=== PATIENT | female | born 1985 | race Caucasian/White ===

== ENCOUNTER 2021-02-10 07:49 | Outpatient (REF) | payer OTHER, SELFPAY ==
--- NOTE | ~2021-02-10 | MR_ITS ---
EXAMINATION: MR LUMBAR SPINE WITHOUT AND WITH CONTRAST CLINICAL INFORMATION: Acute recurrent disc herniation status post discectomy. COMPARISON: Lumbar spine MRI obtained at an outside hospital 09/04/2020. TECHNIQUE: MRI of the lumbar spine was obtained using routine sequences without and with intravenous contrast. A total of 8 mL Gadavist was intravenously administered. FINDINGS: The lumbar vertebral bodies maintain normal heights and alignment. There is mild disc height loss at L3-L4 with subtle subchondral edema. There is also mild disc height loss at L4-L5 with more robust endplate edema which has progressed compared with 09/04/2020. A hemangioma is seen at the L3 level. The distal spinal cord appears normal. The conus medullaris terminates normally at the L1-L2 level. No abnormal cauda equina nerve root enhancement is seen. The visualized paraspinal muscles and intra-abdominal and pelvic contents are within normal limits. SPINAL LEVELS: L1-L2: No posterior disc abnormality. No spinal canal or neural foraminal stenosis. L2-L3: No posterior disc abnormality. No spinal canal or neural foraminal stenosis. L3-L4: Disc bulging with shallow central protrusion with annular fissuring. No spinal canal or neural foraminal stenosis. No interval change. L4-L5: Postoperative findings of posterior decompression. Disc bulging with progressive broad-based central/right subarticular protrusion causing compression of the traversing right more than left L5 nerve roots. Mild narrowing of the bilateral neural foramina without foraminal nerve root compression. L5-S1: Disc bulging with small central protrusion. No traversing nerve root compression. Mild facet arthropathy. No spinal canal stenosis. MR/MR lumbar spine wo/w con IMPRESSION: At L4-L5 there is progressive broad-based central/right subarticular protrusion resulting in compression of the traversing right more than left L5 nerve roots. Progressive endplate edema seen across this level. At L3-L4 there is stable appearance of shallow central protrusion without nerve root compression.
== END 2021-02-10 07:50 | disposition home or self-care (01) ==
LOC: HO.MRI 07:49
PROVIDERS: Visit Provider Psychiatry & Neurology Neurology
DX: M51.26 Other intervertebral disc displacement, lumbar region (principal)
CPT/HCPCS: 72158; A9585

== ENCOUNTER → 2022-03-21 07:23 | Outpatient (REF) | payer OTHER, SELFPAY ==
--- NOTE | 2022-03-21 07:28 | CA_ITS ---
Transthoracic Echocardiogram Patient (Last, First, Middle): Catherine Be, Gender: Female Date of : 1985 Age: 36 Procedure Date: 03/21/2022 Procedure Type: Transthoracic Echocardiogram Location: OP Height: 175.26 cm Weight: 77.57 kg BSA: 1.93 m2 Heart Rate: 73 bpm BP: 118 / 60 mmHg Referring MD: Isa Asher DO Symptoms: PALPITATIONS Study Quality: Good ECG Rhythm: Sinus Conclusions: - The left ventricular systolic function is normal. The calculated ejection fraction is 59% by biplane method. - No obvious valvular pathology seen on this study. Findings Left Ventricle Normal left ventricular cavity size. There is normal left ventricular wall thickness. The left ventricular systolic function is normal. The calculated ejection fraction is 59% by biplane method. There is no evidence of regional wall motion abnormalities. Diastolic function is normal for age. LV peak GLS -18.4%. Right Ventricle Normal right ventricular cavity size and systolic function. Atria Both atria are normal in size. Aortic Valve There is a normal trileaflet aortic valve. There is no aortic valve stenosis. There is no aortic valve regurgitation. Mitral Valve The mitral valve appears normal. There is trace mitral valve regurgitation. There is no mitral valve stenosis. Pulmonic Valve The pulmonic valve is likely normal. Tricuspid Valve Normal tricuspid valve structure. There is trace tricuspid valve regurgitation. The pulmonary artery systolic pressure is normal. Great Vessels The asc aorta and aortic arch are normal in size. Venous The inferior vena cava is normal in size and collapses greater than 50% with inspiration. Pericardium/Pleural There is no evidence of pericardial effusion. Prior Study Comparison No significant change compared to prior study dated: 01/08/2008. Recommendations, Care & Conclusions No obvious valvular pathology seen on this study. Measurements 2D Linear Measurements IVSd: 0.79 0.6-0.9/0.6-1.0 cm LVIDd: 5.20 3.9-5.3/4.2-5.9 cm LVIDd Index: 2.69 2.4-3.2/2.2-3.1 cm/m2 LVIDs: 3.31 2.0-3.6 cm LVPWd: 0.57 0.7-1.1 cm LA Diam: 3.60 2.7-3.8/3.0-4.0 cm LAIDs Index: 1.87 1.5-2.3 cm/m2 LV Mass: 148.03 67-162/88-224 g LV Mass Index: 76.70 43-95/49-115 g/m2 LVOT Diam: 2.10 3.0+(-)1.3 cm 2D Systolic Function EF 4C: 61.80 >55% EF 2C: 56.00 >55% EF BiP: 58.70 >55% Mitral Valve MV Pk E: 1.13 MV PK A: 0.40 MV Decel Time: 179.00 E/A: 2.80 E'Lateral: 12.80 E'Medial: 12.20 E/E' Med: 9.30 E/E' Lat: 8.80 PHT: 52.00 MVA PHT: 4.23 Decel Fannin: 6.33 Aortic Valve AoV Pk Rajesh: 1.16 AoV Mn Rajesh: 0.83 AoV VTI: 0.28 AoV Pk Grad: 5.00 Aov Mn Grad: 3.00 AGAPITO Cont.VTI: 3.14 LVOT LVOT Pk Rajesh: 1.04 LVOT Mn Rajesh: 0.74 LVOT VTI: 0.26 LVOT Pk Grad: 4.00 LVOT Mn Grad: 3.00 LVOT Diam: 2.10 LVOT Area: 3.46 Diastolic Function MV Pk E: 1.13 MV Pk A: 0.40 E/A: 2.80 E'Medial: 12.20 E/E' Med: 9.30 E' Laterial: 12.80 E/E' Lat: 8.80 Right Ventricle TAPSE (mm): 26.70 TVS' Rajesh: 16.20 Tricuspid Valve TR Pk Rajesh: 2.25 TR Pk Grad: 20.00 RA Press: 8.00 RVSP: 28.00 Great Vessels Aorta Sinus of Valsalva: 2.80 2.0-3.5 cm Ao Asc: 2.70 2.1-3.4 cm Ao Arch: 2.00 Ao Desc: 1.20 Pulmonary Veins Pulm Vein S/D 1.10 Pulmonary Valve PV Pk Rajesh: 0.81 Peak PV Grad: 3.00 Updated in Other Vendor System with Status of Final Stephane Hauser MD electronically signed on 03/23/2022 1:59:54 PM with status of Final
== END ==
LOC: HO.CARD 07:23
PROVIDERS: PCP Internal Medicine; Visit Provider Internal Medicine
DX: R00.2 Palpitations (principal)
CPT/HCPCS: 93306; 93356

== ENCOUNTER 2022-05-11 11:37 | Outpatient (REF) | payer OTHER, SELFPAY ==
--- NOTE | ~2022-05-11 | XR_ITS ---
EXAMINATION: XR KNEE, RIGHT CLINICAL INFORMATION: Pain. COMPARISON: None TECHNIQUE: AP, lateral, tunnel, and sunrise views of the right knee. FINDINGS: Bones and soft tissues are normal. No fracture or joint effusion. Alignment is anatomic. Joint spaces are well maintained. There is minimal peripheral osteophyte formation of the medial and patellofemoral joint space compartments. No abnormal soft tissue calcification. XR/XR knee RT 4V IMPRESSION: There is minimal osteoarthritic change of the right medial and patellofemoral joint space compartments. Otherwise, unremarkable examination. EXAMINATION: XR KNEE, LEFT CLINICAL INFORMATION: Pain. COMPARISON: None TECHNIQUE: AP, lateral, tunnel, and sunrise views of the left knee. FINDINGS: Bones and soft tissues are normal. No fracture or joint effusion. Alignment is anatomic. Joint spaces are well maintained. There is a minimal peripheral osteophyte at the upper articular surface of the patella. No abnormal soft tissue calcification. IMPRESSION: There is minimal osteoarthritic change of the left patellofemoral compartment. Otherwise, unremarkable left knee.
--- NOTE | ~2022-05-11 | XR_ITS ---
EXAMINATION: XR KNEE, RIGHT CLINICAL INFORMATION: Pain. COMPARISON: None TECHNIQUE: AP, lateral, tunnel, and sunrise views of the right knee. FINDINGS: Bones and soft tissues are normal. No fracture or joint effusion. Alignment is anatomic. Joint spaces are well maintained. There is minimal peripheral osteophyte formation of the medial and patellofemoral joint space compartments. No abnormal soft tissue calcification. XR/XR knee LT 4V IMPRESSION: There is minimal osteoarthritic change of the right medial and patellofemoral joint space compartments. Otherwise, unremarkable examination. EXAMINATION: XR KNEE, LEFT CLINICAL INFORMATION: Pain. COMPARISON: None TECHNIQUE: AP, lateral, tunnel, and sunrise views of the left knee. FINDINGS: Bones and soft tissues are normal. No fracture or joint effusion. Alignment is anatomic. Joint spaces are well maintained. There is a minimal peripheral osteophyte at the upper articular surface of the patella. No abnormal soft tissue calcification. IMPRESSION: There is minimal osteoarthritic change of the left patellofemoral compartment. Otherwise, unremarkable left knee.
== END 2022-05-11 11:38 | disposition home or self-care (01) ==
LOC: HO.XRAY 11:37
PROVIDERS: PCP Internal Medicine; Visit Provider Internal Medicine
DX: M25.562 Pain in left knee (principal); M25.561 Pain in right knee
CPT/HCPCS: 73564

== ENCOUNTER 2022-06-19 16:21 | Outpatient (REF) | payer OTHER, SELFPAY ==
--- NOTE | ~2022-06-19 | XR_ITS ---
EXAMINATION: XR CHEST CLINICAL INFORMATION: Asthma COMPARISON: None TECHNIQUE: 2 views of the chest were obtained. FINDINGS: The cardiac and mediastinal contours are normal. The lungs are clear. There is no pleural lesion or pneumothorax. There are degenerative changes of spine. XR/XR chest 2V IMPRESSION: No evidence for acute disease in the chest.
[2022-06-19 16:34] LABS: MANUAL DIFF FLAG NO
[2022-06-19 17:43] LABS: Basophils Percent Auto 0.3 % (0-2); Eosinophils Absolute Auto 0.1 X10*3/uL (0.0-0.4); Eosinophils Percent Auto 0.9 % (0-4); Hemoglobin 13.4 g/dl (12.0-16.0); Imm Gran Abs Auto 0.01 X10*3/uL (0.00-0.03); Imm Gran Pct Auto 0.1 % (0.0-0.4); Lymphocytes Absolute Auto 1.7 X10*3/uL (1.2-4.9); Lymphocytes Percent Auto 23.3 % (20-40); Mean Corpuscular HGB Conc 34.4 g/dl (31.0-35.0); Mean Corpuscular Hemoglobin 31.6 pg (27.0-33.0); Mean Platelet Volume 10.3 fL (9.4-12.3); Monocytes Absolute Auto 0.5 X10*3/uL (0.1-1.2); Neutrophils Absolute Auto 5.2 x10*3/uL (2.0-8.3); Neutrophils Percent Auto 69.4 % (45-73); Platelet Count 242 X10*3/uL (160-400); Red Blood Count 4.24 X10*6/uL (4.20-5.50); White Blood Count 7.5 X10*3/uL (4.8-10.8)
[2022-06-22 09:56] LABS: Immunoglobulin E 171 kU/L (<OR=114)
== END 2022-06-19 16:22 | disposition home or self-care (01) ==
LOC: HO.LAB 16:21
PROVIDERS: PCP Internal Medicine; Visit Provider Internal Medicine Pulmonary Disease
DX: J45.909 Unspecified asthma, uncomplicated (principal); Z91.09 Other allergy status, other than to drugs and biological substances
CPT/HCPCS: 36415; 71046; 82785; 85025; 86003

== ENCOUNTER 2022-06-30 07:40 | Outpatient (REF) | payer OTHER, SELFPAY ==
--- NOTE | 2022-06-30 11:30 | PFT_ITS ---
Forced vital capacity 105%, FEV1 113%, FEV1/FVC ratio is 88. DTQ54-71 151% and MVV 94%. Post bronchodilator therapy. There is no change. Total lung capacity 100%. Residual volume 93%. Diffusion capacity 83% CONCLUSION: Normal pulmonary function test, and there is no evidence of obstructive or restrictive pulmonary disorder. MD WINNIE Wilde/CECILL / [id number]
== END 2022-06-30 07:41 | disposition home or self-care (01) ==
LOC: HO.RESP 07:40
PROVIDERS: Visit Provider Internal Medicine Pulmonary Disease
DX: J45.909 Unspecified asthma, uncomplicated (principal)
CPT/HCPCS: 94060; 94727; 94729

== ENCOUNTER 2022-11-09 07:16 | Outpatient (REF) | payer OTHER, SELFPAY ==
--- NOTE | ~2022-11-09 | MR_ITS ---
EXAMINATION: MR KNEE WITHOUT CONTRAST, LEFT CLINICAL INFORMATION: Left knee pain COMPARISON: Radiographs 05/11/2022 TECHNIQUE: MRI of the knee without contrast was performed using routine sequences on a high-field scanner. FINDINGS: MENISCI: Medial Meniscus: Intact Lateral Meniscus: Intact LIGAMENTS: Cruciate: Intact Collateral: Intact EXTENSOR MECHANISM: Intact ARTICULAR CARTILAGE/BONE: Patellofemoral Compartment: Cartilage thinning and surface irregularity of the central and medial trochlea. Minimal irregularity of the medial and lateral patellar facet has. Medial Compartment: Cartilage thinning and surface irregularity along the lateral aspect of the weightbearing femoral condyle. Focal cartilage signal heterogeneity of the posterior nonweightbearing femoral condyle. Lateral Compartment: Mild cartilage thinning of the tibia posteriorly. Small marginal osteophytes. JOINT FLUID AND BURSAE: Small joint effusion. MR/MR knee LT wo con IMPRESSION: 1. No meniscal tear. 2. Mild tricompartmental osteoarthritis with a small joint effusion.
== END 2022-11-09 07:17 | disposition home or self-care (01) ==
LOC: HO.MRI 07:16
PROVIDERS: PCP Internal Medicine; Visit Provider Internal Medicine
DX: M25.562 Pain in left knee (principal)
CPT/HCPCS: 73721

== ENCOUNTER 2022-11-29 08:11 | Outpatient (REF) | payer OTHER, SELFPAY | END 2022-11-29 08:12 | disposition home or self-care (01) | LOC: HO.MDS 08:11 | PROVIDERS: PCP Internal Medicine; Visit Provider Internal Medicine Pulmonary Disease | DX: J45.50 Severe persistent asthma, uncomplicated (principal) | CPT/HCPCS: 96372 ==

== ENCOUNTER → 2022-12-19 14:16 | Outpatient (BNVA) | payer OTHER, SELFPAY | PROVIDERS: PCP Internal Medicine; Visit Provider Internal Medicine Pulmonary Disease | DX: Z13.89 Encounter for screening for other disorder (principal) ==

== ENCOUNTER 2022-12-27 15:29 | Outpatient (REF) | payer OTHER, SELFPAY | END 2022-12-27 15:30 | disposition home or self-care (01) | LOC: HO.MDS 15:29 | PROVIDERS: Visit Provider Internal Medicine Pulmonary Disease | DX: J45.50 Severe persistent asthma, uncomplicated (principal) | CPT/HCPCS: 96372; J2357 ==

== ENCOUNTER 2023-06-26 08:49 | Outpatient (AMB) | payer OTHER, SELFPAY ==
[2023-06-26 09:01] VITALS: BMI 26.3
--- NOTE | 2023-06-26 09:01 | A.OFFVIS_ITS ---
Intake Vital Signs 06/26/23 09:01 Height 5 ft 9 in Weight 178 lb BMI 26.3 Intake Visit Reasons: New Pt - B/L knee pain Intake Note: Catherine is a 38 year old female who presents today as a new patient for a evaluation for her bilateral knee pain. No hx of injury. Patient reports off and on pain for 2 years but always has discomfort. Hx of PT with no relief. Hx of Alive with mild relief. Pain is on the lateral aspect of the knee per patient. She states that her left knee is worse than her right knee. Allergies No Known Allergies Allergy (Verified 06/26/23 09:01) HPI New Pt - B/L knee pain HPI Details 38-year-old female who presents in the [facility] today, as a new patient, for an evaluation of right knee pain. The patient does not recall any injury. She reports intermittent pain for 2 years, in 2020, with chronic discomfort. She reports she was hiking a lot. She states she has not run in about 1.5 years due to edema and pain. She claims her pain is on the lateral aspect of the bilateral knees. She claims the pain started in the left knee with edema. She states her left knee is worse then the right knee. She states the knees are not bothering her while in the office today. She confirms left knee locking. Patient has a history of participating in physical therapy with no relief. She started working on her lower back. She then transitioned to her bilateral knees. Patient confirms use of Aleve with mild relief. 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 No ecchymosis, erythema, or joint effusion. No tenderness to palpation to the medial or lateral joint lines. Full knee extension and flexion. Crepitus felt with ROM. Negative Merlyn?s. Pain is located on the lateral aspect of the bilateral knees and occasionally at the quad tendon attachment. NVI. Assessment & Plan Assessment & Plan (1) Internal derangement of left knee: Code(s): M23.92 - Unspecified internal derangement of left knee (2) Internal derangement of right knee: Code(s): M23.91 - Unspecified internal derangement of right knee Plan Ms. Be is a 38-year-old female who presents in the office today, as a new patient, for an evaluation of right knee pain. The patient does not recall any injury. She reports intermittent pain for 2 years, in 2020, with chronic discomfort. She reports she was hiking a lot. She states she has not run in about 1.5 years due to edema and pain. She claims her pain is on the lateral aspect of the bilateral knees. She claims the pain started in the left knee with edema. She states her left knee is worse then the right knee. She states the knees are not bothering her while in the office today. She confirms left knee locking. Patient has a history of participating in physical therapy with no relief. She started working on her lower back. She then transitioned to her bilateral knees. Patient confirms use of Aleve with mild relief. I discussed the role of cortisone injections while in the office today. Since she states she does not currently have pain we have agreed to defer at this time. I discussed the role of knee bracing, she would like to defer at this time. I will place a referral for a left knee MRI to further evaluate the integrity of the knee. She will call the office after it is obtained. Follow up will be after the MRI is obtained, or sooner if needed. X-rays of the right knee obtained while in the office today and reviewed by me, Rachel Torres PA-C, revealed no evidence of acute fracture or dislocation, bilaterally. Mild degenerative changes. Orders: Orders XR knee RT 2V 06/26/23 M25.569 - Pain in unspecified knee XR knee standing BI 06/26/23 M25.569 - Pain in unspecified knee XR knee LT 2V 06/26/23 M25.569 - Pain in unspecified knee MR knee LT wo con 06/26/23 M23.92 - Unspecified internal derangement of left knee Patient Instructions: Scribed for Rachel Torres PA-C by Rosi Canseco medical liaison, on 06/26/2023 at 8:52 am, EST. Coding Level of Care Code New Pt Level 4 (64206) Diagnoses Internal derangement of left knee M23.92 Internal derangement of right knee M23.91
== END 2023-06-26 09:28 | disposition home or self-care (01) ==
PROVIDERS: PCP Internal Medicine; Visit Provider Physician Assistant
DX: M23.92 Unspecified internal derangement of left knee (principal); M23.91 Unspecified internal derangement of right knee
CPT/HCPCS: 99204

== ENCOUNTER 2023-06-26 08:56 | Outpatient (REF) | payer OTHER, SELFPAY ==
--- NOTE | ~2023-06-26 | XR_ITS ---
EXAMINATION: XR knee RT 2V, XR knee standing BI, XR knee LT 2V CLINICAL INFORMATION: Female of 38 years with bilateral knee pain COMPARISON: Most recent bilateral knees radiograph: 11/09/2022 and MRI of left knee, radiographs from bilateral knees from 05/11/2022 TECHNIQUE: Bilateral weightbearing and sunrise and lateral views bilaterally. FINDINGS: LEFT KNEE: Bones and soft tissues are normal. No fracture or joint effusion. Alignment is anatomic. Joint spaces are well maintained. No abnormal soft tissue calcification. The medial, lateral and patellofemoral compartments are preserved. No evidence of osteophytosis. No evidence of erosive changes. No suprapatellar joint effusion. No evidence of chondrocalcinosis or abnormal calcifications. No intra-articular foreign body. RIGHT KNEE: Bones and soft tissues are normal. No fracture or joint effusion. Alignment is anatomic. Joint spaces are well maintained. No abnormal soft tissue calcification. The medial, lateral and patellofemoral compartments are preserved. No evidence of osteophytosis. No evidence of erosive changes. No suprapatellar joint effusion. No evidence of chondrocalcinosis or abnormal calcifications. No intra-articular foreign body. XR/XR knee RT 2V IMPRESSION: Normal left knee. Normal right knee.
--- NOTE | ~2023-06-26 | XR_ITS ---
EXAMINATION: XR knee RT 2V, XR knee standing BI, XR knee LT 2V CLINICAL INFORMATION: Female of 38 years with bilateral knee pain COMPARISON: Most recent bilateral knees radiograph: 11/09/2022 and MRI of left knee, radiographs from bilateral knees from 05/11/2022 TECHNIQUE: Bilateral weightbearing and sunrise and lateral views bilaterally. FINDINGS: LEFT KNEE: Bones and soft tissues are normal. No fracture or joint effusion. Alignment is anatomic. Joint spaces are well maintained. No abnormal soft tissue calcification. The medial, lateral and patellofemoral compartments are preserved. No evidence of osteophytosis. No evidence of erosive changes. No suprapatellar joint effusion. No evidence of chondrocalcinosis or abnormal calcifications. No intra-articular foreign body. RIGHT KNEE: Bones and soft tissues are normal. No fracture or joint effusion. Alignment is anatomic. Joint spaces are well maintained. No abnormal soft tissue calcification. The medial, lateral and patellofemoral compartments are preserved. No evidence of osteophytosis. No evidence of erosive changes. No suprapatellar joint effusion. No evidence of chondrocalcinosis or abnormal calcifications. No intra-articular foreign body. XR/XR knee standing BI IMPRESSION: Normal left knee. Normal right knee.
--- NOTE | ~2023-06-26 | XR_ITS ---
EXAMINATION: XR knee RT 2V, XR knee standing BI, XR knee LT 2V CLINICAL INFORMATION: Female of 38 years with bilateral knee pain COMPARISON: Most recent bilateral knees radiograph: 11/09/2022 and MRI of left knee, radiographs from bilateral knees from 05/11/2022 TECHNIQUE: Bilateral weightbearing and sunrise and lateral views bilaterally. FINDINGS: LEFT KNEE: Bones and soft tissues are normal. No fracture or joint effusion. Alignment is anatomic. Joint spaces are well maintained. No abnormal soft tissue calcification. The medial, lateral and patellofemoral compartments are preserved. No evidence of osteophytosis. No evidence of erosive changes. No suprapatellar joint effusion. No evidence of chondrocalcinosis or abnormal calcifications. No intra-articular foreign body. RIGHT KNEE: Bones and soft tissues are normal. No fracture or joint effusion. Alignment is anatomic. Joint spaces are well maintained. No abnormal soft tissue calcification. The medial, lateral and patellofemoral compartments are preserved. No evidence of osteophytosis. No evidence of erosive changes. No suprapatellar joint effusion. No evidence of chondrocalcinosis or abnormal calcifications. No intra-articular foreign body. XR/XR knee LT 2V IMPRESSION: Normal left knee. Normal right knee.
== END 2023-06-26 08:57 | disposition home or self-care (01) ==
LOC: HO.HOSX 08:56
PROVIDERS: Visit Provider Physician Assistant
DX: M23.92 Unspecified internal derangement of left knee (principal); M23.91 Unspecified internal derangement of right knee; M25.562 Pain in left knee; M25.561 Pain in right knee
CPT/HCPCS: 73560; 73565

== ENCOUNTER 2023-07-07 11:09 | Outpatient (REF) | payer OTHER, SELFPAY ==
--- NOTE | ~2023-07-07 | MR_ITS ---
EXAMINATION: MR KNEE WITHOUT CONTRAST, LEFT CLINICAL INFORMATION: Unspecified internal derangement of left knee. Patient reports pain, swelling. COMPARISON: MRI left knee 11/09/2022. X-ray 06/26/2023. TECHNIQUE: MRI of the knee without contrast was performed using routine sequences on a high-field scanner. FINDINGS: MENISCI: Medial Meniscus: No evidence of meniscal tear. Lateral Meniscus: In the posterior root and central posterior horn, is intrasubstance degenerative signal with minimal ill-definition/irregularity of the tibial and femoral articular surfaces and free edge, suggestive of minimal fraying. Artifactual signal on the prior MRI limits comparison. No definitive tear is otherwise seen in the lateral meniscus. LIGAMENTS: Cruciate: ACL and PCL is intact. Collateral: MCL and LCL complex is intact. EXTENSOR MECHANISM: Intact. ARTICULAR CARTILAGE/BONE: Patellofemoral Compartment: Cartilage thinning and surface irregularity of the central and medial trochlea, relatively similar to previous. Mild cartilage irregularity of the medial and central patella, slightly more prominent as compared to previous. Previously seen lateral patellar facet cartilage irregularity is not clearly visualized on today's study. Medial Compartment: Cartilage thinning and surface irregularity in the lateral aspect of the medial femoral condyle, relatively similar to previous. Lateral Compartment: Minimal cartilage thinning in the posterior weightbearing tibia. No evidence of acute fracture. No aggressive marrow-replacing lesion is seen. JOINT FLUID AND BURSAE: Small joint effusion. No significant Ellison's cyst. Mild heterogeneity of the proximal medial gastrocnemius tendon may reflect mild tendinosis. The semimembranosus tendon, pes anserine tendons appear unremarkable. MR/MR knee LT wo con IMPRESSION: 1. Minimal degenerative fraying of the posterior root/central posterior horn of the lateral meniscus. No definitive meniscal tear is otherwise seen. 2. Intact cruciate and collateral ligaments. 3. Mild tricompartment osteoarthritis, relatively similar as compared to previous. 4. Small effusion. 5. Question mild proximal medial gastrocnemius tendinosis, clinically correlate.
== END 2023-07-07 11:10 | disposition home or self-care (01) ==
LOC: HO.MRI 11:09
PROVIDERS: PCP Internal Medicine; Visit Provider Physician Assistant
DX: M23.92 Unspecified internal derangement of left knee (principal)
CPT/HCPCS: 73721

== ENCOUNTER 2023-07-25 07:25 | Outpatient (REF) | payer OTHER, SELFPAY ==
[2023-07-25 07:39] LABS: MANUAL DIFF FLAG NO
[2023-07-25 08:16] LABS: Basophils Percent Auto 0.5 % (0-2); Eosinophils Absolute Auto 0.2 X10*3/uL (0.0-0.4); Eosinophils Percent Auto 3.3 % (0-4); Hematocrit 38.2 % (37.0-47.0); Hemoglobin 13.3 g/dl (12.0-16.0); Imm Gran Abs Auto 0.01 X10*3/uL (0.00-0.03); Imm Gran Pct Auto 0.2 % (0.0-0.4); Lymphocytes Absolute Auto 2.3 X10*3/uL (1.2-4.9); Mean Corpuscular HGB Conc 34.8 g/dl (31.0-35.0); Mean Corpuscular Hemoglobin 31.7 pg (27.0-33.0); Mean Platelet Volume 10.1 fL (9.4-12.3); Monocytes Absolute Auto 0.4 X10*3/uL (0.1-1.2); Monocytes Percent Auto 6.3 % (2-11); Neutrophils Absolute Auto 3.4 x10*3/uL (2.0-8.3); Neutrophils Percent Auto 53.7 % (45-73); Platelet Count 234 X10*3/uL (160-400); Red Cell Distribution Width 12.7 % (11.0-16.0); White Blood Count 6.3 X10*3/uL (4.8-10.8)
[2023-07-25 08:21] LABS: Appearance Urine Cloudy; Color Urine Yellow; Glucose Urine UA Negative (Negative); Leukocyte Esterase Urine Negative (Negative); Nitrite Urine Negative (Negative); PH 5.5 (5.0-9.0); Specific Gravity - Urine 1.025 (1.005-1.025); Urine Blood Negative (Negative); Urine Ketones Negative (Negative); Urine Protein Negative (Neg-Trace)
[2023-07-25 09:01] LABS: Alanine Aminotransferase 14 U/L (0-31); Albumin Level 4.3 g/dL (3.5-5.0); Alkaline Phosphatase 57 U/L (39-117); Anion Gap 11 (12-20); Aspartate Amino Transferase 21 U/L (5-31); Bilirubin Direct 0.2 mg/dL (0.0-0.5); Bilirubin Total 0.8 mg/dL (0.0-1.0); Blood Urea Nitrogen 16 mg/dL (9-16); Calcium 9.6 mg/dL (8.4-10.2); Carbon Dioxide 24 mmol/L (22-29); Chloride 109 mmol/L (96-108); Cholesterol 180 mg/dL (<200); Estimated Glomerular Filt Rate > 60; Glucose Random 89 mg/dL (60-115); HDL Cholesterol 47 mg/dL (>40); LDL Cholesterol Calculated 105 mg/dL (<100); Potassium 3.8 mmol/L (3.3-5.1); Sodium 140 mmol/L (135-145); Total Protein 7.1 g/dL (6.5-8.0); Triglycerides 143 mg/dL (<150)
[2023-07-25 09:08] LABS: Thyroid Stimulating Hormone 4.08 uIU/mL (0.32-4.0); Vitamin D 25-OH Total 31.4 ng/mL (>30)
== END 2023-07-25 07:26 | disposition home or self-care (01) ==
LOC: HO.LAB 07:25
PROVIDERS: PCP Internal Medicine; Visit Provider Internal Medicine
DX: Z00.00 Encounter for general adult medical examination without abnormal findings (principal); Z86.39 Personal history of other endocrine, nutritional and metabolic disease
CPT/HCPCS: 36415; 80048; 80061; 80076; 81003; 82306; 84443; 85025

== ENCOUNTER 2023-07-27 11:38 | Outpatient (AMB) | payer OTHER, SELFPAY ==
--- NOTE | 2023-07-27 11:32 | A.OFFVIS_ITS ---
Intake Intake Visit Reasons: Tele - MRI review, left knee Intake Note: Catherine is a 38 year old female who presents today on the phone for a telehealth visit for a MRI review for her left knee. Allergies No Known Allergies Allergy (Verified 07/27/23 11:42) HPI Tele - MRI review, left knee HPI Details 38-year-old female who presents for a te lehealth visit today for a follow up of left knee pain and review of her MRI. She states the pain does not radiate and remains in the knee. Patient has a history of prior back surgeries. L4 L5 laminectomy in 2019. L3 S1 fusion in 2020 L4 L[address] Abbott at [facility]. Patient is currently followed by a Neurosurgeon, Dr. Abbott. 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 Assessment & Plan Assessment & Plan (1) Lumbar radiculopathy: Code(s): M54.16 - Radiculopathy, lumbar region Plan Ms. Be is a 38-year-old female who presents for a telehealth visit today for a follow up of left knee pain and review of her MRI. She states the pain does not radiate and remains in the knee. Patient has a history of prior back surgeries. L4 L5 laminectomy in 2019. L3 S1 fusion in 2020 L4 L5 [address] Abbott at [facility]. Patient is currently followed by a Neurosurgeon, Dr. Abbott. I discussed the possibility of the pain coming from the spine. The patient will follow up with her neurosurgeon for further evaluation of her lumbar spine. In the event everything is normal with the spine pathology, she will contact the office and let me know so we can continue to pursue why she is having the knee pain. Follow up will be PRN, or sooner If needed. MRI of the left knee, obtained on 07/07/2023, revealed: 1. Minimal degenerative fraying of the posterior root/central posterior horn of the lateral meniscus. No definitive meniscal tear is otherwise seen. 2. Intact cruciate and collateral ligaments. 3. Mild tricompartment osteoarthritis, relatively similar as compared to previous. 4. Small effusion. 5. Question mild proximal medial gastrocnemius tendinosis, clinically correlate. Patient Instructions: Scribed for Rachel Torres PA-C by Rosi Canseco medical receptionist, on 07/27/2023 at 11:33 am, EST. Telehealth Telehealth Location of provider rendering services: practice address Location of patient: address on file Patient Identification confirmed using: Name, : Yes Telehealth method: voice only Patient verbally consented to treatment: Yes Patient verbally consented to billing insurance company: Yes Patient informed of any privacy concerns related to visit: Yes Minutes spent on Phone/Video with Pt.: 8 Coding Level of Care Code Tele Est Pt Level 3 (48085) Diagnoses Lumbar radiculopathy M54.16
== END 2023-07-27 12:23 | disposition home or self-care (01) ==
PROVIDERS: PCP Internal Medicine; Visit Provider Physician Assistant
DX: M54.16 Radiculopathy, lumbar region (principal)
CPT/HCPCS: 99441

== ENCOUNTER → 2023-07-27 11:39 | Outpatient (BNVA) | payer OTHER, SELFPAY | PROVIDERS: PCP Internal Medicine; Visit Provider Physician Assistant ==

== ENCOUNTER 2023-08-21 14:15 | Outpatient (REF) | payer OTHER, SELFPAY ==
[2023-08-21 14:51] LABS: Appearance Urine Clear; Color Urine Yellow; Glucose Urine UA 250 mg/dL (Negative); Leukocyte Esterase Urine Trace (Negative); Nitrite Urine Negative (Negative); PH 6.5 (5.0-9.0); Specific Gravity - Urine 1.025 (1.005-1.025); UMIC TRIGGER UACC YES; Urine Blood Negative (Negative); Urine Ketones Trace mg/dL (Negative); Urine Protein Negative (Neg-Trace)
[2023-08-21 14:54] LABS: Bacteria Urine None Seen (None Seen); Hyaline Casts Urine 0-2 /LPF (0-2); RBC Urine 0-2 /HPF (0-2); Squamous Epithelial Cell Urine 0-2 /HPF (0-2); UACC Culture Trigger YES
== END 2023-08-21 14:16 | disposition home or self-care (01) ==
LOC: HO.LAB 14:15
PROVIDERS: Visit Provider Physician Assistant
DX: R39.89 Other symptoms and signs involving the genitourinary system (principal)
CPT/HCPCS: 81001; 87086; 87088; 87186

== ENCOUNTER 2023-10-18 07:21 | Outpatient (REF) | payer OTHER, SELFPAY ==
[2023-10-18 08:15] LABS: Appearance Urine Cloudy; Color Urine Yellow; Glucose Urine UA 100 mg/dL (Negative); Leukocyte Esterase Urine Negative (Negative); Nitrite Urine Negative (Negative); PH 5.5 (5.0-9.0); Specific Gravity - Urine 1.025 (1.005-1.025); Urine Blood Negative (Negative); Urine Ketones Negative (Negative); Urine Protein Negative (Neg-Trace)
[2023-10-18 08:32] LABS: Bacteria Urine 3+ (None Seen); Hyaline Casts Urine 0-2 /LPF (0-2); RBC Urine 0-2 /HPF (0-2); WBC Urine 0-5 /HPF (0-5)
== END 2023-10-18 07:22 | disposition home or self-care (01) ==
LOC: HO.LAB 07:21
PROVIDERS: PCP Nurse Practitioner; Visit Provider Nurse Practitioner
DX: R82.90 Unspecified abnormal findings in urine (principal)
CPT/HCPCS: 81001

== ENCOUNTER 2023-11-07 07:09 | Outpatient (REF) | payer OTHER, SELFPAY ==
[2023-11-07 08:34] LABS: Anion Gap 9 (12-20); Blood Urea Nitrogen 16 mg/dL (9-16); Calcium 9.1 mg/dL (8.4-10.2); Carbon Dioxide 25 mmol/L (22-29); Chloride 109 mmol/L (96-108); Estimated Glomerular Filt Rate > 60; Glucose Random 98 mg/dL (60-115); Potassium 4.4 mmol/L (3.3-5.1); Sodium 139 mmol/L (135-145)
== END 2023-11-07 07:10 | disposition home or self-care (01) ==
LOC: HO.LAB 07:09
PROVIDERS: PCP Internal Medicine; Visit Provider Nurse Practitioner
DX: R81 Glycosuria (principal)
CPT/HCPCS: 36415; 80048

== ENCOUNTER 2024-05-01 13:43 | Outpatient (AMB) | payer OTHER, SELFPAY ==
--- NOTE | 2024-05-01 13:50 | MHC.OFFVIS ---
Intake Visit Reasons: OV - B/L knee pain Intake Note: Catherine is a 38 year old female who presents today for a follow up of her bilateral knee pain. Patient reports that her pain has been getting worse. She mentions that she hears a click sound when she is walking. She mentions that she is having trouble with using the stairs. Patient is noticing that her pain is getting worse. Allergies No Known Allergies Allergy (Verified 07/27/23 11:42) HPI HPI OV - B/L knee pain : Details: 38-year-old female who presents in the office today for a follow-up of bilateral knee pain. I last saw the patient in the office for an MRI review of the left knee on 07/27/23 when we agreed she would follow up with her neurosurgeon. ? ? While in the office today, the patient reports her bilateral knee is getting worse. She reports hearing clicking when ambulating. She also reports trouble when using stairs. ? 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 Review of Systems Const All systems reviewed & are unremarkable except as noted in HPI and below Physical Exam Const General: cooperative, healthy appearing and no acute distress Resp Effort & Inspection: normal respiratory effort and able to speak in complete sentences Cardio Rate: regular rate Peripheral pulses: Peripheral pulses 2+ throughout GI Palpation (GI): Soft to palpation Skin Lesions: no lesions Rashes: no rashes Assessment & Plan Assessment & Plan (1) Osteoarthritis of right knee: Code(s): M17.11 - Unilateral primary osteoarthritis, right knee Category: Medical (2) Osteoarthritis of left knee: Code(s): M17.12 - Unilateral primary osteoarthritis, left knee Category: Medical Plan Ms. Be is a 38-year-old female who presents in the office today for a follow-up of bilateral knee pain. I last saw the patient in the office for an MRI review of the left knee on 07/27/23 when we agreed she would follow up with her neurosurgeon.? While in the office today, the patient reports her bilateral knee is getting worse. She reports hearing clicking when ambulating. She also reports trouble when using stairs.?? ? We discussed the role of cortisone injections; however, she would like to defer this at this time as her symptoms are not painful. She expressed a concern about feeling crepitus with her ROM. No additional orthopedic intervention is needed at this time. Follow-up will be PRN, or sooner if needed. ? Patient Instructions: Scribed by Rosi Canseco medical equipment repairer, for Rachel Torres PA-C on 05/01/2024 at 2:01 pm, EST.? Coding Level of Care Code Est Pt Level 3 (89720) Diagnoses Osteoarthritis of right knee M17.11 Osteoarthritis of left knee M17.12
== END 2024-05-01 14:26 | disposition home or self-care (01) ==
PROVIDERS: PCP Internal Medicine; Visit Provider Physician Assistant
DX: M17.0 Bilateral primary osteoarthritis of knee (principal)
CPT/HCPCS: 99213

== ENCOUNTER → 2024-05-01 13:43 | Outpatient (BNVA) | payer OTHER, SELFPAY | PROVIDERS: PCP Internal Medicine; Visit Provider Physician Assistant ==

== ENCOUNTER 2024-07-10 07:35 | Outpatient (REF) | payer OTHER, SELFPAY ==
[2024-07-10 08:02] LABS: Hematocrit 40.6 % (37.0-47.0); Hemoglobin 14.5 g/dl (12.0-16.0); Mean Corpuscular HGB Conc 35.7 g/dl (31.0-35.0); Mean Corpuscular Volume 89.6 fL (80.0-98.0); Mean Platelet Volume 9.9 fL (9.4-12.3); Platelet Count 198 X10*3/uL (160-400); Red Blood Count 4.53 X10*6/uL (4.20-5.50); Red Cell Distribution Width 12.4 % (11.0-16.0); White Blood Count 5.9 X10*3/uL (4.8-10.8)
[2024-07-10 08:10] LABS: Appearance Urine Clear; Color Urine Yellow; Glucose Urine UA Negative (Negative); Leukocyte Esterase Urine Negative (Negative); Nitrite Urine Negative (Negative); PH 5.5 (5.0-9.0); Specific Gravity - Urine 1.015 (1.005-1.025); Urine Blood Negative (Negative); Urine Ketones Negative (Negative); Urine Protein Negative (Neg-Trace)
[2024-07-10 08:53] LABS: Alanine Aminotransferase 17 U/L (0-31); Albumin Level 4.6 g/dL (3.5-5.0); Alkaline Phosphatase 56 U/L (39-117); Anion Gap 11 (12-20); Aspartate Amino Transferase 21 U/L (5-31); Bilirubin Direct 0.3 mg/dL (0.0-0.5); Bilirubin Total 0.8 mg/dL (0.0-1.0); Blood Urea Nitrogen 12 mg/dL (9-16); Calcium 9.8 mg/dL (8.4-10.2); Carbon Dioxide 25 mmol/L (22-29); Chloride 105 mmol/L (96-108); Cholesterol 170 mg/dL (<200); Estimated Glomerular Filt Rate > 60; Glucose Random 104 mg/dL (60-115); HDL Cholesterol 47 mg/dL (>40); LDL Cholesterol Calculated 110 mg/dL (<100); Potassium 4.6 mmol/L (3.3-5.1); Sodium 136 mmol/L (135-145); Total Protein 7.5 g/dL (6.5-8.0); Triglycerides 68 mg/dL (<150)
[2024-07-10 09:09] LABS: Thyroid Stimulating Hormone 4.23 uIU/mL (0.32-4.0)
== END 2024-07-10 07:36 | disposition home or self-care (01) ==
LOC: HO.LAB 07:35
PROVIDERS: PCP Internal Medicine; Visit Provider Internal Medicine
DX: Z00.00 Encounter for general adult medical examination without abnormal findings (principal)
CPT/HCPCS: 36415; 80048; 80061; 80076; 81003; 84443; 85027

== ENCOUNTER 2024-10-25 15:25 | Emergency (ER) | payer OTHER, SELFPAY ==
[2024-10-25 15:43] VITALS: BP 141/75; PULSE 86; RESP 19; TEMP 36.6; O2SAT 98; BMI 26.0
--- NOTE | 2024-10-25 15:43 | ED.WOUNDLAC ---
HPI - Wound/Laceration General Chief Complaint: Wound/Laceration Stated Complaint: left thumb laceration Time Seen by Provider: 10/25/24 16:00 Source: patient and old records reviewed Mode of arrival: ambulatory Limitations: no limitations History of Present Illness ED Provider: Yadira Sousa PA-C HPI narrative: 39 yo F w/PMHx asthma presenting to the ED c/o laceration to left thumb s/p using knife at home [employer]. Tetanus unknown. Admits to assoc parathesias/tingling. denies injury to other area. Right hand dominant Related Data Home Medications ?Medication ?Instructions ?Recorded ?Confirmed erenumab-aooe 140 mg/mL mg subcut Q3W 06/13/22 subcutaneous auto-injector (Aimovig Autoinjector) fluticasone propionate 50 2 spray intranasal DAILY 06/13/22 mcg/actuation nasal spray,suspension norethindrone (contraceptive) 0.35 0.35 mg PO DAILY 06/13/22 mg tablet (Incassia) trazodone 50 mg tablet 50 mg PO BEDTIME PRN 06/13/22 Previous Rx's ?Medication ?Instructions ?Recorded albuterol sulfate 90 mcg/actuation 2 puff inhalation Q4-6H PRN 12/19/22 aerosol inhaler shortness of breath or wheezing 30 days #1 ea Breo Ellipta 200 mcg-25 mcg/dose 1 ea PO DAILY #60 ea 01/04/23 powder for inhalation (fluticasone furoate-vilanterol) Allergies Allergy/AdvReac Type Severity Reaction Status Date / Time No Known Allergies Allergy Verified 10/25/24 15:44 Review of Systems Review of Systems: Yes all other systems are reviewed and are negative Constitutional: Constitutional: Reports as per HPI [facility] Past Medical History Attestation statement: The following information was validated with the patient. 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 Physical Exam Vital Signs: Vital Signs: Last Vital Signs Temp 98 F 10/25/24 15:43 Pulse 86 10/25/24 15:43 Resp 19 10/25/24 15:43 BP 141/75 H 10/25/24 15:43 Pulse Ox 98 10/25/24 15:43 O2 Del Method Room Air 10/25/24 15:43 BMI result Body Mass Index 26.0 Const: General: cooperative, healthy appearing and no acute distress Orientation/consciousness: patient oriented x3 Limitations: no limitations HEENT: Head: Yes normal to inspection and Yes atraumatic Ears: hearing grossly normal bilaterally General nose exam: Normal external nose present Face and sinus: Yes normal facial exam Eyes: General: appearance normal, both eyes and all related structures EOM: EOMs intact bilaterally Neck: Neck: Yes normal visual inspection and Yes no meningeal signs Resp: Effort & Inspection: normal respiratory effort and no respiratory distress Cardio: Rate: regular rate Skin: Other: 1 cm superficial laceration noted to left 1st digit DIP. Underlying structures appear intact. Full range of motion intact. Lzynoj-yi-ctyxg opposition intact Rashes: no rashes Neuro: General: patient oriented x3, tone normal and no meningeal signs Cranial nerves: Yes CN's II-XII intact bilaterally Gait exam (Neuro): Normal gait present Extrem: General: Yes normal to inspection Course Course Course Narrative: 39 yo female with PMH of arthritis, asthma here with c/o L thumb laceration via knife at home reports on the dorsum thumb knuckle went down to the bone. Tdap ordered, possible sutures this is a RAPID medical screening exam the rest of the history and physical exam is to be done by the main provider. Medications Administered Discontinued Medications Generic Name Dose Route Start Last Admin Trade Name Freq PRN Reason Stop Dose Admin Diphtheria/Tetanus/Acell Pertussis 0.5 ml 10/25/24 15:44 10/25/24 15:53 Diphth,Pertus(Acell),Tet Adult 0.5 Ml Syringe IM 10/25/24 15:45 0.5 ml .ONCE ONE Administration Lidocaine HCl 5 ml 10/25/24 15:44 10/25/24 15:53 Lidocaine Hcl 1 % Mpf 5 Ml Vial SUBCUT 10/25/24 15:45 5 ml ONCE ONE Administration Medical Decision Making Medical Decision Making MDM Narrative: 39 yo F w/PMHx asthma presenting to the ED c/o laceration to left thumb s/p using knife at home [employer]. On exam vital signs stable, NAD, nontoxic appearing, physical exam as noted above. Laceration requiring suture repair. Low suspicion for deeper injury including tendon/ligamental rupture or fracture Plan: Suture repair, tetanus update Please refer to course for remaining clinical decision making, interpretation of labs/imaging results, and discussions with consultants and/or family members. Results discussed with patient including worrisome signs and symptoms and strict return precautions, and when to return to the emergency department. They verbalized understanding and feel safe for discharge at this time. Differential Diagnosis Differential Diagnoses: The differential diagnosis associated with the presentation includes As above External Record Review External record reviewed: Inpatient record, Office record, Outpatient record, Prior outpatient labs, Prior outpatient radiology, Primary care record and Outside ED record Tests considered The following testing was considered but not selected: As above Prescription Management I considered prescription management with: Other Chronic Conditions Patient?s care impacted by: Other Procedures Laceration Laceration 1: Site: hand Side (If applicable): left Size (cm): 1 Description: linear Depth: simple, single layer Local Anesthetic: lidocaine 1% Amount of anesthesia used (mL): 3 Pre-repair: wound explored, irrigated extensively and deep structures intact Skin layer closed with: nylon Size (cm): 4-0 Number of sutures: 2 Technique: simple, interrupted Discharge Plan Discharge Clinical Impression: Laceration Patient Disposition: Home, Self-Care Instructions: Laceration (DC) Additional Instructions: Your wounds were repaired today in the emergency department. Keep dry and clean. You need to return to any emergency department, urgent care, or your PCPs office in 7-10 days for suture removal Apply bacitracin and or Neosporin daily Once sutures are removed apply anti scar cream like Mederma If area begins look infected, is red, there is drainage, streaking, or you have fever please return to the emergency department Prescriptions: No Action fluticasone furoate-vilanterol [Breo Ellipta] 200-25 mcg/dose blister with device 1 ea PO DAILY Qty: 60 6RF fluticasone propionate 50 mcg/actuation spray,suspension 2 spray intranasal DAILY trazodone 50 mg tablet 50 mg PO BEDTIME PRN Aimovig Autoinjector 140 mg/mL auto-injector subcut Q3W norethindrone (contraceptive) [Incassia] 0.35 mg tablet 0.35 mg PO DAILY albuterol sulfate 90 mcg/actuation HFA aerosol inhaler 2 puff inhalation Q4-6H PRN (Reason: shortness of breath or wheezing) 30 Days Qty: 1 6RF Referrals: ED Physician,Kamlesh [Emergency Provider] - 1 week Isa Flores DO [Primary Care Provider] - 1 week Print Language: Frisian
[2024-10-25] MEDS: Diphth,Pertus(ACell),Tet Adult 0.5 ML SYRINGE IM (15:53)
[2024-10-25] MEDS: Lidocaine HCl 1 % MPF 5 ML VIAL SUBCUT (15:53)
--- OUTSIDE RECORDS SUMMARY | 2024-10-25 16:13 | XMS_ITS | Encounter Summary ---
Author Organization [facility] Address [address] [place] [address] Care Team Providers Care Work Order Detailer Name Role Phone Brennan Cagle MD Primary Care Provider [phone] Eulalia Angel HEAVY EQUIPMENT SALES ASSOCIATE Unavailable [phone] Eulalia Angle NP Primary Care Provider [phone] Erin Yancey MD Primary Care Provider Unavailabl e Eulalia Angel HEAVY EQUIPMENT SALES ASSOCIATE Unavailable [phone] Eulalia Angel NP Primary Care Provider Valentino Seals MD Primary Care Provider [phone] Encounter Details Date Type Department Care Team (Late st Contact Info) Description 02/25/2019 Orders Only [facility] [address] [place] [address] Eulalia Angel NP [address] [facility] [address] [place] [address] Social History Tobacco Use Types Packs/Day Years Used Date Smoking Tobacco: Every Day Cigarettes Smokeless Tobacco: Current Comments No Sex and Gender Information Value Date Recorded Sex Assigned at Not on file Legal Sex Female 2:47 PM EDT Gender Identity Not on file Sexual Orientation Not on file documented as of this encounter Progress Notes * Eulalia Angel NP - 02/26/2019 8:04 AM EDT Mildly abnormal antibodies- will recheck in 3 months. * Eulalia Angel NP - 02/26/2019 7:36 AM EDT I am awaiting final thyroid labs but so far all is normal. As far as cholesterol your triglyceridesar mildly elevated and your LDL( bad cholesterol) is slightly elevated as well. I have enclosed some information for your review. Fats in the Diet, Good and Bad: Recommendations for a Healthy Diet Are all fats bad? Not all fat is bad. You need to have some fat in your diet for good health because: Fat provides calories, which give you energy. Fat is used by your body to make hormonelike substances that control blood pressure and other heartfunctions. Fat helps the body absorb some nutrients, such as vitamins A, D, E, and K. Certain antioxidants arealso absorbed much better if fat is present. (Antioxidants help keep the body's cells healthy.) Some fats found in plant oils and fish can help prevent chronic disease. In addition, fats and oils add flavor, aroma, and texture to food, helping the food taste good. Most fats are found in meat, poultry, fish, dairy products, plant oils, and packaged convenience and snack foods. One problem with all fats (even the healthy fats) is that they are very high in calories. Fats have9 calories per gram of fat while carbohydrates or protein have 4 calories per gram. Eating more calories than your body can use causes weight gain. Weight gain increases your risk for developing health problems. These health problems include high blood pressure, high cholesterol, type 2 diabetes, heart disease, stroke, cancer, gallstones, and gout. Which fats are the bad fats? Saturated and trans fats are the more harmful fats. You should not get more than 10% of your total daily calories from saturated fat. Limiting the saturated fat to 7% of your total calories can loweryour risk for heart disease even more. You should eat as little trans fat as possible. Saturated fats are mainly in animal products such as meats; poultry (mostly in dark meat and skin);lard, and whole and low-fat dairy products, including milk, cheese, ice cream, butter, and sour cream. Eating too much saturated fat can raise your cholesterol level and increase your risk of heart disease. Meals high in saturated fat can also cause sudden increases in triglycerides and other bloodfats. This, in turn, decreases blood flow through the arteries and heart. Trans fats can be found naturally in some animal products, but most of the trans fats in our diet are made with a process called hydrogenation. It is done to keep fat from going rancid and to change the form of the fat from a liquid to a solid. Hydrogenated fats are used in stick margarine, some soft margarines, shortening, packaged convenience foods, and many commercially baked or fried foods and fast foods such as cakes, cookies, chips, popcorn, Brazilian fries, and ice cream. Hydrogenated fats (trans fats) may be even more dangerous for the heart than saturated fat and may increase the risk of some cancers. Food manufacturers must list the amount of trans fat and saturated fat on the Nutriti on Facts label of packaged foods. Tropical oils (palm, coconut, and cocoa butter) are also high in saturated fat, but it is not knownif these fats have the same harmful effect on the heart as the saturated fat in animal products. Some tropical oils are less saturated than others (for example, palm fruit oil contains only half as much saturated fat as palm kernel oil). For now, eating as little saturated fat as possible is still t he general dietary recommendation. What is cholesterol? Cholesterol is a fatty substance that has both good and bad effects on the body. Your body uses cholesterol to make hormones and to build and maintain cells. However, when your body has too much cholesterol, deposits of fat called plaque form inside blood vessel manuel. The blood vessel manuel thicken and the vessels become narrow--a condition called atherosclerosis. This change in the blood vessels reduces blood flow through the blood vessels and can lead to heart attacks or strokes. You can get cholesterol by eating animal products such as meat, eggs, and dairy products. Your liver also makes cholesterol from other nutrients you eat (fats, carbohydrates, and proteins). Which fats are good fats? Polyunsaturated and monounsaturated fats are good, or beneficial, fats and oils. Some of these fatsare considered essential, meaning that you need them for good health. Polyunsaturated fats are found mostly in fish and safflower, corn, soybean, sunflower, and cottonseed oils. Monounsaturated fats are found mainly in canola, olive, and peanut oils, as well as most nuts. Recently a lot of attention has been given to some of the fatty acids that make up poly and monounsaturated fats. Three important fatty acids are called omega- 3, omega-6, and omega-9. Rives-3 fatty acids are found in fish and some plants. They are good for heart health. They may reduce the risk of stroke, high blood pressure, and other chronic disease. Good sources are oily fish such as salmon, mackerel and tuna. Rives 3 fatty acids are also in fish oil supplements. Check with your healthcare provider before taking supplements. Fish oil supplements may cause bleeding in some people, especially if they are taken with blood-thinning medicines. Good plant sources for omega-3 fatty acids are canola oil, soybeans, flaxseed, avocado, and some types of nuts, especially walnuts and almonds. Rives-6 fatty acid is found in corn, safflower, soybean, and sunflower oils. Rives-9 fatty acid is found in olive oil, canola oil, and avocados. It is likely that the balance of fatty acids is very important. The [place] diet typically contains too much omega-6 fatty acid and not enough omega-3 fatty acid. How much fat do I need in my diet? Eating some fat???especially the good fats--is healthful, but many Americans eat too much and become overweight. The current [place] Heart Association Diet and Lifestyle Recommendations are: Get no more than 20 to 35% of your total calories from fat. Get no more than 7 to 10% of your calories from saturated fat. For example, if you eat 2000 calories a day, you should eat no more than 15 to 20 grams (g) of saturated fat. Don???t eat trans fats at all or limit them to less than 1% of your calories. Eat less than 300 milligrams (mg) of cholesterol a day. If you have heart disease, you should eat less than 200 mg a day. How can I cut down on the fat in my diet? You can cut down on the fat in your diet by eating fewer high-fat animal products, such as red meat, poultry with skin, whole-milk dairy products, and fried foods. Even healthy fats, such as oils, nuts, seeds, and avocado, are high in calories and should be eaten in limited amounts. Eat more fruits, vegetables, and whole grains. Start thinking about eating less fat when you shop for groceries. Try to follow these suggestions: Read food labels. Choose sour cream, cream cheese, cheese, yogurt, and milk products that are nonfat or low fat. Cook with canola or olive oil instead of butter and margarine. Choose fats and oils that contain less than 2 g of saturated fat per tablespoon. Always watch your portion size because all fats are high in calories. Buy only lean cuts of meat, such as poultry breast without skin; pork tenderloin; flank, round or sirloin beef; and low-sodium ham. Cook lean. Bake, broil, grill, steam, microwave, and saut?? foods instead of frying them. Have a meatless dinner a few times a week. Beans are a great alternative to meat. Use low-fat or fat-free salad dressings. Try a flavored vinegar on your salad. It contains no fat and can have lots of flavor. Try to have cookies and desserts only as a special treat, not every day. Prepare baked desserts at home, using healthy oils, egg whites, and fruit purees for sweetening. Steam vegetables with herbs in the microwave, or saut?? them in a small amount of healthy oil or cooking spray, instead of cooking them with butter. Avoid trans fats by choosing fewer packaged convenience foods and checking labels for saturated fatand trans fat content. Eat fish, especially fatty fish, at least 2 times a week (not fried). Fast food can be very high in total fat, saturated fat, and trans fat. Try not to eat a lot of it. Choose grilled chicken or a salad with fat-free or low-fat dressing. Ask for nutrition information brochures from fast-food restaurants so that you can choose wisely. For a healthy snack, choose fresh fruits or yogurt instead of high-fat fried snacks or sweets. Not all fat is bad, but it can be unhealthy if you eat too much. Eating a diet low in saturated fat, trans fat, and cholesterol can help lower your blood cholesterol and improve the blood flow through your arteries. Eating less harmful fat and getting regular exercise will help lower your risk of heart attack and stroke. It will also help you keep a healthy weight or lose weight if you are overweight. Pay attention to the amounts and kinds of fat in your diet. Lowering the fat in your diet can be your first step to a healthier diet and a healthier you. documented in this encounter Plan of Treatment Not on file documented as of this encounter Goals Goal Patient Goal Type Associated Problems Recent Progress Patient-Stated? Author Quit smoking / using tobacco Lifestyle Gabby Bledsoe CMA Note: Smoking can cause cancer, heart attacks, hardening of the arteries, bronchitis, emphysema, cough, shortness of breath, wrinkles, and premature aging and premature births. Some benefits of quitting smoking begin right away. Your risk of heart disease begins to decrease as soon as you quit. Your general health may also start to improve immediately because you are not irritating your lungs and more oxygen gets to your body organs. Your blood circulation is likely to get better. Other benefits may include fewer colds and lung infections as well as reduced risk of high blood pressure, stroke, and cancer. Interested in quitting smoking? Discuss medication options with your provider or contact the Quit To Win program at . Any insurance accepted. Quit smoking resources-[email or web address] documented as of this encounter Procedures * Due to [place] state law, this organization might not be sharing negative HIV tests. Procedure Name Priority Date/Time Associated Diagnosis Comments THYROID PEROXIDASE AND THYROGLOBULIN ANTIBODIES Routine 02/25/2019 4:41 PM EDT Screening for endocrine, nutritional, metabolic and immunity disorder TSH, 3RD GENERATION Routine 02/25/2019 4 :41 PM EDT Screening for endocrine, nutritional, metabolic and immunity disorder T4, FREE, SERUM Routine 02/25/2019 4:41 PM EDT Screening for endocrine, nutritional, metabolic and immunity disorder HEMOGLOBIN A1C Routine 02/25/2019 4:41 PM EDT Screening for endocrine, nutritional, metabolic and immunity disorder LIPID PANEL WITH REFLEX TO DIRECT LDL Routine 02/25/2019 4:41 PM EDT Screening for endocrine, nutritional, metabolic and immunity disorder BASIC METABOLIC PANEL WITH (GFR) Routine 02/25/2019 4:41 PM EDT Screening for endocrine, nutritional, metabolic and immunity disorder documented in this encounter Results * Due to [place] state law, this organization might not be sharing negative HIV tests. * (ABNORMAL) THYROID PEROXIDASE AND THYROGLOBULIN ANTIBODIES (05/28/2019 11:47 AM EDT) Thyroglobulin Ab <1 < or = 1 IU/mL [facility] Thyroperoxidase Ab 12(H) <9 IU/mL Q [facility] 05/28/2019 11:4 7 AM EDT 05/29/2019 1:31 AM EDT Narrative Resulting Agency Comment [id number] Brennan Cagle MD LABORATORY Final Result Performing Organization Address [facility]/ZIP Co de Phone Number [facility] [address] [place] [address] * (ABNORMAL) THYROID PEROXIDASE AND THYROGLOBULIN ANTIBODIES (02/25/2019 4:41 PM EDT) Thyroglobulin Ab <1 < or = 1 IU/mL [facility] Thyroperoxidase Ab 18(H) <9 IU/mL Q [facility] 02/25/2019 4:41 PM EDT 02/26/2019 1:51 AM EDT Narrative Resulting Agency Comment [id number] Brennan Cagle MD LABORATORY Final Result Performing Organization Address City/[facility]/ZIP Co de Phone Number [facility] [address] [place] [address] * T4, FREE, SERUM (02/25/2019 4:41 PM EDT) FT4 0.9 0.8 - 1.8 ng/dL [facility] 02/25/2019 4:41 PM EDT 02/26/2019 1:51 AM EDT Narrative Resulting Agency Comment [id number] Brennan Cagle MD LABORATORY Final Result Performing Organization Address City/[facility]/ZIP Co de Phone Number [facility] [address] [place] [address] * TSH, 3RD GENERATION (02/25/2019 4:41 PM EDT) TSH 2.42 mIU/L [facility] Comment: ?Reference Range ?> or = 20 Years ??0.40-4.50 ? Ranges ?First trimester ?0.26-2.66 ?Second trimester ?? 0.55-2.73 ?Third trimester ?0.43-2.91 02/25/2019 4:41 PM EDT 02/26/2019 1:51 AM EDT Narrative Resulting Agency Comment [id number] Brennan Cagle MD LABORATORY Final Result Performing Organization Address City/State/[facility] Co de Phone Number [facility] [address] [place] [address] * BASIC METABOLIC PANEL WITH (GFR) (02/25/2019 4:41 PM EDT) Glucose 81 65 - 99 mg/dL [facility] Comment:Fasting reference in terval Urea Nitrogen Blood (BUN) 14 7 - 25 mg/dL [facility] Creatinine 0.76 0.50 - 1.10 mg/dL [facility] EGFR 102 > OR = 60 mL/min/1. 73m2 [facility] GFR () 119 > OR = 60 mL/min/1. 73m2 [facility] BUN/Creatinine Ratio NOT APPLICABLE 6 - 22 (calc) [facility] Sodium 138 135 - 146 mmol/L [facility] Potassium 4.7 3.5 - 5.3 mmol/L [facility] Chloride 103 98 - 110 mmol/L [facility] Carbon dioxide 28 20 - 32 mmol/L [facility] Calcium 9.9 8.6 - 10.2 mg/dL [facility] 02/25/2019 4:41 PM EDT 02/26/2019 1:51 AM EDT Narrative [facility] - 02/26/2019 5:13 AM EDT Please note that this estimated GFR does not include an adjustment for the patient's height or weight, and can therefore, be viewed as reliable only for patients with heights between 60 and 72 . More precise quantification using a 24-hour urine sample or height-based algorithm is recommended for patients outside of this range of height and for those individuals with more precise needs for GFR calculation. Resulting Agency Comment [id number] Brennan Cagle MD LABORATORY Final Result Performing Organization Address [facility] de Phone Number [facility] [address] [place] [address] * HEMOGLOBIN A1C (02/25/2019 4:41 PM EDT) Hemoglobin A1C 5.4 <5.7 % of total Hgb [facility] Comment: For the purpose of screening for the presence of diabetes: <5.7% ? Consistent with the absence of diabetes 5.7-6.4% ?Consistent with increased risk for diabetes ?(prediabetes) > or =6.5% ??Consistent with diabetes This assay result is consistent with a decreased risk of diabetes. Currently, no consensus exists regarding use of hemoglobin A1c for diagnosis of diabetes in children. According to [place] Diabetes Association (ADA) guidelines, hemoglobin A1c <7.0% represents optimal control in non- diabetic patients. Different metrics may apply to specific patient populations. Standards of Medical Care in Diabetes(ADA). Estimated Average Glucose 115 mg/dL (calc) [facility] 02/25/2019 4:41 PM EDT 02/26/2019 1:51 AM EDT Narrative Resulting Agency Comment [id number] Brennan Cagle MD LABORATORY Final Result Performing Organization Address [facility] Co de Phone Number [facility] [address] [place] [address] * (ABNORMAL) LIPID PANEL WITH REFLEX TO DIRECT LDL (02/25/2019 4:41 PM EDT) Cholesterol 195 <200 mg/dL [facility] HDL Cholesterol 52 >50 mg/dL [facility] Triglyceride 177(H) <150 mg/dL [facility] LDL Cholesterol 114(H) mg/dL (calc) [facility] Comment: Reference range: <100 Desirable range <100 mg/dL for primary prevention; ?? <70 mg/dL for patients with CHD or diabetic patients with > or = 2 CHD risk factors. LDL-C is now calculated using the Rufus calculation, which is a validated novel method providing better accuracy than the Friedewald equation in the estimation of LDL-C. Ramírez DE LA CRUZ et al. WHITLEY. 2013;310(19): 0806-3829 (http://education.Track.[place]/faq/ATT629) CHOL/HDL Ratio 3.8 <5.0 (calc) [facility] Cholesterol Non-HDL 143(H) <130 mg/dL (calc) [facility] Comment: For patients with diabetes plus 1 major ASCVD risk factor, treating to a non-HDL-C goal of <100 mg/dL (LDL-C of <70 mg/dL) is considered a therapeutic option. 02/25/2019 4:41 PM EDT 02/26/2019 1:51 AM EDT Narrative Resulting Agency Comment [id number] Brennan Cagle MD LABORATORY Final Result [email or web address] [address] [place] [address] documented in this encounter Visit Diagnoses Diagnosis Screening for endocrine, nutritional, metabolic and immunity disorder Screening for other and unspecified endocrine, nutritional, metabolic, and immunity disorders documented in this encounter Care Teams Work Order Detailer Relationship Specialty Start Date End Date Brennan Cagle MD [address] [place] [address] PCP - General Internal Medicine 01/28/19 03/23/19 Eulalia Angel NP [address] [place] [address] PCP - Backup PCP Internal Medicine 01/28/19 06/09/19 Eulalia Angel NP [address] [place] [address] PCP - General 03/24/19 08/15/20 Erin Yancey MD [address] [place] [address] PCP - General Internal Medicine 08/16/20 03/23/21 Eulalia Angel NP [address] [place] [address] PCP - Backup PCP Internal Medicine 12/30/20 03/23/21 Eulalia Angel NP [address] [place] [address] PCP - General Internal Medicine 03/24/21 10/05/22 Valentino Seals MD [address] [place] [address] PCP - General 10/06/22 documented as of this encounter
--- OUTSIDE RECORDS SUMMARY | 2024-10-25 16:13 | XMS_ITS | Encounter Summary ---
Author Organization [facility] Address [address] [place] [address] Care Team Providers Care Railroad Watchman Name Role Phone Eulalia Angel NP Primary Care Provider [phone] Valentino Seals MD Primary Care Provider [phone] Reason for Referral * CONSULT AND TREATMENT (Routine) - Authorized Specialty Diagnoses / Procedures Referred By Conttoan t Referred To Contact Neurology Diagnoses Chronic nonintractable headache, unspecified headache type Procedures Aguilar Mitchell MD [phone] FAX [phone] Eulalia Angel NP Phone: tel: fax: Referral ID Status Reason Start Date Expiration Date Visits Requested Visits Authorized [id number] Authorized Specialty Services Required 03/24/2021 03/24/2022 6 6 Encounter Details Date Type Department Care Team ([facility] st Contact Info) Description 03/24/2021 Orders Only [facility] [address] [place] [address] Eulalia Angel NP 123 [facility] [address] [place] [address] Social History Tobacco Use Types Packs/Day Years Used Date Smoking Tobacco: Every Day Cigarettes Last attempted to quit: 04/27/2019 Smokeless Tobacco: Current Alcohol Use Standard Drinks/Week Comments No 0 (1 standard drink = 0.6 oz pur e alcohol) social PHQ-2 Answer Date Recorded PHQ-2 Score 0 03/15/2020 Comments No Sex and Gender Information Value Date Recorded Sex Assigned at Not on file Legal Sex Female 2:47 PM EDT Gender Identity Not on file Sexual Orientation Not on file COVID-19 Exposure Response Date Recorded In the last month, have you been in contact with someone who was confirmed or suspected to have Coronavirus / COVID-19? Unable to assess 02/28/2021 4:11 PM EDT documented as of this encounter Plan of Treatment Scheduled Referrals Name Type Priority Associated Diagnoses Orde r Schedule CONSULT NEUROLOGY NON-FC Referral Routine Chronic nonintractable headache, unspecified headache type Ordered: 03/24/2021 documented as of this encounter Goals Goal Patient Goal Type Associated Problems Recent Progress Patient-Stated? Author Quit smoking / using tobacco Lifestyle No Gabby Montesinos CMA Note: Smoking can cause cancer, heart [...] at . Any insurance accepted. Quit smoking resources-http://makesmomy4oneonehistory.org documented as of this encounter Visit Diagnoses Diagnosis Chronic nonintractable headache, unspecified headache type documented in this encounter Care Teams Railroad Watchman Relationship Specialty Start Date End Date Eulalia Angel NP PCP - General Internal Medicine 03/24/21 10/05/22 Valentino Seals MD [address] [place] [address] PCP - General 10/06/22 documented as of this encounter
--- OUTSIDE RECORDS SUMMARY | 2024-10-25 16:13 | XMS_ITS | Clinical Summary ---
Author Organization [facility] Address [address] [place] [address] Care Team Providers Care Rubber Stamp Die Inspector Name Role Phone Valentino Seals MD Primary Care Provider [phone] Allergies No known active allergies Medications Drospirenone-Et hinyl Estradiol 3-0.02 MG Tab None Entered 01/01/2018 Ac tive Cetirizine HCl (ZYRTEC ALLERGY) 10 MG Tab 1 TABLET DAILY NEEDED Active HYPERCARE 15 % Solution Apply a thin layer at bedtime and wash off in the morning 1 Bottle 5 12/17/2018 Active Ondansetron HCl 4 MG Tab PRN 02/14/2019 Active traMADol HCl 50 MG Tab 1-2 TABLET EVERY 4 TO 6 HOURS NEEDED Active Erenumab-aooe (Aimovig) 70 MG/ML Solution Auto-injector INJECT 70 MG MONTHLY 3 Pen 2 03/15/2020 Active Levonorgest-Eth Estrad 91-Day 0.1-0.02 & 0.01 MG Tab Take 1 tablet by mouth 1 (one) time each day 91 tablet 3 03/15/2020 Active Active Problems Problem Noted Date Diagnosed Date Tish's thyroiditis 10/23/2019 Tobacco abuse, 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 Tobacco abuse counseling 04/29/2019 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 Radicular leg pain 02/25/2019 Chronic bilateral back pain 07/31/2018 Overview (07/31/2018): 07/31/2018-patient has been managed by the pain clinic with RF and injections in the past Chronic sinusitis 07/31/2018 Overview (07/31/2018): 07/31/2018-previously seen by ENT, has had good response with allergy injections IBS (irritable bowel syndrome) 07/31/2018 Chronic headache 07/31/2018 Overview (07/31/2018): 07/31/2018-sees neurology Immunizations Name Administration Dates Next Due COVID-19, mRNA (Moderna Pre Fall 2022) Monovalent, 100 mcg/0.5 ml or 50 mcg/0.25 ml dose 10/21/2021,11/25/2020,10/28/2020 Influenza,recombinant,trivalent,PF(Flublok) 06/24 Influenza,seasonal,trivalent ,preservative (FLUZONE MDV) 06/16/2009,06/25/2008 PPV23 (Pneumovax) 06/13/2015 Tdap 02/25/2019,06/16/2009 influenza,seasonal,trivalent ,PF (Fluzone, Fluarix, Flulaval) 06/13/2015 Family History Medical History Relation Name Comments Other Father afib Arthritis/Joint disorder Mother Hypertension Mother Relation Name Status Comments Father Alive Mother Alive Social History Tobacco Use Types Packs/Day Years Used Date Smoking Tobacco: Every Day Cigarettes Last attempted to quit: 04/27/2019 Smokeless Tobacco: Current Alcohol Use Standard Drinks/Week Comments No 0 (1 standard drink = 0.6 oz pur e alcohol) social PHQ-2 Answer Date Recorded PHQ-2 Score 0 03/15/2020 Intimate Partner Violence Answer Date R ecorded Fear of Current or Ex-Partner Not on file Emotionally Abused Not on file 05/17/2023 Physically Abused Not on file 05/17/2023 Sexually Abused Not on file 05/17/2023 Feel Safe at Home Not on file 05/17/2023 Comments No Sex and Gender Information Value Date Recorded Sex Assigned at Not on file Legal Sex Female 2:47 PM EDT Gender Identity Not on file Sexual Orientation Not on file Last Filed Vital Signs Vital Sign Reading Time Taken Comments Blood Pressure 117/76 03/15/2020 2:17 PM EDT Pulse 72 03/15/2020 2:17 PM EDT Temperature 36.9 ??C (98.4 ??F) 05/30/2019 1:10 PM ED T Respiratory Rate 18 12/13/2018 11:06 AM EDT Oxygen Saturation 98% 03/19/2019 3:02 PM EDT Inhaled Oxygen Concentration - - Weight 77.4 kg (170 lb 9.6 oz) 03/15/2020 2:17 P M EDT Height 175.3 cm (5' 9 ) 03/15/2020 2:17 PM EDT Body Mass Index 25.19 03/15/2020 2:17 PM EDT Plan of Treatment Health Maintenance Due Date Last Done Comments Hepatitis C Screening 1984 Hep B (1 of 3 - 19+ 3-dose series) 2003 Pap Smear 02/06/2022 02/06/2019, 02/06/2019 COVID-19 Vaccine ( season) 2024 10/21/2021, 11/25/2020, 10/28/2020 Influenza (#1) 2024 07/04/2023, 05/26, 06/16/2009, Additional history exists Mammogram/Breast Imaging 2024 DTaP/Tdap/Td (3 - Td or Tdap) 02/25/2029 02/25/2019, 06/16/2009 Zoster (Shingrix) (1 of 2) 2034 Pneumococcal Aged Out 06/13/2015 No longer eligi ble based on patient's age to complete this topic Chest Imaging Discontinued 07/31/2018 LDL Cholesterol Discontinued 03/15/2020, 02/25/2019 Physical Discontinued 03/15/2020, 02/25/2019 HPV Vaccine Aged Out No longer eligi ble based on patient's age to complete this topic Hep A Aged Out No longer eligi ble based on patient's age to complete this topic Hib Aged Out No longer eligi ble based on patient's age to complete this topic Meningococcal ACWY Aged Out No longer eligible based on patient's age to complete this topic Goals Goal Patient Goal Type Associated Problems [...] at . Any insurance accepted. Quit smoking resources-http://[employer].TYT ([employer]) Procedures * Due to [place] [employer] law, this organization might not be sharing negative HIV tests. Procedure Name Priority Date/Time Associated Diagnosis Comments LIPID PANEL WITH REFLEX TO DIRECT LDL Routine 03/15/2020 2:50 PM EDT Screening for hyperlipidemia PAP SMEAR 02/06/2019 XRAY CHEST, 2 VIEWS, PA & LATERAL (DX: COUGH R05.9/ 786.2) FC Routine 07/31/2018 2:54 PM EST Bronchospasm Fatigue, unspecified type from Last 3 Months or Most Recently Relevant to Health Maintenance Results * Due to [place] [employer] law, this organization might not be sharing negative HIV tests. * LIPID PANEL WITH REFLEX TO DIRECT LDL (03/15/2020 2:50 PM EDT) Cholesterol 165 <200 mg/dL [facility] HDL Cholesterol 61 > OR = 50 mg/dL [facility] Triglyceride 65 <150 mg/dL [facility] LDL Cholesterol 89 mg/dL (calc) [facility] Comment: Reference range: <100 Desirable range <100 mg/dL for primary prevention; ?? <70 mg/dL for patients with CHD or diabetic patients with > or = 2 CHD risk factors. LDL-C is now calculated using the Rufus calculation, which is a validated novel method providing better accuracy than the Friedewald equation in the estimation of LDL-C. Ramírez DE LA RCUZ et al. WHITLEY. 2013;310(19): 6501-2674 (http://education.[employer] Mother List/faq/XSY774) CHOL/HDL Ratio 2.7 <5.0 (calc) [facility] Cholesterol Non-HDL 104 <130 mg/dL (calc) [facility] Comment: For patients with diabetes plus 1 major ASCVD risk factor, treating to a non-HDL-C goal of <100 mg/dL (LDL-C of <70 mg/dL) is considered a therapeutic option. 03/15/2020 2:50 PM EDT 03/16/2020 12:44 AM EDT Narrative Resulting Agency Comment [id number] us Eulalia Angel NP LABORATORY Final Result [facility] [address] [place] [address] * PAP SMEAR (02/06/2019) us Unknown Provider PATHOLOGY Final Result * XRAY CHEST, 2 VIEWS, PA & LATERAL (DX: COUGH R05/ 786.2) (TODAY) FC (07/31/2018 2:54 PM EST) Anatomical Region Laterality Modality CHEST Radiographic Elma ging 08/01/2018 10:4 1 AM EST Narrative 08/01/2018 10:41 AM EST PA and lateral chest. Comparison: None Findings: Normal heart, lungs and mediastinum. ?? Clear lungs. No acute osseous abnormality. Impression: Normal chest. Procedure Note Bradley Colunga MD - 08/01/2018 PA and lateral chest. Comparison: None Findings: Normal heart, lungs and mediastinum. Clear lungs. No acute osseous abnormality. Impression: Normal chest. us Brennan Cagle MD IMG XRAY NO CONTRAST ORDERABL ES Final Result from Last 3 Months or Most Recently Relevant to Health Maintenance Care Teams Rubber Stamp Die Inspector Relationship Specialty Start Date End Date Valentino Seals MD [address] [place] [id number] [address] [facility] - General 10/06/22
--- OUTSIDE RECORDS SUMMARY | 2024-10-25 16:13 | XMS_ITS | Encounter Summary ---
Author Organization [facility] Address [address] [place] [address] Care Team Providers Care Wood And Hardware Outfitter Name Role Phone Eulalia Angel NP Primary Care Provider [phone] Valentino Seals MD Primary Care Provider [phone] Encounter Details Date Type Department Care Team (Late st Contact Info) Description 03/31/2021 Orders Only [facility] [address] [place] [address] Eulalia Angel NP [address] [facility] [address] [place], [place] [id number] Social History Tobacco Use Types Packs/Day Years [...] on file documented as of this encounter Plan of Treatment Not on [...] at . Any insurance accepted. Quit smoking resources-http://Notizza.org documented as of this encounter Visit Diagnoses Diagnosis Sciatica, unspecified laterality documented in this encounter Care Teams Wood And Hardware Outfitter Relationship Specialty Start Date End Date Eulalia Angel NP PCP - General Internal Medicine 03/24/21 10/05/22 Valentino Seals MD [address] [place] [address] PCP - General 10/06/22 documented as of this encounter
--- OUTSIDE RECORDS SUMMARY | 2024-10-25 16:13 | XMS_ITS | Encounter Summary ---
Author Organization [facility] Address [address] [place] [address] Care Team Providers Care Assistant Store Manager Name Role Phone Eulalia Angel NP Primary Care Provider Erin Yancey MD Primary Care Provider Unavailabl e Eulalia Angel NP Unavailable Eulalia Angel NP Primary Care Provider [phone] Valentino Seals MD Primary Care Provider [phone] Reason for Visit * Reason Onset Date Comments Refill Request 12/16/2019 Encounter Details Date Type Department Care Team (Late st Contact Info) Description 12/16/2019 Refill [facility] [address] [place] [address] Eulalia Angel NP [address] [facility] [address] [place] [address] Refill Request Social History Tobacco Use Types Packs/Day Years Used Date Smoking Tobacco: Former Cigarettes Q uit: 04/27/2019 Smokeless Tobacco: Current Alcohol Use Standard Drinks/Week Comments No 0 (1 standard drink = 0.6 oz pur e alcohol) social PHQ-2 Answer Date Recorded PHQ-2 Score 0 06/14/2019 Comments No Sex and Gender Information Value [...] smoking / using tobacco Lifestyle No Gabby Montesinos, LEG BREAKER Note: Smoking can cause cancer, heart attacks, [...] at . Any insurance accepted. Quit smoking resources-http://[employer].org documented as of this encounter Visit Diagnoses Not on filedocumented in this encounter Care Teams Assistant Store Manager Relationship Specialty Start Date End Date Eulalia Angel NP PCP - General 03/24/19 08/15/20 Erin Yancey MD PCP - General Internal Medicine 08/16/20 03/23/21 Eulalia Angel NP PCP - Backup PCP Internal Medicine 12/30/20 03/23/21 Eulalia Angel NP PCP - General Internal Medicine 03/24/21 10/05/22 Valentino Seals MD [address] [place] [address] PCP - General 10/06/22 documented as of this encounter
--- OUTSIDE RECORDS SUMMARY | 2024-10-25 16:13 | XMS_ITS | Encounter Summary ---
Author Organization [facility] Address [address] [place] [address] Care Team Providers Care Gastroenterologist Name Role Phone Eulalia Angel NP Primary Care Provider [phone] Valentino Seals MD Primary Care Provider [phone] Encounter Details Date Type Department Care Team ([facility] st Contact Info) Description 03/30/2021 Orders Only [facility] [address] [place] [address] Eulalia Angel NP [address] [facility] [address] [place], [place] [id number] Social History Tobacco Use Types Packs/Day Years [...] at . Any insurance accepted. Quit smoking resources-[email or web address] documented as of this encounter Visit Diagnoses Diagnosis Degenerative disc disease, lumbar Degeneration of lumbar or lumbosacral intervertebral disc documented in this encounter Care Teams Gastroenterologist Relationship Specialty Start Date End Date Eulalia Angel NP PCP - General Internal Medicine 03/24/21 10/05/22 Valentino Seals MD [address] [place] [address] PCP - General 10/06/22 documented as of this encounter
--- OUTSIDE RECORDS SUMMARY | 2024-10-25 16:13 | XMS_ITS | Encounter Summary ---
Author Organization [facility] Address [address] [place] [address] Care Team Providers Care Justice Court Judge Name Role Phone Eulalia Angel NP Primary Care Provider [phone] Erin Yancey MD Primary Care Provider Unavailabl e Eulalia Angel NP Unavailable [phone] Eulalia Angel NP Primary Care Provider [phone] Valentino Seals MD Primary Care Provider [phone] Reason for Referral * CONSULT AND TREATMENT (Routine) - Closed Specialty Diagnoses / Procedures Referred By Katja mao Referred To Contact mechanical test engineer Diagnoses Abnormal female pelvic exam Procedures Regina Shell MD - OBGYN at [facility] P: [phone] F: [phone] DOS: 11/25/19 Eulalia Angel NP Phone: tel: fax: Regina Mcdonald MD [facility] [address] [place] [address] Phone: tel: fax: Referral ID Status Reason Start Date Expiration Date Visits Requested Visits Authorized [id number] Closed Patient Preference 10/23/2019 10/22/2020 12 12 Encounter Details Date Type Department Care Team (Late Contact Info) Description 10/17/2019 Orders Only [facility] [address] [place] [address] Eulalia Angel NP [address] [facility] [address] [place] [address] Social History Tobacco Use Types Packs/Day Years [...] Priority Associated Diagnoses Orde r Schedule CONSULT CUT IN STATION OPERATOR NON-FC Referral Routine Abnormal female pelvic exam Ordered: 10/17/2019 documented as of this encounter Goals Goal [...] at . Any insurance accepted. Quit smoking resources-http://[email or web address] documented as of this encounter Visit Diagnoses Diagnosis Abnormal female pelvic exam Nonspecific (abnormal) findings on radiological and other examination of genitourinary organs documented in this encounter Care Teams Justice Court Judge Relationship Specialty Start Date End Date Eulalia Angel NP PCP - General 03/24/19 08/15/20 Erin Yancey MD PCP - General Internal Medicine 08/16/20 03/23/21 Eulalia Angel NP PCP - Backup PCP Internal Medicine 12/30/20 03/23/21 Eulalia Angel NP PCP - General Internal Medicine 03/24/21 10/05/22 Valentino Seals MD [address] [place] [address] PCP - General 10/06/22 documented as of this encounter
--- OUTSIDE RECORDS SUMMARY | 2024-10-25 16:13 | XMS_ITS | Encounter Summary ---
Author Organization [facility] Address [address] [place] [address] Care Team Providers Care Matzo Forming Machine Operator Name Role Phone Eulalia Angel NP Primary Care Provider [phone] Valentino Seals MD Primary Care Provider [phone] Reason for Referral * CONSULT AND TREATMENT (Routine) - Authorized Specialty Diagnoses / Procedures Referred By Katja t Referred To Contact Ent-Otolaryngology Diagnoses Allergy, subsequent encounter Procedures ENT -- Dr. Gerald Saldivar, GOI# [id number] Fx: [phone] Eulalia Angel NP Phone: tel: fax: Referral ID Status Reason Start Date Expiration Date Visits Requested Visits Authorized [id number] Authorized Est Relationship 03/24/2021 03/24/2022 52 52 * CONSULT AND TREATMENT (Routine) - Authorized Specialty Diagnoses / Procedures Referred By Contac t Referred To Contact Neurosurgery / Neurology Diagnoses Back pain, unspecified back location, unspecified back pain laterality, unspecified chronicity Procedures Neurosurg -- Dr. Dar Abbott, GOI# [id number] Eulalia Angel NP Phone: tel: fax: Dar Abbott, [facility], Dept of Neurosurgery [address] [place] [address] Phone: tel: fax: Referral ID Status Reason Start Date Expiration Date Visits Requested Visits Authorized [id number] Authorized Est Relationship 03/24/2021 03/24/2022 6 6 Encounter Details Date Type Department Care Team ([facility] st Contact Info) Description 03/24/2021 Orders Only [facility] [address] [place] [address] Eulalia Angel NP [address] [facility] [address] [place] [address] Social History Tobacco Use Types Packs/Day Years [...] Priority Associated Diagnoses Orde r Schedule CONSULT NEUROSURGERY NON-FC Referral Routine Back pain, unspecified back location, unspecified back pain laterality, unspecified chronicity Ordered: 03/24/2021 CONSULT ENT NON-FC Referral Routine Allergy, subsequent encounter Ordered: 03/24/2021 documented as of this encounter [...] at . Any insurance accepted. Quit smoking resources-[email or web address] documented as of this encounter Visit Diagnoses Diagnosis Back pain, unspecified back location, unspecified back pain laterality, unspecified chronicity Allergy, subsequent encounter documented in this encounter Care Teams Matzo Forming Machine Operator Relationship Specialty Start Date End Date Eulalia Angel NP PCP - General Internal Medicine 03/24/21 10/05/22 Valentino Seals MD [address] [place] [address] PCP - General 10/06/22 documented as of this encounter
--- OUTSIDE RECORDS SUMMARY | 2024-10-25 16:13 | XMS_ITS | Encounter Summary ---
Author Organization [facility] Address [address] [place] [address] Care Team Providers Care Assembler Tubing Name Role Phone Eulalia Angel NP Unavailable [phone] Eulalia Angel NP Primary Care Provider [phone] Erin Yancey MD Primary Care Provider Unavailabl e Eulalia Angel C ARCHITECT Unavailable [phone] Eulalia Angel NP Primary Care Provider [phone] Valentino Seals MD Primary Care Provider [phone] Encounter Details Date Type Department Care Team (Late st Contact Info) Description 05/28/2019 Orders Only [facility] [address] [place] [address] Eulalia Angel NP [address] [facility] [address] [place] [address] Social History Tobacco Use Types Packs/Day Years Used Date Smoking Tobacco: Every Day Cigarettes Smokeless Tobacco: Current Alcohol Use Standard Drinks/Week Comments No 0 (1 standard drink = 0.6 oz pur e alcohol) social Comments No Sex and Gender Information Value Date Recorded Sex Assigned at Not on file Legal Sex Female 2:47 PM EDT Gender Identity Not on file Sexual Orientation Not on file documented as of this encounter Progress Notes * Eulalia Angel NP - 05/29/2019 4:15 PM EDT This is showing return to baseline of labs- no changes needed at this time. documented in this encounter Plan of Treatment [...] at . Any insurance accepted. Quit smoking resources-http://[email or web address] documented as of this encounter Procedures * Due to [place] [employer] law, this organization might not be sharing negative HIV tests. Procedure Name Priority Date/Time Associated Diagnosis Comments THYROID PEROXIDASE AND THYROGLOBULIN ANTIBODIES Routine 05/28/2019 11:47 AM EDT Screening for endocrine, nutritional, metabolic and immunity disorder documented in this encounter Results * Due to [place] [employer] law, this organization might not be sharing negative HIV tests. * (ABNORMAL) THYROID PEROXIDASE AND THYROGLOBULIN ANTIBODIES (05/28/2019 11:47 AM EDT) Thyroglobulin Ab <1 < or = 1 IU/mL [facility] Thyroperoxidase Ab 12(H) <9 IU/mL Q [facility] 05/28/2019 11:4 7 AM EDT 05/29/2019 1:31 AM EDT Narrative Resulting Agency Comment [id number] us Brennan Cagle MD LABORATORY Final Result [facility] [address] [place] [address] documented in this encounter Visit Diagnoses Diagnosis Screening for endocrine, nutritional, metabolic and immunity disorder Screening for other and unspecified endocrine, nutritional, metabolic, and immunity disorders documented in this encounter Care Teams Assembler Tubing Relationship Specialty Start Date End Date Eulalia Angel NP PCP - Backup PCP Internal Medicine 01/28/19 06/09/19 Eulalia Angel NP PCP - General 03/24/19 08/15/20 Erin Yancey MD PCP - General Internal Medicine 08/16/20 03/23/21 Eulalia Angel NP PCP - Backup PCP Internal Medicine 12/30/20 03/23/21 Eulalia Angel NP PCP - General Internal Medicine 03/24/21 10/05/22 Valentino Seals MD [address] [place] [address] PCP - General 10/06/22 documented as of this encounter
--- OUTSIDE RECORDS SUMMARY | 2024-10-25 16:13 | XMS_ITS | Encounter Summary ---
Author Organization [facility] Address [address] [place] [address] Care Team Providers Care Outer Diameter Technician Name Role Phone Eulalia Angel NP Primary Care Provider Valentino Seals MD Primary Care Provider [phone] Encounter Details Date Type Department Care Team (Late st Contact Info) Description 03/24/2021 Orders Only [facility] [address] [place] [address] Erin Yancey MD Social History Tobacco Use Types Packs/Day Years [...] at . Any insurance accepted. Quit smoking resources-http://[email or web address] documented as of this encounter Visit Diagnoses Not on filedocumented in this encounter Care Teams Outer Diameter Technician Relationship Specialty Start Date End Date Eulalia Angel NP PCP - General Internal Medicine 03/24/21 10/05/22 Valentino Seals MD [address] [place] [address] PCP - General 10/06/22 documented as of this encounter
--- OUTSIDE RECORDS SUMMARY | 2024-10-25 16:13 | XMS_ITS | Data Portability ---
Author Organization [facility] [employer], [facility]_admin Address [address] [place] [id number] Care Team Providers Care Shipping And Receiving Weigher Name Role Phone JENNA BELTRAN Primary Care Provider Assessment No assessment recorded. Plan of Treatment Reminders Order Date Submit Date Provider Last Modified By Organization Details Last Modified Time Details Appointments None recorded. Lab bacterial vaginosis + vaginitis panel, vaginal 2019 020 SALLY [facility], [address] [place] [address], [id number], 0 15:06:28 HIV 1+2 AB + HIV 1 p24 Ag, qualitative immunoassay , serum 2019 020 [email or web address] [facility], [address] [place] [address], [id number], 0 16:04:39 HBsAg (hepatitis B surface Ag), EIA, serum 2019 020 [email or web address] [facility], [address] [place] [address], [address], 0 16:04:40 hepatitis C virus Ab, serum 2019 020 [email or web address] [facility], [address] [place] [address], [address], 0 16:04:40 RPR (rapid plasma reagin), serum 2019 020 [email or web address] [facility], [address] [place] [address], [address], 0 16:04:40 Referral None recorded. Procedures None recorded. Surgeries None recorded. Imaging None recorded. Medication Orders None recorded. Patient TargetsNo targets recorded. Patient Instructions Encounter Date Encounter Id Patient Instructions Last Modified By Organization Details Last Modified Time 11/25/2019 [id number] Options of control were discussed with the patient with her history of being a smoker until April 2019 and with her migraine that has visual aura I advised patient to stay away from estrogen containing products. Options of Larc were discussed. The side effect the procedure and the complication of each were reviewed. Patient is interested in nexplanon. The pattern of bleeding on nexplanon and the side effect were reviewed. Patient will sign preauthorization form at checkout. She will stop her oral contraceptive pills when the first pack is over an few days. She will call with her next period for nexplanon insertion. patient is willing to go to [place] if needed. Weight-loss was advised. We will repeat Pap smear and do an annual STAMPING DIE MAKER BENCH exam and of January 2020. SD precautions were reviewed cultures were sent and lab work was ordered [email or web address] Not available 11/25/2019 15:46:34 Reason for Referral None Reported. Results Created Date Observation Date Name Description Value Unit Range Abnormal Flag Note LastModifiedBy Organization Detail LastModifiedTime 11/25/19 20 11/27/2019 bacte rial vagin osis + vagin itis panel , vagin al atopobium vaginae Low - 0 score Not Available [facility] ([facility]) [address] [place], [address], 11/28/2019 15:06:28 11/25/1911/27/2019 bacte rial vagin osis + vagin itis panel , vagin al bvab 2 Low - 0 score Not Available [facility] ([facility]) [address] [place], [address], 11/28/2019 15:06:28 11/25/1911/27/2019 bacte rial vagin osis + vagin itis panel , vagin al megasphaera 1 Low - 0 score Calcu late total score by kay kern the 3 indiv idual bacte rial vagin osis (BV) marke r score s toget her. Total score is inter prete d as follo ws: Total score 0-1: Indic ates the absen ce of BV. Total score 2: Indet ermin ate for BV. Addit ional clini cristel data shoul d be evalu ated to estab mane a diagn osis. Total score 3-6: Indic ates the prese nce of BV. This test was devel oped and its perfo rmanc e jalen cteri stics deter mined by [facility]. It has not been clear ed or appro johnny by the Food and Drug Admin istra tion. The FDA has deter mined that such clear ance or appro edwige is not neces tavon. Not Available [facility] ([facility]) [address] [place], [address], 11/28/2019 15:06:28 11/25/19 20 11/27/2019 bacte rial vagin osis + vagin itis panel , vagin al trich vag by ANAHI Negati ve negati ve Not Available [facility] ([facility]) [address] [place], [address], 11/28/2019 15:06:28 11/25/19 20 11/28/2019 bacte rial vagin osis + vagin itis panel , vagin al kaylin albicans, ANAHI Negati ve negati ve Not Available [facility] ([facility]) [address] [place], [address], 11/28/2019 15:06:28 11/25/19 20 11/28/2019 bacte rial vagin osis + vagin itis panel , vagin al kaylin glabrata, ANAHI Negati ve negati ve Not Available [facility] ([facility]) [address] [place], [address], 11/28/2019 15:06:28 11/25/19 20 11/28/2019 bacte rial vagin osis + vagin itis panel , vagin al chlamydia trachomatis, ANAHI Negati ve negati ve Not Available [facility] ([facility]) [address] [place], [address], 11/28/2019 15:06:28 11/25/19 20 11/28/2019 bacte rial vagin osis + vagin itis panel , vagin al neisseria gonorrhoeae, ANAHI Negati ve negati ve Not Available [facility] ([facility]) [address] [facility], [place], [address], 11/28/2019 15:06:28 Result Notes None recorded. Problems Name Problem SNOMED Code Status Onset Date Resolution Date Notes Provider Name and Address Organization Details Recorded Time Migraine 22317950 Active 020 Cyndy Solorio MD [address] [place] [address], [phone] , [facility] 0 15:41:53 Chronic back pain 649921765 Active 020 Cyndy Solorio MD [address] [place] [address], [phone] , [facility] 0 15:42:02 Problem Notes None recorded. Procedures Surgical History Date Name Laterality Status Provider Name and Address Organization Details Recorded Time LEEP completed Melany Desai [facility] 11/25/2019 15:05:51 Imaging Results None recorded. Procedure Notes None recorded. Medical Equipment None Reported. Allergies No known drug allergies Medications Name Sig Start Date Stop Date Status Note LastModified by Organization Details LastModified Time levonorgestrel 0.1 mg-ethinyl estradiol 0.02 mg (21)/iron (7) tablet Take 1 tablet every day by oral route. active Not Available Not Available No t Available Vitals Date Recorded Body weight Provider Name an d Address Organization Details Last Updated DateTime 11/25/2019 93735.77 g Melany Desai [facility] 11/25/2019 15:00:15 Date Recorded Heart rate Provider Name an d Address Organization Details Last Updated DateTime 11/25/2019 83 /min Melany Desai [facility] 11/25/2019 15:00:19 Date Recorded Oxygen saturation Oxygen saturation in Arterial blood by Pulse oximetry Provider Name and Address Organization Details Last Updated DateTime 11/25/2019 97 % 97 % Melany Desai [facility] 11/25/2019 15:00:23 Date Recorded Pain severity - 0-10 verbal numeric rating [Score] - Reported Provider Name and Address Organization Details Last Updated DateTime 11/25/2019 0 Melany Desai [facility] 11/25/2019 15:00:46 Date Recorded Systolic blood pressure Diastolic blood pressure Provider Name and Address Organization Details Last Updated DateTime 11/25/2019 137 mm[Hg] 83 mm[Hg] Melany Desai [facility] 11/25/2019 15:00:31 Social History Question Answer Notes LastModified by Organizat ion Details LastModified Time Tobacco Smoking Status Former Smoker quit 04/25/2019 Melany Desai [facility]. 11/25/2019 15:04:53 How Much Tobacco Do You Chew? None Information not available 11/25/2019 Do You Or Have You Ever Used E-cigarettes Or Vape? Current User Of Electronic Cigarettes No Nicotine Information not available 11/25/2019 Does The Patient Have Fever And Cough Or Shortness Of Breath AND In The Last 14 Days Has The Patient Come In Contact With Someone With Confirmed 2019-nCoV? No Information not available 11/25/2019 Does The Patient Have Fever And Cough Or Shortness Of Breath AND In The Last 14 Days Has The Patient Traveled From [place], [place], [place], [place] Or [place]? No Information not available 11/25/2019 Does The Patient Have Fever And Lower Respiratory Illness Requiring Hospitalization Without An Underlying Diagnosis? No Information not available 11/25/2019 What Was The Date Of Your Most Recent Tobacco Screening? 11/25/2019 Information not available 11/25/2019 Do You Or Have You Ever Used Smokeless Tobacco? Never Used Smokeless Tobacco Information not available 11/25/2019 How Much Tobacco Do You Smoke? No Information not available 11/25/2019 Sex: Female Functional Status None recorded. Mental Status None recorded. Family History Relationship Description Onset Age of this Age Resolved Age Notes LastModified by Organization Details LastModified Time Mother Menorrhagia [email or web address] s ilv Not available 11/25/2019 15:04:26 Medical History Condition Response Seizure Disorder N Breast Problem (Breast Lump/Pain/Dischar ge) N AFib (Atrial Fibrillation) N High Blood Pressure (Hypertension) N Eye Problems (Glaucoma, Retinopathy, Mac ular Degeneration) N Depression N High Cholesterol (Hyperlipidemia) N Sickle Cell Anemia N CHF (Congestive Heart Failure) N Headaches/Migraines N Memory Loss (Dementia) N Mental Illness (Bi-Polar Disorder, Schiz ophrenia) N Hearing Loss N Heart Attack (Myocardial Infarction) N Heart Disease/Valve Disease N Cancer N Heart Rhythm Problem (Palpitations) N STI's N Liver Disease/Hepatitis N Endometriosis N Implantable Pacemaker/Defibrillator/AICD N Stroke/TIA N Prior Blood Transfusion N Bleeding Problems N HIV N Diabetes (Insulin Dependent) N Gallbladder Disease/Stones N Anxiety N Edema (Swelling) N Anesthetic Complication N Substance Abuse (Alcohol, Drug) N Gastrointestinal Disease (IBS, Gastritis , Ulcer, Acid Reflux) N Blood Clot (Deep Vein Thrombosis) N Anemia N Neuropathy (Numbness, Pain, Tingling) N Pulmonary Embolism (Blood Clot in the Patti ng) N Diabetes (Non-Insulin Dependent) N Bladder Problems N Rheumatic Fever N Claustrophobic N Osteopenia/Osteoporosis N Fibroids N Tuberculosis N HPV (Human Papillomavirus) Y AIDS N Asthma N Developmental Disorder N Other Disease(s): N MRSA (Antimicrobial Resistance) N No Past Medical Problems Reported N Thyroid Disease/Disorder N Gynecological History Statement/Question Response Flow Light Sexually Active? Y Date of last pap 01/2019 Menses Monthly N Total # of Births 0 Duration of Flow (days) 3 Number of Pregnancies? 0 Age at Menarche 13 History of Abnormal Pap Smear? Y Obstetrics History GPAL:G 0 P 0 0 0 0 Past Encounters Encounter ID Performer Location Encounter Start Date Encounter Closed Date Diagnosis/Indication Diagnosis SNOMED-CT Code Diagnosis ICD10 Code Diagnosis Note [id number] Cyndy Solorio MD [facility] [address] [place] [address] 11/25/2019 14:48:36 11/25/2019 15:44:44 Contraception care management 872459717 Z30.9 Venereal d isease screening 325674056 Z11.3 History of abnormal cervical Papanicolaou smear 323512303 Z87.42 Health Concerns Section Related Observation LastModified by Organization Detai ls LastModified Time None Recorded Concern Status LastModified by Organization Details LastModified Time None Recorded Advance Directives Directive None Recorded Payers Encounter Date Sequence Insurance Name Policy Number Policy Malik Covered Member ID Malik Member ID Guarantor Name 11/25/2019 1 [facility] Catherine Be [id number] Catherine Be Notes Date Note Type Note Provider Name and Address Organization Details Recorded Time 11/25/2019 text/html Catherine is 34-year-old 0 patient with last menstrual period about a month ago patient is on Seasonique for control pills. No pelvic pain no vaginal discharge. She has history of migraine with aura mainly visual. Patient has history of abnormal Pap smear in 2017 status post LEEP revealing MALORIE-3. After her LEEP patient had a Pap smear in December 2017 and in June 2018 revealing low-grade BONNY with negative high-risk HPV. A repeat done in January 2019 was within normal limits with negative high-risk HPV. Patient has no shortness of breath no chest pain she is interested in STD screening Cyndy Solorio MD [address] [place] [address], [phone], [facility]. 11/25/2019 15:46:52 OBGyn Episode No OBEpisode recorded.
--- OUTSIDE RECORDS SUMMARY | 2024-10-25 16:13 | XMS_ITS | Encounter Summary ---
Author Organization [facility] Address [address] [place] [address] Care Team Providers Care Artificial Plastic Eye Maker Name Role Phone Eulalia Angel NP Unavailable Eulalia Angel NP Primary Care Provider [phone] Erin Yancey MD Primary Care Provider Unavailabl e Eulalia Angel NP Unavailable [phone] Eulalia Angel NP Primary Care Provider [phone] Valentino Seals MD Primary Care Provider [phone] Encounter Details Date Type Department Care Team (Late st Contact Info) Description 04/29/2019 Orders Only [facility] [address] [place] [address] Eulalia Angel NP 123 [facility] [address] [place] [address] Social History Tobacco Use Types [...] Progress Notes * Eulalia Angel NP - 04/30/2019 7:41 AM EDT Hi, this is negative. If you do not have your period next month we can repeat the test. documented in this encounter Plan of Treatment [...] at . Any insurance accepted. Quit smoking resources-[email or web address] documented as of this encounter Procedures * Due to [place] [employer] law, this organization might not be sharing negative HIV tests. Procedure Name Priority Date/Time Associated Diagnosis Comments HCG, TOTAL, QL Routine 04/29/2019 3:25 PM EDT Amenorrhea documented in this encounter Results * Due to [place] [employer] law, this organization might not be sharing negative HIV tests. * HCG, TOTAL, QL (04/29/2019 3:25 PM EDT) HCG, Qualitative (Screen) NEGATIVE [facility] Comment: Reference Range Non-: Negative : ? Positive 04/29/2019 3:25 PM EDT 04/30/2019 12:32 AM EDT Narrative Resulting Agency Comment [id number] Eulalia Angel NP LAB SAME DAY RESULT Final Resul t [facility] [address] [place] [address] documented in this encounter Visit Diagnoses Diagnosis Amenorrhea Absence of menstruation documented in this encounter Care Teams Artificial Plastic Eye Maker Relationship Specialty Start Date End Date Eulalia Angel NP PCP - Backup PCP Internal Medicine 01/28/19 06/09/19 Eulalia Angel NP PCP - General 03/24/19 08/15/20 Erin Yancey MD PCP - General Internal Medicine 08/16/20 03/23/21 Eulalia Angel NP PCP - Backup PCP Internal Medicine 12/30/20 03/23/21 Eulalia Angel NP PCP - General Internal Medicine 03/24/21 10/05/22 Valentino Seals MD [address] [place] [address] PCP - General 10/06/22 documented as of this encounter
--- OUTSIDE RECORDS SUMMARY | 2024-10-25 16:13 | XMS_ITS | Encounter Summary ---
Author Organization [facility] Address [address] [place] [address] Care Team Providers Care Can Solderer Name Role Phone Eulalia Angel NP Primary Care Provider [phone] Erin Yancey MD Primary Care Provider Unavailabl e Eulalia Angel NP Unavailable [phone] Eulalia Angel NP Primary Care Provider [phone] Valentino Seals MD Primary Care Provider Encounter Details Date Type Department Care Team (Late st Contact Info) Description 08/29/2019 Orders Only [facility] [address] [place] [address] Eulalia Angel NP [address] [address] Social History Tobacco Use Types Packs/Day [...] Progress Notes * Eulalia Angel NP - 08/29/2019 3:34 PM EST Your thyroid antibodies remain elevated but you have a normal TSH- we can follow in 6 months. documented in this encounter Plan of Treatment [...] at . Any insurance accepted. Quit smoking resources-[email or web address] documented as of this encounter Procedures * Due to [place] [employer] law, this organization might not be sharing negative HIV tests. Procedure Name Priority Date/Time Associated Diagnosis Comments VENIPUNCTURE Routine 08/29/2019 3:34 PM EST Thyroiditis TSH, 3RD GENERATION Routine 08/29/2019 3 :34 PM EST Thyroiditis documented in this encounter Results * Due to [place] [employer] law, this organization might not be sharing negative HIV tests. * TSH, 3RD GENERATION (08/29/2019 3:34 PM EST) TSH 3.59 mIU/L [facility] Comment: ?Reference Range ?> or = 20 Years ??0.40-4.50 ? Ranges ?First trimester ?0.26-2.66 ?Second trimester ?? 0.55-2.73 ?Third trimester ?0.43-2.91 08/29/2019 3:34 PM EST 08/30/2019 12:24 AM EST Narrative Resulting Agency Comment [id number] Eulalia Angel CHILD DEVELOPMENT INSTRUCTOR LABORATORY Final Result Performing Organization Address City/[facility]/ZIP Co de Phone Number [facility] [address] [place] [address] * (ABNORMAL) THYROID PEROXIDASE AND THYROGLOBULIN ANTIBODIES (08/29/2019 3:34 PM EST) Thyroglobulin Ab <1 < or = 1 IU/mL [facility] Thyroperoxidase Ab 18(H) <9 IU/mL Q [facility] 08/29/2019 3:34 PM EST 08/30/2019 12:24 AM EST Narrative Resulting Agency Comment [id number] Eulalia Angel CHILD DEVELOPMENT INSTRUCTOR LABORATORY Final Result Performing Organization Address City/[facility] Co de Phone Number [facility] [address] [place] [address] documented in this encounter Visit Diagnoses Diagnosis Thyroiditis documented in this encounter Care Teams Can Solderer Relationship Specialty Start Date End Date Eulalia Angel NP PCP - General 03/24/19 08/15/20 Erin Yancey MD PCP - General Internal Medicine 08/16/20 03/23/21 Eulalia Angel NP PCP - Backup PCP Internal Medicine 12/30/20 03/23/21 Eulalia Angel NP PCP - General Internal Medicine 03/24/21 10/05/22 Valentino Seals MD [address] [place] [address] PCP - General 10/06/22 documented as of this encounter
--- OUTSIDE RECORDS SUMMARY | 2024-10-25 16:13 | XMS_ITS | Encounter Summary ---
Author Organization [facility] Address [address] [place] [address] Care Team Providers Care Machine Skiver Name Role Phone Eulalia Angel NP Primary Care Provider [phone] Brennan Cagle MD Primary Care Provider [phone] Eulalia Angel PERSONNEL SECURITY ASSISTANT Unavailable [phone] Eulalia Angel NP Primary Care Provider [phone] Erin Yancey MD Primary Care Provider Unavailabl e Eulalia Angel PERSONNEL SECURITY ASSISTANT Unavailable [phone] Eulalia Angel NP Primary Care Provider Valentino Seals MD Primary Care Provider [phone] Encounter Details Date Type Department Care Team (Late st Contact Info) Description 12/16/2018 Orders Only [facility] [address] [place] [id number] Eulalia Angel, PERSONNEL SECURITY ASSISTANT 123 [facility] [address] [place] [address] Social History Tobacco Use Types [...] at . Any insurance accepted. Quit smoking resources-[email or web address] documented as of this encounter Visit Diagnoses Not on filedocumented in this encounter Care Teams Machine Skiver Relationship Specialty Start Date End Date Eulalia Angel NP PCP - General Internal Medicine 05/14/18 01/27/19 Brennan Cagle MD [address] [place] [address] PCP - General Internal Medicine 01/28/19 03/23/19 Eulalia Angel NP [address] [place] [address] PCP - Backup PCP Internal Medicine 01/28/19 06/09/19 Eulalia Angel NP [address] [place] [address] PCP - General 03/24/19 08/15/20 Erin Yancey MD [address] [place] [address] PCP - General Internal Medicine 08/16/20 03/23/21 Eulalia Angel NP [address] [place] [address] PCP - Backup PCP Internal Medicine 12/30/20 03/23/21 Eulalia Angel NP [address] [place] [address] PCP - General Internal Medicine 03/24/21 10/05/22 Valentino Seals MD [address] [place] [address] PCP - General 10/06/22 documented as of this encounter
--- OUTSIDE RECORDS SUMMARY | 2024-10-25 16:13 | XMS_ITS | Encounter Summary ---
Author Organization [facility] Address [address] [place] [address] Care Team Providers Care Road Builder Name Role Phone Eulalia Angel NP Primary Care Provider [phone] Brennan Cagle MD Primary Care Provider [phone] Eulalia Angel CAREER AGENT Unavailable [phone] Eulalia Angel NP Primary Care Provider [phone] Erin Yancey MD Primary Care Provider Unavailabl e Eulalia Angel CAREER AGENT Unavailable [phone] Eulalia Angel NP Primary Care Provider Valentino Seals MD Primary Care Provider [phone] Encounter Details Date Type Department Care Team (Late st Contact Info) Description 07/31/2018 Orders Only [place] [facility] [address] [place] [phone] Eulalia Angel NP 123 [facility] [address] [place] [address] Social History Tobacco Use Types Packs/Day Years Used Date Smoking Tobacco: Every Day Cigarettes Smokeless Tobacco: Current Comments Unknown Sex and Gender Information Value Date Recorded Sex Assigned at Not on file Legal Sex Female 2:47 PM EDT Gender Identity Not on file Sexual Orientation Not on file documented as of this encounter Progress Notes * Eulalia Angel NP - 08/01/2018 12:06 PM EST Letter sent, see letter for details. documented in this encounter Plan of Treatment [...] at . Any insurance accepted. Quit smoking resources-http://[email or web address] documented as of this encounter Procedures * Due to [place] trustedsafe law, this organization might not be sharing negative HIV tests. Procedure Name Priority Date/Time Associated Diagnosis Comments CBC INCLUDES DIFFERENTIAL AND PLATELET COUNT Routine 07/31/2018 2:26 PM EST Fatigue, unspecified type BASIC METABOLIC PANEL WITH (GFR) Routine 07/31/2018 2:26 PM EST Fatigue, unspecified type documented in this encounter Results * Due to [place] trustedsafe law, this organization might not be sharing negative HIV tests. * BASIC METABOLIC PANEL WITH (GFR) (07/31/2018 2:26 PM EST) Glucose 82 65 - 99 mg/dL [facility] Comment:Fasting reference in terval Urea Nitrogen Blood (BUN) 17 7 - 25 mg/dL [facility] Creatinine 0.78 0.50 - 1.10 mg/dL [facility] GFR 99 > OR = 60 mL/min/1. 73m2 [facility] GFR () 115 > OR = 60 mL/min/1. 73m2 [facility] BUN/Creatinine Ratio NOT APPLICABLE 6 - 22 (calc) [facility] Sodium 137 135 - 146 mmol/L [facility] Potassium 4.2 3.5 - 5.3 mmol/L [facility] Chloride 103 98 - 110 mmol/L [facility] Carbon dioxide 27 20 - 32 mmol/L [facility] Calcium 9.2 8.6 - 10.2 mg/dL [facility] 07/31/2018 2:26 PM EST 08/01/2018 12:30 AM EST Narrative [facility] - 08/01/2018 2:40 AM EST Please note that this estimated GFR does [...] needs for GFR calculation. Resulting Agency Comment [id number] us Brennan Cagle MD LABORATORY Final Result [facility] [address] [place] [address] * CBC INCLUDES DIFFERENTIAL AND PLATELET COUNT (07/31/2018 2:26 PM EST) WBC 7.6 3.8 - 10.8 Thousand/u L [facility] RBC 4.58 3.80 - 5.10 Million/uL [facility] Hemoglobin 14.5 11.7 - 15.5 g/dL [facility] Hematocrit 41.9 35.0 - 45.0 % [facility] MCV 91.5 80.0 - 100.0 fL [facility] MCH 31.7 27.0 - 33.0 pg [facility] MCHC 34.6 32.0 - 36.0 g/dL [facility] RDW 12.6 11.0 - 15.0 % [facility] PLT 239 140 - 400 Thousand/u L [facility] MPV 10.0 7.5 - 12.5 fL [facility] Neutrophils # 4682 1500 - 7800 cells/uL [facility] Lymphocytes # 2326 850 - 3900 cells/uL [facility] Monocytes # 479 200 - 950 cells/uL [facility] Eosinophils # 91 15 - 500 cells/uL [facility] Basophils # 23 0 - 200 cells/uL [facility] Neutrophils % 61.6 % [facility] Lymphocytes % 30.6 % [facility] Monocytes % 6.3 % [facility] Eosinophils % 1.2 % [facility] Basophils % 0.3 % [facility] 07/31/2018 2:26 PM EST 08/01/2018 12:30 AM EST Narrative Resulting Agency Comment [id number] us Brennan Cagle MD LAB SAME DAY RESULT Final Res ult [facility] [address] [place] [address] documented in this encounter Visit Diagnoses Diagnosis Fatigue, unspecified type documented in this encounter Care Teams Road Builder Relationship Specialty Start Date End Date Eulalia Angel NP PCP - General Internal Medicine 05/14/18 01/27/19 Brennan Cagle MD [address] [place] [address] PCP - General Internal Medicine 01/28/19 03/23/19 Eulalia Angel NP [address] [place] [address] PCP - Backup PCP Internal Medicine 01/28/19 06/09/19 Eulalia Angel NP [address] [place] [address] PCP - General 03/24/19 08/15/20 Erin Yancey MD [address] [place] [address] PCP - General Internal Medicine 08/16/20 03/23/21 Eulalia Angel NP [address] [place] [address] PCP - Backup PCP Internal Medicine 12/30/20 03/23/21 Eulalia Angel NP [address] [place] [address] PCP - General Internal Medicine 03/24/21 10/05/22 Valentino Seals MD [address] [place] [address] PCP - General 10/06/22 documented as of this encounter
--- OUTSIDE RECORDS SUMMARY | 2024-10-25 16:13 | XMS_ITS | Encounter Summary ---
Author Organization [facility] Address [address] [place] [address] Care Team Providers Care Crop Grain Or Livestock Farm Manager Name Role Phone Eulalia Angel NP Primary Care Provider [phone] Erin Yancey MD Primary Care Provider Unavailabl e Eulalia Angel NP Unavailable [phone] Eulalia Angel NP Primary Care Provider [phone] Valentino Seals MD Primary Care Provider [phone] Encounter Details Date Type Department Care Team (Late st Contact Info) Description 03/15/2020 Orders Only [place] [facility] [address] [place] [address] Eulalia Angel NP 123 [facility] [address] [place] [address] Social History Tobacco Use Types [...] or suspected to have Coronavirus / COVID-19? No / Unsure 03/15/2020 1:47 PM EDT documented as of this encounter Progress Notes * Eulalia Angel NP - 03/15/2020 2:50 PM EDT Your strep test is pending but your other labs are all normal- nice improvement in your cholesterol. documented in this encounter Plan of Treatment [...] at . Any insurance accepted. Quit smoking resources-[email or web address].org documented as of this encounter Procedures * Due to [place] TUKZ Undergarments law, this organization might not be sharing negative HIV tests. Procedure Name Priority Date/Time Associated Diagnosis Comments VENIPUNCTURE Routine 03/15/2020 2:50 PM EDT Tish's thyroiditis LIPID PANEL WITH REFLEX TO DIRECT LDL Routine 03/15/2020 2:50 PM EDT Screening for hyperlipidemia BASIC METABOLIC PANEL WITH (GFR) Routine 03/15/2020 2:50 PM EDT Screening for diabetes mellitus documented in this encounter Results * Due to [place] TUKZ Undergarments law, this organization might not be sharing [...] equation in the estimation of LDL-C. Ramírez SS et al. WHITLEY. 2013;310(19): 1837-6636 (http://education.[employer]/faq/GYC693) CHOL/HDL Ratio 2.7 <5.0 (calc) [facility] Cholesterol Non-HDL 104 <130 mg/dL (calc) [facility] Comment: For patients with diabetes plus 1 major ASCVD risk factor, treating to a non-HDL-C goal of <100 mg/dL (LDL-C of <70 mg/dL) is considered a therapeutic option. 03/15/2020 2:50 PM EDT 03/16/2020 12:44 AM EDT Narrative Resulting Agency Comment [id number] us Eulalia Angel NP LABORATORY Final Result Performing Organization Address City/State/[facility] Co de Phone Number [facility] [address] [place] [address] * BASIC METABOLIC PANEL WITH (GFR) (03/15/2020 2:50 PM EDT) Glucose 79 65 - 99 mg/dL [facility] Comment:Fasting reference in terval Urea Nitrogen Blood (BUN) 12 7 - 25 mg/dL [facility] Creatinine 0.71 0.50 - 1.10 mg/dL [facility] EGFR 110 > OR = 60 mL/min/1. 73m2 [facility] GFR () 128 > OR = 60 mL/min/1. 73m2 [facility] BUN/Creatinine Ratio NOT APPLICABLE (calc) [facility] Sodium 138 135 - 146 mmol/L [facility] Potassium 4.4 3.5 - 5.3 mmol/L [facility] Chloride 106 98 - 110 mmol/L [facility] Carbon dioxide 24 20 - 32 mmol/L [facility] Calcium 9.9 8.6 - 10.2 mg/dL [facility] 03/15/2020 2:50 PM EDT 03/16/2020 12:44 AM EDT Narrative [facility] - 03/16/2020 7:02 AM EDT Please note that this estimated [...] needs for GFR calculation. Resulting Agency Comment [id number] Eulalia Angel NP LABORATORY Final Result Performing Organization Address [facility] Co de Phone Number [facility] [address] [place] [address] * TSH, 3RD GENERATION (03/15/2020 2:50 PM EDT) [facility] TSH 2.87 mIU/L [facility] Comment: ?Reference Range ?> or = 20 Years ??0.40-4.50 ? Ranges ?First trimester ?0.26-2.66 ?Second trimester ?? 0.55-2.73 ?Third trimester ?0.43-2.91 03/15/2020 2:50 PM EDT 03/16/2020 12:44 AM EDT Narrative Resulting Agency Comment [id number] Eulalia Angel NP LABORATORY Final Result Performing Organization Address [facility]/ZIP Co de Phone Number [facility] [address] [place] [address] documented in this encounter Visit Diagnoses Diagnosis Tish's thyroiditis Chronic lymphocytic thyroiditis Screening for diabetes mellitus Screening for hyperlipidemia Screening for lipoid disorders documented in this encounter Care Teams Crop Grain Or Livestock Farm Manager Relationship Specialty Start Date End Date Eulalia Angel NP PCP - General 03/24/19 08/15/20 Erin Yancey MD PCP - General Internal Medicine 08/16/20 03/23/21 Eulalia Angel NP PCP - Backup PCP Internal Medicine 12/30/20 03/23/21 Eulalia Angel NP PCP - General Internal Medicine 03/24/21 10/05/22 Valentino Seals MD [address] [place] [address] PCP - General 10/06/22 documented as of this encounter
[2024-10-25 16:59] VITALS: BP 141/75; PULSE 86; RESP 19; TEMP 36.6; O2SAT 98
== END 2024-10-25 16:59 | disposition home or self-care (01) ==
PROVIDERS: Emergency Provider Emergency Medicine; PCP Internal Medicine
DX: S61.012A Laceration without foreign body of left thumb without damage to nail, initial encounter (principal); W26.0XXA Contact with knife, initial encounter; M79.645 Pain in left finger(s); Y93.9 Activity, unspecified; Y92.010 Kitchen of single-family (private) house as the place of occurrence of the external cause; Y99.9 Unspecified external cause status; Z23 Encounter for immunization
CPT/HCPCS: 12001; 90471; 90715; 99282; 99284; J2003

== ENCOUNTER 2025-01-30 07:53 | Outpatient (AMB) | payer OTHER, SELFPAY ==
--- OUTSIDE RECORDS SUMMARY | 2025-01-30 07:57 | XMS_ITS | Encounter Summary ---
Author Organization [facility] Address [address] [place] [address] Care Team Providers Care Water Chaser Name Role Phone Brennan Cagle MD Primary Care Provider [phone] Eulalia Angel INSPECTOR BALANCE WHEEL MOTION Unavailable [phone] Eulalia Angel NP Primary Care Provider [phone] Erin Yancey MD Primary Care Provider Unavailabl e Eulalia Angel INSPECTOR BALANCE WHEEL MOTION Unavailable [phone] Eulalia Angel NP Primary Care Provider Valentino Seals MD Primary Care Provider [phone] Encounter Details Date Type Department Care Team (Late st Contact Info) Description 02/25/2019 Orders Only [place] [facility] [address] [place] [address] Eulalia Angel NP 123 [facility] [address] [place] [address] Social History Tobacco Use Types [...] foods such as cakes, cookies, chips, popcorn, Croatian fries, and ice cream. Hydrogenated fats (trans [...] are called omega- 3, omega-6, and omega-9. Gallup-3 fatty acids are found in fish and some plants. They are good for heart health. They may reduce the risk of stroke, high blood pressure, and other chronic disease. Good sources are oily fish such as salmon, mackerel and tuna. Gallup 3 fatty acids are also in fish oil supplements. Check with your healthcare provider before taking supplements. Fish oil supplements may cause bleeding in some people, especially if they are taken with blood-thinning medicines. Good plant sources for omega-3 fatty acids are canola oil, soybeans, flaxseed, avocado, and some types of nuts, especially walnuts and almonds. Gallup-6 fatty acid is found in corn, safflower, soybean, and sunflower oils. Gallup-9 fatty acid is found in olive oil, canola oil, and avocados. It is likely that the balance of fatty acids is very important. The [place] diet typically contains too much omega-6 fatty acid and not enough omega-3 fatty acid. How much fat do I need in my diet? Eating some fat???especially the good fats--is healthful, but many Americans eat too much and become overweight. The current [place] Heart Association Diet and Lifestyle Recommendations are: [...] at . Any insurance accepted. Quit smoking resources-http://[employer].org documented as of this encounter Procedures * Due to [place] state law, this organization might not be [...] in this encounter Results * Due to [place] state law, this organization might not be sharing negative HIV tests. * (ABNORMAL) THYROID PEROXIDASE AND THYROGLOBULIN ANTIBODIES (05/28/2019 11:47 AM EDT) Thyroglobulin Ab <1 < or = 1 IU/mL [facility] Thyroperoxidase Ab 12(H) <9 IU/mL Q [facility] 05/28/2019 11:4 7 AM EDT 05/29/2019 1:31 AM EDT Narrative Resulting Agency Comment [id number] Brennan Cagle MD LABORATORY Final Result Performing Organization Address [facility]/ZIP Co de Phone Number [facility] [address] [place] [address] * (ABNORMAL) THYROID PEROXIDASE AND THYROGLOBULIN ANTIBODIES (02/25/2019 4:41 PM EDT) Thyroglobulin Ab <1 < or = 1 IU/mL [facility] Thyroperoxidase Ab 18(H) <9 IU/mL Q [facility] 02/25/2019 4:41 PM EDT 02/26/2019 1:51 AM EDT Narrative Resulting Agency Comment [id number] Brennan Cagle MD LABORATORY Final Result Performing Organization Address City/[facility]/ZIP Co de Phone Number [facility] [address] [place] [address] * T4, FREE, SERUM (02/25/2019 4:41 PM EDT) FT4 0.9 0.8 - 1.8 ng/dL [facility] 02/25/2019 4:41 PM EDT 02/26/2019 1:51 AM EDT Narrative Resulting Agency Comment [id number] us Brennan Cagle MD LABORATORY Final Result Performing Organization Address City/[facility]/ZIP Co de Phone Number [facility] [address] [place] [address] * TSH, 3RD GENERATION (02/25/2019 4:41 PM EDT) TSH 2.42 mIU/L [facility] Comment: ?Reference Range ?> or = 20 Years ??0.40-4.50 ? Ranges ?First trimester ?0.26-2.66 ?Second trimester ?? 0.55-2.73 ?Third trimester ?0.43-2.91 02/25/2019 4:41 PM EDT 02/26/2019 1:51 AM EDT Narrative Resulting Agency Comment [id number] Brennan Cagle MD LABORATORY Final Result Performing Organization Address City/State/[facility] Co de Phone Number [facility] [address] [place] [address] * BASIC METABOLIC PANEL WITH (GFR) (02/25/2019 [...] needs for GFR calculation. Resulting Agency Comment [id number] Brennan Cagle MD LABORATORY Final Result Performing Organization Address [facility] de Phone Number [facility] [address] [place] [address] * HEMOGLOBIN A1C (02/25/2019 4:41 PM EDT) [...] diagnosis of diabetes in children. According to [place] Diabetes Association (ADA) guidelines, hemoglobin A1c <7.0% represents optimal control in non- diabetic patients. Different metrics may apply to specific patient populations. Standards of Medical Care in Diabetes(ADA). Estimated Average Glucose 115 mg/dL (calc) [facility] 02/25/2019 4:41 PM EDT 02/26/2019 1:51 AM EDT Narrative Resulting Agency Comment [id number] Brennan Cagle MD LABORATORY Final Result Performing Organization Address [facility] Co de Phone Number [facility] [address] [place] [address] * (ABNORMAL) LIPID PANEL WITH REFLEX TO [...] DE LA CRUZ et al. WHITLEY. 2013;310(19): 3264-8797 (http://education.[employer].Beyond.com/faq/WOE469) CHOL/HDL Ratio 3.8 <5.0 (calc) [facility] Cholesterol Non-HDL 143(H) <130 mg/dL (calc) [facility] Comment: For patients with diabetes plus 1 major ASCVD risk factor, treating to a non-HDL-C goal of <100 mg/dL (LDL-C of <70 mg/dL) is considered a therapeutic option. 02/25/2019 4:41 PM EDT 02/26/2019 1:51 AM EDT Narrative Resulting Agency Comment [id number] Brennan Cagle MD LABORATORY Final Result [email or web address] [address] [place] [address] documented in this encounter Visit Diagnoses Diagnosis Screening for endocrine, nutritional, metabolic and immunity disorder Screening for other and unspecified endocrine, nutritional, metabolic, and immunity disorders documented in this encounter Care Teams Water Chaser Relationship Specialty Start Date End Date Brennan Cagle MD [address] [facility] [place] [address] PCP - General Internal Medicine 01/28/19 03/23/19 Eulalia Angel NP [address] [place] [address] PCP - Backup PCP Internal Medicine 01/28/19 06/09/19 Eulalia Angel NP [address] [place] [address] PCP - General 03/24/19 08/15/20 Erin Yancey MD [address] [place] [address] PCP - General Internal Medicine 08/16/20 03/23/21 Eulalia Angel NP [address] [place] [address] PCP - Backup PCP Internal Medicine 12/30/20 03/23/21 Eulalia Anegl NP [address] [place] [address] PCP - General Internal Medicine 03/24/21 10/05/22 Valentino Seals MD [address] [place] [address] PCP - General 10/06/22 documented as of this encounter
--- OUTSIDE RECORDS SUMMARY | 2025-01-30 07:57 | XMS_ITS | Encounter Summary ---
Author Organization [facility] Address [address] [place] [address] Care Team Providers Care Neurosurgery Research Director Name Role Phone Eulalia Angel NP Primary Care Provider [phone] Brennan Cagle MD Primary Care Provider [phone] Eulalia Angel BIOINFORMATICS TECHNICIAN Unavailable [phone] Eulalia Angel NP Primary Care Provider [phone] Erin Yancey MD Primary Care Provider Unavailabl e Eulalia Angel BIOINFORMATICS TECHNICIAN Unavailable [phone] Eulalia Angel NP Primary Care Provider [phone] Valentino Seals MD Primary Care Provider [phone] Encounter Details Date Type Department Care Team (Late st Contact Info) Description 07/31/2018 Orders Only [place] [facility] [address] [place] [phone] Eulalia Angel NP 123 [facility] [address] [place] [address] Social History Tobacco Use Types [...] at . Any insurance accepted. Quit smoking resources-http://[employer] documented as of this encounter Procedures * Due to [place] K[employer] law, this organization might not be sharing negative HIV tests. Procedure Name Priority Date/Time Associated Diagnosis Comments CBC INCLUDES DIFFERENTIAL AND PLATELET COUNT Routine 07/31/2018 2:26 PM EST Fatigue, unspecified type BASIC METABOLIC PANEL WITH (GFR) Routine 07/31/2018 2:26 PM EST Fatigue, unspecified type documented in this encounter Results * Due to [place] [employer] law, this organization might not be sharing [...] needs for GFR calculation. Resulting Agency Comment [id number] us Brennan Cagle MD LABORATORY Final Result [facility] [address] [place] [address] * CBC INCLUDES DIFFERENTIAL AND PLATELET COUNT [...] 12:30 AM EST Narrative Resulting Agency Comment [id number] us Brennan Cagle MD LAB SAME DAY RESULT Final Res ult [facility] [address] [place] [address] documented in this encounter Visit Diagnoses Diagnosis Fatigue, unspecified type documented in this encounter Care Teams Neurosurgery Research Director Relationship Specialty Start Date End Date Eulalia Angel NP PCP - General Internal Medicine 05/14/18 01/27/19 Brennan Cagle MD [address] [place] [address] PCP - General Internal Medicine 01/28/19 03/23/19 Eulalia Angel NP [address] [place] [address] PCP - Backup PCP Internal Medicine 01/28/19 06/09/19 Eulalia Angel NP [address] [place] [address] PCP - General 03/24/19 08/15/20 Erin Yancey MD [address] [place] [address] PCP - General Internal Medicine 08/16/20 03/23/21 Eulalia Angel NP [address] [place] [address] PCP - Backup PCP Internal Medicine 12/30/20 03/23/21 Eulalia Angel NP [address] [place] [address] PCP - General Internal Medicine 03/24/21 10/05/22 Valentino Seals MD [address] [place] [address] PCP - General 10/06/22 documented as of this encounter
--- OUTSIDE RECORDS SUMMARY | 2025-01-30 07:57 | XMS_ITS | Encounter Summary ---
Author Organization [facility] Address [address] [place] [address] Care Team Providers Care Pipe Or Steam Fitter Furnace Installer Name Role Phone Eulalia Angel NP Unavailable [phone] Eulalia Angel NP Primary Care Provider [phone] Erin Yancey MD Primary Care Provider Unavailabl e Eulalia Angel DRUM SPRAYER Unavailable [phone] Eulalia Angel NP Primary Care Provider [phone] Valentino Seals MD Primary Care Provider [phone] Reason for Referral * CONSULT AND TREATMENT (Routine) - Authorized Specialty Diagnoses / Procedures Referred By Conttoan t Referred To Contact Neurosurgery / Neurology Diagnoses Back pain, unspecified back location, unspecified back pain laterality, unspecified chronicity Procedures NeuroSurgeon: Dr Dar Abbott p [phone] f [phone] [facility]?? Eulalia Angel NP Phone: tel: fax: Dar Abbott, [facility], Dept of Neurosurgery [address] [place] [address] Phone: tel: fax: Referral ID Status Reason Start Date Expiration Date Visits Requested Visits Authorized [id number] Authorized Specialty Services Required 03/31/2019 03/30/2020 3 3 Question Answer When do you want this visit to occur? WITHIN 1 WEEK - 04/01/19 6 visits Appointment with MD or AP? FIRST AVAILABLE Patient is being referred outside of [facility] for the following reason, however final determination for [id number] requests are made by the Referral Management Department Other (see comments) Track Order? No Please provide pertinent patient history. low back pain Where is patient being referred? If NOT Other , it qualifies for Meaningful Use, but first look at comment to right to determine if you need to print and have patient sign Release of Info Electronically Letter Other or Decline - Consent is signed Which provider/facility/agency would you like to refer to? NeuroSurgeon: Dr Dar Abbott p [phone] f [phone] [facility] surgery consult Please list the patient's preferred provider for this consult. Dr Dar Abbott p [phone] f [phone] [facility] Encounter Details Date Type Department Care Team ([facility] st Contact Info) Description 03/24/2019 Orders Only [facility] [address] [place] [address] Eulalia Angel NP [address] [address] Social History Tobacco Use Types Packs/Day Years [...] r Schedule CONSULT NEUROLOGY NON-FC Referral Routine Back pain, unspecified back location, unspecified back pain laterality, unspecified chronicity Ordered: 03/24/2019 documented as of this encounter Goals Goal [...] at . Any insurance accepted. Quit smoking resources-http://[employer] documented as of this encounter Visit Diagnoses Diagnosis Back pain, unspecified back location, unspecified back pain laterality, unspecified chronicity documented in this encounter Care Teams Pipe Or Steam Fitter Furnace Installer Relationship Specialty Start Date End Date Eulalia Angel NP PCP - Backup PCP Internal Medicine 01/28/19 06/09/19 Eulalia Angel NP PCP - General 03/24/19 08/15/20 Erin Yancey MD PCP - General Internal Medicine 08/16/20 03/23/21 Eulalia Angel NP PCP - Backup PCP Internal Medicine 12/30/20 03/23/21 Eulalia Angel NP PCP - General Internal Medicine 03/24/21 10/05/22 Valentino Seals MD [address] [place] [address] PCP - General 10/06/22 documented as of this encounter
--- OUTSIDE RECORDS SUMMARY | 2025-01-30 07:57 | XMS_ITS | Encounter Summary ---
Author Organization [facility] Address [address] [place] [address] Care Team Providers Care Biophysics Professor Name Role Phone Eulalia Angel NP Primary Care Provider [phone] Brennan Cagle MD Primary Care Provider [phone] Eulalia Angel FREEZER ASSISTANT Unavailable [phone] Eulalia Angel NP Primary Care Provider [phone] Erin Yancey MD Primary Care Provider Unavailabl e Eulalia Angel FREEZER ASSISTANT Unavailable [phone] Eulalia Angel NP Primary Care Provider Valentino Seals MD Primary Care Provider [phone] Encounter Details Date Type Department Care Team (Late st Contact Info) Description 12/16/2018 Orders Only [facility] [address] [place] [id number] Eulalia Angel, FREEZER ASSISTANT 123 [facility] [address] [place] [address] Social History Tobacco Use Types [...] at . Any insurance accepted. Quit smoking resources-http://[employer] documented as of this encounter Visit Diagnoses Not on filedocumented in this encounter Care Teams Biophysics Professor Relationship Specialty Start Date End Date Eulalia Angel NP PCP - General Internal Medicine 05/14/18 01/27/19 Brennan Cagle MD [address] [place] [address] PCP - General Internal Medicine 01/28/19 03/23/19 Eulalia Angel NP [address] [place] [address] PCP - Backup PCP Internal Medicine 01/28/19 06/09/19 Eulalia Angel NP [address] [place] [address] PCP - General 03/24/19 08/15/20 Erin Yancey MD [address] [place] [address] PCP - General Internal Medicine 08/16/20 03/23/21 Eulalia Angel NP [address] [place] [address] PCP - Backup PCP Internal Medicine 12/30/20 03/23/21 Eulalia Angel NP [address] [place] [address] PCP - General Internal Medicine 03/24/21 10/05/22 Valentino Seals MD [address] [place] [address] PCP - General 10/06/22 documented as of this encounter
--- OUTSIDE RECORDS SUMMARY | 2025-01-30 07:58 | XMS_ITS | Encounter Summary ---
Author Organization [facility] Address [address] [place] [address] Care Team Providers Care Decker Operator Name Role Phone Eulalia Angel NP Primary Care Provider [phone] Erin Yancey MD Primary Care Provider Unavailabl e Eulalia Angel NP Unavailable [phone] Eulalia Angel NP Primary Care Provider [phone] Valentino Seals MD Primary Care Provider [phone] Reason for Visit * Reason Onset Date Comments Refill Request 12/16/2019 Encounter Details Date Type Department Care Team (Late st Contact Info) Description 12/16/2019 Refill [facility] [address] [place] [address] Eulalia Angel NP 123 [facility] [address] [place] [address] Refill Request Social History Tobacco [...] / using tobacco Lifestyle No Gabby Montesinos, 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 Any insurance accepted. Quit smoking resources-[email or web address]://[email or web address] documented as of this encounter Visit Diagnoses Not on filedocumented in this encounter Care Teams Decker Operator Relationship Specialty Start Date End Date Eulalia Angel NP PCP - General 03/24/19 08/15/20 Erin Yancey MD PCP - General Internal Medicine 08/16/20 03/23/21 Eulalia Angel NP PCP - Backup PCP Internal Medicine 12/30/20 03/23/21 Eulalia Angel NP PCP - General Internal Medicine 03/24/21 10/05/22 Valentino Seals MD [address] [place] [address] PCP - General 10/06/22 documented as of this encounter
--- OUTSIDE RECORDS SUMMARY | 2025-01-30 07:58 | XMS_ITS | Encounter Summary ---
Author Organization [facility] Address [address] [place] [address] Care Team Providers Care Aluminum Container Tester Name Role Phone Eulalia Angel NP Primary Care Provider [phone] Erin Yancey MD Primary Care Provider Unavailabl e Eulalia Angel NP Unavailable [phone] Eulalia Angel NP Primary Care Provider [phone] Valentino Seals MD Primary Care Provider [phone] Encounter Details Date Type Department Care Team (Late st Contact Info) Description 03/15/2020 Orders Only [facility] [address] [place] [address] Eulalia Angel NP 123 [facility] [address] [place] [address] Social History Tobacco Use Types [...] at . Any insurance accepted. Quit smoking resources-[email or web address] documented as of this encounter Procedures * Due to [place] [employer] law, this organization might not be sharing negative HIV tests. Procedure Name Priority Date/Time Associated Diagnosis Comments VENIPUNCTURE Routine 03/15/2020 2:50 PM EDT Tish's thyroiditis LIPID PANEL WITH REFLEX TO DIRECT LDL Routine 03/15/2020 2:50 PM EDT Screening for hyperlipidemia BASIC METABOLIC PANEL WITH (GFR) Routine 03/15/2020 2:50 PM EDT Screening for diabetes mellitus documented in this encounter Results * Due to [place] [employer] law, this organization might not be sharing [...] LDL-C. Ramírez SS et al. WHITLEY. 2013;310(19): 3409-1885 (http://education.Xiu.com/faq/ZUB769) CHOL/HDL Ratio 2.7 <5.0 (calc) [facility] Cholesterol Non-HDL 104 <130 mg/dL (calc) [facility] Comment: For patients with diabetes plus 1 major ASCVD risk factor, treating to a non-HDL-C goal of <100 mg/dL (LDL-C of <70 mg/dL) is considered a therapeutic option. 03/15/2020 2:50 PM EDT 03/16/2020 12:44 AM EDT Narrative Resulting Agency Comment [id number] Eulalia Angel NP LABORATORY Final Result Performing Organization Address City/State/[facility] Co de Phone Number [facility] [address] [place] [address] * BASIC METABOLIC PANEL WITH (GFR) (03/15/2020 [...] needs for GFR calculation. Resulting Agency Comment [id number] Eulalia Angel NP LABORATORY Final Result Performing Organization Address [facility] Co de Phone Number [facility] [address] [place] [address] * TSH, 3RD GENERATION (03/15/2020 2:50 PM EDT) [facility] TSH 2.87 mIU/L [facility] Comment: ?Reference Range ?> or = 20 Years ??0.40-4.50 ? Ranges ?First trimester ?0.26-2.66 ?Second trimester ?? 0.55-2.73 ?Third trimester ?0.43-2.91 03/15/2020 2:50 PM EDT 03/16/2020 12:44 AM EDT Narrative Resulting Agency Comment [id number] Eulalia Angel NP LABORATORY Final Result Performing Organization Address [facility]/ZIP Co de Phone Number [facility] [address] [place] [address] documented in this encounter Visit Diagnoses Diagnosis Tish's thyroiditis Chronic lymphocytic thyroiditis Screening for diabetes mellitus Screening for hyperlipidemia Screening for lipoid disorders documented in this encounter Care Teams Aluminum Container Tester Relationship Specialty Start Date End Date Eulalia Angel NP PCP - General 03/24/19 08/15/20 Erin Yancey MD PCP - General Internal Medicine 08/16/20 03/23/21 Eulalia Angel NP PCP - Backup PCP Internal Medicine 12/30/20 03/23/21 Eulalia Angel NP PCP - General Internal Medicine 03/24/21 10/05/22 Valentino Seals MD [address] [place] [address] PCP - General 10/06/22 documented as of this encounter
--- OUTSIDE RECORDS SUMMARY | 2025-01-30 07:58 | XMS_ITS | Clinical Summary ---
Author Organization [facility] Address [address] [place] [address] Care Team Providers Care Crochet Machine Operator Name Role Phone Valentino Seals MD Primary Care Provider [phone] Allergies No known active allergies Medications Drospirenone-Et [...] (FLUZONE MDV) 06/16/2009,06/25/2008 PPV23 (Pneumovax) 06/13/2015 Tdap 10/25/2024,02/25/2019,06/16/2009 influenza,seasonal,trivalent ,PF (Fluzone, Fluarix, Flulaval) 06/13/2015 Family [...] Pap Smear 02/06/2022 02/06/2019, 02/06/2019 COVID-19 Vaccine (2023- season) 2024 10/21/2021, 11/25/2020, 10/28/2020 Influenza (#1) 2024 07/04/2023, 05/26, 06/16/2009, Additional history exists Mammogram/Breast Imaging 2024 Zoster (Shingrix) (1 of 2) 2034 DTaP/Tdap/Td (4 - Td or Tdap) 10/25/2034 10/25/2024, 02/25/2019, 06/16/2009 Pneumococcal Aged Out 06/13/2015 No longer eligi [...] at . Any insurance accepted. Quit smoking resources-http://[employer].org Procedures * Due to [place] CD[employer] law, this organization might not be sharing [...] to Health Maintenance Results * Due to [place] CD[employer] law, this organization might not be sharing [...] Ramírez DE LA CRUZ et al. WHITLEY. 2013;310(96): 2715-9145 (http://education.[facility].Needle/faq/VQQ153) CHOL/HDL Ratio 2.7 <5.0 (calc) [facility] Cholesterol Non-HDL 104 <130 mg/dL (calc) [facility] Comment: For patients with diabetes plus 1 major ASCVD risk factor, treating to a non-HDL-C goal of <100 mg/dL (LDL-C of <70 mg/dL) is considered a therapeutic option. 03/15/2020 2:50 PM EDT 03/16/2020 12:44 AM EDT Narrative Resulting Agency Comment [id number] Eulalia Angel NP LABORATORY Final Result [facility] [address] [place] [address] * PAP SMEAR (02/06/2019) us Unknown Provider [...] Recently Relevant to Health Maintenance Care Teams Crochet Machine Operator Relationship Specialty Start Date End Date Valentino Seals MD [address] [place] [address] PCP - General 10/06/22
--- OUTSIDE RECORDS SUMMARY | 2025-01-30 07:58 | XMS_ITS | Encounter Summary ---
Author Organization [facility] Address [address] [place] [address] Care Team Providers Care Barrel Marker Name Role Phone Eulalia Angel NP Primary Care Provider [phone] Erin Yancey MD Primary Care Provider Unavailabl e Eulalia Angel NP Unavailable [phone] Eulalia Angel NP Primary Care Provider [phone] Valentino Seals MD Primary Care Provider [phone] Reason for Referral * CONSULT AND TREATMENT (Routine) - Closed Specialty Diagnoses / Procedures Referred By Katja mao Referred To Contact bracelet and brooch maker Diagnoses Abnormal female pelvic exam Procedures Regina Shell MD - OBGYN at [facility] P: [phone] F: [phone] DOS: 11/25/19 Eulalia Angel NP Phone: tel: fax: Regina Mcdonald MD [facility] [address] [place] [address] Phone: tel: fax: Referral ID Status Reason Start Date Expiration Date Visits Requested Visits Authorized [id number] Closed Patient Preference 10/23/2019 10/22/2020 12 12 Question Answer When do you want this visit to occur? WITHIN 1 MONTH - 11/25/19 Appointment with or CARMEN? FIRST AVAILABLE Patient is being referred outside of [facility] for the following reason, however final determination for [id number] requests are made by the Referral Management Department Continuity of active patient care Track Order? No Please provide pertinent patient history. z01.411 Where is patient being referred? If NOT Other , it qualifies for Meaningful Use, but first look at comment to right to determine if you need to print and have patient sign Release of Info Electronically Letter Other or Decline - Consent is signed Which provider/facility/agency would you like to refer to? DR Regina Mcdonald P:[phone] F:[phone] - 12 visits Encounter Details Date Type Department Care Team ([facility] st Contact Info) Description 10/17/2019 Orders Only [facility] [address] [place] [address] Eulalia Angel NP 123 [facility] [address] [place] [address] Social History Tobacco Use Types Packs/Day Years [...] Priority Associated Diagnoses Orde r Schedule CONSULT BRIDGE OPERATOR NON-FC Referral Routine Abnormal female pelvic [...] at . Any insurance accepted. Quit smoking resources-[email or web address]://[email or web address].org documented as of this encounter Visit Diagnoses Diagnosis Abnormal female pelvic exam Nonspecific (abnormal) findings on radiological and other examination of genitourinary organs documented in this encounter Care Teams Barrel Marker Relationship Specialty Start Date End Date Eulalia Angel NP PCP - General 03/24/19 08/15/20 Erin Yancey MD PCP - General Internal Medicine 08/16/20 03/23/21 Eulalia Angel NP PCP - Backup PCP Internal Medicine 12/30/20 03/23/21 Eulalia Angel NP PCP - General Internal Medicine 03/24/21 10/05/22 Valentino Seals MD [address] [place] [address] PCP - General 10/06/22 documented as of this encounter
--- OUTSIDE RECORDS SUMMARY | 2025-01-30 07:58 | XMS_ITS | Data Portability ---
Author Organization [facility] [email or web address], [email or web address] Address [address] [place] [address] Care Team Providers Care Mark Up Designer Name Role Phone JENNA BELTRAN Primary Care Provider [phone] Assessment No assessment recorded. Plan of Treatment Reminders Order Date Submit Date Provider Last Modified By Organization Details Last Modified Time Details Appointments None recorded. Lab bacterial vaginosis + vaginitis panel, vaginal 2019 020 SALLY [facility], [address] [place] [address], [address], 0 15:06:28 HIV 1+2 AB + HIV 1 p24 Ag, qualitative immunoassay , serum 2019 020 [email or web address] [facility], [address] [place] [address], [address], 0 16:04:39 HBsAg (hepatitis B surface Ag), EIA, serum 2019 020 [email or web address] [facility], [address] [place] [address], [address], 0 16:04:40 hepatitis C virus Ab, serum 2019 020 [email or web address] [facility], [address] [place] [address], [address], 0 16:04:40 RPR (rapid plasma reagin), serum 2019 020 [email or web address] [facility], [address] [place] [address], [address], 0 16:04:40 Referral None recorded. Procedures None recorded. Surgeries None recorded. Imaging None recorded. Medication Orders None recorded. Patient TargetsNo targets recorded. Patient Instructions Encounter Date Encounter Id Patient Instructions Last Modified By Organization Details Last Modified Time 11/25/2019 [id number] Options of control were discussed with the [...] insertion. patient is willing to go to [place] if needed. Weight-loss was advised. We will repeat Pap smear and do an annual CLINICAL RESOURCE NURSE exam and of January 2020. SD precautions [...] Low - 0 score Not Available [facility] ([facility]) [address] [place], [address], 11/28/2019 15:06:28 11/25/1911/27/2019 bacte rial vagin osis + vagin itis panel , vagin al bvab 2 Low - 0 score Not Available [facility] ([facility]) [address] [place], [address], 11/28/2019 15:06:28 11/25/1911/27/2019 bacte rial vagin osis [...] is not neces tavon. Not Available [facility] ([facility]) [address] [place], [address], 11/28/2019 15:06:28 11/25/19 20 11/27/2019 bacte rial vagin osis + vagin itis panel , vagin al trich vag by ANAHI Negati ve negati ve Not Available [facility] ([facility]) [address] [place], [address], 11/28/2019 15:06:28 11/25/19 20 11/28/2019 bacte rial vagin osis + vagin itis panel , vagin al kaylin albicans, ANAHI Negati ve negati ve Not Available [facility] ([facility]) [address] [place], [address], 11/28/2019 15:06:28 11/25/19 20 11/28/2019 bacte rial vagin osis + vagin itis panel , vagin al kaylin glabrata, ANAHI Negati ve negati ve Not Available [facility] ([facility]) [address] [place], [address], 11/28/2019 15:06:28 11/25/19 20 11/28/2019 bacte rial vagin osis + vagin itis panel , vagin al chlamydia trachomatis, ANAHI Negati ve negati ve Not Available [facility] ([facility]) [address] [facility] [place], [address], 11/28/2019 15:06:28 11/25/19 20 11/28/2019 bacte rial vagin osis + vagin itis panel , vagin al neisseria gonorrhoeae, ANAHI Negati ve negati ve Not Available [facility] ([facility]) [address] [facility], [place], [address], 11/28/2019 15:06:28 Result Notes None recorded. Problems Name Problem SNOMED Code Status Onset Date Resolution Date Notes Provider Name and Address Organization Details Recorded Time Migraine 71388642 Active 020 Cyndy Solorio MD [address] [place] [address], [phone] , [facility] 0 15:41:53 Chronic back pain 659516588 Active 020 Cyndy Solorio MD [address] [place] [address], [address] , [facility] 0 15:42:02 Problem Notes None recorded. Procedures Surgical History Date Name Laterality Status Provider Name and Address Organization Details Recorded Time LEEP completed Melany Desai [facility] 11/25/2019 15:05:51 Imaging Results None recorded. Procedure [...] t Available Vitals Date Recorded Body weight Heart rate Oxygen saturation Oxygen saturation in Arterial blood by Pulse oximetry Pain severity - 0-10 verbal numeric rating [Score] - Reported Systolic blood pressure Diastolic blood pressure Provider Name and Address Organization Details Last Updated DateTime 0 [address].7 7 g 83 /min 97 % 97 % 0 137 mm[Hg] 83 mm[Hg] Melany Desai [facility] 0 15:00:31 Social History Question Answer Notes LastModified by Organizat ion Details LastModified Time Tobacco Smoking Status Former Smoker quit 04/25/2019 Melany Desai [facility] [place] [facility] 11/25/2019 15:04:53 How Much Tobacco Do You [...] 14 Days Has The Patient Traveled From [facility] [place], [place], [place], [place] Or [place]? No Information not [...] SNOMED-CT Code Diagnosis ICD10 Code Diagnosis Note [id number] Cyndy Solorio MD [facility] [address] [address] 11/25/2019 14:48:36 11/25/2019 15:44:44 Contraception care management 689775874 Z30.9 Venereal d isease screening 086924176 Z11.3 History of abnormal cervical Papanicolaou smear 925656673 Z87.42 Health Concerns Section Related Observation LastModified by Organization Detai ls LastModified Time None Recorded Concern Status LastModified by Organization Details LastModified Time None Recorded Advance Directives Directive None Recorded Payers Encounter Date Sequence Insurance Name Policy Number Policy Malik Covered Member ID Malik Member ID Guarantor Name 11/25/2019 1 [facility] Catherine Be [id number] Catherine Be Notes Date Note Type Note [...] interested in STD screening Cyndy Solorio MD [address] [place] [address], [phone], [facility]. 11/25/2019 15:46:52 OBGyn Episode No OBEpisode recorded.
--- OUTSIDE RECORDS SUMMARY | 2025-01-30 07:58 | XMS_ITS | Encounter Summary ---
Author Organization [facility] Address [address] [place] [address] Care Team Providers Care Emergency Medical Service Coordinator Name Role Phone Eulalia Angel NP Primary Care Provider [phone] Valentino Seals MD Primary Care Provider [phone] Reason for Referral * CONSULT AND TREATMENT (Routine) - Authorized Specialty Diagnoses / Procedures Referred By Katja mao Referred To Contact Ent-Otolaryngology Diagnoses Allergy, subsequent encounter Procedures ENT -- Dr. Gerald Ivy, NPI# [id number] Fx: [phone] Eulalia Angel NP Phone: tel: fax: Referral ID Status Reason Start Date Expiration Date Visits Requested Visits Authorized [id number] Authorized Est Relationship 03/24/2021 03/24/2022 52 52 Question Answer When do you want this visit to occur? WITHIN 3 DAYS - 03/27/21 Appointment with or AP? FIRST AVAILABLE Patient is being referred outside of [facility] for the following reason, however final determination for otu-wh-hckosuj requests are made by the Referral Management Department Continuity of active patient care Track Order? No Which provider/facility/agency would you like to refer to? (specify if you want first available regardless of location) GERALD IVY M.D. [phone] Please provide pertinent patient history. patient calling to request referrals to this provider due to insurance change * CONSULT AND TREATMENT (Routine) - Authorized Specialty Diagnoses / Procedures Referred By Contac t Referred To Contact Neurosurgery / Neurology Diagnoses Back pain, unspecified back location, unspecified back pain laterality, unspecified chronicity Procedures Neurosurg -- Dr. Kaya Abbott, NPI# [id number] Eulalia Angel NP Phone: tel: fax: Kaya Abbott DO [facility], Dept of Neurosurgery [address] [place] [address] Phone: tel: fax: Referral ID Status Reason Start Date Expiration Date Visits Requested Visits Authorized [id number] Authorized Est Relationship 03/24/2021 03/24/2022 6 6 Question Answer Please provide pertinent patient history. patient calling to request new referral as insurance has change Track Order? No When do you want this visit to occur? WITHIN 3 DAYS - 03/29/21 Patient is being referred outside of [facility] for the following reason, however final determination for klg-wa-fufpsrx requests are made by the Referral Management Department Continuity of active patient care Which provider/facility/agency would you like to refer to? (specify if you want first available regardless of location) Dr. kaya Abbott [phone] [facility] Encounter Details Date Type Department Care Team ([facility] Contact Info) Description 03/24/2021 Orders Only [facility] [address] [place] [address] Eulalia Angel NP 123 [facility] [address] [place] [address] Social History Tobacco Use Types [...] at . Any insurance accepted. Quit smoking resources-[email or web address] documented as of this encounter Visit Diagnoses Diagnosis Back pain, unspecified back location, unspecified back pain laterality, unspecified chronicity Allergy, subsequent encounter documented in this encounter Care Teams Emergency Medical Service Coordinator Relationship Specialty Start Date End Date Eulalia Angel NP PCP - General Internal Medicine 03/24/21 10/05/22 Valentino Seals MD [address] [place] [address] PCP - General 10/06/22 documented as of this encounter
--- OUTSIDE RECORDS SUMMARY | 2025-01-30 07:58 | XMS_ITS | Encounter Summary ---
Author Organization [facility] Address [address] [place] [address] Care Team Providers Care Post Partum Nurse Name Role Phone Eulalia Angel NP Primary Care Provider [phone] Valentino Seals MD Primary Care Provider [phone] Reason for Referral * CONSULT AND TREATMENT (Routine) - Authorized Specialty Diagnoses / Procedures Referred By Contac t Referred To Contact Neurology Diagnoses Chronic nonintractable headache, unspecified headache type Procedures Aguilar Mitchell MD [phone] FAX [phone] Eulalia Angel NP Phone: tel: fax: Referral ID Status Reason Start Date Expiration Date Visits Requested Visits Authorized [id number] Authorized Specialty Services Required 03/24/2021 03/24/2022 6 6 Question Answer When do you want this visit to occur? 1 MONTH - 8/2 Appointment with or AP? FIRST AVAILABLE Patient is being referred outside of [facility] for the following reason, however final determination for gbp-cr-hilczys requests are made by the Referral Management Department Patient Preference Track Order? No Which provider/facility/agency would you like to refer to? (specify if you want first available regardless of location) Aguilar Mitchell [phone] FAX [phone] Please provide pertinent patient history. patient calling to request referral due to insurance change Encounter Details Date Type Department Care Team (Late st Contact Info) Description 03/24/2021 Orders Only [facility] [address] [place] [address] Eulalia Angel NP 123 [facility] [address] [place] [address] Social History Tobacco Use Types Packs/Day Years [...] at . Any insurance accepted. Quit smoking resources-[email or web address]://[email or web address] documented as of this encounter Visit Diagnoses Diagnosis Chronic nonintractable headache, unspecified headache type documented in this encounter Care Teams Post Partum Nurse Relationship Specialty Start Date End Date Eulalia Angel NP PCP - General Internal Medicine 03/24/21 10/05/22 Valentino Seals MD [address] [place] [address] PCP - General 10/06/22 documented as of this encounter
--- OUTSIDE RECORDS SUMMARY | 2025-01-30 07:58 | XMS_ITS | Encounter Summary ---
Author Organization [facility] Address [address] [place] [address] Care Team Providers Care Turning Machine Set Up Operator Name Role Phone Eulalia Angel NP Primary Care Provider [phone] Valentino Seals MD Primary Care Provider [phone] Encounter Details Date Type Department Care Team ([facility] Contact Info) Description 03/30/2021 Orders Only [facility] [address] [place] [address] Eulalia Angel NP 123 [facility] [address] [place] [address] Social History Tobacco Use Types [...] at . Any insurance accepted. Quit smoking resources-[email or web address] documented as of this encounter Visit Diagnoses Diagnosis Degenerative disc disease, lumbar Degeneration of lumbar or lumbosacral intervertebral disc documented in this encounter Care Teams Turning Machine Set Up Operator Relationship Specialty Start Date End Date Eulalia Angel NP PCP - General Internal Medicine 03/24/21 10/05/22 Valentino Seals MD [address] [place] [address] PCP - General 10/06/22 documented as of this encounter
--- OUTSIDE RECORDS SUMMARY | 2025-01-30 07:58 | XMS_ITS | Encounter Summary ---
Author Organization [facility] Address [address] [place] [address] Care Team Providers Care Meat Cutting Block Repairer Name Role Phone Eulalia Angel NP Primary Care Provider [phone] Erin Yancey MD Primary Care Provider Unavailabl e Eulalia Angel NP Unavailable [phone] Eulalia Angel NP Primary Care Provider [phone] Valentino Seals MD Primary Care Provider [phone] Encounter Details Date Type Department Care Team (Late st Contact Info) Description 08/29/2019 Orders Only [facility] [address] [place] [address] Eulalia Angel NP [address] [address] Social History Tobacco Use Types [...] at . Any insurance accepted. Quit smoking resources-[email or web address] documented as of this encounter Procedures * Due to [place] [employer] law, this organization might not be sharing negative HIV tests. Procedure Name Priority Date/Time Associated Diagnosis Comments VENIPUNCTURE Routine 08/29/2019 3:34 PM EST Thyroiditis TSH, 3RD GENERATION Routine 08/29/2019 3 :34 PM EST Thyroiditis documented in this encounter Results * Due to [place] [employer] law, this organization might not be sharing negative HIV tests. * TSH, 3RD GENERATION (08/29/2019 3:34 PM EST) TSH 3.59 mIU/L [facility] Comment: ?Reference Range ?> or = 20 Years ??0.40-4.50 ? Ranges ?First trimester ?0.26-2.66 ?Second trimester ?? 0.55-2.73 ?Third trimester ?0.43-2.91 08/29/2019 3:34 PM EST 08/30/2019 12:24 AM EST Narrative Resulting Agency Comment [id number] Eulalia Angel [employer] [facility] [facility] Final Result Performing Organization Address City/[facility]/ZIP Co de Phone Number [facility] [address] [place] [address] * (ABNORMAL) THYROID PEROXIDASE AND THYROGLOBULIN ANTIBODIES (08/29/2019 3:34 PM EST) Thyroglobulin Ab <1 < or = 1 IU/mL [facility] Thyroperoxidase Ab 18(H) <9 IU/mL Q [facility] 08/29/2019 3:34 PM EST 08/30/2019 12:24 AM EST Narrative Resulting Agency Comment [id number] Eulalia Angel [employer]IVE [employer] [facility] [facility] Final Result Performing Organization Address City/[facility] Co de Phone Number [facility] [address] [place] [address] documented in this encounter Visit Diagnoses Diagnosis Thyroiditis documented in this encounter Care Teams Meat Cutting Block Repairer Relationship Specialty Start Date End Date Eulalia Angel NP PCP - General 03/24/19 08/15/20 Erin Yancey MD PCP - General Internal Medicine 08/16/20 03/23/21 Eulalia Angel NP PCP - Backup PCP Internal Medicine 12/30/20 03/23/21 Eulalia Angel NP PCP - General Internal Medicine 03/24/21 10/05/22 Valentino Seals MD [address] [place] [address] PCP - General 10/06/22 documented as of this encounter
--- OUTSIDE RECORDS SUMMARY | 2025-01-30 07:58 | XMS_ITS | Encounter Summary ---
Author Organization [facility] Address [address] [place] [address] Care Team Providers Care Cephalometric Analyst Name Role Phone Eulalia Angel NP Unavailable [phone] Eulalia Angel NP Primary Care Provider [phone] Erin Yancey MD Primary Care Provider Unavailabl e Eulalia Angel NP Unavailable [phone] Eulalia Angel NP Primary Care Provider [phone] Valentino Seals MD Primary Care Provider [phone] Encounter Details Date Type Department Care Team (Late st Contact Info) Description 04/29/2019 Orders Only [facility] [address] [place] [address] Eulalia Angel NP 123 [facility] [address] [place] [address] Social History Tobacco Use Types [...] at . Any insurance accepted. Quit smoking resources-[email or web address] documented as of this encounter Procedures * Due to [place] [employer] law, this organization might not be sharing negative HIV tests. Procedure Name Priority Date/Time Associated Diagnosis Comments HCG, TOTAL, QL Routine 04/29/2019 3:25 PM EDT Amenorrhea documented in this encounter Results * Due to [place] [employer] law, this organization might not be sharing negative HIV tests. * HCG, TOTAL, QL (04/29/2019 3:25 PM EDT) HCG, Qualitative (Screen) NEGATIVE [facility] Comment: Reference Range Non-: Negative : ? Positive 04/29/2019 3:25 PM EDT 04/30/2019 12:32 AM EDT Narrative Resulting Agency Comment [id number] Eulalia Angel NP LAB SAME DAY RESULT Final Resul t [facility] [address] [place] [address] documented in this encounter Visit Diagnoses Diagnosis Amenorrhea Absence of menstruation documented in this encounter Care Teams Cephalometric Analyst Relationship Specialty Start Date End Date Eulalia Angel NP PCP - Backup PCP Internal Medicine 01/28/19 06/09/19 Eulalia Angel NP PCP - General 03/24/19 08/15/20 Erin Yancey MD PCP - General Internal Medicine 08/16/20 03/23/21 Eulalia Angel NP PCP - Backup PCP Internal Medicine 12/30/20 03/23/21 Eulalia Angel NP PCP - General Internal Medicine 03/24/21 10/05/22 Valentino Seals MD [address] [place] [address] PCP - General 10/06/22 documented as of this encounter
--- OUTSIDE RECORDS SUMMARY | 2025-01-30 07:58 | XMS_ITS | Encounter Summary ---
Author Organization [facility] Address [address] [place] [address] Care Team Providers Care Rubber Tubing Backer Name Role Phone Eulalia Angel NP Unavailable Eulalia Angel NP Primary Care Provider [phone] Erin Yancey MD Primary Care Provider Unavailabl e Eulalia Angel LANGUAGE INSTRUCTOR Unavailable [phone] Eulalia Angel NP Primary Care Provider [phone] Valentino Seals MD Primary Care Provider [phone] Encounter Details Date Type Department Care Team (Late st Contact Info) Description 05/28/2019 Orders Only [facility] [address] [place] [address] Eulalia Angel NP 123 [facility] [address] [place] [address] Social History Tobacco Use Types [...] at . Any insurance accepted. Quit smoking resources-[email or web address] documented as of this encounter Procedures * Due to [place] [employer] law, this organization might not be sharing negative HIV tests. Procedure Name Priority Date/Time Associated Diagnosis Comments THYROID PEROXIDASE AND THYROGLOBULIN ANTIBODIES Routine 05/28/2019 11:47 AM EDT Screening for endocrine, nutritional, metabolic and immunity disorder documented in this encounter Results * Due to [place] [employer] law, this organization might not be sharing negative HIV tests. * (ABNORMAL) THYROID PEROXIDASE AND THYROGLOBULIN ANTIBODIES (05/28/2019 11:47 AM EDT) Thyroglobulin Ab <1 < or = 1 IU/mL [facility] Thyroperoxidase Ab 12(H) <9 IU/mL Q [facility] 05/28/2019 11:4 7 AM EDT 05/29/2019 1:31 AM EDT Narrative Resulting Agency Comment [id number] Brennan Cagle MD LABORATORY Final Result [facility] [address] [place] [address] documented in this encounter Visit Diagnoses Diagnosis Screening for endocrine, nutritional, metabolic and immunity disorder Screening for other and unspecified endocrine, nutritional, metabolic, and immunity disorders documented in this encounter Care Teams Rubber Tubing Backer Relationship Specialty Start Date End Date Eulalia Angel NP PCP - Backup PCP Internal Medicine 01/28/19 06/09/19 Eulalia Angel NP PCP - General 03/24/19 08/15/20 Erin Yancey MD PCP - General Internal Medicine 08/16/20 03/23/21 Eulalia Angel NP PCP - Backup PCP Internal Medicine 12/30/20 03/23/21 Eulalia Angel NP PCP - General Internal Medicine 03/24/21 10/05/22 Valentino Seals MD [address] [place] [address] PCP - General 10/06/22 documented as of this encounter
--- OUTSIDE RECORDS SUMMARY | 2025-01-30 07:58 | XMS_ITS | Encounter Summary ---
Author Organization [facility] Address [address] [place] [address] Care Team Providers Care Credit Administration Manager Name Role Phone Eulalia Angel NP Primary Care Provider [phone] Valentino Seals MD Primary Care Provider [phone] Encounter Details Date Type Department Care Team (Late st Contact Info) Description 03/24/2021 Orders Only [facility] [address] [place] [address] Erin Yancey MD Social History [...] at . Any insurance accepted. Quit smoking resources-[email or web address] documented as of this encounter Visit Diagnoses Not on filedocumented in this encounter Care Teams Credit Administration Manager Relationship Specialty Start Date End Date Eulalia Angel NP PCP - General Internal Medicine 03/24/21 10/05/22 Valentino Seals MD [address] [place] [address] PCP - General 10/06/22 documented as of this encounter
--- OUTSIDE RECORDS SUMMARY | 2025-01-30 07:58 | XMS_ITS | Encounter Summary ---
Author Organization [facility] Address [address] [place] [address] Care Team Providers Care Congressional Aide Name Role Phone Eulalia Angel NP Primary Care Provider [phone] Valentino Seals MD Primary Care Provider Encounter Details Date Type Department Care Team (Late st Contact Info) Description 03/31/2021 Orders Only [facility] [address] [place] [address] Eulalia Angel NP 123 [facility] [address] [place], [place] [id number] Social History Tobacco Use Types Packs/Day Years [...] at . Any insurance accepted. Quit smoking resources-[email or web address] documented as of this encounter Visit Diagnoses Diagnosis Sciatica, unspecified laterality documented in this encounter Care Teams Congressional Aide Relationship Specialty Start Date End Date Eulalia Angel NP PCP - General Internal Medicine 03/24/21 10/05/22 Valentino Seals MD [address] [place] [address] PCP - General 10/06/22 documented as of this encounter
--- NOTE | 2025-01-30 08:03 | MHC.OFFVIS ---
Vital Signs 01/30/25 08:05 Height 5 ft 8 in Intake Visit Reasons: OV - B/L knee pain, L>R Intake Note: Catherine is a 39 year old female who presents today for a follow up of her bilateral knee OA. Patient reports ongoing pain and she feels her pain is getting worse. Her pain is worse in her left knee. She is hearing a lot of clicking and shifting in her left knee. Patient tried taking Ibuprofen and Alive with mild relief. Allergies No Known Allergies Allergy (Verified 01/30/25 08:05) HPI HPI OV - B/L knee pain, L>R: Details: Ms. Be is a 39-year-old female who presents to the office today for continuation of bilateral knee pain. Left is greater than right. She reports that she has a crunching sensation accompanied by pain. She is concerned that her pain is progressing and she is slowly unable to do the activities that she wants was able to without taking breaks i.e. gardening. At her last appointment on 05/01/2024 we discussed the role of cortisone injections but the patient stated that her symptoms were not that painful and therefore it was deferred at this time. 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 No ecchymosis, erythema or joint effusion. Crepitus with range of motion. Full range of motion. NVI. Assessment & Plan Assessment & Plan (1) Osteoarthritis of right knee: Code(s): M17.11 - Unilateral primary osteoarthritis, right knee Category: Medical (2) Osteoarthritis of left knee: Code(s): M17.12 - Unilateral primary osteoarthritis, left knee Category: Medical Plan Ms. Be is a 39-year-old female who presents to the office today for continuation of bilateral knee pain. Left is greater than right. She reports that she has a crunching sensation accompanied by pain. She is concerned that her pain is progressing and she is slowly unable to do the activities that she wants was able to without taking breaks i.e. gardening. At her last appointment on 05/01/2024 we discussed the role of cortisone injections but the patient stated that her symptoms were not that painful and therefore it was deferred at this time. While the office today, we discussed the role of cortisone injections as well as possible geniculate nerve blocks. Patient states that she is going on a vacation at the end of February. Therefore, she would like to come at the beginning of February to try a cortisone injection. We also discussed the role of geniculate nerve blocks and referral to pain management. However, the patient reports that she had this done in her lower back and her symptoms reappeared in 3 months. She is hesitant to move forward with this at this time. She will follow up at the beginning of February, sooner if needed. X-rays of bilateral knees, which were obtained while in the office today and were reviewed by me, Rachel Torres PA-C, revealed worsening osteoarthritis bilateral knees compared to prior films. Orders: Orders XR Knee Riky 3V Today M25.561 - Pain in right knee, M25.562 - Pain in left knee Coding Level of Care Code Est Pt Level 3 (29415) Diagnoses Osteoarthritis of right knee M17.11 Osteoarthritis of left knee M17.12
== END 2025-01-30 08:32 | disposition home or self-care (01) ==
LOC: HO.HOS 07:54
PROVIDERS: PCP Internal Medicine; Visit Provider Physician Assistant
DX: M17.0 Bilateral primary osteoarthritis of knee (principal)
CPT/HCPCS: 99213

== ENCOUNTER 2025-01-30 07:56 | Outpatient (REF) | payer OTHER, SELFPAY ==
--- NOTE | ~2025-01-30 | XR_ITS ---
EXAMINATION: X-ray knee, bilaterally. CLINICAL INFORMATION: Pain TECHNIQUE: AP view both knees in standing position. Lateral and sunrise view both knees. COMPARISON: June 26, 2023 FINDINGS: There is asymmetric joint space narrowing involving mostly the medial compartments of the knees with mild sclerosis of the articular surface of the tibial plateau and small marginal osteophyte formation and femoral condyles and medial tibial plateau. No acute cortical disruption or malalignment. No suprapatellar bursa joint effusion. No lytic or blastic lesions. 6 mm well-corticated calcification in the popliteal region. XR/XR Knee Riky 3V IMPRESSION: Medial compartment osteoarthrosis, both knees. Electronically signed by: Mart Bowen MD 01/30/2025 08:22 AM EDT
== END 2025-01-30 07:57 | disposition home or self-care (01) ==
LOC: HO.HOSX 07:56
PROVIDERS: Visit Provider Physician Assistant
DX: M17.12 Unilateral primary osteoarthritis, left knee (principal); M25.561 Pain in right knee
CPT/HCPCS: 73562

== ENCOUNTER → 2025-01-30 07:57 | Outpatient (BNV) | payer OTHER, SELFPAY | PROVIDERS: Visit Provider Radiology Diagnostic Radiology | DX: M17.0 Bilateral primary osteoarthritis of knee (principal) | CPT/HCPCS: 73562 ==

== ENCOUNTER 2025-02-27 10:29 | Outpatient (AMB) | payer OTHER, SELFPAY ==
--- NOTE | 2025-02-27 10:57 | MHC.OFFVIS ---
Vital Signs 02/27/25 10:59 Height 5 ft 8 in Intake Visit Reasons: INJ B/L Knee injection Intake Note: Catherine is a 39 year old female who presents today for cortisone injections for both of her knees. Allergies No Known Allergies Allergy (Verified 01/30/25 08:05) HPI HPI INJ B/L Knee injection: Details: Patient is a 39-year-old female who presents to the office today for bilateral knee injections pending her upcoming trip to [place]. 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 No ecchymosis, erythema or joint effusion. Crepitus with range of motion. Full range of motion. NVI. Office Procedures AMB Joint Injection/Aspiration Joint Injection/Aspiration Primary Site: right knee Secondary Site: left knee Prep: site was prepped using aseptic technique, ethochloride spray was applied and injection warnings given Injected: 80 mg of, DepoMedrol, with 8 mL of (2% plain lidocaine) and in the joint Approach Used: anterolateral Procedure: The patient tolerated the procedure well, but had some pain with the injection and there was some relief with the local anesthesia Coding 88810 - Bilateral Large Joint Procedure code (CPT) selection complete Assessment & Plan Assessment & Plan (1) Internal derangement of left knee: Code(s): M23.92 - Unspecified internal derangement of left knee Category: Medical (2) Internal derangement of right knee: Code(s): M23.91 - Unspecified internal derangement of right knee Category: Medical Plan The patient was offered a cortisone injection in bilateral knee with 80 mg of DepoMedrol. The patient was explained the risks, benefits, and alternatives to receiving this injection. After receiving consent for the injection, the patient had the procedure done while in the office today. The patient tolerated the procedure well with no complications. Additionally, I sent a prescription for Celebrex to the pharmacy and lidocaine patches. We will also try to obtain a topical pain cream [facility]. Follow-up will be PRN, or sooner if needed Medications: New celecoxib (Celebrex) 200 mg PO BID 60 caps 0RF 30 days lidocaine 4% (AsperFlex (lidocaine)) may leave on for up to 12 hrs 1 patch topical Q24H PRN 30 ea 0RF pain Coding Level of Care Code Est Pt Level 3 (44014) Diagnoses Internal derangement of left knee M23.92 Internal derangement of right knee M23.91 CPT Codes Coding - 74605 - Bilateral Large Joint: 03394 - Bilateral Large Joint ([id number])
--- OUTSIDE RECORDS SUMMARY | 2025-02-27 11:17 | XMS_ITS | Encounter Summary ---
Author Organization [facility] Address [address] [place] [address] Care Team Providers Care Chemist Instrumentation Name Role Phone Eulalia Angel NP Unavailable [phone] Eulalia Angel NP Primary Care Provider [phone] Erin Yancey MD Primary Care Provider Unavailabl e Eulalia Angel METAL SANDER Unavailable [phone] Eulalia Angel NP Primary Care Provider [phone] Valentino Seals MD Primary Care Provider [phone] Reason for Referral * CONSULT AND TREATMENT (Routine) - Authorized Specialty Diagnoses / Procedures Referred By Conttoan t Referred To Contact Neurosurgery / Neurology Diagnoses Back pain, unspecified back location, unspecified back pain laterality, unspecified chronicity Procedures NeuroSurgeon: Dr Dar Abbott p [phone] f [phone] [facility]?? Eulalia Angel NP Phone: tel: fax: Dar Abbott, [facility], Dept of Neurosurgery [address] [place] [address] Phone: tel: fax: Referral ID Status Reason Start Date Expiration Date Visits Requested Visits Authorized [id number] Authorized Specialty Services Required 03/31/2019 03/30/2020 3 3 Question Answer When do you want this visit to occur? WITHIN 1 WEEK - 04/01/19 6 visits Appointment with MD or AP? FIRST AVAILABLE Patient is being referred outside of [facility] for the following reason, however final determination for [id number] requests are made by the Referral Management [...] refer to? NeuroSurgeon: Dr Dar Abbott p [phone] f [phone] [facility] surgery consult Please list the patient's preferred provider for this consult. Dr Dar Abbott p [phone] f [phone] [facility] Encounter Details Date Type Department Care Team ([facility] st Contact Info) Description 03/24/2019 Orders Only [facility] [address] [place] [address] Eulalia Angel NP [address] [address] Social History Tobacco Use Types Packs/Day Years [...] at . Any insurance accepted. Quit smoking resources-[email or web address] documented as of this encounter Visit Diagnoses Diagnosis Back pain, unspecified back location, unspecified back pain laterality, unspecified chronicity documented in this encounter Care Teams Chemist Instrumentation Relationship Specialty Start Date End Date Eulalia Angel NP PCP - Backup PCP Internal Medicine 01/28/19 06/09/19 Eulalia Angel NP PCP - General 03/24/19 08/15/20 Erin Yancey MD PCP - General Internal Medicine 08/16/20 03/23/21 Eulalia Angel NP PCP - Backup PCP Internal Medicine 12/30/20 03/23/21 Eulalia Angel NP PCP - General Internal Medicine 03/24/21 10/05/22 Valentino Seals MD [address] [place] [address] PCP - General 10/06/22 documented as of this encounter
== END 2025-02-27 10:57 | disposition home or self-care (01) ==
LOC: HO.HOS 10:29
PROVIDERS: PCP Internal Medicine; Visit Provider Physician Assistant
DX: M23.92 Unspecified internal derangement of left knee (principal); M23.91 Unspecified internal derangement of right knee
CPT/HCPCS: 20610; 99213

== ENCOUNTER → 2025-02-27 10:29 | Outpatient (BNVA) | payer OTHER, SELFPAY | PROVIDERS: PCP Internal Medicine; Visit Provider Physician Assistant | DX: M23.92 Unspecified internal derangement of left knee (principal); M23.91 Unspecified internal derangement of right knee | CPT/HCPCS: 20610; J1010; J2003 ==

== ENCOUNTER 2025-05-27 12:43 | Outpatient (AMB) | payer OTHER, SELFPAY ==
--- OUTSIDE RECORDS SUMMARY | 2025-05-27 15:06 | XMS_ITS | Encounter Summary ---
Author Organization [facility] Address [address] [place] [address] Care Team Providers Care Placement Coordinator Name Role Phone Eulalia Angel NP Primary Care Provider [phone] Valentino Seals MD Primary Care Provider [phone] Encounter Details Date Type Department Care Team (Late st Contact Info) Description 03/24/2021 Orders Only [facility] [address] [place] [phone] Erin Yancey MD [address] [place] [address] Social History Tobacco Use Types Packs/Day Years [...] at . Any insurance accepted. Quit smoking resources-[email or web address] documented as of this encounter Visit Diagnoses Not on filedocumented in this encounter Care Teams Placement Coordinator Relationship Specialty Start Date End Date Eulalia Angel NP PCP - General Internal Medicine 03/24/21 10/05/22 Valentino Seals MD [address] [place] [address] PCP - General 10/06/22 documented as of this encounter
--- OUTSIDE RECORDS SUMMARY | 2025-05-27 15:06 | XMS_ITS | Encounter Summary ---
Author Organization [facility] Address [address] [place] [address] Care Team Providers Care Manager It Security Name Role Phone Eulalia Angel NP Unavailable [phone] Eulalia Angel NP Primary Care Provider [phone] Erin Yancey MD Primary Care Provider [phone] Eulalia Angel CERTIFIED CAREGIVER Unavailable [phone] Eulalia Angel NP Primary Care Provider Valentino Seals MD Primary Care Provider [phone] Encounter Details Date Type Department Care Team (Late st Contact Info) Description 04/29/2019 Orders Only [facility] [address] [place] [phone] Eulalia Angel NP 123 [facility] [address] [place] [address] Social History Tobacco Use Types [...] at . Any insurance accepted. Quit smoking resources-[email or web address] documented as of this encounter Procedures * Due to [place] state law, this organization might not be sharing negative HIV tests. Procedure Name Priority Date/Time Associated Diagnosis Comments HCG, TOTAL, QL Routine 04/29/2019 3:25 PM EDT Amenorrhea documented in this encounter Results * Due to [place] [employer] law, this organization might not be sharing negative HIV tests. * HCG, TOTAL, QL (04/29/2019 3:25 PM EDT) HCG, Qualitative (Screen) NEGATIVE [facility] Comment: Reference Range Non-: Negative : Positive 04/29/2019 3:25 PM EDT 04/30/2019 12:32 AM EDT Narrative Resulting Agency Comment [id number] Eulalia Angel NP LAB SAME DAY RESULT Final Resul t [facility] [address] [place] [address] documented in this encounter Visit Diagnoses Diagnosis Amenorrhea Absence of menstruation documented in this encounter Care Teams Manager It Security Relationship Specialty Start Date End Date Eulalia Angel NP PCP - Backup PCP Internal Medicine 01/28/19 06/09/19 Eulalia Angel NP PCP - General 03/24/19 08/15/20 Erin Yancey MD PCP - General Internal Medicine 08/16/20 03/23/21 Eulalia Angel NP PCP - Backup PCP Internal Medicine 12/30/20 03/23/21 Eulalia Angel NP PCP - General Internal Medicine 03/24/21 10/05/22 Valentino Seals MD [address] [place] [address] PCP - General 10/06/22 documented as of this encounter
--- OUTSIDE RECORDS SUMMARY | 2025-05-27 15:06 | XMS_ITS | Encounter Summary ---
Author Organization [facility] Address [address] [place] [address] Care Team Providers Care Dry Cleaning Manager Name Role Phone Eulalia Angel NP Primary Care Provider [phone] Brennan Cagle MD Primary Care Provider Eulalia Angel MEMBERSHIP CORRESPONDENT Unavailable [phone] Eulalia Angel NP Primary Care Provider Erin Yancey MD Primary Care Provider Eulalia Angel MEMBERSHIP CORRESPONDENT Unavailable [phone] Eulalia Angel MEMBERSHIP CORRESPONDENT Primary Care Provider Valentino Seals MD Primary Care Provider [phone] Encounter Details Date Type Department Care Team (Late st Contact Info) Description 12/16/2018 Orders Only [facility] [address] [place] [phone] Eulalia Angel, MEMBERSHIP CORRESPONDENT 123 [facility] [address] [place] [address] Social History Tobacco Use Types [...] / using tobacco Lifestyle No Gabby Montesinos, J2EE CONSULTANT Note: Smoking can cause cancer, heart attacks, [...] at . Any insurance accepted. Quit smoking resources-http://[employer].org documented as of this encounter Visit Diagnoses Not on filedocumented in this encounter Care Teams Dry Cleaning Manager Relationship Specialty Start Date End Date Eulalia Angel NP PCP - General Internal Medicine 05/14/18 01/27/19 Brennan Cagle MD [address] [place] [address] PCP - General Internal Medicine 01/28/19 03/23/19 Eulalia Angel NP [address] [place] [address] PCP - Backup PCP Internal Medicine 01/28/19 06/09/19 Eulalia Angel NP [address] [place] [address] PCP - General 03/24/19 08/15/20 Erin Yancey MD [address] [place] [address] PCP - General Internal Medicine 08/16/20 03/23/21 Eulalia Angel NP [address] [place] [address] PCP - Backup PCP Internal Medicine 12/30/20 03/23/21 Eulalia Angel NP [address] [place] [address] PCP - General Internal Medicine 03/24/21 10/05/22 Valentino Seals MD [address] [place] [address] PCP - General 10/06/22 documented as of this encounter
--- OUTSIDE RECORDS SUMMARY | 2025-05-27 15:06 | XMS_ITS | Patient Health Record ---
Author Organization Edilberto Ocampo MD Address [address] [place] [address] Care Team Providers Care Obstetrics Gyn Physician Name Role Phone Edilberto Ocampo Unavailable [phone] Reason For Referral No Information Plan Of Treatment Pending Test Test Name Order Date MRI LUMBAR SPINE W/O [id number] 07/07 CT LUMBAR SPINE WITHOUT CONTR 04/24/2019 LUMBAR SPINE W_FLEX EXT 4 _5V 10/07/2020 LUMBAR SPINE W_FLEX EXT 4 _5V 04/01/2019 LUMBAR SPINE W_FLEX EXT 4 _5V 07/07/2020 NM BONE IMAGING SPECT 04/24/2019 MRI SPINE,CERVICAL 04/24/2019 EOS SCOLIOSIS 2 VIEW 04/24/2019 Insurance Providers Payer Name Payer Address Payer Phone Subscriber Number Group Number Insured Name Patient Relationship to Insured Coverage Start Date Coverage End Date [facility] [address] [facility] [address] [phone] [id number] Catherine Be Self - patient is the insured Medical (General) History Surgical History Surgery Date(Month/Year) None
--- OUTSIDE RECORDS SUMMARY | 2025-05-27 15:06 | XMS_ITS | Encounter Summary ---
Author Organization [facility] Address [address] [address] Phone Care Team Providers Care Progressive Die Maker Name Role Phone Eulalia Angel NP Unavailable [phone] Eulalia Angel NP Primary Care Provider [phone] Isa Payne DO Primary Car e Provider Encounter Details Date Type Department Care Team (Late st Contact Info) Description 06/16/2019 Procedure Pass [facility] PERIOPERATIVE DEPT [address] [place] [address] Social History Tobacco Use Types Packs/Day Years Used Date Smoking Tobacco: Former Cigarettes 0.5 18.2 0 02/20/2001 - 04/27/2019 Smokeless Tobacco: Never Alcohol Use Standard Drinks/Week Comments Yes 1 (1 standard drink = 0.6 oz pur e alcohol) social drinker Comments No Sex and Gender Information Value Date Recorded Sex Assigned at Not on file Legal Sex Female 9:16 PM EDT Gender Identity Not on file Sexual Orientation Not on file documented as of this encounter Plan of Treatment Upcoming Encounters Date Type Department Care Team (Late st Contact Info) Description 06/04/2025 3:30 PM EDT Appointment [facility], X-Ray - [address] [place] [address] Dar Abbott, DO [address] [place] [address] 06/16/2025 10:15 AM EDT Office Visit [facility] [address] [facility], [address] [place] [address] Richardson Davenport MD [address] [place] [address] 11/19/2025 11:30 AM EST [facility] Visit [facility] [address] [place] [address] Dar Abbott, [address] [place] [address] [email or web address] documented as of this encounter Visit Diagnoses Not on filedocumented in this encounter Care Teams Progressive Die Maker Relationship Specialty Start Date End Date Eulalia Angel NP PCP - General Family Medicine 10/29/18 04/24/22 Isa Payne DO PCP - General Internal Medicine 04/25/22 Eulalia Angel NP Nurse Practitioner Family Medicine 10/29/18 documented as of this encounter Additional Source Comments The information contained in this document represents components of the legal health record. It is not the complete legal health record.[facility]
--- OUTSIDE RECORDS SUMMARY | 2025-05-27 15:06 | XMS_ITS | Encounter Summary ---
Author Organization [facility] Address [address] [place] [address] Care Team Providers Care Metal Dealer Name Role Phone Eulalia Angel NP Primary Care Provider [phone] Valentino Seals MD Primary Care Provider [phone] Encounter Details Date Type Department Care Team (Late st Contact Info) Description 03/31/2021 Orders Only [facility] [address] [place] [address] Eulalia Angel NP 123 [facility] [address] [place], [place] [phone] Social History Tobacco Use Types Packs/Day Years [...] at . Any insurance accepted. Quit smoking resources-[email or web address] documented as of this encounter Visit Diagnoses Diagnosis Sciatica, unspecified laterality documented in this encounter Care Teams Metal Dealer Relationship Specialty Start Date End Date Eulalia Angel NP PCP - General Internal Medicine 03/24/21 10/05/22 Valentino Seals MD [address] [place] [address] PCP - General 10/06/22 documented as of this encounter
--- OUTSIDE RECORDS SUMMARY | 2025-05-27 15:06 | XMS_ITS | Encounter Summary ---
Author Organization [facility] Address [address] [employer] [facility] [address] [place] [address] Phone Care Team Providers Care Pharmacy Technician Instructor Name Role Phone Eulalia Angel MEDICAL FACILITIES SECTION DIRECTOR Unavailable [phone] Isa Payne DO Primary Car e Provider Encounter Details Date Type Department Care Team (Late st Contact Info) Description 11/13/2023 Procedure Pass [facility] - [address] [place] [address] Social History Tobacco Use Types Packs/Day Years Used Date Smoking Tobacco: Former Cigarettes 0.5 18.2 0 02/20/2001 - 04/27/2019 Smokeless Tobacco: Never Alcohol Use Standard Drinks/Week Comments Yes 1 (1 standard drink = 0.6 oz pur e alcohol) social drinker Education Answer Date Recorded Are you interested in more education? Not on bernardino e 01/19/2023 Are you concerned about learning? Not on file 01/19/2023 No 01/19/2023 No 01/19/2023 Digital Access Answer Date Recorded No 02/16/2023 No 02/16/2023 Reliable internet access at home? Not on file 02/16/2023 Device with a working camera? Not on file Comments No Sex and Gender Information Value Date Recorded Sex Assigned at Not on file Legal Sex Female 9:16 PM EDT Gender Identity Not on file Sexual Orientation Not on file documented as of this encounter Plan of Treatment Upcoming Encounters Date Type Department Care Team (Late st Contact Info) Description 06/04/2025 3:30 PM EDT Appointment [facility], X-Ray - [address] [place] [address] Dar Abbott DO [address] [place] [phone] 06/16/2025 10:15 AM EDT Office Visit [facility] [address] [facility], [address] [place] [address] Richardson Davenport MD [address] [place] [address] 11/19/2025 11:30 AM EST [facility] Visit [facility] [address] [place] [address] Dar Abbott DO [address] [place] [address] documented as of this encounter Visit Diagnoses Not on filedocumented in this encounter Care Teams Pharmacy Technician Instructor Relationship Specialty Start Date End Date Isa Payne DO PCP - General Internal Medicine 04/25/22 Eulalia Angel NP Nurse Practitioner Family Medicine 10/29/18 documented as of this encounter Additional Source Comments The information contained in this document represents components of the legal health record. It is not the complete legal health record.[facility]
--- OUTSIDE RECORDS SUMMARY | 2025-05-27 15:06 | XMS_ITS | Encounter Summary ---
Author Organization [facility] Address [address] [employer] [facility] [address] [place] [address] Phone Care Team Providers Care Parer Name Role Phone Eulalia Angel NP Unavailable [phone] Eulalia Angel NP Primary Care Provider [phone] Isa Payne DO Primary Car e Provider Encounter Details Date Type Department Care Team (Late st Contact Info) Description 05/09/2021 Procedure Pass [facility] PERIOPERATIVE DEPT [address] [place], [place] [phone] Social History Tobacco Use Types Packs/Day Years [...] on file documented as of this encounter Functional Status * Calculated C-SSRS Risk Score (Lifetime/Recent) Answer Date of Assessment Author No Risk Indicated 05/09/2021 10:24 PM EDT Rozina Rosa RN * Dora Suicide Severity Rating Scale (Screener/Recent Self-Report) Question Answer Date of Assessment Author 1. Wish to be (Past 1 Month) No 05/09/2021 10:24 PM EDT Rozina Reynolds RN 2. Non-Specific Active Suicidal Thoughts (Past 1 Month) No 05/09/2021 10:24 PM EDT Rozina Reynolds RN 6. Suicidal Behavior (Lifetime) No 05/09/2021 10:24 PM EDT Rozina Reynolds RN documented as of this encounter Plan of Treatment Upcoming Encounters Date Type Department Care Team (Late st Contact Info) Description 06/04/2025 3:30 PM EDT Appointment [facility], X-Ray - [address] [place] [address] Dar Abbott DO [address] [place] [address] [email or web address] 06/16/2025 10:15 AM EDT Office Visit [facility] [address] [facility], [address] [place] [address] Richardson Davenport MD [address] [place] [address] 11/19/2025 11:30 AM EST Office Visit [facility] [address] [place] [address] Dar Abbott DO [address] [place] [address] documented as of this encounter Visit Diagnoses Not on filedocumented in this encounter Care Teams Parer Relationship Specialty Start Date End Date Eulalia Angel NP PCP - General Family Medicine 10/29/18 04/24/22 Isa Payne DO PCP - General Internal Medicine 04/25/22 Eulalia Angel NP Nurse Practitioner Family Medicine 10/29/18 documented as of this encounter Additional Source Comments The information contained in this document represents components of the legal health record. It is not the complete legal health record.[facility]
--- OUTSIDE RECORDS SUMMARY | 2025-05-27 15:06 | XMS_ITS | Clinical Summary ---
Author Organization [facility] Address [address] [place] [address] Phone Care Team Providers Care Snubber Name Role Phone Eulalia Angel MULTIGRAPHER Unavailable [phone] Isa Payne DO Primary Car e Provider Allergies No known active allergies Medications cetirizine (ZYRTEC) 10 MG tablet Take 1 tablet by mouth as needed. Active erenumab-aooe (AIMOVIG AUTOINJECTOR) 70 mg/mL subcutaneous injection Inject 140 mg under the skin every 28 days. Last dose April 06 Active traZODone (DESYREL) 50 MG tablet Take 50 mg by mouth nightly at bedtime. Active pregabalin (LYRICA) 150 MG capsule Take 150 mg by mouth 2 (two) times a day. Active calcium carbonate 500 mg (200 mg elemental) chewable tablet Take 1 tablet by mouth as needed for heartburn. Active oxyCODONE 5 MG immediate release tablet Take 1-3 tablets (5-15 mg total) by mouth every 4 (four) hours as needed for moderate pain. Partial fill ok 30 tablet 05/12/20 Active acetaminophen (TYLENOL) 500 MG tablet Take 2 tablets (1,000 mg total) by mouth every 8 (eight) hours. Take for postoperative pain management. 0 05/12/20 21 Active polyethylene glycol (MIRALAX) 17 gram packet Take 17 g by mouth daily as needed. 05/12/20 21 Active senna (SENOKOT) 8.6 mg tablet Take 2 tablets by mouth daily. Take while taking opioid medication. 05/12/20 Active traMADoL (ULTRAM) 50 mg tablet Take 1 tablet (50 mg total) by mouth every 6 (six) hours as needed for pain (specific location in comments). 60 tablet 05/12/20 Active diazePAM (VALIUM) 5 MG tablet Take 1 tablet (5 mg total) by mouth every 6 (six) hours as needed for anxiety. 10 tablet 05/12/20 Active pregabalin (LYRICA) 150 MG capsule Take 1 capsule (150 mg total) by mouth 2 (two) times a day. 60 capsule 1 05/12/20 Active ondansetron (ZOFRAN-ODT) 4 MG disintegrating tablet Take 1 tablet (4 mg total) by mouth every 8 (eight) hours as needed for nausea. 15 tablet 05/12/20 Active diazePAM (VALIUM) 5 MG tablet Take 1 tablet (5 mg total) by mouth every 6 (six) hours as needed for anxiety. 15 tablet 05/14/20 Active oxyCODONE 5 MG immediate release tablet Take 1 tablet (5 mg total) by mouth every 4 (four) hours as needed for moderate pain. 28 tablet 05/14/20 Active traMADoL (ULTRAM) 50 mg tablet Take 1 tablet (50 mg total) by mouth every 6 (six) hours as needed for pain (specific location in comments). 30 tablet 05/17/20 Active oxyCODONE 5 MG immediate release tablet Take 1 tablet (5 mg total) by mouth every 4 (four) hours as needed for moderate pain. 28 tablet 05/23/20 Active diazePAM (VALIUM) 5 MG tablet Take 1 tablet (5 mg total) by mouth every 6 (six) hours as needed for anxiety. 15 tablet 05/23/20 Active traMADoL (ULTRAM) 50 mg tablet Take 1 tablet (50 mg total) by mouth every 6 (six) hours as needed for pain (specific location in comments). 60 tablet 05/31/20 Active oxyCODONE 5 MG immediate release tablet Take 1 tablet (5 mg total) by mouth every 4 (four) hours as needed for moderate pain. 28 tablet 05/31/20 Active diazePAM (VALIUM) 5 MG tablet Take 1 tablet (5 mg total) by mouth every 6 (six) hours as needed for anxiety. 15 tablet 09/07/20 21 Active oxyCODONE 5 MG immediate release tablet Take 1 tablet (5 mg total) by mouth every 4 (four) hours as needed for moderate pain. 28 tablet 06/07/20 21 Active traMADoL (ULTRAM) 50 mg tablet Take 1 tablet (50 mg total) by mouth every 6 (six) hours as needed for pain (specific location in comments). 60 tablet 06/07/20 21 Active diazePAM (VALIUM) 5 MG tablet Take 1 tablet (5 mg total) by mouth every 6 (six) hours as needed for anxiety. 15 tablet 06/07/20 21 Active oxyCODONE 5 MG immediate release tablet Take 1 tablet (5 mg total) by mouth every 4 (four) hours as needed for moderate pain. 28 tablet 06/21/20 21 Active diazePAM (VALIUM) 5 MG tablet Take 1 tablet (5 mg total) by mouth every 6 (six) hours as needed for anxiety. 15 tablet 06/21/20 21 Active methylPREDNISolone (MEDROL DOSEPACK) 4 mg tablet follow package directions 21 tablet 03/04/20 24 Active Active Problems Problem Noted Date Diagnosed Date S/P lumbar fusion 05/09/2021 Chronic headache 07/31/2018 Overview (06/16/2019): Overview: 07/31/2018-sees neurology Chronic bilateral back pain 07/31/2018 Overview (06/16/2019): Overview: 07/31/2018-patient has been managed by the pain clinic with RF and injections in the past IBS (irritable bowel syndrome) 07/31/2018 Gastroesophageal reflux disease 09/24/2009 Overview (05/09/2021): otc meds prn Encounters Date Type Department Care Team Description 05/19/2025 11:30 AM EDT Office Visit [facility] Neurosurgery [address] [place] [address] Dar Abbott, Herniated lumbar disc without myelopathy (Primary Dx) from Last 3 Months Social History Tobacco Use Types Packs/Day Years [...] Sign Reading Time Taken Comments Blood Pressure 90/63 05/12/2021 11:29 AM EDT Pulse 95 05/12/2021 11:29 AM EDT Temperature 36.6 C (97.8 F) 05/12/2021 11:29 AM EDT Respiratory Rate 18 05/12/2021 5:00 AM EDT Oxygen Saturation 99% 05/12/2021 11:29 AM EDT Inhaled Oxygen Concentration - - Weight 77.1 kg (170 lb) 11/25/2023 12:27 PM EST Height 172.7 cm (5' 8 ) 11/25/2023 12:27 PM EST Body Mass Index 25.85 11/25/2023 12:27 PM EST Plan of Treatment Upcoming Encounters Date Type Department Care Team (Late st Contact Info) Description 06/04/2025 3:30 PM EDT Appointment [facility], X-Ray - [address] [place] [address] Dar Abbott, DO [address] [place] [id number] 06/16/2025 10:15 AM EDT Office Visit [facility] [address] [facility], [address] [place] [address] Richardson Davenport MD [address] [place] [address] 11/19/2025 11:30 AM EST Office Visit [facility] [address] [place] [address] Dar Abbott DO [address] [place] [address] [email or web address] Health Maintenance Due Date Last Done Comments DEPRESSION SCREENING 1996 SMOKING Hx and SMOKELESS TOBACCO SCREENING 1997 HEPATITIS C SCREENING 2002 HIV ONE-TIME SCREENING (18-6 5 YEARS) 2002 PAP SMEAR 2005 SCREENING FOR DIABETES 05/10/2024 05/10/2021 MAMMOGRAM 2024 INFLUENZA VACCINE (#1) 2025 COVID-19 VACCINE (2024-2 6 season) 2025 10/21/2021 Adult Td,Tdap Booster 10/25/2034 10/25/2024 , 02/25/2019, 06/16/2009 HEPATITIS A VACCINES Aged Out No long er eligible based on patient's age to complete this topic HIB VACCINES Aged Out No longer eligi ble based on patient's age to complete this topic MENINGOCOCCAL VACCINES (ACWY) Aged Out No longer eligible based on patient's age to complete this topic MENINGOCOCCAL VACCINES (B) Aged Out N o longer eligible based on patient's age to complete this topic PNEUMOCOCCAL VACCINES (0-49 years) Aged Out No longer eligible b ased on patient's age to complete this topic Medical Devices Implanted Type Area Career Based Intervention Coordinator Device Identifier Shelf Expiration Date Model / Serial / Lot Putty Bone 1.0ml Graft Bingham Demineralized Matrix Jar - [id number] Implanted:Qty: 1 on 05/09/2021 by Dar Abbott DO at [facility] BONETISSUE Spine Lumbar [employer] SPINE 04/11/2024 [id number] / [id number] / Description:The implant type , laterality (when applicable), size, and expiration date have been visually and verbally confirmed by the Surgeon, Circulating RN and Scrub Personnel. Putty Bone 1.0ml Graft Bingham Demineralized Matrix Jar - [id number] Implanted:Qty: 1 on 05/09/2021 by Dar Abbott DO at [facility] BONETISSUE Spine Lumbar [employer] SPINE 02/24/2024 [id number] / [id number] / Description:The implant type , laterality (when applicable), size, and expiration date have been visually and verbally confirmed by the Surgeon, Circulating RN and Scrub Personnel. Screw Bone 45x6.5mm Spine Cd Horizon Multiaxial [place] Chrome Osteogrip Dual Lead Thread - [id number] Implanted:Qty: 1 on 05/09/2021 by Dar Abbott DO at [facility] Spine Lumbar [employer] SPINE [id number] / / Description:Load 2/07 vw deb am 05/02/21 Screw Bone 50x6.5mm Spine Cd Horizon Multiaxial [place] Chrome Osteogrip Dual Lead Thread - [id number] Implanted:Qty: 5 on 05/09/2021 by Dar Abbott DO at [facility] Spine Lumbar [employer] SPINE [id number] / / Description:Load 2/07 vw deb am 05/02/21 Screw Bone 45x7.5mm Spine Cd Horizon 5.5 Multiaxial [place] Chrome Osteogrip Dual Lead Thread - [id number] Implanted:Qty: 2 on 05/09/2021 by Dar Abbott DO at [facility] Spine Lumbar [employer] SPINE [id number] / / Description:Load 2/ vw deb am 05/02/21 Set Screw 5.5x55mm Spine Cd Horizon Multiaxial [place] Osteogrip Dual Lead Thread - [id number] Implanted:Qty: 8 on 05/09/2021 by Dar Abbott DO at [facility] Spine Lumbar [employer] SPINE [id number] / / Description:Load 2/07 vw deb am 05/02/21 Thoracolumbar Spacer 7x22mm Verte Stack Peek - [id number] Implanted:Qty: 1 on 05/09/2021 by Dar Abbott DO at [facility] Spine Lumbar [employer] SPINE 02/24/2027 [id number] / / [id number] Description:The implant type , laterality (when applicable), size, and expiration date have been visually and verbally confirmed by the Surgeon, Circulating RN and Scrub Personnel. Gume 5.5x80mm Spinal Cd Horizon Solera Titanium Curve - [id number] Implanted:Qty: 2 on 05/09/2021 by Dar Abbott DO at [facility] Spine Lumbar [employer] SPINE [id number] / / Description:LOAD 10/31 VW deb am 05/02/21 Insurance [employer] PLUS PPO [employer] PLUS PPO [employer] PLUS PPO [employer] PLUS PPO [employer] PLUS PPO [employer] PLUS PPO ([place]) [address] [place] [address] [employer] PLUS PPO [employer] PLUS PPO [employer] PLUS PPO [employer] PLUS PPO Care Teams Snubber Relationship Specialty Start Date End Date Isa Payne DO PCP - General Internal Medicine 04/25/22 Eulalia Angel NP Nurse Practitioner Family Medicine 10/29/18 Additional Source Comments The information contained in this document represents components of the legal health record. It is not the complete legal health record.[facility]
--- OUTSIDE RECORDS SUMMARY | 2025-05-27 15:06 | XMS_ITS | Encounter Summary ---
Author Organization [facility] Address [address] [facility] [address] [place] [address] Phone Care Team Providers Care Area Secretary Name Role Phone Eulalia Angel NP Unavailable [phone] Eulalia Angel NP Primary Care Provider [phone] Isa Payne DO Primary Car e Provider Encounter Details Date Type Department Care Team (Late st Contact Info) Description 11/01/2018 Procedure Pass [facility] [address] [place] [address] Social History Tobacco Use Types Packs/Day Years Used Date Smoking Tobacco: Never Assessed Comments Unknown Sex and Gender Information Value Date Recorded Sex Assigned at Not on file Legal Sex Female 9:16 PM EDT Gender Identity Not on file Sexual Orientation Not on file documented as of this encounter Plan of Treatment Upcoming Encounters Date Type Department Care Team (Late st Contact Info) Description 06/04/2025 3:30 PM EDT Appointment [facility], X-Ray - [address] [place] [address] Dar Abbott, [address] [place] [address] 06/16/2025 10:15 AM EDT Office Visit [facility] [address] [facility], [address] [place], [place] [id number] Richardson Davenport MD [address] [place] [id number] 11/19/2025 11:30 AM EST Office Visit [facility] [address] [place] [address] Dar Abbott, [address] [place] [address] documented as of this encounter Visit Diagnoses Not on filedocumented in this encounter Care Teams Area Secretary Relationship Specialty Start Date End Date Eulalia Angel NP PCP - General Family Medicine 10/29/18 04/24/22 Isa Payne DO PCP - General Internal Medicine 04/25/22 Eulalia Angel NP Nurse Practitioner Family Medicine 10/29/18 documented as of this encounter Additional Source Comments The information contained in this document represents components of the legal health record. It is not the complete legal health record.[facility]
--- OUTSIDE RECORDS SUMMARY | 2025-05-27 15:06 | XMS_ITS | Encounter Summary ---
Author Organization [facility] Address [address] [place] [address] Care Team Providers Care Air Pollution Inspector Name Role Phone Eulalia Angel NP Primary Care Provider Valentino Seals MD Primary Care Provider [phone] Reason for Referral * CONSULT AND TREATMENT (Routine) - Authorized Specialty Diagnoses / Procedures Referred By Katja mao Referred To Contact Ent-Otolaryngology Diagnoses Allergy, subsequent encounter Procedures ENT -- Dr. Gerald Ivy, NPI# [id number] Fx: [phone] Eulalia Angel NP Phone: tel: fax: Referral ID Status Reason Start Date Expiration Date Visits Requested Visits Authorized [id number] Authorized Est Relationship 03/24/2021 03/24/2022 52 52 Question Answer When do you want this visit to occur? WITHIN 3 DAYS - 03/27/21 Appointment with or AP? FIRST AVAILABLE Patient is being referred outside of [facility] for the following reason, however final determination for [id number]-[id number] requests are made by the Referral Management Department Continuity of active patient care Track Order? No Which provider/facility/agency would you like to refer to? (specify if you want first available regardless of location) GERALD IVY M.D. [phone] Please provide pertinent patient history. patient calling to request referrals to this provider due to insurance change * CONSULT AND TREATMENT (Routine) - Authorized Specialty Diagnoses / Procedures Referred By Contac t Referred To Contact Neurosurgery / Neurology Diagnoses Back pain, unspecified back location, unspecified back pain laterality, unspecified chronicity Procedures Neurosurg -- Dr. Kaya Abbott, NPI# [id number] Eulalia Angel NP Phone: tel: fax: Kaya Abbott DO [facility], Dept of Neurosurgery [address] [place] [address] Phone: tel: fax: Referral ID Status Reason Start Date Expiration Date Visits Requested Visits Authorized [id number] Authorized Est Relationship 03/24/2021 03/24/2022 6 6 Question Answer Please provide pertinent patient history. patient calling to request new referral as insurance has change Track Order? No When do you want this visit to occur? WITHIN 3 DAYS - 03/29/21 Patient is being referred outside of [facility] for the following reason, however final determination for wmx-hs-[id number] requests are made by the Referral Management Department Continuity of active patient care Which provider/facility/agency would you like to refer to? (specify if you want first available regardless of location) Dr. kaya Abbott [phone] [facility] Encounter Details Date Type Department Care Team ([facility] st Contact Info) Description 03/24/2021 Orders Only [facility] [address] [place] [address] Eulalia Angel NP [address] [facility] [address] [place] [address] Social History Tobacco Use Types [...] at . Any insurance accepted. Quit smoking resources-[email or web address] documented as of this encounter Visit Diagnoses Diagnosis Back pain, unspecified back location, unspecified back pain laterality, unspecified chronicity Allergy, subsequent encounter documented in this encounter Care Teams Air Pollution Inspector Relationship Specialty Start Date End Date Eulalia Angel NP PCP - General Internal Medicine 03/24/21 10/05/22 Valentino Seals MD [address] [place] [address] PCP - General 10/06/22 documented as of this encounter
--- OUTSIDE RECORDS SUMMARY | 2025-05-27 15:06 | XMS_ITS | Encounter Summary ---
Author Organization [facility] Address [address] [place] [address] Care Team Providers Care Finish Remover Name Role Phone Brennan Cagle MD Primary Care Provider [phone] Eulalia Angel NP Unavailable [phone] Eulalia Angel NP Primary Care Provider Erin Yancey MD Primary Care Provider Eulalia Angel SQL ENGINEER Unavailable [phone] Eulalia Angel NP Primary Care Provider [phone] Valentino Seals MD Primary Care Provider [phone] Encounter Details Date Type Department Care Team (Late st Contact Info) Description 02/25/2019 Orders Only [facility] [address] [place] [address] Eulalia Angel NP [address] [facility] [address] [place] [address] Social History Tobacco Use Types [...] foods such as cakes, cookies, chips, popcorn, Portuguese fries, and ice cream. Hydrogenated fats (trans [...] are called omega- 3, omega-6, and omega-9. Tifton-3 fatty acids are found in fish and some plants. They are good for heart health. They may reduce the risk of stroke, high blood pressure, and other chronic disease. Good sources are oily fish such as salmon, mackerel and tuna. Tifton 3 fatty acids are also in fish oil supplements. Check with your healthcare provider before taking supplements. Fish oil supplements may cause bleeding in some people, especially if they are taken with blood-thinning medicines. Good plant sources for omega-3 fatty acids are canola oil, soybeans, flaxseed, avocado, and some types of nuts, especially walnuts and almonds. Tifton-6 fatty acid is found in corn, safflower, soybean, and sunflower oils. Tifton-9 fatty acid is found in olive oil, canola oil, and avocados. It is likely that the balance of fatty acids is very important. The [place]ian diet typically contains too much omega-6 fatty acid and not enough omega-3 fatty acid. How much fat do I need in my diet? Eating some fat???especially the good fats--is healthful, but many Americans eat too much and become overweight. The current [place] Heart Association Diet and Lifestyle Recommendations are: [...] at . Any insurance accepted. Quit smoking resources-http://[email or web address] documented as of this encounter Procedures * Due to [place] state law, this organization might not be [...] in this encounter Results * Due to [place] state law, this organization might not be sharing negative HIV tests. * (ABNORMAL) THYROID PEROXIDASE AND THYROGLOBULIN ANTIBODIES (05/28/2019 11:47 AM EDT) Thyroglobulin Ab <1 < or = 1 IU/mL [facility] Thyroperoxidase Ab 12(H) <9 IU/mL Q [facility] 05/28/2019 11:4 7 AM EDT 05/29/2019 1:31 AM EDT Narrative Resulting Agency Comment [id number] us Brennan Cagle MD LABORATORY Final Result Performing Organization Address [facility] Co de Phone Number [facility] [address] [place] [address] * (ABNORMAL) THYROID PEROXIDASE AND THYROGLOBULIN ANTIBODIES (02/25/2019 4:41 PM EDT) Thyroglobulin Ab <1 < or = 1 IU/mL [facility] Thyroperoxidase Ab 18(H) <9 IU/mL Q [facility] 02/25/2019 4:41 PM EDT 02/26/2019 1:51 AM EDT Narrative Resulting Agency Comment [id number] Brennan Cagle MD LABORATORY Final Result Performing Organization Address City/[facility] Co de Phone Number [facility] [address] [place] [address] * T4, FREE, SERUM (02/25/2019 4:41 PM EDT) FT4 0.9 0.8 - 1.8 ng/dL [facility] 02/25/2019 4:41 PM EDT 02/26/2019 1:51 AM EDT Narrative Resulting Agency Comment [id number] Brennan Cagle MD LABORATORY Final Result Performing Organization Address [facility] Co de Phone Number [facility] [address] [place] [address] * TSH, 3RD GENERATION (02/25/2019 4:41 PM EDT) TSH 2.42 mIU/L [facility] Comment: Reference Range > or = 20 Years 0.40-4.50 Ranges First trimester 0.26-2.66 Second trimester 0.55-2.73 Third trimester 0.43-2.91 02/25/2019 4:41 PM EDT 02/26/2019 1:51 AM EDT Narrative Resulting Agency Comment [id number] Brennan Cagle MD LABORATORY Final Result [facility] [address] [place] [address] * BASIC METABOLIC PANEL WITH (GFR) (02/25/2019 [...] needs for GFR calculation. Resulting Agency Comment [id number] Brennan Cagle MD LABORATORY Final Result Performing Organization Address [facility]/ZIP Co de Phone Number [facility] [address] [place] [address] * HEMOGLOBIN A1C (02/25/2019 4:41 PM EDT) Hemoglobin A1C 5.4 <5.7 % of total Hgb [facility] Comment: For the purpose of screening for the presence of diabetes: <5.7% Consistent with the absence of diabetes 5.7-6.4% Consistent with increased risk for diabetes (prediabetes) > or =6.5% Consistent with diabetes This assay result is consistent with a decreased risk of diabetes. Currently, no consensus exists regarding use of hemoglobin A1c for diagnosis of diabetes in children. According to [place] Diabetes Association (ADA) guidelines, hemoglobin A1c <7.0% represents optimal control in non- diabetic patients. Different metrics may apply to specific patient populations. Standards of Medical Care in Diabetes(ADA). Estimated Average Glucose 115 mg/dL (calc) [facility] 02/25/2019 4:41 PM EDT 02/26/2019 1:51 AM EDT Narrative Resulting Agency Comment [id number] Brennan Cagle MD LABORATORY Final Result Performing Organization Address [facility] Co de Phone Number [facility] [address] [place] [address] * (ABNORMAL) LIPID PANEL WITH REFLEX TO DIRECT LDL (02/25/2019 4:41 PM EDT) Cholesterol 195 <200 mg/dL [facility] HDL Cholesterol 52 >50 mg/dL [facility] Triglyceride 177(H) <150 mg/dL [facility] LDL Cholesterol 114(H) mg/dL (calc) [facility] Comment: Reference range: <100 Desirable range <100 mg/dL for primary prevention; <70 mg/dL for patients with CHD or diabetic patients with > or = 2 CHD risk factors. LDL-C is now calculated using the Rufus calculation, which is a validated novel method providing better accuracy than the Friedewald equation in the estimation of LDL-C. Ramírez DE LA CRUZ et al. WHITLEY. 2013;310(19): 5013-9259 (http://education.Cardley.com/faq/SGI091) CHOL/HDL Ratio 3.8 <5.0 (calc) [facility] Cholesterol Non-HDL 143(H) <130 mg/dL (calc) [facility] Comment: For patients with diabetes plus 1 major ASCVD risk factor, treating to a non-HDL-C goal of <100 mg/dL (LDL-C of <70 mg/dL) is considered a therapeutic option. 02/25/2019 4:41 PM EDT 02/26/2019 1:51 AM EDT Narrative Resulting Agency Comment [id number] us Brennan Cagle MD LABORATORY Final Result [email or web address] [address] [place] [address] documented in this encounter Visit Diagnoses Diagnosis Screening for endocrine, nutritional, metabolic and immunity disorder Screening for other and unspecified endocrine, nutritional, metabolic, and immunity disorders documented in this encounter Care Teams Finish Remover Relationship Specialty Start Date End Date Brennan Cagle MD [address] [place] [place] [address] PCP - General Internal Medicine 01/28/19 03/23/19 Eulalia Angel NP [address] [place] [address] PCP - Backup PCP Internal Medicine 01/28/19 06/09/19 Eulalia Angel NP [address] [place] [address] PCP - General 03/24/19 08/15/20 Erin Yancey MD [address] [place] [address] PCP - General Internal Medicine 08/16/20 03/23/21 Eulalia Angel NP [address] [place] [address] PCP - Backup PCP Internal Medicine 12/30/20 03/23/21 Eulalia Angel NP [address] [place] [address] PCP - General Internal Medicine 03/24/21 10/05/22 Valentino Seals MD [address] [place] [address] PCP - General 10/06/22 documented as of this encounter
--- OUTSIDE RECORDS SUMMARY | 2025-05-27 15:06 | XMS_ITS | Encounter Summary ---
Author Organization [facility] Address [address] [place] [address] Phone Care Team Providers Care Procurement Analyst Name Role Phone Eulalia Angel TRACK TEMPLATE MAKER Unavailable [phone] Isa Payne DO Primary Car e Provider Encounter Details Date Type Department Care Team (Late st Contact Info) Description 08/30/2023 Procedure Pass [facility], [facility] - [address] [place] [address] Social History Tobacco Use Types Packs/Day Years [...] Info) Description 06/04/2025 3:30 PM EDT Appointment [facility], X-Ray - [address] [place] [address] Dar Abbott DO [address] [place] [address] [email or web address] 06/16/2025 10:15 AM EDT Office Visit [facility] [address] [facility], [address] [place] [address] Richardson Davenport MD [address] [place] [address] 11/19/2025 11:30 AM EST Office Visit [facility] [address] [place] [address] Dar Abbott DO [address] [place] [address] documented as of this encounter Visit Diagnoses Not on filedocumented in this encounter Care Teams Procurement Analyst Relationship Specialty Start Date End Date Isa Payne DO PCP - General Internal Medicine 04/25/22 Eulalia Angel NP Nurse Practitioner Family Medicine 10/29/18 documented as of this encounter Additional Source Comments The information contained in this document represents components of the legal health record. It is not the complete legal health record.[facility]
--- OUTSIDE RECORDS SUMMARY | 2025-05-27 15:06 | XMS_ITS | Encounter Summary ---
Author Organization [facility] Address [address] [place] [address] Care Team Providers Care Septic Technician Name Role Phone Eulalia Angel NP Primary Care Provider [phone] Valentino Seals MD Primary Care Provider [phone] Reason for Referral * CONSULT AND TREATMENT (Routine) - Authorized Specialty Diagnoses / Procedures Referred By Contac t Referred To Contact Neurology Diagnoses Chronic nonintractable headache, unspecified headache type Procedures Aguilar Mitchell MD [phone] FAX [phone] Eulalia Angel NP Phone: tel: fax: Referral ID Status Reason Start Date Expiration Date Visits Requested Visits Authorized [id number] Authorized Specialty Services Required 03/24/2021 03/24/2022 6 6 Question Answer When do you want this visit to occur? 1 MONTH - 8/2 Appointment with or AP? FIRST AVAILABLE Patient is being referred outside of [facility] for the following reason, however final determination for [id number] requests are made by the Referral Management Department Patient Preference Track Order? No Which provider/facility/agency would you like to refer to? (specify if you want first available regardless of location) Aguilar Mitchell [phone] FAX [phone] Please provide pertinent patient history. patient calling to request referral due to insurance change Encounter Details Date Type Department Care Team (Late st Contact Info) Description 03/24/2021 Orders Only [facility] [address] [place] [address] Eulalia Angel NP [address] [facility] [address] [place] [address] Social History Tobacco Use Types Packs/Day Years [...] at . Any insurance accepted. Quit smoking resources-[email or web address] documented as of this encounter Visit Diagnoses Diagnosis Chronic nonintractable headache, unspecified headache type documented in this encounter Care Teams Septic Technician Relationship Specialty Start Date End Date Eulalia Angel NP PCP - General Internal Medicine 03/24/21 10/05/22 Valentino Seals MD [address] [place] [address] PCP - General 10/06/22 documented as of this encounter
--- OUTSIDE RECORDS SUMMARY | 2025-05-27 15:06 | XMS_ITS | Encounter Summary ---
Author Organization [facility] Address [address] [facility] [address] [place] [address] Phone Care Team Providers Care Insurance Agent Name Role Phone Eulalia Angel INSTRUCTIONAL RESOURCE TEACHER Unavailable [phone] Isa Payne DO Primary Car e Provider Encounter Details Date Type Department Care Team (Late st Contact Info) Description 11/13/2023 Procedure Pass [facility], [facility] - [address] [place] [address] Social History Tobacco Use Types Packs/Day Years [...] Info) Description 06/04/2025 3:30 PM EDT Appointment [facility], X-Ray - [address] [place] [address] Dar Abbott DO [address] [place] [address] [email or web address] 06/16/2025 10:15 AM EDT Office Visit [facility] [address] [facility], [address] [place] [address] Richardson Davenport MD [address] [place] [address] 11/19/2025 11:30 AM EST Office Visit [facility] 70 [place] [address] Dar Abbott DO [address] [place] [address] documented as of this encounter Visit Diagnoses Not on filedocumented in this encounter Care Teams Insurance Agent Relationship Specialty Start Date End Date Isa Payne DO PCP - General Internal Medicine 04/25/22 Eulalia Angel NP Nurse Practitioner Family Medicine 10/29/18 documented as of this encounter Additional Source Comments The information contained in this document represents components of the legal health record. It is not the complete legal health record.[facility]
--- OUTSIDE RECORDS SUMMARY | 2025-05-27 15:06 | XMS_ITS | Encounter Summary ---
Author Organization [facility] Address [address] [place] [address] Care Team Providers Care Finance Associate Name Role Phone Eulalia Angel NP Unavailable [phone] Eulalia Angel NP Primary Care Provider [phone] Erin Yancey MD Primary Care Provider Eulalia Angel COBOL ENGINEER Unavailable [phone] Eulalia Angel NP Primary Care Provider Valentino Seals MD Primary Care Provider [phone] Encounter Details Date Type Department Care Team (Late st Contact Info) Description 05/28/2019 Orders Only [facility] [address] [place] [address] Eulalia Angel NP 123 [facility] [address] [place] [address] Social History Tobacco Use Types [...] at . Any insurance accepted. Quit smoking resources-[email or web address] documented as of this encounter Procedures * Due to [place] [employer] law, this organization might not be sharing negative HIV tests. Procedure Name Priority Date/Time Associated Diagnosis Comments THYROID PEROXIDASE AND THYROGLOBULIN ANTIBODIES Routine 05/28/2019 11:47 AM EDT Screening for endocrine, nutritional, metabolic and immunity disorder documented in this encounter Results * Due to [place] [employer] law, this organization might not be sharing negative HIV tests. * (ABNORMAL) THYROID PEROXIDASE AND THYROGLOBULIN ANTIBODIES (05/28/2019 11:47 AM EDT) Thyroglobulin Ab <1 < or = 1 IU/mL [facility] Thyroperoxidase Ab 12(H) <9 IU/mL Q [facility] 05/28/2019 11:4 7 AM EDT 05/29/2019 1:31 AM EDT Narrative Resulting Agency Comment [id number] us Brennan Cagle MD LABORATORY Final Result [facility] [address] [place] [address] documented in this encounter Visit Diagnoses Diagnosis Screening for endocrine, nutritional, metabolic and immunity disorder Screening for other and unspecified endocrine, nutritional, metabolic, and immunity disorders documented in this encounter Care Teams Finance Associate Relationship Specialty Start Date End Date Eulalia Angel NP PCP - Backup PCP Internal Medicine 01/28/19 06/09/19 Eulalia Angel NP PCP - General 03/24/19 08/15/20 Erin Yancey MD PCP - General Internal Medicine 08/16/20 03/23/21 Eulalia Angel NP PCP - Backup PCP Internal Medicine 12/30/20 03/23/21 Eulalia Angel NP PCP - General Internal Medicine 03/24/21 10/05/22 Valentino Seals MD [address] [place] [address] PCP - General 10/06/22 documented as of this encounter
--- OUTSIDE RECORDS SUMMARY | 2025-05-27 15:06 | XMS_ITS | Encounter Summary ---
Author Organization [facility] Address [email or web address] [facility] [address] [place] [address] Phone Care Team Providers Care Statistical Financial Analyst Name Role Phone Eulalia Angel ADVERTISING COPYWRITER Unavailable [phone] Isa Payne DO Primary Car e Provider Encounter Details Date Type Department Care Team (Late Contact Info) Description 08/14/2022 Procedure Pass [facility], [address] [address] Social History Tobacco Use Types Packs/Day Years [...] Description 06/04/2025 3:30 PM EDT Appointment [facility], X-Ray - [address] [place] [address] Dar Abbott, DO [address] [place] [address] 06/16/2025 10:15 AM EDT Office Visit [facility] [address] [facility], [address] [place] [address] Richardson Davenport MD [address] [place] [address] 11/19/2025 11:30 AM EST Office Visit [facility] [address] [place] [address] Dar Abbott DO [address] [place] [address] [email or web address] documented as of this encounter Visit Diagnoses Not on filedocumented in this encounter Care Teams Statistical Financial Analyst Relationship Specialty Start Date End Date Isa Payne DO PCP - General Internal Medicine 04/25/22 Eulalia Angel NP Nurse Practitioner Family Medicine 10/29/18 documented as of this encounter Additional Source Comments The information contained in this document represents components of the legal health record. It is not the complete legal health record.[facility]
--- OUTSIDE RECORDS SUMMARY | 2025-05-27 15:06 | XMS_ITS | Clinical Summary ---
Author Organization [facility] Address [address] [place] [address] Care Team Providers Care Service Greeter Name Role Phone Valentino Seals MD Primary Care Provider [phone] Allergies No known active allergies Medications Drospirenone-Et [...] headache 07/31/2018 Overview (07/31/2018): 07/31/2018-sees neurology Immunizations Immunization Administration Dates Next Due COVID-19, mRNA (Moderna [...] 71 03/15/2020 2:17 PM EDT Temperature 36.9 C (98.4 F) 05/30/2019 1:10 PM EDT Respiratory Rate 18 12/13/2018 11:06 AM EDT [...] series) 2003 Pap Smear 02/06/2022 02/06/2019, 02/06/2019 Mammogram/Breast Imaging 2024 COVID-19 Vaccine ( season) 2025 10/21/2021, 11/25/2020, 10/28/2020 Influenza (#1) 2025 07/04/2023, 05/26, 06/16/2009, Additional history exists Zoster (Shingrix) (1 of 2) 2034 DTaP/Tdap/Td (4 - Td or Tdap) 10/25/2034 10/25/2024, 02/25/2019, 06/16/2009 Pneumococcal Aged Out 06/13/2015 No longer eligi ble based on patient's age to complete this topic Chest Imaging Discontinued 07/31/2018 LDL Cholesterol Discontinued 03/15/2020, 02/25/2019 Physical Discontinued 03/15/2020, 02/25/2019 HPV Vaccine (No Doses Required) Completed Hep A Aged Out No longer eligi [...] at . Any insurance accepted. Quit smoking resources-[email or web address] Retail Procedures * Due to [place] law, this organization might not be sharing [...] to Health Maintenance Results * Due to [place] law, this organization might not be sharing [...] factors. LDL-C is now calculated using the Ramírez-Fazal calculation, which is a validated novel method providing better accuracy than the Friedewald equation in the estimation of LDL-C. Ramírez DE LA CRUZ et al. WHITLEY. 2013;310(19): 4534-5200 (http://education.[employer].Docitt/faq/HXY415) CHOL/HDL Ratio 2.7 <5.0 (calc) [facility] Cholesterol Non-HDL 104 <130 mg/dL (calc) [facility] Comment: For patients with diabetes plus 1 major ASCVD risk factor, treating to a non-HDL-C goal of <100 mg/dL (LDL-C of <70 mg/dL) is considered a therapeutic option. 03/15/2020 2:50 PM EDT 03/16/2020 12:44 AM EDT Narrative Resulting Agency Comment [id number] us Eulalia Angel LABORATORY Final Result [facility] [address] [place] [address] * PAP SMEAR (02/06/2019) us Unknown Provider [...] Recently Relevant to Health Maintenance Care Teams Service Greeter Relationship Specialty Start Date End Date Valentino Seals MD [address] [place] [address] [facility] - General 10/06/22
--- OUTSIDE RECORDS SUMMARY | 2025-05-27 15:06 | XMS_ITS | Encounter Summary ---
Author Organization [facility] Address [address] [place] [address] Care Team Providers Care Manager Software Development Name Role Phone Eulalia Angel NP Primary Care Provider [phone] Valentino Seals MD Primary Care Provider [phone] Encounter Details Date Type Department Care Team ([facility] st Contact Info) Description 03/30/2021 Orders Only [facility] [address] [place] [address] Eulalia Angel NP 123 [facility] [address] [place], [place] [id number] Social History Tobacco Use Types Packs/Day Years [...] at . Any insurance accepted. Quit smoking resources-[email or web address] documented as of this encounter Visit Diagnoses Diagnosis Degenerative disc disease, lumbar Degeneration of lumbar or lumbosacral intervertebral disc documented in this encounter Care Teams Manager Software Development Relationship Specialty Start Date End Date Eulalia Angel NP PCP - General Internal Medicine 03/24/21 10/05/22 Valentino Seals MD [address] [place] [address] PCP - General 10/06/22 documented as of this encounter
--- OUTSIDE RECORDS SUMMARY | 2025-05-27 15:06 | XMS_ITS | Encounter Summary ---
Author Organization [facility] Address [address] [place] [address] Care Team Providers Care Manager Marketing Name Role Phone Eulalia Angel NP Primary Care Provider Erin Yancey MD Primary Care Provider [phone] Eulalia Angel NP Unavailable [phone] Eulalia Angel NP Primary Care Provider [phone] Valentino Seals MD Primary Care Provider [phone] Encounter Details Date Type Department Care Team (Late st Contact Info) Description 08/29/2019 Orders Only [facility] [address] [place] [address] Eulalia Angel NP 123 [facility] [address] [place] [address] Social History Tobacco Use Types [...] at . Any insurance accepted. Quit smoking resources-[email or web address] documented as of this encounter Procedures * Due to [place] law, this organization might not be sharing negative HIV tests. Procedure Name Priority Date/Time Associated Diagnosis Comments VENIPUNCTURE Routine 08/29/2019 3:34 PM EST Thyroiditis TSH, 3RD GENERATION Routine 08/29/2019 3 :34 PM EST Thyroiditis documented in this encounter Results * Due to [place] law, this organization might not be sharing negative HIV tests. * TSH, 3RD GENERATION (08/29/2019 3:34 PM EST) TSH 3.59 mIU/L [facility] Comment: Reference Range > or = 20 Years 0.40-4.50 Ranges First trimester 0.26-2.66 Second trimester 0.55-2.73 Third trimester 0.43-2.91 08/29/2019 3:34 PM EST 08/30/2019 12:24 AM EST Narrative Resulting Agency Comment [id number] Eulalia Avenel REVENUE RESEARCH ANALYST LABORATORY Final Result [facility] [address] [place] [address] * (ABNORMAL) THYROID PEROXIDASE AND THYROGLOBULIN ANTIBODIES (08/29/2019 3:34 PM EST) Thyroglobulin Ab <1 < or = 1 IU/mL [facility] Thyroperoxidase Ab 18(H) <9 IU/mL Q [facility] 08/29/2019 3:34 PM EST 08/30/2019 12:24 AM EST Narrative Resulting Agency Comment [id number] Eulalia Angel REVENUE RESEARCH ANALYST LABORATORY Final Result Performing Organization Address City/[facility]/ZIP Co de Phone Number [facility] [address] [place] [address] documented in this encounter Visit Diagnoses Diagnosis Thyroiditis documented in this encounter Care Teams Manager Marketing Relationship Specialty Start Date End Date Eulalia Angel NP PCP - General 03/24/19 08/15/20 Erin Yancey MD PCP - General Internal Medicine 08/16/20 03/23/21 Eulalia Angel NP PCP - Backup PCP Internal Medicine 12/30/20 03/23/21 Eulalia Angel NP PCP - General Internal Medicine 03/24/21 10/05/22 Valentino Seals MD [address] [place] [address] PCP - General 10/06/22 documented as of this encounter
--- OUTSIDE RECORDS SUMMARY | 2025-05-27 15:06 | XMS_ITS | Encounter Summary ---
Author Organization [facility] Address [address] [place] [address] Phone Care Team Providers Care Halal Butcher Name Role Phone Eulalia Angel NP Unavailable [phone] Eulalia Angel NP Primary Care Provider [phone] Isa Payne DO Primary Car e Provider Encounter Details Date Type Department Care Team (Late st Contact Info) Description 05/09/2021 Ancillary [facility] [address] [place] [address] Dar Abbott, DO [address] [place] [address] [email or web address] Social History Tobacco Use Types Packs/Day Years [...] 10:24 PM EDT Rozina Rosa RN * Dyer Suicide Severity Rating Scale (Screener/Recent Self-Report) Question [...] Info) Description 06/04/2025 3:30 PM EDT Appointment [facility], X-Ray - [address] [place] [address] Dar Abbott DO [address] [place] [address] [email or web address] 06/16/2025 10:15 AM EDT Office Visit [facility] [address] [facility], [address] [place] [address] Richardson Davenport MD [address] [place] [address] 11/19/2025 11:30 AM EST [facility] [address] [place] [address] Dar Abbott DO [address] [place] [address] documented as of this encounter Results * [place] Fluoroscopy (05/09/2021 6:17 PM EDT) Narrative [facility] - 05/09/2021 6:18 PM EDT Fluoroscopy was provided during this procedure. us Dar Abbott DO IMG [place] MISC Final Result [facility] documented in this encounter Visit Diagnoses Diagnosis Pain Generalized pain Pain Generalized pain documented in this encounter Care Teams Halal Butcher Relationship Specialty Start Date End Date Eulalia Angel NP PCP - General Family Medicine 10/29/18 04/24/22 Isa Payne DO PCP - General Internal Medicine 04/25/22 Eulalia Angel NP Nurse Practitioner Family Medicine 10/29/18 documented as of this encounter Additional Source Comments The information contained in this document represents components of the legal health record. It is not the complete legal health record.[facility]
--- OUTSIDE RECORDS SUMMARY | 2025-05-27 15:06 | XMS_ITS | Encounter Summary ---
Author Organization [facility] Address [address] [place] [address] Care Team Providers Care Hogshead Hooper Name Role Phone Eulalia Angel NP Unavailable [phone] Eulalia Angel NP Primary Care Provider [phone] Erin Yancey MD Primary Care Provider [phone] Eulalia Angel NP Unavailable [phone] Eulalia Angel NP Primary Care Provider [phone] Valentino Seals MD Primary Care Provider [phone] Reason for Referral * CONSULT AND TREATMENT (Routine) - Authorized Specialty Diagnoses / Procedures Referred By Katja t Referred To Contact Neurosurgery / Neurology Diagnoses Back pain, unspecified back location, unspecified back pain laterality, unspecified chronicity Procedures NeuroSurgeon: Dr Dar Abbott p [phone] f [phone] [facility] Eulalia Angel NP Phone: tel: fax: Dar Abbott DO [facility], Dept of Neurosurgery [address] [place] [address] Phone: tel: fax: Referral ID Status Reason Start Date Expiration Date Visits Requested Visits Authorized [id number] Authorized Specialty Services Required 03/31/2019 03/30/2020 3 3 Question Answer When do you want this visit to occur? WITHIN 1 WEEK - 04/01/19 6 visits Appointment with MD or AP? FIRST AVAILABLE Patient is being referred outside of [facility] for the following reason, however final determination for [id number] requests are made by the Referral Management [...] refer to? NeuroSurgeon: Dr Dar Abbott p [phone] f [phone] [facility] surgery consult Please list the patient's preferred provider for this consult. Dr Dar Abbott p [phone] f [phone] [facility] Encounter Details Date Type Department Care Team ([facility] st Contact Info) Description 03/24/2019 Orders Only [facility] [address] [place] [address] Eulalia Angel NP [address] [place] [address] Social History Tobacco Use Types Packs/Day Years [...] at . Any insurance accepted. Quit smoking resources-[email or web address] documented as of this encounter Visit Diagnoses Diagnosis Back pain, unspecified back location, unspecified back pain laterality, unspecified chronicity documented in this encounter Care Teams Hogshead Hooper Relationship Specialty Start Date End Date Eulalia Angel NP PCP - Backup PCP Internal Medicine 01/28/19 06/09/19 Eulalia Angel NP PCP - General 03/24/19 08/15/20 Erin Yancey MD PCP - General Internal Medicine 08/16/20 03/23/21 Eulalia Angel NP PCP - Backup PCP Internal Medicine 12/30/20 03/23/21 Eulalia Angel NP PCP - General Internal Medicine 03/24/21 10/05/22 Valentino Seals MD [address] [place] [address] PCP - General 10/06/22 documented as of this encounter
--- OUTSIDE RECORDS SUMMARY | 2025-05-27 15:06 | XMS_ITS | Encounter Summary ---
Author Organization [facility] Address [address] [facility] [address] [place] [address] Phone Care Team Providers Care Social Work Faculty Member Name Role Phone Eulalia Angel VIGOUREUX PRINTER Unavailable [phone] Isa Payne DO Primary Car e Provider Encounter Details Date Type Department Care Team (Late Contact Info) Description 08/14/2022 Procedure Pass [facility], Ct Scan - [address] [address] Social History Tobacco Use Types Packs/Day Years [...] Info) Description 06/04/2025 3:30 PM EDT Appointment [facility], X-Ray - [address] [place] [address] Dar Abbott, DO [address] [place] [address] 06/16/2025 10:15 AM EDT Office Visit [facility] [address] [facility], [address] [place] [address] Richardson Davenport MD [address] [place] [address] 11/19/2025 11:30 AM EST [facility] Visit [facility] [address] [place] [address] Dar Abbott DO [address] [place] [address] documented as of this encounter Visit Diagnoses Not on filedocumented in this encounter Care Teams Social Work Faculty Member Relationship Specialty Start Date End Date Isa Payne DO PCP - General Internal Medicine 04/25/22 Eulalia Angel NP Nurse Practitioner Family Medicine 10/29/18 documented as of this encounter Additional Source Comments The information contained in this document represents components of the legal health record. It is not the complete legal health record.[facility]
--- OUTSIDE RECORDS SUMMARY | 2025-05-27 15:06 | XMS_ITS | Encounter Summary ---
Author Organization [facility] Address [address] [place] [address] Phone Care Team Providers Care Staff Nuclear Medicine Technologist Name Role Phone Eulalia Angel NP Unavailable Eulalia Angel NP Primary Care Provider [phone] Isa Payne DO Primary Car e Provider Encounter Details Date Type Department Care Team (Late st Contact Info) Description 06/03/2019 Procedure Pass [facility] [address] [place] [address] Social History Tobacco Use Types Packs/Day Years [...] Info) Description 06/04/2025 3:30 PM EDT Appointment [facility], X-Ray - [address] [place] [address] Dar Abbott DO [address] [place] [address] 06/16/2025 10:15 AM EDT Office Visit [facility] [address] [facility], [address] [place] [address] Richardson Davenport MD [address] [place] [address] 11/19/2025 11:30 AM EST [facility] Visit [facility] [address] [place] [address] Dar Abbott, [address] [place] [address] [email or web address] documented as of this encounter Visit Diagnoses Not on filedocumented in this encounter Care Teams Staff Nuclear Medicine Technologist Relationship Specialty Start Date End Date Eulalia Angel NP PCP - General Family Medicine 10/29/18 04/24/22 Isa Payne DO PCP - General Internal Medicine 04/25/22 Eulalia Angel NP Nurse Practitioner Family Medicine 10/29/18 documented as of this encounter Additional Source Comments The information contained in this document represents components of the legal health record. It is not the complete legal health record.[facility]
--- OUTSIDE RECORDS SUMMARY | 2025-05-27 15:06 | XMS_ITS | Encounter Summary ---
Author Organization [facility] Address [address] [place] [address] Care Team Providers Care Developmental Behavioral Physician Name Role Phone Eulalia Angel NP Primary Care Provider [phone] Erin Yancey MD Primary Care Provider [phone] Eulalia Angel NP Unavailable [phone] Eulalia Angel NP Primary Care Provider [phone] Valentino Seals MD Primary Care Provider Reason for Referral * CONSULT AND TREATMENT (Routine) - Closed Specialty Diagnoses / Procedures Referred By Katja mao Referred To Contact log deck tender Diagnoses Abnormal female pelvic exam Procedures Regina Shell MD - OBGYN at [facility] P: [phone] F: [phone] DOS: 11/25/19 Eulalia Angel NP Phone: tel: fax: Regina Mcdonald MD [facility] [address] [place] [address] Phone: tel: fax: Referral ID Status Reason Start Date Expiration Date Visits Requested Visits Authorized [id number] Closed Patient Preference 10/23/2019 10/22/2020 12 12 Question Answer When do you want this visit to occur? WITHIN 1 MONTH - 11/25/19 Appointment with or AP? FIRST AVAILABLE Patient is being referred outside of [facility] for the following reason, however final determination for [id number] requests are made by the Referral Management [...] like to refer to? DR Regina Mcdonald P:[id number] F:[phone] - 12 visits Encounter Details Date Type Department Care Team ([facility] st Contact Info) Description 10/17/2019 Orders Only [facility] [address] [place] [address] Eulalia Angel NP 123 [facility] [address] [place] [address] Social History Tobacco Use Types Packs/Day Years [...] Priority Associated Diagnoses Orde r Schedule CONSULT CORROSION CONTROL FITTER NON-FC Referral Routine Abnormal female pelvic exam [...] at . Any insurance accepted. Quit smoking resources-[email or web address] documented as of this encounter Visit Diagnoses Diagnosis Abnormal female pelvic exam Nonspecific (abnormal) findings on radiological and other examination of genitourinary organs documented in this encounter Care Teams Developmental Behavioral Physician Relationship Specialty Start Date End Date Eulalia Angel NP PCP - General 03/24/19 08/15/20 Erin Yancey MD PCP - General Internal Medicine 08/16/20 03/23/21 Eulalia Angel NP PCP - Backup PCP Internal Medicine 12/30/20 03/23/21 Eulalia Angel NP PCP - General Internal Medicine 03/24/21 10/05/22 Valentino Seals MD [address] [place] [address] PCP - General 10/06/22 documented as of this encounter
--- OUTSIDE RECORDS SUMMARY | 2025-05-27 15:06 | XMS_ITS | Encounter Summary ---
Author Organization [facility] Address [address] [place] [address] Care Team Providers Care Senior Research Fellow Name Role Phone Eulalia Angel NP Primary Care Provider [phone] Brennan Cagle MD Primary Care Provider [phone] Eulalia Angel LOCKS TENDER Unavailable [phone] Eulalia Angel NP Primary Care Provider Erin Yancey MD Primary Care Provider [phone] Eulalia Angel LOCKS TENDER Unavailable [phone] Eulalia Angel NP Primary Care Provider Valentino Seals MD Primary Care Provider [phone] Encounter Details Date Type Department Care Team (Late st Contact Info) Description 07/31/2018 Orders Only [facility] [address] [place] [address] Eulalia Angel LOCKS TENDER 123 [facility] [address] [place] [address] Social History Tobacco Use Types [...] at . Any insurance accepted. Quit smoking resources-[email or web address] documented as of this encounter Procedures * Due to [place] [employer] law, this organization might not be sharing negative HIV tests. Procedure Name Priority Date/Time Associated Diagnosis Comments CBC INCLUDES DIFFERENTIAL AND PLATELET COUNT Routine 07/31/2018 2:26 PM EST Fatigue, unspecified type BASIC METABOLIC PANEL WITH (GFR) Routine 07/31/2018 2:26 PM EST Fatigue, unspecified type documented in this encounter Results * Due to [place] [employer] law, this organization might not be sharing [...] needs for GFR calculation. Resulting Agency Comment [id number] us Brennan Cagle MD LABORATORY Final Result Performing Organization Address City/State/[facility] Co de Phone Number [facility] [address] [place] [address] * CBC INCLUDES DIFFERENTIAL AND PLATELET COUNT [...] 12:30 AM EST Narrative Resulting Agency Comment [id number] us Brennan Cagle MD LAB SAME DAY RESULT Final Res ult [facility] [address] [place] [address] documented in this encounter Visit Diagnoses Diagnosis Fatigue, unspecified type documented in this encounter Care Teams Senior Research Fellow Relationship Specialty Start Date End Date Eulalia Angel NP PCP - General Internal Medicine 05/14/18 01/27/19 Brennan Cagle MD [address] [facility] [address] PCP - General Internal Medicine 01/28/19 03/23/19 Eulalia Angel NP [address] [place] [address] PCP - Backup PCP Internal Medicine 01/28/19 06/09/19 Eulalia Angel NP [address] [place] [address] PCP - General 03/24/19 08/15/20 Erin Yancey MD [address] [place] [address] PCP - General Internal Medicine 08/16/20 03/23/21 Eulalia Angel NP [address] [place] [address] PCP - Backup PCP Internal Medicine 12/30/20 03/23/21 Eulalia Angel NP [address] [place] [address] PCP - General Internal Medicine 03/24/21 10/05/22 Valentino Seals MD [address] [place] [address] PCP - General 10/06/22 documented as of this encounter
--- OUTSIDE RECORDS SUMMARY | 2025-05-27 15:06 | XMS_ITS | Encounter Summary ---
Author Organization [facility] Address [address] [place] [address] Care Team Providers Care Support Manager Name Role Phone Eulalia Angel NP Primary Care Provider [phone] Erin Yancey MD Primary Care Provider [phone] Eulalia Angel NP Unavailable [phone] Eulalia Angel NP Primary Care Provider [phone] Valentino Seals MD Primary Care Provider Reason for Visit * Reason Onset Date Comments Refill Request 12/16/2019 Encounter Details Date Type Department Care Team (Late st Contact Info) Description 12/16/2019 Refill [facility] [address] [place] [address] Eulalia Angel NP 123 [facility] [address] [place], [place] [address] Refill Request Social History Tobacco Use Types [...] Quit smoking / using tobacco Lifestyle No [place], [place], CYCLE LIAISON Note: Smoking can cause cancer, heart attacks, [...] at . Any insurance accepted. Quit smoking resources-http://Easiest Credit Card To Get Approved For.org documented as of this encounter Visit Diagnoses Not on filedocumented in this encounter Care Teams Support Manager Relationship Specialty Start Date End Date Eulalia Angel NP PCP - General 03/24/19 08/15/20 Erin Yancey MD PCP - General Internal Medicine 08/16/20 03/23/21 Eulalia Angel NP PCP - Backup PCP Internal Medicine 12/30/20 03/23/21 Eulalia Angel NP PCP - General Internal Medicine 03/24/21 10/05/22 Valentino Seals MD [address] [place] [address] PCP - General 10/06/22 documented as of this encounter
--- OUTSIDE RECORDS SUMMARY | 2025-05-27 15:07 | XMS_ITS | Encounter Summary ---
Author Organization [facility] Address [address] [place] [address] Care Team Providers Care Inspector Hairspring Name Role Phone Eulalia Angel NP Primary Care Provider [phone] Erin Yancey MD Primary Care Provider [phone] Eulalia Angel NP Unavailable [phone] Eulalia Angel NP Primary Care Provider Valentino Seals MD Primary Care Provider [phone] Encounter Details Date Type Department Care Team ([facility] st Contact Info) Description 03/15/2020 Orders Only [facility] [address] [place] [address] Eulalia Angel NP 123 [facility] [address] [place] [address] Social History Tobacco Use Types [...] at . Any insurance accepted. Quit smoking resources-[email or web address] [email or web address] documented as of this encounter Procedures * Due to [place] [employer] law, this organization might not be sharing negative HIV tests. Procedure Name Priority Date/Time Associated Diagnosis Comments VENIPUNCTURE Routine 03/15/2020 2:50 PM EDT Tish's thyroiditis LIPID PANEL WITH REFLEX TO DIRECT LDL Routine 03/15/2020 2:50 PM EDT Screening for hyperlipidemia BASIC METABOLIC PANEL WITH (GFR) Routine 03/15/2020 2:50 PM EDT Screening for diabetes mellitus documented in this encounter Results * Due to [place] [employer] law, this organization might not be sharing [...] Ramírez DE LA CRUZ et al. WHITLEY. 2013;310(11): 5010-0237 (http://education.Happigo.com/faq/SEI461) CHOL/HDL Ratio 2.7 <5.0 (calc) [facility] Cholesterol Non-HDL 104 <130 mg/dL (calc) [facility] Comment: For patients with diabetes plus 1 major ASCVD risk factor, treating to a non-HDL-C goal of <100 mg/dL (LDL-C of <70 mg/dL) is considered a therapeutic option. 03/15/2020 2:50 PM EDT 03/16/2020 12:44 AM EDT Narrative Resulting Agency Comment [id number] Eulalia Angel NP LABORATORY Final Result [facility] [address] [place] [address] * BASIC METABOLIC PANEL WITH (GFR) (03/15/2020 [...] needs for GFR calculation. Resulting Agency Comment [id number] Eulalia Angel NP LABORATORY Final Result Performing Organization Address City/[facility]/ZIP Co de Phone Number [facility] [address] [place] [address] * TSH, 3RD GENERATION (03/15/2020 2:50 PM EDT) TSH 2.87 mIU/L [facility] Comment: Reference Range > or = 20 Years 0.40-4.50 Ranges First trimester 0.26-2.66 Second trimester 0.55-2.73 Third trimester 0.43-2.91 03/15/2020 2:50 PM EDT 03/16/2020 12:44 AM EDT Narrative Resulting Agency Comment [id number] Eulalia Angel NP LABORATORY Final Result Performing Organization Address City/[facility]/ZIP Co de Phone Number [facility] [address] [place] [address] documented in this encounter Visit Diagnoses Diagnosis Tish's thyroiditis Chronic lymphocytic thyroiditis Screening for diabetes mellitus Screening for hyperlipidemia Screening for lipoid disorders documented in this encounter Care Teams Inspector Hairspring Relationship Specialty Start Date End Date Eulalia Angel NP PCP - General 03/24/19 08/15/20 rEin Yancey MD PCP - General Internal Medicine 08/16/20 03/23/21 Eulalia Angel NP PCP - Backup PCP Internal Medicine 12/30/20 03/23/21 Eulalia Angel NP PCP - General Internal Medicine 03/24/21 10/05/22 Valentino Seals MD [address] [place] [address] PCP - General 10/06/22 documented as of this encounter
== END 2025-05-27 12:49 | disposition home or self-care (01) ==
LOC: HO.HMGAL 12:43
PROVIDERS: PCP Internal Medicine; Visit Provider Registered Nurse Emergency
DX: J30.89 Other allergic rhinitis (principal)
CPT/HCPCS: 95117; 95165

== ENCOUNTER 2025-06-03 12:44 | Outpatient (AMB) | payer OTHER, SELFPAY ==
--- OUTSIDE RECORDS SUMMARY | 2025-06-03 15:39 | XMS_ITS | Encounter Summary ---
Author Organization [facility] Address [address] [place] [address] Care Team Providers Care Ditch Worker Name Role Phone Eulalia Angel NP Primary Care Provider [phone] Erin Yancey MD Primary Care Provider [phone] Eulalia Angel NP Unavailable [phone] Eulalia Angel NP Primary Care Provider [phone] Valentino Seals MD Primary Care Provider [phone] Encounter Details Date Type Department Care Team (Late st Contact Info) Description 08/29/2019 Orders Only [facility] [address] [place] [address] Eulalia Angel NP 123 [facility] [address] [place] [address] Social History Tobacco Use Types [...] at . Any insurance accepted. Quit smoking resources-[email or web address] documented as of this encounter Procedures * Due to [place] [employer] law, this organization might not be sharing negative HIV tests. Procedure Name Priority Date/Time Associated Diagnosis Comments VENIPUNCTURE Routine 08/29/2019 3:34 PM EST Thyroiditis TSH, 3RD GENERATION Routine 08/29/2019 3 :34 PM EST Thyroiditis documented in this encounter Results * Due to [place] [employer] law, this organization might not be sharing negative HIV tests. * TSH, 3RD GENERATION (08/29/2019 3:34 PM EST) TSH 3.59 mIU/L [facility] Comment: Reference Range > or = 20 Years 0.40-4.50 Ranges First trimester 0.26-2.66 Second trimester 0.55-2.73 Third trimester 0.43-2.91 08/29/2019 3:34 PM EST 08/30/2019 12:24 AM EST Narrative Resulting Agency Comment [id number] Eulalia Mckee INFORMATION ASSURANCE LABORATORY Final Result [facility] [address] [place] [address] * (ABNORMAL) THYROID PEROXIDASE AND THYROGLOBULIN ANTIBODIES (08/29/2019 3:34 PM EST) Thyroglobulin Ab <1 < or = 1 IU/mL [facility] Thyroperoxidase Ab 18(H) <9 IU/mL Q [facility] 08/29/2019 3:34 PM EST 08/30/2019 12:24 AM EST Narrative Resulting Agency Comment [id number] Eulalia Angel INFORMATION ASSURANCE LABORATORY Final Result Performing Organization Address City/[facility]/ZIP Co de Phone Number [facility] [address] [place] [address] documented in this encounter Visit Diagnoses Diagnosis Thyroiditis documented in this encounter Care Teams Ditch Worker Relationship Specialty Start Date End Date Eulalia Angel NP PCP - General 03/24/19 08/15/20 Erin Yancey MD PCP - General Internal Medicine 08/16/20 03/23/21 Eulalia Angel NP PCP - Backup PCP Internal Medicine 12/30/20 03/23/21 Eulalia Angel NP PCP - General Internal Medicine 03/24/21 10/05/22 Valentino Seals MD [address] [place] [address] PCP - General 10/06/22 documented as of this encounter
--- OUTSIDE RECORDS SUMMARY | 2025-06-03 15:39 | XMS_ITS | Encounter Summary ---
Author Organization [facility] Address [address] [place] [address] Care Team Providers Care Granite Installer Name Role Phone Eulalia Angel NP Unavailable [phone] Eulalia Angel NP Primary Care Provider [phone] Erin Yancey MD Primary Care Provider Eulalia Angel ENVIRONMENTAL AID Unavailable [phone] Eulalia Angel NP Primary Care Provider Valentino Seals MD Primary Care Provider [phone] Encounter Details Date Type Department Care Team (Late st Contact Info) Description 05/28/2019 Orders Only [facility] [address] [place] [address] Eulalia Angel NP 123 [facility] [address] [place] [address] Social History Tobacco Use Types [...] at . Any insurance accepted. Quit smoking resources-[email or web address] documented as of this encounter Procedures * Due to [place] [employer] law, this organization might not be sharing negative HIV tests. Procedure Name Priority Date/Time Associated Diagnosis Comments THYROID PEROXIDASE AND THYROGLOBULIN ANTIBODIES Routine 05/28/2019 11:47 AM EDT Screening for endocrine, nutritional, metabolic and immunity disorder documented in this encounter Results * Due to [place] [employer] law, this organization might not be sharing negative HIV tests. * (ABNORMAL) THYROID PEROXIDASE AND THYROGLOBULIN ANTIBODIES (05/28/2019 11:47 AM EDT) Thyroglobulin Ab <1 < or = 1 IU/mL [facility] Thyroperoxidase Ab 12(H) <9 IU/mL Q [facility] 05/28/2019 11:4 7 AM EDT 05/29/2019 1:31 AM EDT Narrative Resulting Agency Comment [id number] us Brennan Cagle MD LABORATORY Final Result [facility] [address] [place] [address] documented in this encounter Visit Diagnoses Diagnosis Screening for endocrine, nutritional, metabolic and immunity disorder Screening for other and unspecified endocrine, nutritional, metabolic, and immunity disorders documented in this encounter Care Teams Granite Installer Relationship Specialty Start Date End Date Eulalia Angel NP PCP - Backup PCP Internal Medicine 01/28/19 06/09/19 Eulalia Angel NP PCP - General 03/24/19 08/15/20 Erin Yancey MD PCP - General Internal Medicine 08/16/20 03/23/21 Eulalia Angel NP PCP - Backup PCP Internal Medicine 12/30/20 03/23/21 Eulalia Angel NP PCP - General Internal Medicine 03/24/21 10/05/22 Valentino Seals MD [address] [place] [address] PCP - General 10/06/22 documented as of this encounter
--- OUTSIDE RECORDS SUMMARY | 2025-06-03 15:39 | XMS_ITS | Encounter Summary ---
Author Organization [facility] Address [address] [place] [address] Care Team Providers Care Logistics And Planning Manager Name Role Phone Eulalia Angel NP Primary Care Provider [phone] Erin Yancey MD Primary Care Provider [phone] Eulalia Angel NP Unavailable [phone] Eulalia Angel NP Primary Care Provider [phone] Valentino Seals MD Primary Care Provider [phone] Reason for Referral * CONSULT AND TREATMENT (Routine) - Closed Specialty Diagnoses / Procedures Referred By Katja mao Referred To Contact dietitian research Diagnoses Abnormal female pelvic exam Procedures Regina Shell MD - OBGYN at [facility] P: [phone] F: [phone] DOS: 11/25/19 Eulalia Angel NP Phone: tel: fax: Regina Mcdonald MD [facility] [address] [place] [address] Phone: tel: fax: Referral ID Status Reason Start Date Expiration Date Visits Requested Visits Authorized [id number] Closed Patient Preference 10/23/2019 10/22/2020 12 12 Question Answer When do you want this visit to occur? WITHIN 1 MONTH - 11/25/19 Appointment with or AP? FIRST AVAILABLE Patient is being referred outside of [facility] for the following reason, however final determination for [id number] requests are made by the Referral Management [...] like to refer to? DR Regina Mcdonald P:[id number] F:[phone] - 12 visits Encounter Details Date Type Department Care Team ([facility] st Contact Info) Description 10/17/2019 Orders Only [facility] [address] [place] [address] Eulalia Angel NP 123 [facility] [address] [place] [address] Social History Tobacco Use Types Packs/Day Years [...] Priority Associated Diagnoses Orde r Schedule CONSULT CRACK OFF PERSON NON-FC Referral Routine Abnormal female pelvic exam [...] at . Any insurance accepted. Quit smoking resources-[email or web address] documented as of this encounter Visit Diagnoses Diagnosis Abnormal female pelvic exam Nonspecific (abnormal) findings on radiological and other examination of genitourinary organs documented in this encounter Care Teams Logistics And Planning Manager Relationship Specialty Start Date End Date Eulalia Angel NP PCP - General 03/24/19 08/15/20 Erin Yancey MD PCP - General Internal Medicine 08/16/20 03/23/21 Eulalia Angel NP PCP - Backup PCP Internal Medicine 12/30/20 03/23/21 Eulalia Angel NP PCP - General Internal Medicine 03/24/21 10/05/22 Valentino Seals MD [address] [place] [address] PCP - General 10/06/22 documented as of this encounter
--- OUTSIDE RECORDS SUMMARY | 2025-06-03 15:39 | XMS_ITS | Encounter Summary ---
Author Organization [facility] Address [address] [facility] [address] [place] [address] Phone Care Team Providers Care Fieldwork Coordinator Name Role Phone Eulalia Angel CIVIL SERVICE WORKER Unavailable [phone] Isa Payne DO Primary Car e Provider Encounter Details Date Type Department Care Team (Late Contact Info) Description 08/14/2022 Procedure Pass [facility], Ct Scan - [address] [address] Social History Tobacco Use Types Packs/Day Years [...] Info) Description 06/04/2025 3:30 PM EDT Appointment [facility], X-Ray - [address] [place] [address] Dar Abbott, DO [address] [place] [address] 06/16/2025 10:15 AM EDT Office Visit [facility] [address] [facility], [address] [place] [address] Richardson Davenport MD [address] [place] [address] 11/19/2025 11:30 AM EST [facility] [address] [place] [address] Dar Abbott DO [address] [place] [address] documented as of this encounter Visit Diagnoses Not on filedocumented in this encounter Care Teams Fieldwork Coordinator Relationship Specialty Start Date End Date Isa Payne DO PCP - General Internal Medicine 04/25/22 Eulalia Angel NP Nurse Practitioner Family Medicine 10/29/18 documented as of this encounter Additional Source Comments The information contained in this document represents components of the legal health record. It is not the complete legal health record.[facility]
--- OUTSIDE RECORDS SUMMARY | 2025-06-03 15:39 | XMS_ITS | Encounter Summary ---
Author Organization [facility] Address [address] [facility] [address] [place] [address] Phone Care Team Providers Care Batch Operator Name Role Phone Eulalia Angel CLINICAL ASSISTANT PROFESSOR Unavailable [phone] Isa Payne DO Primary Car e Provider Encounter Details Date Type Department Care Team (Late Contact Info) Description 08/14/2022 Procedure Pass [facility], [address] [address] Social History Tobacco Use Types Packs/Day Years [...] Info) Description 06/04/2025 3:30 PM EDT Appointment [facility], X-Ray - [address] [place] [address] Dar Abbott, DO [address] [place] [address] 06/16/2025 10:15 AM EDT Office Visit [facility] [address] [facility], [address] [place] [address] Richardson Davenport MD [address] [place] [address] 11/19/2025 11:30 AM EST [facility] [address] [place] [address] Dar Abbott DO [address] [place] [address] [email or web address] documented as of this encounter Visit Diagnoses Not on filedocumented in this encounter Care Teams Batch Operator Relationship Specialty Start Date End Date Isa Payne DO PCP - General Internal Medicine 04/25/22 Eulalia Angel NP Nurse Practitioner Family Medicine 10/29/18 documented as of this encounter Additional Source Comments The information contained in this document represents components of the legal health record. It is not the complete legal health record.[facility]
--- OUTSIDE RECORDS SUMMARY | 2025-06-03 15:39 | XMS_ITS | Encounter Summary ---
Author Organization [facility] Address [address] [place] [address] Care Team Providers Care Farm Machinery Mechanic Name Role Phone Eulalia Angel NP Unavailable [phone] Eulalia Angel NP Primary Care Provider [phone] Erin Yancey MD Primary Care Provider [phone] Eulalia Angel HEAD OF CONSERVATION Unavailable [phone] Eulalia Angel NP Primary Care Provider Valentino Seals MD Primary Care Provider [phone] Encounter Details Date Type Department Care Team (Late st Contact Info) Description 04/29/2019 Orders Only [facility] [address] [place] [phone] Eulalia Angel NP 123 [facility] [address] [place] [address] Social History Tobacco Use Types [...] at . Any insurance accepted. Quit smoking resources-http://[email or web address] documented as of this encounter Procedures * Due to [place] state law, this organization might not be sharing negative HIV tests. Procedure Name Priority Date/Time Associated Diagnosis Comments HCG, TOTAL, QL Routine 04/29/2019 3:25 PM EDT Amenorrhea documented in this encounter Results * Due to [place] LuxTicket.sg law, this organization might not be sharing negative HIV tests. * HCG, TOTAL, QL (04/29/2019 3:25 PM EDT) HCG, Qualitative (Screen) NEGATIVE [facility] Comment: Reference Range Non-: Negative : Positive 04/29/2019 3:25 PM EDT 04/30/2019 12:32 AM EDT Narrative Resulting Agency Comment [id number] Eulalia Angel NP LAB SAME DAY RESULT Final Resul t [facility] [address] [place] [address] documented in this encounter Visit Diagnoses Diagnosis Amenorrhea Absence of menstruation documented in this encounter Care Teams Farm Machinery Mechanic Relationship Specialty Start Date End Date Eulalia Angel NP PCP - Backup PCP Internal Medicine 01/28/19 06/09/19 Eulalia Angel NP PCP - General 03/24/19 08/15/20 Erin Yancey MD PCP - General Internal Medicine 08/16/20 03/23/21 Eulalia Angel NP PCP - Backup PCP Internal Medicine 12/30/20 03/23/21 Eulalia Angel NP PCP - General Internal Medicine 03/24/21 10/05/22 Valentino Seasl MD [address] [place] [address] PCP - General 10/06/22 documented as of this encounter
--- OUTSIDE RECORDS SUMMARY | 2025-06-03 15:41 | XMS_ITS | Encounter Summary ---
Author Organization [facility] Address [address] [place] [address] Care Team Providers Care Reduction Furnace Operator Helper Name Role Phone Eulalia Angel NP Primary Care Provider [phone] Brennan Cagle MD Primary Care Provider [phone] Eulalia Angel MAGNETIC TESTING TECHNICIAN Unavailable [phone] Eulalia Angel NP Primary Care Provider Erin Yancey MD Primary Care Provider [phone] Eulalia Angel MAGNETIC TESTING TECHNICIAN Unavailable [phone] Eulalia Angel MAGNETIC TESTING TECHNICIAN Primary Care Provider Valentino Seals MD Primary Care Provider [phone] Encounter Details Date Type Department Care Team (Late st Contact Info) Description 12/16/2018 Orders Only [facility] [address] [place] [phone] Eulalia Angel, MAGNETIC TESTING TECHNICIAN 123 [facility] [address] [place] [address] Social History Tobacco Use Types [...] / using tobacco Lifestyle No Gabby Montesinos, CUSTOMER ADVOCACY MANAGER Note: Smoking can cause cancer, heart attacks, [...] at . Any insurance accepted. Quit smoking resources-http://Postling.org documented as of this encounter Visit Diagnoses Not on filedocumented in this encounter Care Teams Reduction Furnace Operator Helper Relationship Specialty Start Date End Date Eulalia Angel NP PCP - General Internal Medicine 05/14/18 01/27/19 Brennan Cagle MD [address] [place] [address] PCP - General Internal Medicine 01/28/19 03/23/19 Eulalia Angel NP [address] [place] [address] PCP - Backup PCP Internal Medicine 01/28/19 06/09/19 Eulalia Angel NP [address] [place] [address] PCP - General 03/24/19 08/15/20 Erin Yancey MD [address] [place] [address] PCP - General Internal Medicine 08/16/20 03/23/21 Eulalia Angel NP [address] [place] [address] PCP - Backup PCP Internal Medicine 12/30/20 03/23/21 Eulalia Angel NP [address] [place] [address] PCP - General Internal Medicine 03/24/21 10/05/22 Valentino Seals MD [address] [place] [address] PCP - General 10/06/22 documented as of this encounter
--- OUTSIDE RECORDS SUMMARY | 2025-06-03 15:41 | XMS_ITS | Encounter Summary ---
Author Organization [facility] Address [address] [place] [address] Care Team Providers Care Information Technology Officer Name Role Phone Eulalia Angel NP Unavailable [phone] Eulalia Angel NP Primary Care Provider [phone] Erin Yancey MD Primary Care Provider [phone] Eulalia Angel NP Unavailable [phone] Eulalia Angel NP Primary Care Provider [phone] Valentino Seals MD Primary Care Provider [phone] Reason for Referral * CONSULT AND TREATMENT (Routine) - Authorized Specialty Diagnoses / Procedures Referred By Katja t Referred To Contact Neurosurgery / Neurology Diagnoses Back pain, unspecified back location, unspecified back pain laterality, unspecified chronicity Procedures NeuroSurgeon: Dr Dar Abbott p [phone] f [phone] [facility] Eulalia Angel NP Phone: tel: fax: Dar Abbott DO [facility], Dept of Neurosurgery [address] [place] [address] Phone: tel: fax: Referral ID Status Reason Start Date Expiration Date Visits Requested Visits Authorized [id number] Authorized Specialty Services Required 03/31/2019 03/30/2020 3 3 Question Answer When do you want this visit to occur? WITHIN 1 WEEK - 04/01/19 6 visits Appointment with MD or AP? FIRST AVAILABLE Patient is being referred outside of [facility] for the following reason, however final determination for [id number] requests are made by the Referral Management [...] refer to? NeuroSurgeon: Dr Dar Abbott p [phone] f [phone] [facility] surgery consult Please list the patient's preferred provider for this consult. Dr Dar Abbott p [phone] f [phone] [facility] Encounter Details Date Type Department Care Team ([facility] st Contact Info) Description 03/24/2019 Orders Only [facility] [address] [place] [address] Eulalia Angel NP [address] [place] [address] Social History Tobacco Use Types Packs/Day Years [...] at . Any insurance accepted. Quit smoking resources-http://[email or web address] documented as of this encounter Visit Diagnoses Diagnosis Back pain, unspecified back location, unspecified back pain laterality, unspecified chronicity documented in this encounter Care Teams Information Technology Officer Relationship Specialty Start Date End Date Eulalia Angel NP PCP - Backup PCP Internal Medicine 01/28/19 06/09/19 Eulalia Angel NP PCP - General 03/24/19 08/15/20 Erin Yancey MD PCP - General Internal Medicine 08/16/20 03/23/21 Eulalia Angel NP PCP - Backup PCP Internal Medicine 12/30/20 03/23/21 Eulalia Angel NP PCP - General Internal Medicine 03/24/21 10/05/22 Valentino Seals MD [address] [place] [address] PCP - General 10/06/22 documented as of this encounter
--- OUTSIDE RECORDS SUMMARY | 2025-06-03 15:41 | XMS_ITS | Encounter Summary ---
Author Organization [facility] Address [address] [place] [address] Care Team Providers Care Microbiology Lab Manager Name Role Phone Eulalia Angel NP Primary Care Provider [phone] Valentino Seals MD Primary Care Provider [phone] Encounter Details Date Type Department Care Team (Late st Contact Info) Description 03/24/2021 Orders Only [facility] [address] [place] [phone] Erin Yancey MD [address] [place] [address] Social History Tobacco Use Types Packs/Day Years [...] at . Any insurance accepted. Quit smoking resources-http://[email or web address] documented as of this encounter Visit Diagnoses Not on filedocumented in this encounter Care Teams Microbiology Lab Manager Relationship Specialty Start Date End Date Eulalia Angel NP PCP - General Internal Medicine 03/24/21 10/05/22 Valentino Seals MD [address] [place] [address] PCP - General 10/06/22 documented as of this encounter
--- OUTSIDE RECORDS SUMMARY | 2025-06-03 15:41 | XMS_ITS | Encounter Summary ---
Author Organization [facility] Address [address] [facility] [address] [place] [address] Phone Care Team Providers Care Research Administrator Name Role Phone Eulalia Angel NP Unavailable [phone] Eulalia Angel NP Primary Care Provider [phone] Isa Payne DO Primary Car e Provider Encounter Details Date Type Department Care Team (Late st Contact Info) Description 05/09/2021 Procedure Pass [facility] PERIOPERATIVE DEPT [address] [place], [place] [id number] Social History Tobacco Use Types Packs/Day Years [...] 10:24 PM EDT Rozina Rosa RN * [place] Suicide Severity Rating Scale (Screener/Recent Self-Report) Question [...] Info) Description 06/04/2025 3:30 PM EDT Appointment [facility], X-Ray - [address] [place] [address] Dar Abbott DO [address] [place] [address] 06/16/2025 10:15 AM EDT Office Visit [facility] [address] [facility], [address] [place] [address] Richardson Davenport MD [address] [place] [address] 11/19/2025 11:30 AM EST [facility] Visit [facility] [address] [place] [address] Dar Abbott DO [address] [place] [address] documented as of this encounter Visit Diagnoses Not on filedocumented in this encounter Care Teams Research Administrator Relationship Specialty Start Date End Date Eulalia Angel NP PCP - General Family Medicine 10/29/18 04/24/22 Isa Payne DO PCP - General Internal Medicine 04/25/22 Eulalia Angel NP Nurse Practitioner Family Medicine 10/29/18 documented as of this encounter Additional Source Comments The information contained in this document represents components of the legal health record. It is not the complete legal health record.[facility]
--- OUTSIDE RECORDS SUMMARY | 2025-06-03 15:41 | XMS_ITS | Encounter Summary ---
Author Organization [facility] Address [address] [place] [address] Care Team Providers Care Covered Button Maker Name Role Phone Eulalia Angel NP Primary Care Provider [phone] Valentino Seals MD Primary Care Provider [phone] Encounter Details Date Type Department Care Team (Late st Contact Info) Description 03/31/2021 Orders Only [facility] [address] [place] [address] Eulalia Angel NP 123 [facility] [address] [place], [place] [phone] Social History Tobacco Use Types Packs/Day Years [...] at . Any insurance accepted. Quit smoking resources-[email or web address] [email or web address] documented as of this encounter Visit Diagnoses Diagnosis Sciatica, unspecified laterality documented in this encounter Care Teams Covered Button Maker Relationship Specialty Start Date End Date Eulalia Angel NP PCP - General Internal Medicine 03/24/21 10/05/22 Valentino Seals MD [address] [place] [address] PCP - General 10/06/22 documented as of this encounter
--- OUTSIDE RECORDS SUMMARY | 2025-06-03 15:41 | XMS_ITS | Encounter Summary ---
Author Organization [facility] Address [address] [place] [address] Phone Care Team Providers Care Retail Solar Advisor Name Role Phone Eulalia Angel NP Unavailable [phone] Eulalia Angel NP Primary Care Provider [phone] Isa Payne DO Primary Car e Provider Encounter Details Date Type Department Care Team (Late st Contact Info) Description 05/09/2021 Ancillary [facility] [address] [place] [address] Dar Abbott, DO [address] [place] [address] [email or web address] Social History Tobacco Use Types Packs/Day [...] 10:24 PM EDT Rozina Rosa RN * [place] Suicide Severity Rating Scale (Screener/Recent Self-Report) Question [...] PM EDT Appointment [facility] X-Ray - [address] [place] [address] Dar Abbott DO [address] [place] [address] [email or web address] 06/16/2025 10:15 AM EDT Office Visit [facility] [address] [facility], [address] [place] [address] Richardson Davenport MD [address] [place] [address] 11/19/2025 11:30 AM EST [facility] [address] [place] [address] Dar Abbott DO [address] [place] [address] documented as of this encounter Results * [place] Fluoroscopy (05/09/2021 6:17 PM EDT) Narrative [facility] IMG INTERFACES - 05/09/2021 6:18 PM EDT Fluoroscopy was provided during this procedure. us Dar Abbott DO IMG [place] MISC Final Result [facility] documented in this encounter Visit Diagnoses Diagnosis Pain Generalized pain Pain Generalized pain documented in this encounter Care Teams Retail Solar Advisor Relationship Specialty Start Date End Date Eulalia Angel NP PCP - General Family Medicine 10/29/18 04/24/22 Isa Payne DO PCP - General Internal Medicine 04/25/22 Eulalia Angel NP Nurse Practitioner Family Medicine 10/29/18 documented as of this encounter Additional Source Comments The information contained in this document represents components of the legal health record. It is not the complete legal health record.[facility]
--- OUTSIDE RECORDS SUMMARY | 2025-06-03 15:41 | XMS_ITS | Patient Health Record ---
Author Organization Edilberto Ocampo MD Address [address] [place] [address] Care Team Providers Care Technical Solutions Director Name Role Phone Edilberto Ocampo Unavailable [phone] Reason For Referral No Information Plan Of [...] Insured Coverage Start Date Coverage End Date [facility] [address] [facility] [address] [id number] Catherine Be Self - patient is the insured Medical (General) History Surgical History Surgery Date(Month/Year) None
--- OUTSIDE RECORDS SUMMARY | 2025-06-03 15:41 | XMS_ITS | Encounter Summary ---
Author Organization [facility] Address [address] [place] [address] Phone Care Team Providers Care Home Worker Name Role Phone Eulalia Angel NP Unavailable [phone] Eulalia Angel NP Primary Care Provider [phone] Isa Payne DO Primary Car e Provider Encounter Details Date Type Department Care Team (Late st Contact Info) Description 06/03/2019 Procedure Pass [facility] [address] [place] [address] Social History Tobacco Use Types Packs/Day Years [...] Info) Description 06/04/2025 3:30 PM EDT Appointment [facility], X-Ray - [address] [place] [address] Dar Abbott DO [address] [place] [address] 06/16/2025 10:15 AM EDT Office Visit [facility] [address] [facility], [address] [place] [address] Richardson Davenport MD [address] [place] [address] 11/19/2025 11:30 AM EST Office Visit [facility] [address] [place] [address] Dar Abbott, [address] [place] [address] [email or web address] documented as of this encounter Visit Diagnoses Not on filedocumented in this encounter Care Teams Home Worker Relationship Specialty Start Date End Date [...]
--- OUTSIDE RECORDS SUMMARY | 2025-06-03 15:41 | XMS_ITS | Encounter Summary ---
Author Organization [facility] Address [address] [place] [address] Phone Care Team Providers Care Instrumentation Instructor Name Role Phone Eulalia Angel [employer] Unavailable [phone] Isa Payne DO Primary Car e Provider Encounter Details Date Type Department Care Team (Late st Contact Info) Description 08/30/2023 Procedure Pass [facility] - [address] [place] [address] Social History Tobacco Use Types Packs/Day Years [...] Description 06/04/2025 3:30 PM EDT Appointment [facility], X-Ray - [address] [place] [address] Dar Abbott DO [address] [place] [phone] 06/16/2025 10:15 AM EDT Office Visit [facility] [address] [facility], [address] [place] [address] Richardson Davenport MD [address] [place] [address] 11/19/2025 11:30 AM EST Office Visit [facility] [address] [place] [address] Dar Abbott DO [address] [place] [address] documented as of this encounter Visit Diagnoses Not on filedocumented in this encounter Care Teams Instrumentation Instructor Relationship Specialty Start Date End Date Isa Payne DO PCP - General Internal Medicine 04/25/22 Eulalia nAgel NP Nurse Practitioner Family Medicine 10/29/18 documented as of this encounter Additional Source Comments The information contained in this document represents components of the legal health record. It is not the complete legal health record.[facility]
--- OUTSIDE RECORDS SUMMARY | 2025-06-03 15:41 | XMS_ITS | Encounter Summary ---
Author Organization [facility] Address [address] [place] [address] Care Team Providers Care Shake Packer Name Role Phone Brennan Cagle MD Primary Care Provider [phone] Eulalia Angel NP Unavailable [phone] Eulalia Angel NP Primary Care Provider [phone] Erin Ynacey MD Primary Care Provider [phone] Eulalia Angel DRINK BOX MECHANIC Unavailable [phone] Eulalia Angel NP Primary Care Provider [phone] Valentino Seals MD Primary Care Provider Encounter Details Date Type Department Care Team (Late st Contact Info) Description 02/25/2019 Orders Only [facility] [address] [place] [address] Eulalia Angel NP 123 [facility] [address] [place] [address] Social History Tobacco Use Types [...] foods such as cakes, cookies, chips, popcorn, Sami fries, and ice cream. Hydrogenated fats (trans [...] are called omega- 3, omega-6, and omega-9. [place]-3 fatty acids are found in fish and some plants. They are good for heart health. They may reduce the risk of stroke, high blood pressure, and other chronic disease. Good sources are oily fish such as salmon, mackerel and tuna. [place] 3 fatty acids are also in fish oil supplements. Check with your healthcare provider before taking supplements. Fish oil supplements may cause bleeding in some people, especially if they are taken with blood-thinning medicines. Good plant sources for omega-3 fatty acids are canola oil, soybeans, flaxseed, avocado, and some types of nuts, especially walnuts and almonds. [place]-6 fatty acid is found in corn, safflower, soybean, and sunflower oils. [place]-9 fatty acid is found in olive oil, canola oil, and avocados. It is likely that the balance of fatty acids is very important. The [place] diet typically contains too much omega-6 fatty acid and not enough omega-3 fatty acid. How much fat do I need in my diet? Eating some fat???especially the good fats--is healthful, but many Americans eat too much and become overweight. The current [place] Heart Association Diet and Lifestyle Recommendations are: [...] at . Any insurance accepted. Quit smoking resources-http://ZappyLab.org documented as of this encounter Procedures * Due to [place] state law, this organization might not be [...] in this encounter Results * Due to [place] state law, this organization might not be sharing negative HIV tests. * (ABNORMAL) THYROID PEROXIDASE AND THYROGLOBULIN ANTIBODIES (05/28/2019 11:47 AM EDT) Thyroglobulin Ab <1 < or = 1 IU/mL [facility] Thyroperoxidase Ab 12(H) <9 IU/mL Q [facility] 05/28/2019 11:4 7 AM EDT 05/29/2019 1:31 AM EDT Narrative Resulting Agency Comment [id number] us Brennan Cagle MD LABORATORY Final Result Performing Organization Address [facility] Co de Phone Number [facility] [address] [place] [address] * (ABNORMAL) THYROID PEROXIDASE AND THYROGLOBULIN ANTIBODIES (02/25/2019 4:41 PM EDT) Thyroglobulin Ab <1 < or = 1 IU/mL [facility] Thyroperoxidase Ab 18(H) <9 IU/mL Q [facility] 02/25/2019 4:41 PM EDT 02/26/2019 1:51 AM EDT Narrative Resulting Agency Comment [id number] Brennan Cagle MD LABORATORY Final Result Performing Organization Address [facility] Co de Phone Number [facility] [address] [place] [address] * T4, FREE, SERUM (02/25/2019 4:41 PM EDT) FT4 0.9 0.8 - 1.8 ng/dL [facility] 02/25/2019 4:41 PM EDT 02/26/2019 1:51 AM EDT Narrative Resulting Agency Comment [id number] Brennan Cagle MD LABORATORY Final Result Performing Organization Address [facility] Co de Phone Number [facility] [address] [place] [address] * TSH, 3RD GENERATION (02/25/2019 4:41 PM EDT) TSH 2.42 mIU/L [facility] Comment: Reference Range > or = 20 Years 0.40-4.50 Ranges First trimester 0.26-2.66 Second trimester 0.55-2.73 Third trimester 0.43-2.91 02/25/2019 4:41 PM EDT 02/26/2019 1:51 AM EDT Narrative Resulting Agency Comment [id number] Brennan Cagle MD LABORATORY Final Result [facility] [address] [place] [address] * BASIC METABOLIC PANEL WITH (GFR) (02/25/2019 [...] needs for GFR calculation. Resulting Agency Comment [id number] Brennan Cagle MD LABORATORY Final Result Performing Organization Address [facility]/ZIP Co de Phone Number [facility] [address] [place] [address] * HEMOGLOBIN A1C (02/25/2019 4:41 PM EDT) [...] diagnosis of diabetes in children. According to [place] Diabetes Association (ADA) guidelines, hemoglobin A1c <7.0% represents optimal control in non- diabetic patients. Different metrics may apply to specific patient populations. Standards of Medical Care in Diabetes(ADA). Estimated Average Glucose 115 mg/dL (calc) [facility] 02/25/2019 4:41 PM EDT 02/26/2019 1:51 AM EDT Narrative Resulting Agency Comment [id number] Brennan Cagle MD LABORATORY Final Result Performing Organization Address [facility] Co de Phone Number [facility] [address] [place] [address] * (ABNORMAL) LIPID PANEL WITH REFLEX TO [...] DE LA CRUZ et al. WHITLEY. 2013;310(19): 1670-2627 (http://education.JethroData.com/faq/FWH012) CHOL/HDL Ratio 3.8 <5.0 (calc) [facility] Cholesterol Non-HDL 143(H) <130 mg/dL (calc) [facility] Comment: For patients with diabetes plus 1 major ASCVD risk factor, treating to a non-HDL-C goal of <100 mg/dL (LDL-C of <70 mg/dL) is considered a therapeutic option. 02/25/2019 4:41 PM EDT 02/26/2019 1:51 AM EDT Narrative Resulting Agency Comment [id number] Brennan Cagle MD LABORATORY Final Result [facility] [address] [place] [address] documented in this encounter Visit Diagnoses Diagnosis Screening for endocrine, nutritional, metabolic and immunity disorder Screening for other and unspecified endocrine, nutritional, metabolic, and immunity disorders documented in this encounter Care Teams Shake Packer Relationship Specialty Start Date End Date Brennan Cagle MD [address] [place] [address] PCP - General Internal Medicine 01/28/19 03/23/19 Eulalia Angel NP [address] [place] [address] PCP - Backup PCP Internal Medicine 01/28/19 06/09/19 Eulalia Angel NP [address] [place] [address] PCP - General 03/24/19 08/15/20 Erin Yancey MD [address] [place] [address] PCP - General Internal Medicine 08/16/20 03/23/21 Eulalia Angel NP [address] [place] [address] PCP - Backup PCP Internal Medicine 12/30/20 03/23/21 Eulalia Angel NP [address] [place] [address] PCP - General Internal Medicine 03/24/21 10/05/22 Valentino Seals MD [address] [place] [address] PCP - General 10/06/22 documented as of this encounter
--- OUTSIDE RECORDS SUMMARY | 2025-06-03 15:41 | XMS_ITS | Encounter Summary ---
Author Organization [facility] Address [address] [employer] [address] [address] Phone Care Team Providers Care Art Director Name Role Phone Eulalia Angel NP Unavailable [phone] Eulalia Angel NP Primary Care Provider [phone] Isa Payne DO Primary Car e Provider Encounter Details Date Type Department Care Team (Late st Contact Info) Description 06/16/2019 Procedure Pass [facility] [address] [place] [address] Social History Tobacco Use Types Packs/Day Years [...] Info) Description 06/04/2025 3:30 PM EDT Appointment [facility], X-Ray - [address] [place] [address] Dar Abbott, DO [address] [place] [address] 06/16/2025 10:15 AM EDT Office Visit [facility] 1999 [facility], [address] [place] [address] Richardson Davenport MD [address] [place] [address] 11/19/2025 11:30 AM EST Office Visit [facility] [address] [place] [address] Dar Abbott, [address] [place] [address] [email or web address] documented as of this encounter Visit Diagnoses Not on filedocumented in this encounter Care Teams Art Director Relationship Specialty Start Date End Date Eulalia Angel NP PCP - General Family Medicine 10/29/18 04/24/22 Isa Payne DO PCP - General Internal Medicine 04/25/22 Eulalia Angel NP Nurse Practitioner Family Medicine 10/29/18 documented as of this encounter Additional Source Comments The information contained in this document represents components of the legal health record. It is not the complete legal health record.[facility]
--- OUTSIDE RECORDS SUMMARY | 2025-06-03 15:41 | XMS_ITS | Encounter Summary ---
Author Organization [facility] Address [address] [place] [address] Care Team Providers Care Regional Director Of Admissions Name Role Phone Eulalia Angel NP Primary Care Provider [phone] Erin Yancey MD Primary Care Provider [phone] Eulalia Angel NP Unavailable [phone] Eulalia Angel NP Primary Care Provider [phone] Valentino Seals MD Primary Care Provider Reason for Visit * Reason Onset Date Comments Refill Request 12/16/2019 Encounter Details Date Type Department Care Team (Late st Contact Info) Description 12/16/2019 Refill [facility] [address] [place] [address] Eulalia Angel NP 123 [facility] [address] [place], [place] [id number] Refill Request Social History Tobacco Use Types [...] / using tobacco Lifestyle No [place], [place], STATUS CONTROLLER Note: Smoking can cause cancer, heart attacks, [...] at . Any insurance accepted. Quit smoking resources-[email or web address] documented as of this encounter Visit Diagnoses Not on filedocumented in this encounter Care Teams Regional Director Of Admissions Relationship Specialty Start Date End Date Eulalia Angel NP PCP - General 03/24/19 08/15/20 Erin Yancey MD PCP - General Internal Medicine 08/16/20 03/23/21 Eulalia Angel NP PCP - Backup PCP Internal Medicine 12/30/20 03/23/21 Eulalia Angel NP PCP - General Internal Medicine 03/24/21 10/05/22 Valentino Seals MD [address] [place] [address] PCP - General 10/06/22 documented as of this encounter
--- OUTSIDE RECORDS SUMMARY | 2025-06-03 15:41 | XMS_ITS | Encounter Summary ---
Author Organization [facility] Address [address] [facility] [address] [place] [address] Phone Care Team Providers Care Application Security Developer Name Role Phone Eulalia Angel NP Unavailable [phone] Eulalia Angel NP Primary Care Provider [phone] Isa Payne DO Primary Car e Provider Encounter Details Date Type Department Care Team (Late st Contact Info) Description 11/01/2018 Procedure Pass [facility] [address] [facility] [address] [place] [address] Social History Tobacco Use Types Packs/Day Years [...] Info) Description 06/04/2025 3:30 PM EDT Appointment [facility], X-Ray - [address] [place] [address] Dar Abbott, [address] [place] [address] 06/16/2025 10:15 AM EDT Office Visit [facility] 1999 [facility], [address] [place], [place] [phone] Richardson Davenport MD [address] [place] [id number] 11/19/2025 11:30 AM EST Office Visit [facility] [address] [place] [address] Dar Abbott, [address] [place] [address] documented as of this encounter Visit Diagnoses Not on filedocumented in this encounter Care Teams Application Security Developer Relationship Specialty Start Date End Date Eulalia Angel NP PCP - General Family Medicine 10/29/18 04/24/22 Isa Payne DO PCP - General Internal Medicine 04/25/22 Eulalia Angel NP Nurse Practitioner Family Medicine 10/29/18 documented as of this encounter Additional Source Comments The information contained in this document represents components of the legal health record. It is not the complete legal health record.[facility]
--- OUTSIDE RECORDS SUMMARY | 2025-06-03 15:41 | XMS_ITS | Encounter Summary ---
Author Organization [facility] Address [address] [place] [address] Care Team Providers Care Joint Cutter Machine Name Role Phone Eulalia Angel NP Primary Care Provider [phone] Valentino Seals MD Primary Care Provider [phone] Reason for Referral * CONSULT AND TREATMENT (Routine) - Authorized Specialty Diagnoses / Procedures Referred By Contac t Referred To Contact Neurology Diagnoses Chronic nonintractable headache, unspecified headache type Procedures Aguilar Mitchell MD [phone] FAX [phone] Eulalia Angel NP Phone: tel: fax: Referral ID Status Reason Start Date Expiration Date Visits Requested Visits Authorized [id number] Authorized Specialty Services Required 03/24/2021 03/24/2022 6 6 Question Answer When do you want this visit to occur? 1 MONTH - 8/2 Appointment with or AP? FIRST AVAILABLE Patient is being referred outside of [facility] for the following reason, however final determination for [id number] requests are made by the Referral Management Department Patient Preference Track Order? No Which provider/facility/agency would you like to refer to? (specify if you want first available regardless of location) Aguilar Mitchell [phone] FAX [phone] Please provide pertinent patient history. patient calling to request referral due to insurance change Encounter Details Date Type Department Care Team (Late st Contact Info) Description 03/24/2021 Orders Only [facility] [address] [place] [address] Eulalia Angel NP 123 [facility] 290 [place] [address] Social History Tobacco Use Types Packs/Day Years [...] at . Any insurance accepted. Quit smoking resources-[email or web address] documented as of this encounter Visit Diagnoses Diagnosis Chronic nonintractable headache, unspecified headache type documented in this encounter Care Teams Joint Cutter Machine Relationship Specialty Start Date End Date Eulalia Angel NP PCP - General Internal Medicine 03/24/21 10/05/22 Valentino Seals MD [address] [place] [address] PCP - General 10/06/22 documented as of this encounter
--- OUTSIDE RECORDS SUMMARY | 2025-06-03 15:41 | XMS_ITS | Encounter Summary ---
Author Organization [facility] Address [address] [place] [address] Care Team Providers Care Shoe Stitcher Name Role Phone Eulalia Angel NP Primary Care Provider [phone] Valentino Seals MD Primary Care Provider [phone] Encounter Details Date Type Department Care Team ([facility] st Contact Info) Description 03/30/2021 Orders Only [facility] [address] [place] [address] Eulalia Angel NP 123 [facility] [address] [place], [place] [phone] Social History Tobacco Use Types Packs/Day Years [...] at . Any insurance accepted. Quit smoking resources-http://Visual [email or web address] documented as of this encounter Visit Diagnoses Diagnosis Degenerative disc disease, lumbar Degeneration of lumbar or lumbosacral intervertebral disc documented in this encounter Care Teams Shoe Stitcher Relationship Specialty Start Date End Date Eulalia Angel NP PCP - General Internal Medicine 03/24/21 10/05/22 Valentino Seals MD [address] [place] [address] PCP - General 10/06/22 documented as of this encounter
--- OUTSIDE RECORDS SUMMARY | 2025-06-03 15:41 | XMS_ITS | Clinical Summary ---
Author Organization [facility] Address [address] [place] [address] Care Team Providers Care Administrative Executive Name Role Phone Valentino Seals MD Primary Care Provider Allergies No known active allergies Medications Drospirenone-Et [...] at . Any insurance accepted. Quit smoking resources-[email or web address] Procedures * Due to [place] Globitel law, this organization might not be sharing [...] to Health Maintenance Results * Due to [place] Globitel law, this organization might not be sharing [...] DE LA CRUZ et al. WHITLEY. 2013;310(19): 1368-8222 (http://education.[employer].Interactive TKO/faq/FME022) CHOL/HDL Ratio 2.7 <5.0 (calc) [facility] Cholesterol Non-HDL 104 <130 mg/dL (calc) [facility] Comment: For patients with diabetes plus 1 major ASCVD risk factor, treating to a non-HDL-C goal of <100 mg/dL (LDL-C of <70 mg/dL) is considered a therapeutic option. 03/15/2020 2:50 PM EDT 03/16/2020 12:44 AM EDT Narrative Resulting Agency Comment [id number] us Eulalia Angel LABORATORY Final Result [facility] [address] [place] [address] * PAP SMEAR (02/06/2019) us Unknown Provider [...] Recently Relevant to Health Maintenance Care Teams Administrative Executive Relationship Specialty Start Date End Date Valentino Seals MD [address] [place] [address] [facility] - General 10/06/22
--- OUTSIDE RECORDS SUMMARY | 2025-06-03 15:41 | XMS_ITS | Encounter Summary ---
Author Organization [facility] Address [address] [place] [address] Phone Care Team Providers Care Explosive Operator Name Role Phone Eulalia Angel FUR TRAPPER Unavailable [phone] Isa Payne DO Primary Car e Provider Encounter Details Date Type Department Care Team (Late st Contact Info) Description 11/13/2023 Procedure Pass [facility] - [address] [place] [address] Social History Tobacco Use Types Packs/Day Years [...] Info) Description 06/04/2025 3:30 PM EDT Appointment [facility], X-Ray - [address] [place] [address] Dar Abbott DO [address] [place] [phone] [email or web address] 06/16/2025 10:15 AM EDT Office Visit [facility] [address] [facility], [address] [place] [address] Richardson Davenport MD [address] [place] [address] 11/19/2025 11:30 AM EST Office Visit [facility] [address] [place] [address] Dar Abbott DO [address] [place] [address] documented as of this encounter Visit Diagnoses Not on filedocumented in this encounter Care Teams Explosive Operator Relationship Specialty Start Date End Date Isa Payne DO PCP - General Internal Medicine 04/25/22 Eulalia Angel NP Nurse Practitioner Family Medicine 10/29/18 documented as of this encounter Additional Source Comments The information contained in this document represents components of the legal health record. It is not the complete legal health record.[facility]
--- OUTSIDE RECORDS SUMMARY | 2025-06-03 15:41 | XMS_ITS | Encounter Summary ---
Author Organization [facility] Address [address] [employer] [address] [place] [address] Phone Care Team Providers Care Steel Die Engraver Name Role Phone Eulalia Angel CONTACT ACID PLANT OPERATOR HELPER Unavailable [phone] Isa Payne DO Primary Car e Provider Encounter Details Date Type Department Care Team (Late st Contact Info) Description 11/13/2023 Procedure Pass [facility] - [address] [place] [address] Social History Tobacco Use Types Packs/Day Years [...] Info) Description 06/04/2025 3:30 PM EDT Appointment [facility], X-Ray - [address] [place] [address] Dar Abbott DO [address] [place] [address] [email or web address] 06/16/2025 10:15 AM EDT Office Visit [facility] 1999 [facility], [address] [place] [address] Richardson Davenport MD [address] [place] [address] 11/19/2025 11:30 AM EST Office Visit [facility] [address] [place] [address] Dar Abbott DO [address] [place] [address] documented as of this encounter Visit Diagnoses Not on filedocumented in this encounter Care Teams Steel Die Engraver Relationship Specialty Start Date End Date Isa Payne DO PCP - General Internal Medicine 04/25/22 Eulalia Angel NP Nurse Practitioner Family Medicine 10/29/18 documented as of this encounter Additional Source Comments The information contained in this document represents components of the legal health record. It is not the complete legal health record.[facility]
--- OUTSIDE RECORDS SUMMARY | 2025-06-03 15:41 | XMS_ITS | Encounter Summary ---
Author Organization [facility] Address [address] [place] [address] Care Team Providers Care Dope Weigh Operator Name Role Phone Eulalia Angel NP Primary Care Provider [phone] Valentino Seals MD Primary Care Provider [phone] Reason for Referral * CONSULT AND TREATMENT (Routine) - Authorized Specialty Diagnoses / Procedures Referred By Katja mao Referred To Contact Ent-Otolaryngology Diagnoses Allergy, subsequent encounter Procedures ENT -- Dr. Gerald Iyv, NPI# [id number] Fx: [phone] Eulalia Angel NP Phone: tel: fax: Referral ID Status Reason Start Date Expiration Date Visits Requested Visits Authorized [id number] Authorized Est Relationship 03/24/2021 03/24/2022 52 52 Question Answer When do you want this visit to occur? WITHIN 3 DAYS - 03/27/21 Appointment with or AP? FIRST AVAILABLE Patient is being referred outside of [facility] for the following reason, however final determination for [id number]-[id number] requests are made by the Referral Management Department Continuity of active patient care Track Order? No Which provider/facility/agency would you like to refer to? (specify if you want first available regardless of location) GERALD IVY M.D. [phone] Please provide pertinent patient history. patient calling to request referrals to this provider due to insurance change * CONSULT AND TREATMENT (Routine) - Authorized Specialty Diagnoses / Procedures Referred By Contac t Referred To Contact Neurosurgery / Neurology Diagnoses Back pain, unspecified back location, unspecified back pain laterality, unspecified chronicity Procedures Neurosurg -- Dr. Kaya Abbott, NPI# [id number] Eulalia Angel NP Phone: tel: fax: Kaya Abbott DO [facility], Dept of Neurosurgery [address] [place] [address] Phone: tel: fax: Referral ID Status Reason Start Date Expiration Date Visits Requested Visits Authorized [id number] Authorized Est Relationship 03/24/2021 03/24/2022 6 6 Question Answer Please provide pertinent patient history. patient calling to request new referral as insurance has change Track Order? No When do you want this visit to occur? WITHIN 3 DAYS - 03/29/21 Patient is being referred outside of [facility] for the following reason, however final determination for [id number]-tw-gjmermy requests are made by the Referral Management Department Continuity of active patient care Which provider/facility/agency would you like to refer to? (specify if you want first available regardless of location) Dr. kaya Abbott [phone] [facility] Encounter Details Date Type Department Care Team ([facility] st Contact Info) Description 03/24/2021 Orders Only [facility] [address] [place] [address] Eulalia Angel NP 123 [facility] [address] [place] [address] Social History Tobacco Use Types [...] at . Any insurance accepted. Quit smoking resources-[email or web address]://[email or web address] [email or web address] documented as of this encounter Visit Diagnoses Diagnosis Back pain, unspecified back location, unspecified back pain laterality, unspecified chronicity Allergy, subsequent encounter documented in this encounter Care Teams Dope Weigh Operator Relationship Specialty Start Date End Date Eulalia Angel NP PCP - General Internal Medicine 03/24/21 10/05/22 Valentino Seals MD [address] [place] [address] PCP - General 10/06/22 documented as of this encounter
--- OUTSIDE RECORDS SUMMARY | 2025-06-03 15:41 | XMS_ITS | Encounter Summary ---
Author Organization [facility] Address [address] [place] [address] Care Team Providers Care Bull Float Finisher Name Role Phone Eulalia Angel NP Primary Care Provider Erin Yancey MD Primary Care Provider [phone] Eulalia Angel NP Unavailable [phone] Eulalia Angel NP Primary Care Provider [phone] Valentino Seals MD Primary Care Provider [phone] Encounter Details Date Type Department Care Team ([facility] st Contact Info) Description 03/15/2020 Orders Only [facility] [address] [place] [address] Eulalia Angel NP 123 [facility] [address] [place] [address] Social History Tobacco Use Types [...] at . Any insurance accepted. Quit smoking resources-[email or web address]://[email or web address] documented as of this encounter Procedures * Due to [place] Cellrox law, this organization might not be sharing negative HIV tests. Procedure Name Priority Date/Time Associated Diagnosis Comments VENIPUNCTURE Routine 03/15/2020 2:50 PM EDT Tish's thyroiditis LIPID PANEL WITH REFLEX TO DIRECT LDL Routine 03/15/2020 2:50 PM EDT Screening for hyperlipidemia BASIC METABOLIC PANEL WITH (GFR) Routine 03/15/2020 2:50 PM EDT Screening for diabetes mellitus documented in this encounter Results * Due to [place] Cellrox law, this organization might not be sharing [...] Ramírez DE LA CRUZ et al. WHITLEY. 2013;310(95): 1412-4621 (http://education.Basetex Group/faq/ZIQ612) CHOL/HDL Ratio 2.7 <5.0 (calc) [facility] Cholesterol Non-HDL 104 <130 mg/dL (calc) [facility] Comment: For patients with diabetes plus 1 major ASCVD risk factor, treating to a non-HDL-C goal of <100 mg/dL (LDL-C of <70 mg/dL) is considered a therapeutic option. 03/15/2020 2:50 PM EDT 03/16/2020 12:44 AM EDT Narrative Resulting Agency Comment [id number] Eulalia Angel NP LABORATORY Final Result [facility] [address] [place] [address] * BASIC METABOLIC PANEL WITH (GFR) (03/15/2020 [...] needs for GFR calculation. Resulting Agency Comment [id number] Eulalia Angel NP LABORATORY Final Result Performing Organization Address City/[facility]/ZIP Co de Phone Number [facility] [address] [place] [address] * TSH, 3RD GENERATION (03/15/2020 2:50 PM EDT) TSH 2.87 mIU/L [facility] Comment: Reference Range > or = 20 Years 0.40-4.50 Ranges First trimester 0.26-2.66 Second trimester 0.55-2.73 Third trimester 0.43-2.91 03/15/2020 2:50 PM EDT 03/16/2020 12:44 AM EDT Narrative Resulting Agency Comment [id number] Eulalia Angel NP LABORATORY Final Result Performing Organization Address City/[facility]/ZIP Co de Phone Number [facility] [address] [place] [address] documented in this encounter Visit Diagnoses Diagnosis Tish's thyroiditis Chronic lymphocytic thyroiditis Screening for diabetes mellitus Screening for hyperlipidemia Screening for lipoid disorders documented in this encounter Care Teams Bull Float Finisher Relationship Specialty Start Date End Date Eulalia Angel NP PCP - General 03/24/19 08/15/20 Erin Yancey MD PCP - General Internal Medicine 08/16/20 03/23/21 Eulalia Angel NP PCP - Backup PCP Internal Medicine 12/30/20 03/23/21 Eulalia Angel NP PCP - General Internal Medicine 03/24/21 10/05/22 Valentino Seals MD [address] [place] [address] PCP - General 10/06/22 documented as of this encounter
--- OUTSIDE RECORDS SUMMARY | 2025-06-03 15:41 | XMS_ITS | Encounter Summary ---
Author Organization [facility] Address [address] [place] [address] Care Team Providers Care Swine Nutritionist Name Role Phone Eulalia Angel NP Primary Care Provider Brennan Cagle MD Primary Care Provider [phone] Eulalia Angel RATCHET SETTER Unavailable [phone] Eulalia Angel NP Primary Care Provider [phone] Erin Yancey MD Primary Care Provider Eulalia Angel RATCHET SETTER Unavailable [phone] Eulalia Angel RATCHET SETTER Primary Care Provider Valentino Seals MD Primary Care Provider [phone] Encounter Details Date Type Department Care Team (Late st Contact Info) Description 07/31/2018 Orders Only [facility] [address] [place] [address] Eulalia Angel RATCHET SETTER 123 [facility] [address] [place] [address] Social History Tobacco Use Types [...] at . Any insurance accepted. Quit smoking resources-http://Argos Risk.SchoolControl documented as of this encounter Procedures * Due to [place] MINGDAO.COM law, this organization might not be sharing negative HIV tests. Procedure Name Priority Date/Time Associated Diagnosis Comments CBC INCLUDES DIFFERENTIAL AND PLATELET COUNT Routine 07/31/2018 2:26 PM EST Fatigue, unspecified type BASIC METABOLIC PANEL WITH (GFR) Routine 07/31/2018 2:26 PM EST Fatigue, unspecified type documented in this encounter Results * Due to [place] MINGDAO.COM law, this organization might not be sharing [...] needs for GFR calculation. Resulting Agency Comment [id number] us Brennan Cagle MD LABORATORY Final Result Performing Organization Address City/State/[facility] Co de Phone Number [facility] [address] [place] [address] * CBC INCLUDES DIFFERENTIAL AND PLATELET COUNT [...] 12:30 AM EST Narrative Resulting Agency Comment [id number] us Brennan Cagle MD LAB SAME DAY RESULT Final Res ult [facility] [address] [place] [address] documented in this encounter Visit Diagnoses Diagnosis Fatigue, unspecified type documented in this encounter Care Teams Swine Nutritionist Relationship Specialty Start Date End Date Eulalia Angel NP PCP - General Internal Medicine 05/14/18 01/27/19 Brennan Cagle MD [address] [facility] [address] PCP - General Internal Medicine 01/28/19 03/23/19 Eulalia Angel NP [address] [place] [address] PCP - Backup PCP Internal Medicine 01/28/19 06/09/19 Eulalia Angel NP [address] [place] [address] PCP - General 03/24/19 08/15/20 Erin Yancey MD [address] [place] [address] PCP - General Internal Medicine 08/16/20 03/23/21 Eulalia Angel NP [address] [place] [address] PCP - Backup PCP Internal Medicine 12/30/20 03/23/21 Eulalia Angel NP [address] [place] [address] PCP - General Internal Medicine 03/24/21 10/05/22 Valentino Seals MD [address] [place] [address] PCP - General 10/06/22 documented as of this encounter
== END 2025-06-03 12:47 | disposition home or self-care (01) ==
LOC: HO.HMGAL 12:44
PROVIDERS: PCP Internal Medicine; Visit Provider Registered Nurse Emergency
DX: J30.89 Other allergic rhinitis (principal)
CPT/HCPCS: 95117; 95165

== ENCOUNTER 2025-06-17 13:51 | Outpatient (AMB) | payer OTHER, SELFPAY ==
--- OUTSIDE RECORDS SUMMARY | 2025-06-17 16:23 | XMS_ITS | Encounter Summary ---
Author Organization [facility] Address [address] [place] [address] Care Team Providers Care Dry Goods Clerk Name Role Phone Eulalia Angel NP Primary Care Provider [phone] Valentino Seals MD Primary Care Provider [phone] Reason for Referral * CONSULT AND TREATMENT (Routine) - Authorized Specialty Diagnoses / Procedures Referred By Katja mao Referred To Contact Ent-Otolaryngology Diagnoses Allergy, subsequent encounter Procedures ENT -- Dr. Gerald Ivy, NPI# [id number] Fx: [phone] Eulalia Angel NP Phone: tel: fax: Referral ID Status Reason Start Date Expiration Date Visits Requested Visits Authorized [id number] Authorized Est Relationship 03/24/2021 03/24/2022 52 52 Question Answer When do you want this visit to occur? WITHIN 3 DAYS - 03/27/21 Appointment with or AP? FIRST AVAILABLE Patient is being referred outside of [facility] for the following reason, however final determination for [id number] requests are made by the Referral Management Department Continuity of active patient care Track Order? No Which provider/facility/agency would you like to refer to? (specify if you want first available regardless of location) GERALD IVY M.D. [phone] Please provide pertinent patient history. patient calling to request referrals to this provider due to insurance change * CONSULT AND TREATMENT (Routine) - Authorized Specialty Diagnoses / Procedures Referred By Contac t Referred To Contact Neurosurgery / Neurology Diagnoses Back pain, unspecified back location, unspecified back pain laterality, unspecified chronicity Procedures Neurosurg -- Dr. Kaya Abbott, NPI# [id number] Eulalia Angel NP Phone: tel: fax: Kaya Abbott DO [facility], Dept of Neurosurgery [address] [place] [address] Phone: tel: fax: Referral ID Status Reason Start Date Expiration Date Visits Requested Visits Authorized [id number] Authorized Est Relationship 03/24/2021 03/24/2022 6 6 Question Answer Please provide pertinent patient history. patient calling to request new referral as insurance has change Track Order? No When do you want this visit to occur? WITHIN 3 DAYS - 03/29/21 Patient is being referred outside of [facility] for the following reason, however final determination for [id number] requests are made by the Referral Management Department Continuity of active patient care Which provider/facility/agency would you like to refer to? (specify if you want first available regardless of location) Dr. kaya Abbott [phone] [facility] Encounter Details Date Type Department Care Team ([facility] st Contact Info) Description 03/24/2021 Orders Only [facility] [address] [place] [address] Eulalia Angel NP 123 [facility] [address] [place] [address] Social History Tobacco Use Types [...] at . Any insurance accepted. Quit smoking resources-http://[email or web address] documented as of this encounter Visit Diagnoses Diagnosis Back pain, unspecified back location, unspecified back pain laterality, unspecified chronicity Allergy, subsequent encounter documented in this encounter Care Teams Dry Goods Clerk Relationship Specialty Start Date End Date Eulalia Angel NP PCP - General Internal Medicine 03/24/21 10/05/22 Valentino Seals MD [address] [place] [address] PCP - General 10/06/22 documented as of this encounter
--- OUTSIDE RECORDS SUMMARY | 2025-06-17 16:23 | XMS_ITS | Encounter Summary ---
Author Organization [facility] Address [address] [place] [address] Care Team Providers Care Equalizing Saw Operator Name Role Phone Eulalia Angel NP Primary Care Provider [phone] Valentino Seals MD Primary Care Provider [phone] Reason for Referral * CONSULT AND TREATMENT (Routine) - Authorized Specialty Diagnoses / Procedures Referred By Contac t Referred To Contact Neurology Diagnoses Chronic nonintractable headache, unspecified headache type Procedures Aguilar Mitchell MD [phone] FAX [phone] Eulalia Angel NP Phone: tel: fax: Referral ID Status Reason Start Date Expiration Date Visits Requested Visits Authorized [id number] Authorized Specialty Services Required 03/24/2021 03/24/2022 6 6 Question Answer When do you want this visit to occur? 1 MONTH - 8/2 Appointment with or AP? FIRST AVAILABLE Patient is being referred outside of [facility] for the following reason, however final determination for [id number] requests are made by the Referral Management Department Patient Preference Track Order? No Which provider/facility/agency would you like to refer to? (specify if you want first available regardless of location) Aguilar Mitchell [phone] FAX [phone] Please provide pertinent patient history. patient calling to request referral due to insurance change Encounter Details Date Type Department Care Team (Late st Contact Info) Description 03/24/2021 Orders Only [facility] [address] [place] [address] Eulalia Angel NP 123 [facility] [address] [place] [address] Social History Tobacco Use Types Packs/Day Years [...] at . Any insurance accepted. Quit smoking resources-http://[employer]moHero [employer][email or web address] documented as of this encounter Visit Diagnoses Diagnosis Chronic nonintractable headache, unspecified headache type documented in this encounter Care Teams Equalizing Saw Operator Relationship Specialty Start Date End Date Eulalia Angel NP PCP - General Internal Medicine 03/24/21 10/05/22 Valentino Seals MD [address] [place] [address] PCP - General 10/06/22 documented as of this encounter
--- OUTSIDE RECORDS SUMMARY | 2025-06-17 16:23 | XMS_ITS | Encounter Summary ---
Author Organization [facility] Address [address] [place] [address] Care Team Providers Care Primer Charging Tool Setter Name Role Phone Eulalia Angel NP Primary Care Provider [phone] Brennan Cagle MD Primary Care Provider Eulalia Angel MULTIMEDIA SERVICES MANAGER Unavailable [phone] Eulalia Angel NP Primary Care Provider [phone] Erin Yancey MD Primary Care Provider Eulalia Angel MULTIMEDIA SERVICES MANAGER Unavailable [phone] Eulalia Angel MULTIMEDIA SERVICES MANAGER Primary Care Provider Valentino Seals MD Primary Care Provider [phone] Encounter Details Date Type Department Care Team (Late st Contact Info) Description 12/16/2018 Orders Only [facility] [address] [place] [phone] Eulalia Angel, MULTIMEDIA SERVICES MANAGER 123 [facility] [address] [place] [address] Social History Tobacco Use Types [...] / using tobacco Lifestyle No Gabby Montesinos, ZONING ENGINEER Note: Smoking can cause cancer, heart attacks, [...] at . Any insurance accepted. Quit smoking resources-http://Brazen [email or web address] documented as of this encounter Visit Diagnoses Not on filedocumented in this encounter Care Teams Primer Charging Tool Setter Relationship Specialty Start Date End Date Eulalia Angel NP PCP - General Internal Medicine 05/14/18 01/27/19 Brennan Cagle MD [address] [place] [address] PCP - General Internal Medicine 01/28/19 03/23/19 Eulalia Angel NP [address] [place] [address] PCP - Backup PCP Internal Medicine 01/28/19 06/09/19 Eulalia Angel NP [address] [place] [address] PCP - General 03/24/19 08/15/20 Erin Yancey MD [address] [place] [address] PCP - General Internal Medicine 08/16/20 03/23/21 Eulalia Angel NP [address] [place] [address] PCP - Backup PCP Internal Medicine 12/30/20 03/23/21 Eulalia Angel NP [address] [place] [address] PCP - General Internal Medicine 03/24/21 10/05/22 Valentino Seals MD [address] [place] [address] PCP - General 10/06/22 documented as of this encounter
--- OUTSIDE RECORDS SUMMARY | 2025-06-17 16:23 | XMS_ITS | Encounter Summary ---
Author Organization [facility] Address [address] [place] [address] Care Team Providers Care Construction Pit Worker Name Role Phone Eulalia Angel NP Unavailable [phone] Eulalia Angel NP Primary Care Provider Erin Yancey MD Primary Care Provider Eulalia Angel AQUATIC LABORER Unavailable [phone] Eulalia Angel NP Primary Care Provider Valentino Seals MD Primary Care Provider [phone] Encounter Details Date Type Department Care Team (Late st Contact Info) Description 04/29/2019 Orders Only [facility] [address] [place] [phone] Eulalia Angel NP 123 [facility] [address] [place] [address] Social History Tobacco Use Types [...] at . Any insurance accepted. Quit smoking resources-http://[email or web address] documented as of this encounter Procedures * Due to [place] state law, this organization might not be sharing negative HIV tests. Procedure Name Priority Date/Time Associated Diagnosis Comments HCG, TOTAL, QL Routine 04/29/2019 3:25 PM EDT Amenorrhea documented in this encounter Results * Due to [place] QUIQ law, this organization might not be sharing negative HIV tests. * HCG, TOTAL, QL (04/29/2019 3:25 PM EDT) HCG, Qualitative (Screen) NEGATIVE [facility] Comment: Reference Range Non-: Negative : Positive 04/29/2019 3:25 PM EDT 04/30/2019 12:32 AM EDT Narrative Resulting Agency Comment [id number] Eulalia Angel NP LAB SAME DAY RESULT Final Resul t [facility] [address] [place] [address] documented in this encounter Visit Diagnoses Diagnosis Amenorrhea Absence of menstruation documented in this encounter Care Teams Construction Pit Worker Relationship Specialty Start Date End Date Eulalia Angel NP PCP - Backup PCP Internal Medicine 01/28/19 06/09/19 Eulalia Angel NP PCP - General 03/24/19 08/15/20 Erin Yancey MD PCP - General Internal Medicine 08/16/20 03/23/21 Eulalia Angel NP PCP - Backup PCP Internal Medicine 12/30/20 03/23/21 Eulalia Angel NP PCP - General Internal Medicine 03/24/21 10/05/22 Valentino Seals MD [address] [place] [address] PCP - General 10/06/22 documented as of this encounter
--- OUTSIDE RECORDS SUMMARY | 2025-06-17 16:23 | XMS_ITS | Encounter Summary ---
Author Organization [facility] Address [address] [place] [address] Care Team Providers Care Hospital Receptionist Name Role Phone Eulalia Angel NP Unavailable [phone] Eulalia Angel NP Primary Care Provider Erin Yancey MD Primary Care Provider Eulalia Angel GARBAGE PERSON Unavailable [phone] Eulalia Angel NP Primary Care Provider Valentino Seals MD Primary Care Provider [phone] Encounter Details Date Type Department Care Team (Late st Contact Info) Description 05/28/2019 Orders Only [facility] [address] [place] [address] Eulalai Angel NP 123 [facility] [address] [place] [address] Social History Tobacco Use Types [...] at . Any insurance accepted. Quit smoking resources-http://eReplacements.org documented as of this encounter Procedures * Due to [place] EARTHNET law, this organization might not be sharing negative HIV tests. Procedure Name Priority Date/Time Associated Diagnosis Comments THYROID PEROXIDASE AND THYROGLOBULIN ANTIBODIES Routine 05/28/2019 11:47 AM EDT Screening for endocrine, nutritional, metabolic and immunity disorder documented in this encounter Results * Due to [place] EARTHNET law, this organization might not be sharing negative HIV tests. * (ABNORMAL) THYROID PEROXIDASE AND THYROGLOBULIN ANTIBODIES (05/28/2019 11:47 AM EDT) Thyroglobulin Ab <1 < or = 1 IU/mL [facility] Thyroperoxidase Ab 12(H) <9 IU/mL Q [facility] 05/28/2019 11:4 7 AM EDT 05/29/2019 1:31 AM EDT Narrative Resulting Agency Comment [id number] us Brennan Cagle MD LABORATORY Final Result [facility] [address] [place] [address] documented in this encounter Visit Diagnoses Diagnosis Screening for endocrine, nutritional, metabolic and immunity disorder Screening for other and unspecified endocrine, nutritional, metabolic, and immunity disorders documented in this encounter Care Teams Hospital Receptionist Relationship Specialty Start Date End Date Eulalia Angel NP PCP - Backup PCP Internal Medicine 01/28/19 06/09/19 Eulalia Angel NP PCP - General 03/24/19 08/15/20 Erin Yancey MD PCP - General Internal Medicine 08/16/20 03/23/21 Eulalia Angel NP PCP - Backup PCP Internal Medicine 12/30/20 03/23/21 Eulalia Angel NP PCP - General Internal Medicine 03/24/21 10/05/22 Valentino Seals MD [address] [place] [address] PCP - General 10/06/22 documented as of this encounter
--- OUTSIDE RECORDS SUMMARY | 2025-06-17 16:23 | XMS_ITS | Encounter Summary ---
Author Organization [facility] Address [address] [place] [address] Care Team Providers Care Order Picker/Assembler Name Role Phone Eulalia Angel NP Primary Care Provider Brennan Cagle MD Primary Care Provider Eulalia Angel PRINCIPAL STATISTICAL PROGRAMMER Unavailable [phone] Eulalia Angel NP Primary Care Provider Erin Yancey MD Primary Care Provider Eulalia Angel PRINCIPAL STATISTICAL PROGRAMMER Unavailable [phone] Eulalia Angel PRINCIPAL STATISTICAL PROGRAMMER Primary Care Provider [phone] Valentino Seals MD Primary Care Provider [phone] Encounter Details Date Type Department Care Team (Late st Contact Info) Description 07/31/2018 Orders Only [facility] [address] [place] [address] Eulalia Angel PRINCIPAL STATISTICAL PROGRAMMER 123 [facility] [address] [place] [address] Social History Tobacco Use Types [...] at . Any insurance accepted. Quit smoking resources-http://TrunqShow.GoTaxi(Cabeo) documented as of this encounter Procedures * Due to [place] Darby Smart law, this organization might not be sharing negative HIV tests. Procedure Name Priority Date/Time Associated Diagnosis Comments CBC INCLUDES DIFFERENTIAL AND PLATELET COUNT Routine 07/31/2018 2:26 PM EST Fatigue, unspecified type BASIC METABOLIC PANEL WITH (GFR) Routine 07/31/2018 2:26 PM EST Fatigue, unspecified type documented in this encounter Results * Due to [place] Darby Smart law, this organization might not be sharing [...] needs for GFR calculation. Resulting Agency Comment [id number] us Brennan Cagle MD LABORATORY Final Result Performing Organization Address City/State/[facility] Co de Phone Number [facility] [address] [place] [address] * CBC INCLUDES DIFFERENTIAL AND PLATELET COUNT [...] 12:30 AM EST Narrative Resulting Agency Comment [id number] us Brennan Cagle MD LAB SAME DAY RESULT Final Res ult [facility] [address] [place] [address] documented in this encounter Visit Diagnoses Diagnosis Fatigue, unspecified type documented in this encounter Care Teams Order Picker/Assembler Relationship Specialty Start Date End Date Eulalia Angel NP PCP - General Internal Medicine 05/14/18 01/27/19 Brennan Cagle MD [address] [place] [address] PCP - General Internal Medicine 01/28/19 03/23/19 Eulalia Angel NP [address] [place] [address] PCP - Backup PCP Internal Medicine 01/28/19 06/09/19 Eulalia Angel NP [address] [place] [address] PCP - General 03/24/19 08/15/20 Erin Yancey MD [address] [place] [address] PCP - General Internal Medicine 08/16/20 03/23/21 Eulalia Angel NP [address] [place] [address] PCP - Backup PCP Internal Medicine 12/30/20 03/23/21 Eulalia Angel NP [address] [place] [address] PCP - General Internal Medicine 03/24/21 10/05/22 Valentino Seals MD [address] [place] [address] PCP - General 10/06/22 documented as of this encounter
--- OUTSIDE RECORDS SUMMARY | 2025-06-17 16:23 | XMS_ITS | Encounter Summary ---
Author Organization [facility] Address [address] [place] [address] Care Team Providers Care Wwe Wrestler Name Role Phone Eulalia Angel NP Unavailable [phone] Eulalia Angel NP Primary Care Provider [phone] Erin Yancey MD Primary Care Provider [phone] Eulalia Angel NP Unavailable [phone] Eulalia Angel NP Primary Care Provider [phone] Valentino Seals MD Primary Care Provider [phone] Reason for Referral * CONSULT AND TREATMENT (Routine) - Authorized Specialty Diagnoses / Procedures Referred By Katja t Referred To Contact Neurosurgery / Neurology Diagnoses Back pain, unspecified back location, unspecified back pain laterality, unspecified chronicity Procedures NeuroSurgeon: Dr Dar Abbott p [phone] f [phone] [facility] Eulalia Angel NP Phone: tel: fax: Dar Abbott DO [facility], Dept of Neurosurgery [address] [place] [address] Phone: tel: fax: Referral ID Status Reason Start Date Expiration Date Visits Requested Visits Authorized [id number] Authorized Specialty Services Required 03/31/2019 03/30/2020 3 3 Question Answer When do you want this visit to occur? WITHIN 1 WEEK - 04/01/19 6 visits Appointment with MD or AP? FIRST AVAILABLE Patient is being referred outside of [facility] for the following reason, however final determination for [id number] requests are made by the Referral Management [...] refer to? NeuroSurgeon: Dr Dar Abbott p [phone] f [phone] [facility] surgery consult Please list the patient's preferred provider for this consult. Dr Dar Abbott p [phone] f [phone] [facility] Encounter Details Date Type Department Care Team ([facility] st Contact Info) Description 03/24/2019 Orders Only [facility] [address] [place] [address] Eulalia Angel NP [address] [place] [address] Social History Tobacco Use Types Packs/Day Years [...] at . Any insurance accepted. Quit smoking resources-http://Spotster.org documented as of this encounter Visit Diagnoses Diagnosis Back pain, unspecified back location, unspecified back pain laterality, unspecified chronicity documented in this encounter Care Teams Wwe Wrestler Relationship Specialty Start Date End Date Eulalia Angel NP PCP - Backup PCP Internal Medicine 01/28/19 06/09/19 Eulalia Angel NP PCP - General 03/24/19 08/15/20 Erin Yancey MD PCP - General Internal Medicine 08/16/20 03/23/21 Eulalia Angel NP PCP - Backup PCP Internal Medicine 12/30/20 03/23/21 Eulalia Angel NP PCP - General Internal Medicine 03/24/21 10/05/22 Valentino Seals MD [address] [place] [address] PCP - General 10/06/22 documented as of this encounter
--- OUTSIDE RECORDS SUMMARY | 2025-06-17 16:23 | XMS_ITS | Encounter Summary ---
Author Organization [facility] Address [address] [place] [address] Care Team Providers Care Beater Tender Name Role Phone Eulalia Angel NP Primary Care Provider [phone] Erin Yancey MD Primary Care Provider [phone] Eulalia Angel NP Unavailable [phone] Eulalia Angel NP Primary Care Provider [phone] Valentino Seals MD Primary Care Provider [phone] Reason for Referral * CONSULT AND TREATMENT (Routine) - Closed Specialty Diagnoses / Procedures Referred By Katja mao Referred To Contact hvac design mechanical engineer Diagnoses Abnormal female pelvic exam Procedures Regina Shell MD - OBGYN at [facility] P: [phone] F: [phone] DOS: 11/25/19 Eulalia Angel NP Phone: tel: fax: Regina Mcdonald MD [facility] [address] [place] [address] Phone: tel: fax: Referral ID Status Reason Start Date Expiration Date Visits Requested Visits Authorized [id number] Closed Patient Preference 10/23/2019 10/22/2020 12 12 Question Answer When do you want this visit to occur? WITHIN 1 MONTH - 11/25/19 Appointment with or AP? FIRST AVAILABLE Patient is being referred outside of [facility] for the following reason, however final determination for [id number] requests are made by the Referral Management [...] like to refer to? DR Regina Mcdonald P:[phone] F:[phone] 12 visits Encounter Details Date Type Department Care Team ([facility] st Contact Info) Description 10/17/2019 Orders Only [facility] [address] [place] [address] Eulalia Angel NP 123 [facility] [address] [place] [address] Social History Tobacco Use Types Packs/Day Years [...] Priority Associated Diagnoses Orde r Schedule CONSULT ERECTOR OPERATOR NON-FC Referral Routine Abnormal female pelvic [...] at . Any insurance accepted. Quit smoking resources-http://Hot Mix Mobile.org documented as of this encounter Visit Diagnoses Diagnosis Abnormal female pelvic exam Nonspecific (abnormal) findings on radiological and other examination of genitourinary organs documented in this encounter Care Teams Beater Tender Relationship Specialty Start Date End Date Eulalia Angel NP PCP - General 03/24/19 08/15/20 Erin Yancey MD PCP - General Internal Medicine 08/16/20 03/23/21 Eulalia Angel NP PCP - Backup PCP Internal Medicine 12/30/20 03/23/21 Eulalia Angel NP PCP - General Internal Medicine 03/24/21 10/05/22 Valentino Seals MD [address] [place] [address] PCP - General 10/06/22 documented as of this encounter
--- OUTSIDE RECORDS SUMMARY | 2025-06-17 16:23 | XMS_ITS | Encounter Summary ---
Author Organization [facility] Address [address] [place] [address] Care Team Providers Care Medical Services Assistant Name Role Phone Eulalia Angel NP Primary Care Provider [phone] Valentino Seals MD Primary Care Provider [phone] Encounter Details Date Type Department Care Team ([facility] st Contact Info) Description 03/30/2021 Orders Only [facility] [address] [place] [address] Eulalia Angel NP 123 [facility] [address] [place], [place] [phone] Social History Tobacco Use Types Packs/Day Years [...] at . Any insurance accepted. Quit smoking resources-[email or web address] documented as of this encounter Visit Diagnoses Diagnosis Degenerative disc disease, lumbar Degeneration of lumbar or lumbosacral intervertebral disc documented in this encounter Care Teams Medical Services Assistant Relationship Specialty Start Date End Date Eulalia Angel NP PCP - General Internal Medicine 03/24/21 10/05/22 Valentino Seals MD [address] [place] [address] PCP - General 10/06/22 documented as of this encounter
--- OUTSIDE RECORDS SUMMARY | 2025-06-17 16:23 | XMS_ITS | Encounter Summary ---
Author Organization [facility] Address [address] [place] [address] Care Team Providers Care Tooth Cutter Pinion Name Role Phone Eulalia Angel NP Primary Care Provider [phone] Valentino Seals MD Primary Care Provider [phone] Encounter Details Date Type Department Care Team (Late st Contact Info) Description 03/24/2021 Orders Only [facility] [address] [place] [phone] Erin Yancey MD [address] [place] [address] Social History Tobacco Use Types Packs/Day Years [...] at . Any insurance accepted. Quit smoking resources-http://ideaTree - innovate | mentor | invest.org documented as of this encounter Visit Diagnoses Not on filedocumented in this encounter Care Teams Tooth Cutter Pinion Relationship Specialty Start Date End Date Eulalia Angel NP PCP - General Internal Medicine 03/24/21 10/05/22 Valentino Seals MD [address] [place] [address] PCP - General 10/06/22 documented as of this encounter"
--- OUTSIDE RECORDS SUMMARY | 2025-06-17 16:23 | XMS_ITS | Encounter Summary ---
Author Organization [facility] Address [address] [place] [address] Care Team Providers Care Multiple Pressure Riveter Operator Name Role Phone Eulalia Angel NP Primary Care Provider [phone] Erin Yancey MD Primary Care Provider [phone] Eulalia Angel NP Unavailable Eulalia Angel NP Primary Care Provider [phone] Valentino Seals MD Primary Care Provider [phone] Reason for Visit * Reason Onset Date Comments Refill Request 12/16/2019 Encounter Details Date Type Department Care Team (Late st Contact Info) Description 12/16/2019 Refill [facility] [address] [place] [address] Eulalia Angel NP 123 [facility] [address] [place], [place] [phone] Refill Request Social History Tobacco Use Types [...] / using tobacco Lifestyle No [place], Gabby, SHIPPING MANAGER Note: Smoking can cause cancer, heart [...] at . Any insurance accepted. Quit smoking resources-http://22seeds.org documented as of this encounter Visit Diagnoses Not on filedocumented in this encounter Care Teams Multiple Pressure Riveter Operator Relationship Specialty Start Date End Date Eulalia Angel NP PCP - General 03/24/19 08/15/20 Erin Yancey MD PCP - General Internal Medicine 08/16/20 03/23/21 Eulalia Angel NP PCP - Backup PCP Internal Medicine 12/30/20 03/23/21 Eulalia Angel NP PCP - General Internal Medicine 03/24/21 10/05/22 Valentino Seals MD [address] [place] [address] PCP - General 10/06/22 documented as of this encounter
--- OUTSIDE RECORDS SUMMARY | 2025-06-17 16:23 | XMS_ITS | Encounter Summary ---
Author Organization [facility] Address [address] [place] [address] Care Team Providers Care Watch And Clock Maker And Repairer Name Role Phone Eulalia Angel NP Primary Care Provider [phone] Valentino Seals MD Primary Care Provider [phone] Encounter Details Date Type Department Care Team (Late st Contact Info) Description 03/31/2021 Orders Only [facility] [address] [place] [address] Eulalia Angel NP 123 [facility] [address] [place], [place] [phone] Social History Tobacco Use Types Packs/Day Years [...] at . Any insurance accepted. Quit smoking resources-http://o[employer].org documented as of this encounter Visit Diagnoses Diagnosis Sciatica, unspecified laterality documented in this encounter Care Teams Watch And Clock Maker And Repairer Relationship Specialty Start Date End Date Eulalia Angel NP PCP - General Internal Medicine 03/24/21 10/05/22 Valentino Seals MD [address] [place] [address] PCP - General 10/06/22 documented as of this encounter
--- OUTSIDE RECORDS SUMMARY | 2025-06-17 16:23 | XMS_ITS | Encounter Summary ---
Author Organization [facility] Address [address] [place] [address] Care Team Providers Care Tobacco Grower Name Role Phone Brennan Cagle MD Primary Care Provider [phone] Eulalia Angel NP Unavailable [phone] Eulalia Angel NP Primary Care Provider Erin Yancey MD Primary Care Provider Eulalia Angel DIGITAL ASSOCIATE MEDIA DIRECTOR Unavailable [phone] Eulalia Angel NP Primary Care Provider Valentino Seals MD Primary Care Provider [phone] Encounter Details Date Type Department Care Team (Late st Contact Info) Description 02/25/2019 Orders Only [facility] [address] [place] [address] Eulalia Angel NP 123 [facility] [address] [place] [address] Social History Tobacco Use Types [...] foods such as cakes, cookies, chips, popcorn, Yi fries, and ice cream. Hydrogenated fats (trans [...] are called omega- 3, omega-6, and omega-9. [place]-3 fatty acids are found in fish and some plants. They are good for heart health. They may reduce the risk of stroke, high blood pressure, and other chronic disease. Good sources are oily fish such as salmon, mackerel and tuna. [place] 3 fatty acids are also in fish oil supplements. Check with your healthcare provider before taking supplements. Fish oil supplements may cause bleeding in some people, especially if they are taken with blood-thinning medicines. Good plant sources for omega-3 fatty acids are canola oil, soybeans, flaxseed, avocado, and some types of nuts, especially walnuts and almonds. [place]-6 fatty acid is found in corn, safflower, soybean, and sunflower oils. [place]-9 fatty acid is found in olive oil, canola oil, and avocados. It is likely that the balance of fatty acids is very important. The [place] diet typically contains too much omega-6 fatty acid and not enough omega-3 fatty acid. How much fat do I need in my diet? Eating some fat???especially the good fats--is healthful, but many Americans eat too much and become overweight. The current [place] Heart Association Diet and Lifestyle Recommendations are: [...] at . Any insurance accepted. Quit smoking resources-http://[employer]VI Video [employer]pping.org documented as of this encounter Procedures * Due to [place] state law, this organization might not be [...] this encounter Results * Due to [place] state law, this organization might not be sharing negative HIV tests. * (ABNORMAL) THYROID PEROXIDASE AND THYROGLOBULIN ANTIBODIES (05/28/2019 11:47 AM EDT) Thyroglobulin Ab <1 < or = 1 IU/mL [facility] Thyroperoxidase Ab 12(H) <9 IU/mL Q [facility] 05/28/2019 11:4 7 AM EDT 05/29/2019 1:31 AM EDT Narrative Resulting Agency Comment [id number] us Brennan Cagle MD LABORATORY Final Result Performing Organization Address [facility] Co de Phone Number [facility] [address] [place] [address] * (ABNORMAL) THYROID PEROXIDASE AND THYROGLOBULIN ANTIBODIES (02/25/2019 4:41 PM EDT) Thyroglobulin Ab <1 < or = 1 IU/mL [facility] Thyroperoxidase Ab 18(H) <9 IU/mL Q [facility] 02/25/2019 4:41 PM EDT 02/26/2019 1:51 AM EDT Narrative Resulting Agency Comment [id number] Brennan Cagle MD LABORATORY Final Result Performing Organization Address City/[facility] Co de Phone Number [facility] [address] [place] [address] * T4, FREE, SERUM (02/25/2019 4:41 PM EDT) FT4 0.9 0.8 - 1.8 ng/dL [facility] 02/25/2019 4:41 PM EDT 02/26/2019 1:51 AM EDT Narrative Resulting Agency Comment [id number] Brennan Cagle MD LABORATORY Final Result Performing Organization Address [facility] Co de Phone Number [facility] [address] [place] [address] * TSH, 3RD GENERATION (02/25/2019 4:41 PM EDT) TSH 2.42 mIU/L [facility] Comment: Reference Range > or = 20 Years 0.40-4.50 Ranges First trimester 0.26-2.66 Second trimester 0.55-2.73 Third trimester 0.43-2.91 02/25/2019 4:41 PM EDT 02/26/2019 1:51 AM EDT Narrative Resulting Agency Comment [id number] Brennan Cagle MD LABORATORY Final Result [facility] [address] [place] [address] * BASIC METABOLIC PANEL WITH (GFR) (02/25/2019 [...] needs for GFR calculation. Resulting Agency Comment [id number] Brennan Cagle MD LABORATORY Final Result Performing Organization Address [facility]/ZIP Co de Phone Number [facility] [address] [place] [address] * HEMOGLOBIN A1C (02/25/2019 4:41 PM EDT) [...] diagnosis of diabetes in children. According to [place] Diabetes Association (ADA) guidelines, hemoglobin A1c <7.0% represents optimal control in non- diabetic patients. Different metrics may apply to specific patient populations. Standards of Medical Care in Diabetes(ADA). Estimated Average Glucose 115 mg/dL (calc) [facility] 02/25/2019 4:41 PM EDT 02/26/2019 1:51 AM EDT Narrative Resulting Agency Comment [id number] Brennan Cagle MD LABORATORY Final Result Performing Organization Address [facility] Co de Phone Number [facility] [address] [place] [address] * (ABNORMAL) LIPID PANEL WITH REFLEX TO [...] DE LA CRUZ et al. WHITLEY. 2013;310(19): 5441-6422 (http://education.Adimab.com/faq/UJC868) CHOL/HDL Ratio 3.8 <5.0 (calc) [facility] Cholesterol Non-HDL 143(H) <130 mg/dL (calc) [facility] Comment: For patients with diabetes plus 1 major ASCVD risk factor, treating to a non-HDL-C goal of <100 mg/dL (LDL-C of <70 mg/dL) is considered a therapeutic option. 02/25/2019 4:41 PM EDT 02/26/2019 1:51 AM EDT Narrative Resulting Agency Comment [id number] us Brennan Cagle MD LABORATORY Final Result [facility] [address] [place] [address] documented in this encounter Visit Diagnoses Diagnosis Screening for endocrine, nutritional, metabolic and immunity disorder Screening for other and unspecified endocrine, nutritional, metabolic, and immunity disorders documented in this encounter Care Teams Tobacco Grower Relationship Specialty Start Date End Date Brennan Cagle MD [address] [place] [address] PCP - General Internal Medicine 01/28/19 03/23/19 Eulalia Angel NP [address] [place] [address] PCP - Backup PCP Internal Medicine 01/28/19 06/09/19 Eulalia Angel NP [address] [place] [address] PCP - General 03/24/19 08/15/20 Erin Yancey MD [address] [place] [address] PCP - General Internal Medicine 08/16/20 03/23/21 Eulalia Angel NP [address] [place] [address] PCP - Backup PCP Internal Medicine 12/30/20 03/23/21 Eulalia Angel NP [address] [place] [address] PCP - General Internal Medicine 03/24/21 10/05/22 Valentino Seals MD [address] [place] [address] PCP - General 10/06/22 documented as of this encounter
--- OUTSIDE RECORDS SUMMARY | 2025-06-17 16:23 | XMS_ITS | Patient Health Record ---
Author Organization Edilberto Ocampo MD Address [address] [place] [address] Care Team Providers Care Human Resources Communications Manager Name Role Phone Edilberto Ocampo Unavailable [phone] Reason For Referral No Information Plan Of [...] Insured Coverage Start Date Coverage End Date [facility] [address] [facility] [address] [id number] Catherine eB Self - patient is the insured Medical (General) History Surgical History Surgery Date(Month/Year) None
--- OUTSIDE RECORDS SUMMARY | 2025-06-17 16:23 | XMS_ITS | Encounter Summary ---
Author Organization [facility] Address [address] [place] [address] Care Team Providers Care Director Of Aviation Name Role Phone Eulalia Angel NP Primary Care Provider [phone] Erin Yancey MD Primary Care Provider [phone] Eulalia Angel NP Unavailable [phone] Eulalia Angel NP Primary Care Provider Valentino Seals MD Primary Care Provider [phone] Encounter Details Date Type Department Care Team ([facility] st Contact Info) Description 03/15/2020 Orders Only [facility] [address] [place] [address] Eulalia Angel NP 123 [facility] [address] [place] [address] Social History Tobacco Use Types [...] at . Any insurance accepted. Quit smoking resources-http://[email or web address] documented as of this encounter Procedures * Due to [place] [employer] law, this organization might not be sharing negative HIV tests. Procedure Name Priority Date/Time Associated Diagnosis Comments VENIPUNCTURE Routine 03/15/2020 2:50 PM EDT Tish's thyroiditis LIPID PANEL WITH REFLEX TO DIRECT LDL Routine 03/15/2020 2:50 PM EDT Screening for hyperlipidemia BASIC METABOLIC PANEL WITH (GFR) Routine 03/15/2020 2:50 PM EDT Screening for diabetes mellitus documented in this encounter Results * Due to [place] [employer] law, this organization might not be sharing [...] DE LA CRUZ et al. WHITLEY. 2013;310(96): 3917-4174 (http://education.Kiyon/faq/OCT683) CHOL/HDL Ratio 2.7 <5.0 (calc) [facility] Cholesterol Non-HDL 104 <130 mg/dL (calc) [facility] Comment: For patients with diabetes plus 1 major ASCVD risk factor, treating to a non-HDL-C goal of <100 mg/dL (LDL-C of <70 mg/dL) is considered a therapeutic option. 03/15/2020 2:50 PM EDT 03/16/2020 12:44 AM EDT Narrative Resulting Agency Comment [id number] Eulalia Angel NP LABORATORY Final Result [facility] [address] [place] [address] * BASIC METABOLIC PANEL WITH (GFR) (03/15/2020 [...] needs for GFR calculation. Resulting Agency Comment [id number] Eulalia Angel NP LABORATORY Final Result Performing Organization Address City/[facility]/ZIP Co de Phone Number [facility] [address] [place] [address] * TSH, 3RD GENERATION (03/15/2020 2:50 PM EDT) TSH 2.87 mIU/L [facility] Comment: Reference Range > or = 20 Years 0.40-4.50 Ranges First trimester 0.26-2.66 Second trimester 0.55-2.73 Third trimester 0.43-2.91 03/15/2020 2:50 PM EDT 03/16/2020 12:44 AM EDT Narrative Resulting Agency Comment [id number] Eulalia Angel NP LABORATORY Final Result Performing Organization Address City/[facility]/ZIP Co de Phone Number [facility] [address] [place] [address] documented in this encounter Visit Diagnoses Diagnosis Tish's thyroiditis Chronic lymphocytic thyroiditis Screening for diabetes mellitus Screening for hyperlipidemia Screening for lipoid disorders documented in this encounter Care Teams Director Of Aviation Relationship Specialty Start Date End Date Eulalia Angel NP PCP - General 03/24/19 08/15/20 Erin Yancey MD PCP - General Internal Medicine 08/16/20 03/23/21 Eulalia Angel NP PCP - Backup PCP Internal Medicine 12/30/20 03/23/21 Eulalia Angel NP PCP - General Internal Medicine 03/24/21 10/05/22 Valentino Seals MD [address] [place] [address] PCP - General 10/06/22 documented as of this encounter
--- OUTSIDE RECORDS SUMMARY | 2025-06-17 16:23 | XMS_ITS | Clinical Summary ---
Author Organization [facility] Address [address] [place] [address] Care Team Providers Care Mirror Inspector Name Role Phone Valentino Seals MD Primary Care Provider [phone] Allergies No known active allergies Medications Drospirenone-Et [...] at . Any insurance accepted. Quit smoking resources-[email or web address].Chalet Tech Procedures * Due to [place] [employer] law, this organization might not be sharing [...] to Health Maintenance Results * Due to [place] [employer] law, this organization might not be sharing [...] DE LA CRUZ et al. WHITLEY. 2013;310(19): 3644-0020 (http://education.Voölks.sevenload/faq/TPH821) CHOL/HDL Ratio 2.7 <5.0 (calc) [facility] Cholesterol Non-HDL 104 <130 mg/dL (calc) [facility] Comment: For patients with diabetes plus 1 major ASCVD risk factor, treating to a non-HDL-C goal of <100 mg/dL (LDL-C of <70 mg/dL) is considered a therapeutic option. 03/15/2020 2:50 PM EDT 03/16/2020 12:44 AM EDT Narrative Resulting Agency Comment [id number] us Eulalia Angel LABORATORY Final Result [facility] [address] [place] [address] * PAP SMEAR (02/06/2019) us Unknown Provider [...] abnormality. Impression: Normal chest. Procedure Note Bradley Colugna MD - 08/01/2018 PA and lateral chest. Comparison: None Findings: Normal heart, lungs and mediastinum. Clear lungs. No acute osseous abnormality. Impression: Normal chest. us Brennan Cagle MD IMG XRAY NO CONTRAST ORDERABL ES Final Result from Last 3 Months or Most Recently Relevant to Health Maintenance Care Teams Mirror Inspector Relationship Specialty Start Date End Date Valentino Seals MD [address] [place] [address] [facility] - General 10/06/22
--- OUTSIDE RECORDS SUMMARY | 2025-06-17 16:23 | XMS_ITS | Encounter Summary ---
Author Organization [facility] Address [address] [place] [address] Care Team Providers Care Newsagent Name Role Phone Eulalia Angel NP Primary Care Provider [phone] Erin Yancey MD Primary Care Provider [phone] Eulalia Angel NP Unavailable [phone] Eulalia Angel NP Primary Care Provider [phone] Valentino Seals MD Primary Care Provider [phone] Encounter Details Date Type Department Care Team (Late st Contact Info) Description 08/29/2019 Orders Only [facility] [address] [place] [address] Eulalia Angel NP 123 [facility] [address] [place] [address] Social History Tobacco Use Types [...] at . Any insurance accepted. Quit smoking resources-http://Couple.org documented as of this encounter Procedures * Due to [place] [employer] law, this organization might not be sharing negative HIV tests. Procedure Name Priority Date/Time Associated Diagnosis Comments VENIPUNCTURE Routine 08/29/2019 3:34 PM EST Thyroiditis TSH, 3RD GENERATION Routine 08/29/2019 3 :34 PM EST Thyroiditis documented in this encounter Results * Due to [place] [employer] law, this organization might not be sharing negative HIV tests. * TSH, 3RD GENERATION (08/29/2019 3:34 PM EST) TSH 3.59 mIU/L [facility] Comment: Reference Range > or = 20 Years 0.40-4.50 Ranges First trimester 0.26-2.66 Second trimester 0.55-2.73 Third trimester 0.43-2.91 08/29/2019 3:34 PM EST 08/30/2019 12:24 AM EST Narrative Resulting Agency Comment [id number] Eulalia [place] GRAZING AIDE LABORATORY Final Result [facility] [address] [place] [address] * (ABNORMAL) THYROID PEROXIDASE AND THYROGLOBULIN ANTIBODIES (08/29/2019 3:34 PM EST) Thyroglobulin Ab <1 < or = 1 IU/mL [facility] Thyroperoxidase Ab 18(H) <9 IU/mL Q [facility] 08/29/2019 3:34 PM EST 08/30/2019 12:24 AM EST Narrative Resulting Agency Comment [id number] Eulalia Angel GRAZING AIDE LABORATORY Final Result Performing Organization Address City/[facility]/ZIP Co de Phone Number [facility] [address] [place] [address] documented in this encounter Visit Diagnoses Diagnosis Thyroiditis documented in this encounter Care Teams Newsagent Relationship Specialty Start Date End Date Eulalia Angel NP PCP - General 03/24/19 08/15/20 Erin Yancey MD PCP - General Internal Medicine 08/16/20 03/23/21 Eulalia Angel NP PCP - Backup PCP Internal Medicine 12/30/20 03/23/21 Eulalia Angel NP PCP - General Internal Medicine 03/24/21 10/05/22 Valentino Seals MD [address] [place] [address] PCP - General 10/06/22 documented as of this encounter
== END 2025-06-17 13:53 | disposition home or self-care (01) ==
LOC: HO.HMGAL 13:51
PROVIDERS: PCP Internal Medicine; Visit Provider Registered Nurse Emergency
DX: J30.89 Other allergic rhinitis (principal)
CPT/HCPCS: 95117; 95165

== ENCOUNTER 2025-07-01 10:54 | Outpatient (AMB) | payer OTHER, SELFPAY | END 2025-07-01 10:55 | disposition home or self-care (01) | LOC: HO.HMGAL 10:54 | PROVIDERS: PCP Internal Medicine; Visit Provider Registered Nurse Emergency | DX: J30.89 Other allergic rhinitis (principal) | CPT/HCPCS: 95117; 95165 ==

== ENCOUNTER 2025-07-08 13:14 | Outpatient (AMB) | payer OTHER, SELFPAY ==
--- OUTSIDE RECORDS SUMMARY | 2025-07-08 16:53 | XMS_ITS | Encounter Summary ---
Author Organization [facility] Address [address] [place] [address] Phone Care Team Providers Care Computer Artist Name Role Phone Eulalia Angel RV DETAILER Unavailable [phone] Isa Paynega DO Primary Car e Provider Reason for Referral * MRI/CAT Scan - Authorized Specialty Diagnoses / Procedures Referred By Contac t Referred To Contact Radiology Diagnoses Left knee pain Procedures MRI Knee (Left) CHG MRI, JOINT OF LEG. COMBO CHG MRI, JOINT OF LEG W/CONTRAST CHG MRI LOWER EXTREM JT, W/O CONTRAST CHG MRI, LOWER EXTR, W/O CONTRAST F/U BY CONTRAST CHG MRI, LOWER EXTREM W/CONTRAST CHG MRI, LOWER EXTREM Richardson Davenport MD Phone: tel: fax: mailto: Referral ID Status Reason Start Date Expiration Date V isits Requested Visits Authorized [id number] Authorized 06/17/2025 09/14/2025 1 1 * MRI/CAT Scan - Authorized Specialty Diagnoses / Procedures Referred By Contac t Referred To Contact Radiology Diagnoses Right knee pain Procedures MRI Knee (Right) CHG MRI, JOINT OF LEG. COMBO CHG MRI, JOINT OF LEG W/CONTRAST CHG MRI LOWER EXTREM JT, W/O CONTRAST CHG MRI, LOWER EXTR, W/O CONTRAST F/U BY CONTRAST CHG MRI, LOWER EXTREM W/CONTRAST CHG MRI, LOWER EXTREM Richardson Davenport MD Phone: tel: fax: mailto:[email or web address] Referral ID Status Reason Start Date Expiration Date V isits Requested Visits Authorized [id number] Authorized 06/17/2025 09/14/2025 1 1 Encounter Details Date Type Department Care Team (Late st Contact Info) Description 06/16/2025 Orders Only [facility] [address] [facility], [address] [place] [address] Kirit Akbar MA [address] [place] [address] [email or web address] Left knee pain (Primary Dx); Right knee pain Social History Tobacco Use Types Packs/Day Years [...] Care Team (Late st Contact Info) Description 06/16/2025 Procedure Pass [address] [address] 06/16/2025 Procedure Pass [address] [place] [address] 07/12/2025 4:25 PM EDT Appointment [address] [address] Richardson Davenport MD [address] [address] 07/12/2025 5:00 PM EDT Appointment [address] [address] Richardson Davenport MD [address] [address] 07/24/2025 1:00 PM EDT Office Visit [facility] [address] [facility], [address] [place] [address] Richardson Davenport MD [address] [address] 11/19/2025 11:30 AM EST Office Visit [facility] [address] [place] [address] Dar Abbott DO [address] [place] [address] Scheduled Orders Name Type Priority Associated Diagnoses Orde r Schedule MRI Knee (Right) Imaging Routine Right knee pain Expected: 06/16/2025, Expires: 09/15/2025 MRI Knee (Left) Imaging Routine Left knee pain Expected: 06/16/2025, Expires: 09/15/2025 documented as of this encounter Visit Diagnoses Diagnosis Left knee pain- Primary Pain in joint, lower leg Right knee pain Pain in joint, lower leg documented in this encounter Care Teams Computer Artist Relationship Specialty Start Date End Date Isa Payne DO PCP - General Internal Medicine 04/25/22 Eulalia [place] NP Nurse Practitioner Family Medicine 10/29/18 documented as of this encounter Additional Source Comments The information contained in this document represents components of the legal health record. It is not the complete legal health record.[facility]
--- OUTSIDE RECORDS SUMMARY | 2025-07-08 16:53 | XMS_ITS | Encounter Summary ---
Author Organization [facility] Address [address] [place] [address] [place] [address] Phone Care Team Providers Care Glue Machine Operator Name Role Phone Eulalia Angel GUYLINE OPERATOR Unavailable [phone] Isa Payne DO Primary Car e Provider Encounter Details Date Type Department Care Team (Late st Contact Info) Description 08/14/2022 Procedure Pass [address] [address] Social History Tobacco Use Types Packs/Day Years [...] st Contact Info) Description 06/16/2025 Procedure Pass [address] [address] 06/16/2025 Procedure Pass [address] [address] 07/12/2025 4:25 PM EDT Appointment [address] [address] Richardson Davenport MD [address] [address] 07/12/2025 5:00 PM EDT Appointment [facility] [address] [place] [address] Richardson Davenport MD [address] [address] 07/24/2025 1:00 PM EDT Office Visit [facility] [address] [facility], [address] [place] [address] Richardson Davenport MD [address] [address] 11/19/2025 11:30 AM EST [facility] Visit [facility] [address] [place] [address] Dar Abbott DO [address] [place] [address] documented as of this encounter Visit Diagnoses Not on filedocumented in this encounter Care Teams Glue Machine Operator Relationship Specialty Start Date End Date Isa Payne DO PCP - General Internal Medicine 04/25/22 Eulalia [place] NP Nurse Practitioner Family Medicine 10/29/18 documented as of this encounter Additional Source Comments The information contained in this document represents components of the legal health record. It is not the complete legal health record.[facility]
--- OUTSIDE RECORDS SUMMARY | 2025-07-08 16:54 | XMS_ITS | Clinical Summary ---
Author Organization [facility] Address [address] [place] [address] Care Team Providers Care Lead Caster Name Role Phone Valentino Seals MD Primary Care Provider [phone] Allergies No known active allergies Medications Drospirenone-Et [...] at . Any insurance accepted. Quit smoking resources-[email or web address] Procedures * Due to [place] [employer] law, this organization might not be sharing [...] to Health Maintenance Results * Due to [place] [employer] law, this organization might not be sharing [...] DE LA CRUZ et al. WHITLEY. 2013;310(19): 2777-5838 (http://education.[employer].PlantSense/faq/NGT971) CHOL/HDL Ratio 2.7 <5.0 (calc) [facility] Cholesterol Non-HDL 104 <130 mg/dL (calc) [facility] Comment: For patients with diabetes plus 1 major ASCVD risk factor, treating to a non-HDL-C goal of <100 mg/dL (LDL-C of <70 mg/dL) is considered a therapeutic option. 03/15/2020 2:50 PM EDT 03/16/2020 12:44 AM EDT Narrative Resulting Agency Comment [id number] us Eulalia Angel LABORATORY Final Result [facility] [address] [place] [address] * PAP SMEAR (02/06/2019) us Unknown Provider [...] Recently Relevant to Health Maintenance Care Teams Lead Caster Relationship Specialty Start Date End Date Valentino Seals MD [address] [place] [address] [facility] - General 10/06/22
--- OUTSIDE RECORDS SUMMARY | 2025-07-08 16:54 | XMS_ITS | Encounter Summary ---
Author Organization [facility] Address [address] [place] [address] Care Team Providers Care Senior Planning Analyst Name Role Phone Eulalia [place] NP Primary Care Provider [phone] Brennna Cagle MD Primary Care Provider Eulalia Angel GEAR SHAPER Unavailable [phone] Eulalia Angel NP Primary Care Provider [phone] Erin Yancey MD Primary Care Provider [phone] Eulalia Angel GEAR SHAPER Unavailable [phone] Eulalia Angel GEAR SHAPER Primary Care Provider Valentino Seals MD Primary Care Provider [phone] Encounter Details Date Type Department Care Team (Late st Contact Info) Description 12/16/2018 Orders Only [facility] [address] [place] [phone] Eulalia Angel, GEAR SHAPER [address] [facility] [address] [place] [address] Social History Tobacco Use Types [...] / using tobacco Lifestyle No Gabby Montesinos, POWER CHECKER Note: Smoking can cause cancer, heart attacks, [...] at . Any insurance accepted. Quit smoking resources-http://LiveSt[employer].org documented as of this encounter Visit Diagnoses Not on filedocumented in this encounter Care Teams Senior Planning Analyst Relationship Specialty Start Date End Date Eulalia [place] NP PCP - General Internal Medicine 05/14/18 01/27/19 Brennan Cagle MD [address] [place] [address] PCP - General Internal Medicine 01/28/19 03/23/19 Eulalia [place] NP [address] [place] [address] PCP - Backup PCP Internal Medicine 01/28/19 06/09/19 Eulalia [place] NP [address] [place] [address] PCP - General 03/24/19 08/15/20 Erin Yancey MD [address] [place] [address] PCP - General Internal Medicine 08/16/20 03/23/21 Eulalia [place] NP [address] [place] [address] PCP - Backup PCP Internal Medicine 12/30/20 03/23/21 Eulalia [place] NP [address] [place] [address] PCP - General Internal Medicine 03/24/21 10/05/22 Valentino Seals MD [address] [place] [address] PCP - General 10/06/22 documented as of this encounter
--- OUTSIDE RECORDS SUMMARY | 2025-07-08 16:54 | XMS_ITS | Encounter Summary ---
Author Organization [facility] Address [address] [place] [address] Care Team Providers Care Gelatin Dynamite Packing Operator Name Role Phone Eulalia [place] NP Primary Care Provider [phone] Erin Yancey MD Primary Care Provider [phone] Eulalia Angel NP Unavailable [phone] Eulalia Angel NP Primary Care Provider [phone] Valentino Seals MD Primary Care Provider [phone] Encounter Details Date Type Department Care Team (Late st Contact Info) Description 08/29/2019 Orders Only [facility] [address] [place] [address] Eulalia [place] NP 123 [facility] [address] [place] [address] Social History Tobacco Use Types [...] at . Any insurance accepted. Quit smoking resources-http://[employer].org documented as of this encounter Procedures * Due to [place] [employer] law, this organization might not be sharing negative HIV tests. Procedure Name Priority Date/Time Associated Diagnosis Comments VENIPUNCTURE Routine 08/29/2019 3:34 PM EST Thyroiditis TSH, 3RD GENERATION Routine 08/29/2019 3 :34 PM EST Thyroiditis documented in this encounter Results * Due to [place] [employer] law, this organization might not be sharing negative HIV tests. * TSH, 3RD GENERATION (08/29/2019 3:34 PM EST) TSH 3.59 mIU/L [facility] Comment: Reference Range > or = 20 Years 0.40-4.50 Ranges First trimester 0.26-2.66 Second trimester 0.55-2.73 Third trimester 0.43-2.91 08/29/2019 3:34 PM EST 08/30/2019 12:24 AM EST Narrative Resulting Agency Comment [id number] Eulalia Preemption APPLICATION INTEGRATION ARCHITECT LABORATORY Final Result [facility] [address] [place] [address] * (ABNORMAL) THYROID PEROXIDASE AND THYROGLOBULIN ANTIBODIES (08/29/2019 3:34 PM EST) Thyroglobulin Ab <1 < or = 1 IU/mL [facility] Thyroperoxidase Ab 18(H) <9 IU/mL Q [facility] 08/29/2019 3:34 PM EST 08/30/2019 12:24 AM EST Narrative Resulting Agency Comment [id number] Eulalia Angel APPLICATION INTEGRATION ARCHITECT LABORATORY Final Result Performing Organization Address City/[facility] [address]/ZIP Co de Phone Number [facility] [address] [place] [address] documented in this encounter Visit Diagnoses Diagnosis Thyroiditis documented in this encounter Care Teams Gelatin Dynamite Packing Operator Relationship Specialty Start Date End Date Eulalia [place] NP PCP - General 03/24/19 08/15/20 Erin Yancey MD PCP - General Internal Medicine 08/16/20 03/23/21 Eulalia Angel NP PCP - Backup PCP Internal Medicine 12/30/20 03/23/21 Eulalia Angel NP PCP - General Internal Medicine 03/24/21 10/05/22 Valentino Seals MD [address] [place] [address] PCP - General 10/06/22 documented as of this encounter
--- OUTSIDE RECORDS SUMMARY | 2025-07-08 16:54 | XMS_ITS | Encounter Summary ---
Author Organization [facility] Address [address] [place] [address] Phone Care Team Providers Care Value Stream Leader Name Role Phone Eulalia Angel NP Unavailable [phone] Eulalia Angel NP Primary Care Provider Isa Payne DO Primary Car e Provider Encounter Details Date Type Department Care Team (Late st Contact Info) Description 06/16/2019 Procedure Pass [facility] PERIOPERATIVE DEPT [address] [place] [address] Social History Tobacco Use Types Packs/Day Years [...] st Contact Info) Description 06/16/2025 Procedure Pass [address] [address] 06/16/2025 Procedure Pass [address] [address] 07/12/2025 4:25 PM EDT Appointment [address] [address] Richardson Davenport MD [address] [address] 07/12/2025 5:00 PM EDT Appointment [address] [address] Richardson Davenport MD [address] [address] 07/24/2025 1:00 PM EDT Office Visit [facility] [address] [facility], [address] [place] [address] Richardson Davenport MD [address] [address] 11/19/2025 11:30 AM EST Office Visit [facility] [address] [place] [address] Dar Abbott DO [address] [place] [address] documented as of this encounter Visit Diagnoses Not on filedocumented in this encounter Care Teams Value Stream Leader Relationship Specialty Start Date End Date Eulalia [place] NP PCP - General Family Medicine 10/29/18 04/24/22 Isa Payne DO PCP - General Internal Medicine 04/25/22 Eulalia [place] NP Nurse Practitioner Family Medicine 10/29/18 documented as of this encounter Additional Source Comments The information contained in this document represents components of the legal health record. It is not the complete legal health record.[facility]
--- OUTSIDE RECORDS SUMMARY | 2025-07-08 16:54 | XMS_ITS | Encounter Summary ---
Author Organization [facility] Address [address] [employer] [facility] [address] [place] [address] Phone Care Team Providers Care Senior Loss Control Specialist Name Role Phone Eulalia Angel DEV MANAGER Unavailable [phone] Isa Payne DO Primary Car e Provider Encounter Details Date Type Department Care Team (Late st Contact Info) Description 11/13/2023 Procedure Pass [address] [place] [address] Social History Tobacco Use Types Packs/Day Years [...] st Contact Info) Description 06/16/2025 Procedure Pass [address] [address] 06/16/2025 Procedure Pass [address] [address] 07/12/2025 4:25 PM EDT Appointment [address] [address] Richardson Davenport MD [address] [address] 07/12/2025 5:00 PM EDT Appointment [address] [address] Richardson Davenport MD [address] [address] 07/24/2025 1:00 PM EDT Office Visit [facility] [address] [facility], [address] [place] [address] Richardson Davenport MD [address] [address] 11/19/2025 11:30 AM EST Office Visit [facility] [address] [place] [address] Dar Abbott DO [address] [place] [address] documented as of this encounter Visit Diagnoses Not on filedocumented in this encounter Care Teams Senior Loss Control Specialist Relationship Specialty Start Date End Date Isa Payne DO PCP - General Internal Medicine 04/25/22 Eulalia [place] NP Nurse Practitioner Family Medicine 10/29/18 documented as of this encounter Additional Source Comments The information contained in this document represents components of the legal health record. It is not the complete legal health record.[facility]
--- OUTSIDE RECORDS SUMMARY | 2025-07-08 16:54 | XMS_ITS | Encounter Summary ---
Author Organization [facility] Address [facility] [address] [address] Phone Care Team Providers Care .Net Architect Name Role Phone Eulalia Angel NP Unavailable [phone] Eulalia Angel NP Primary Care Provider [phone] Isa Payne DO Primary Car e Provider Encounter Details Date Type Department Care Team (Late st Contact Info) Description 05/09/2021 Procedure Pass [facility] PERIOPERATIVE DEPT [address] [place] [address] Social History Tobacco Use Types [...] 10:24 PM EDT Rozina Rosa RN * [employer] Suicide Severity Rating Scale (Screener/Recent Self-Report) Question Answer Date of Assessment Author 1. Wish to be (Past 1 Month) No 05/09/2021 10:24 PM EDT Letsche, Rozina Eloisa, RN 2. Non-Specific Active Suicidal Thoughts (Past 1 Month) No 05/09/2021 10:24 PM EDT Rozina Reynolds RN 6. Suicidal Behavior (Lifetime) No 05/09/2021 10:24 PM EDT Rozina Reynolds RN documented as of this encounter Plan of Treatment Upcoming Encounters Date Type Department Care Team (Late st Contact Info) Description 06/16/2025 Procedure Pass [address] [address] 06/16/2025 Procedure Pass [address] [address] 07/12/2025 4:25 PM EDT Appointment [address] [address] Richardson Davenport MD [address] [address] 07/12/2025 5:00 PM EDT Appointment [address] [address] Richardson Davenport MD [address] [address] 07/24/2025 1:00 PM EDT Office Visit [facility] [address] [facility], [address] [place] [address] Richardson Davenport MD [address] [address] 11/19/2025 11:30 AM EST Office Visit [facility] [address] [place] [phone] Dar Abbott DO [address] [place] [phone] [email or web address] documented as of this encounter Visit Diagnoses Not on filedocumented in this encounter Care Teams .Net Architect Relationship Specialty Start Date End Date Eulalia Angel NP PCP - General Family Medicine 10/29/18 04/24/22 Isa Payne DO PCP - General Internal Medicine 04/25/22 Eulalia Angel NP Nurse Practitioner Family Medicine 10/29/18 documented as of this encounter Additional Source Comments The information contained in this document represents components of the legal health record. It is not the complete legal health record.[facility]
--- OUTSIDE RECORDS SUMMARY | 2025-07-08 16:54 | XMS_ITS | Encounter Summary ---
Author Organization [facility] Address [address] [place] [address] [place] [address] Phone Care Team Providers Care Hand Hose Cutter Name Role Phone Eulalia Angel DEMOGRAPHER Unavailable [phone] Isa Payne DO Primary Car e Provider Encounter Details Date Type Department Care Team (Late st Contact Info) Description 08/14/2022 Procedure Pass [facility] Ct Scan [address] [address] Social History Tobacco Use Types Packs/Day Years [...] st Contact Info) Description 06/16/2025 Procedure Pass [address] [address] 06/16/2025 Procedure Pass [address] [address] 07/12/2025 4:25 PM EDT Appointment [address] [address] Richardson Davenport MD [address] [address] 07/12/2025 5:00 PM EDT Appointment [facility] [address] [place] [address] Richardson Davenport MD [address] [address] 07/24/2025 1:00 PM EDT Office Visit [facility] [address] [facility], [address] [place] [address] Richardson Davenport MD [address] [address] 11/19/2025 11:30 AM EST Office Visit [facility] [address] [place] [address] Dar Abbott DO [address] [place] [address] documented as of this encounter Visit Diagnoses Not on filedocumented in this encounter Care Teams Hand Hose Cutter Relationship Specialty Start Date End Date Isa Payne DO PCP - General Internal Medicine 04/25/22 Eulalia Angel NP Nurse Practitioner Family Medicine 10/29/18 documented as of this encounter Additional Source Comments The information contained in this document represents components of the legal health record. It is not the complete legal health record.[facility]
--- OUTSIDE RECORDS SUMMARY | 2025-07-08 16:54 | XMS_ITS | Encounter Summary ---
Author Organization [facility] Address [address] [place] [address] Care Team Providers Care Technologies Division Chair Name Role Phone Eulalia Angel NP Primary Care Provider [phone] Valentino Seals MD Primary Care Provider [phone] Encounter Details Date Type Department Care Team (Late st Contact Info) Description 03/31/2021 Orders Only [facility] [address] [place] [address] Eulalia Angel NP 123 [facility] [address] [place], [place] [id number] Social History Tobacco Use Types Packs/Day Years [...] at . Any insurance accepted. Quit smoking resources-http://[email or web address] documented as of this encounter Visit Diagnoses Diagnosis Sciatica, unspecified laterality documented in this encounter Care Teams Technologies Division Chair Relationship Specialty Start Date End Date Eulalia Angel NP PCP - General Internal Medicine 03/24/21 10/05/22 Valentino Seals MD [address] [place] [address] PCP - General 10/06/22 documented as of this encounter
--- OUTSIDE RECORDS SUMMARY | 2025-07-08 16:54 | XMS_ITS | Encounter Summary ---
Author Organization [facility] Address [address] [facility] [address] [place] [address] Phone Care Team Providers Care Adjuster Arbitrator Name Role Phone Eulalia Angel INSTRUCTOR PHYSICAL EDUCATION Unavailable [phone] Isa Payne DO Primary Car e Provider Encounter Details Date Type Department Care Team (Late st Contact Info) Description 11/13/2023 Procedure Pass [address] [place] [address] Social History Tobacco Use Types Packs/Day Years [...] st Contact Info) Description 06/16/2025 Procedure Pass [address] [address] 06/16/2025 Procedure Pass [address] [address] 07/12/2025 4:25 PM EDT Appointment [address] [address] Richardson Davenport MD [address] [address] 07/12/2025 5:00 PM EDT Appointment [address] [address] Richardson Davenport MD [address] [address] 07/24/2025 1:00 PM EDT Office Visit [facility] 1999 [facility], [address] [place] [address] Richardson Davenport MD [address] [address] 11/19/2025 11:30 AM EST Office Visit [facility] [address] [place] [address] Dar Abbott DO [address] [place] [address] documented as of this encounter Visit Diagnoses Not on filedocumented in this encounter Care Teams Adjuster Arbitrator Relationship Specialty Start Date End Date Isa Payne DO PCP - General Internal Medicine 04/25/22 Eulalia Angel NP Nurse Practitioner Family Medicine 10/29/18 documented as of this encounter Additional Source Comments The information contained in this document represents components of the legal health record. It is not the complete legal health record.[facility]
--- OUTSIDE RECORDS SUMMARY | 2025-07-08 16:54 | XMS_ITS | Encounter Summary ---
Author Organization [facility] Address [address] [facility] [address] [place] [address] Phone Care Team Providers Care Recreation Program Coordinator Name Role Phone Eulalia Angel NP Unavailable [phone] Eulalia Angel NP Primary Care Provider [phone] Isa Payne DO Primary Car e Provider Encounter Details Date Type Department Care Team (Late st Contact Info) Description 06/03/2019 Procedure Pass [facility] Radiology [address] [place] [address] Social History Tobacco Use Types Packs/Day Years [...] st Contact Info) Description 06/16/2025 Procedure Pass [address] [address] 06/16/2025 Procedure Pass [address] [address] 07/12/2025 4:25 PM EDT Appointment [address] [address] Richardson Davenport MD [address] [address] 04 07/12/2025 5:00 PM EDT Appointment [facility] [address] [place] [address] Richardson Davenport MD [address] [address] 07/24/2025 1:00 PM EDT Office Visit [facility] 1999 [facility], [address] [place] [address] Richardson Davenport MD [address] [address] 11/19/2025 11:30 AM EST [facility] [address] [place] [address] Dar Abbott DO [address] [place] [address] documented as of this encounter Visit Diagnoses Not on filedocumented in this encounter Care Teams Recreation Program Coordinator Relationship Specialty Start Date End Date Eulalia Angel NP PCP - General Family Medicine 10/29/18 04/24/22 Isa Payne DO PCP - General Internal Medicine 04/25/22 Eulalia Angel NP Nurse Practitioner Family Medicine 10/29/18 documented as of this encounter Additional Source Comments The information contained in this document represents components of the legal health record. It is not the complete legal health record.[facility]
--- OUTSIDE RECORDS SUMMARY | 2025-07-08 16:54 | XMS_ITS | Encounter Summary ---
Author Organization [facility] Address [address] [place] [address] Care Team Providers Care Technology Applications Engineer Name Role Phone Eulalia Angel NP Unavailable [phone] Eulalia Angel NP Primary Care Provider Erin Yancey MD Primary Care Provider Eulalia Angel STOCK DIGGER Unavailable [phone] Eulalia Angel NP Primary Care Provider Valentino Seals MD Primary Care Provider [phone] Encounter Details Date Type Department Care Team (Late st Contact Info) Description 05/28/2019 Orders Only [facility] [address] [place] [address] Eulalia Angel NP 123 [facility] [address] [place] [address] Social History Tobacco Use Types [...] at . Any insurance accepted. Quit smoking resources-http://[employer]entials.org documented as of this encounter Procedures * Due to [place] How[employer] law, this organization might not be sharing negative HIV tests. Procedure Name Priority Date/Time Associated Diagnosis Comments THYROID PEROXIDASE AND THYROGLOBULIN ANTIBODIES Routine 05/28/2019 11:47 AM EDT Screening for endocrine, nutritional, metabolic and immunity disorder documented in this encounter Results * Due to [place] [employer] law, this organization might not be sharing negative HIV tests. * (ABNORMAL) THYROID PEROXIDASE AND THYROGLOBULIN ANTIBODIES (05/28/2019 11:47 AM EDT) Thyroglobulin Ab <1 < or = 1 IU/mL [facility] Thyroperoxidase Ab 12(H) <9 IU/mL Q [facility] 05/28/2019 11:4 7 AM EDT 05/29/2019 1:31 AM EDT Narrative Resulting Agency Comment [id number] Brennan Cagle MD LABORATORY Final Result [facility] [address] [place] [address] documented in this encounter Visit Diagnoses Diagnosis Screening for endocrine, nutritional, metabolic and immunity disorder Screening for other and unspecified endocrine, nutritional, metabolic, and immunity disorders documented in this encounter Care Teams Technology Applications Engineer Relationship Specialty Start Date End Date Eulalia Angel NP PCP - Backup PCP Internal Medicine 01/28/19 06/09/19 Eulalia Angel NP PCP - General 03/24/19 08/15/20 Erin Yancey MD PCP - General Internal Medicine 08/16/20 03/23/21 Eulalia Angel NP PCP - Backup PCP Internal Medicine 12/30/20 03/23/21 Eulalia Angel NP PCP - General Internal Medicine 03/24/21 10/05/22 Valentino Seals MD [address] [place] [address] PCP - General 10/06/22 documented as of this encounter
--- OUTSIDE RECORDS SUMMARY | 2025-07-08 16:54 | XMS_ITS | Encounter Summary ---
Author Organization [facility] Address [address] [place] [address] Care Team Providers Care Director Patient Accounting Name Role Phone Eulalia Angel NP Primary Care Provider [phone] Erin Yancey MD Primary Care Provider [phone] Eulalia Angel NP Unavailable [phone] Eulalia Angel NP Primary Care Provider [phone] Valentino Seals MD Primary Care Provider [phone] Reason for Referral * CONSULT AND TREATMENT (Routine) - Closed Specialty Diagnoses / Procedures Referred By Katja mao Referred To Contact coat operator insulator Diagnoses Abnormal female pelvic exam Procedures Regina Shell MD - OBGYN at [facility] P: [phone] F: [phone] DOS: 11/25/19 Eulalia Angel NP Phone: tel: fax: Regina Mcdonald MD [facility] [address] [place] [address] Phone: tel: fax: Referral ID Status Reason Start Date Expiration Date Visits Requested Visits Authorized [id number] Closed Patient Preference 10/23/2019 10/22/2020 12 12 Question Answer When do you want this visit to occur? WITHIN 1 MONTH - 11/25/19 Appointment with or AP? FIRST AVAILABLE Patient is being referred outside of [facility] for the following reason, however final determination for [id number] requests are made by the Referral Management [...] like to refer to? DR Regina Mcdonald P:[phone] F:[phone] 12 visits Encounter Details Date Type Department Care Team ([facility] st Contact Info) Description 10/17/2019 Orders Only [facility] [address] [place] [address] Eulalia Angel NP 123 [facility] [address] [place] [address] Social History Tobacco Use Types Packs/Day Years [...] Priority Associated Diagnoses Orde r Schedule CONSULT VALUE STREAM LEADER NON-FC Referral Routine Abnormal female pelvic exam [...] at . Any insurance accepted. Quit smoking resources-[email or web address] documented as of this encounter Visit Diagnoses Diagnosis Abnormal female pelvic exam Nonspecific (abnormal) findings on radiological and other examination of genitourinary organs documented in this encounter Care Teams Director Patient Accounting Relationship Specialty Start Date End Date Eulalia Angel NP PCP - General 03/24/19 08/15/20 Erin Yancey MD PCP - General Internal Medicine 08/16/20 03/23/21 Eulalia Angel NP PCP - Backup PCP Internal Medicine 12/30/20 03/23/21 Eulalia Angel NP PCP - General Internal Medicine 03/24/21 10/05/22 Valentino Seals MD [address] [place] [address] PCP - General 10/06/22 documented as of this encounter
--- OUTSIDE RECORDS SUMMARY | 2025-07-08 16:54 | XMS_ITS | Encounter Summary ---
Author Organization [facility] Address [address] [address] Phone Care Team Providers Care Glassie Name Role Phone Eulalia Angel NP Unavailable [phone] Eulalia Angel NP Primary Care Provider [phone] Isa Payne DO Primary Car e Provider Encounter Details Date Type Department Care Team (Late st Contact Info) Description 11/01/2018 Procedure Pass [facility] [address] [place] [address] Social History Tobacco Use Types Packs/Day Years [...] st Contact Info) Description 06/16/2025 Procedure Pass [address] [address] 06/16/2025 Procedure Pass [address] [address] 07/12/2025 4:25 PM EDT Appointment [address] [address] Richardson Davenport MD [address] [place] [address] 07/12/2025 5:00 PM EDT Appointment [facility], [address] [address] Richardson Davenport MD [address] [address] 07/24/2025 1:00 PM EDT Office Visit [facility] 1999 [facility], [address] [place] [address] Richardson Davenport MD [address] [address] 11/19/2025 11:30 AM EST Office Visit [facility] [address] [place] [address] Dar Abbott DO [address] [place] [address] documented as of this encounter Visit Diagnoses Not on filedocumented in this encounter Care Teams Glassie Relationship Specialty Start Date End Date Eulalia Angel NP PCP - General Family Medicine 10/29/18 04/24/22 Isa Payne DO PCP - General Internal Medicine 04/25/22 Eulalia Angel NP Nurse Practitioner Family Medicine 10/29/18 documented as of this encounter Additional Source Comments The information contained in this document represents components of the legal health record. It is not the complete legal health record.[facility]
--- OUTSIDE RECORDS SUMMARY | 2025-07-08 16:54 | XMS_ITS | Encounter Summary ---
Author Organization [facility] Address [address] [place] [address] Care Team Providers Care Key Person Name Role Phone Eulalia Angel NP Primary Care Provider [phone] Valentino Seals MD Primary Care Provider [phone] Reason for Referral * CONSULT AND TREATMENT (Routine) - Authorized Specialty Diagnoses / Procedures Referred By Contac t Referred To Contact Neurology Diagnoses Chronic nonintractable headache, unspecified headache type Procedures Aguilar Mitchell MD [phone] FAX [phone] Eulalia Angel NP Phone: tel: fax: Referral ID Status Reason Start Date Expiration Date Visits Requested Visits Authorized [id number] Authorized Specialty Services Required 03/24/2021 03/24/2022 6 6 Question Answer When do you want this visit to occur? 1 MONTH - 8/2 Appointment with or AP? FIRST AVAILABLE Patient is being referred outside of [facility] for the following reason, however final determination for [id number] requests are made by the Referral Management Department Patient Preference Track Order? No Which provider/facility/agency would you like to refer to? (specify if you want first available regardless of location) Aguilar Mitchell [phone] FAX [phone] Please provide pertinent patient history. patient calling to request referral due to insurance change Encounter Details Date Type Department Care Team (Late st Contact Info) Description 03/24/2021 Orders Only [facility] [address] [place] [address] Eulalia Angel NP 123 [facility] 290 [place] [address] Social History Tobacco Use Types Packs/Day Years [...] at . Any insurance accepted. Quit smoking resources-http://[email or web address] [email or web address] documented as of this encounter Visit Diagnoses Diagnosis Chronic nonintractable headache, unspecified headache type documented in this encounter Care Teams Key Person Relationship Specialty Start Date End Date Eulalia Angel NP PCP - General Internal Medicine 03/24/21 10/05/22 Valentino Seals MD [address] [place] [address] PCP - General 10/06/22 documented as of this encounter
--- OUTSIDE RECORDS SUMMARY | 2025-07-08 16:54 | XMS_ITS | Encounter Summary ---
Author Organization [facility] Address [address] [place] [address] Care Team Providers Care Bottom Wheeler Name Role Phone Eulalia Angel NP Unavailable [phone] Eulalia Angel NP Primary Care Provider [phone] Erin Yancey MD Primary Care Provider [phone] Eulalia Angel NP Unavailable [phone] Eulalia Angel NP Primary Care Provider Valentino Seals MD Primary Care Provider [phone] Reason for Referral * CONSULT AND TREATMENT (Routine) - Authorized Specialty Diagnoses / Procedures Referred By Katja t Referred To Contact Neurosurgery / Neurology Diagnoses Back pain, unspecified back location, unspecified back pain laterality, unspecified chronicity Procedures NeuroSurgeon: Dr Dar Abbott p [phone] f [phone] [facility] Eulalia Angel NP Phone: tel: fax: Dar Abbott DO [facility], Dept of Neurosurgery [address] [place] [address] Phone: tel: fax: Referral ID Status Reason Start Date Expiration Date Visits Requested Visits Authorized [id number] Authorized Specialty Services Required 03/31/2019 03/30/2020 3 3 Question Answer When do you want this visit to occur? WITHIN 1 WEEK - 04/01/19 6 visits Appointment with MD or AP? FIRST AVAILABLE Patient is being referred outside of [facility] for the following reason, however final determination for [id number] requests are made by the Referral Management [...] refer to? NeuroSurgeon: Dr Dar Abbott p [phone] f [phone] [facility] surgery consult Please list the patient's preferred provider for this consult. Dr Dar Abbott p [phone] f [phone] [facility] Encounter Details Date Type Department Care Team ([facility] st Contact Info) Description 03/24/2019 Orders Only [facility] [address] [place] [address] Eulalia Angel NP [address] [place] [address] Social History Tobacco Use Types Packs/Day Years [...] at . Any insurance accepted. Quit smoking resources-[email or web address] documented as of this encounter Visit Diagnoses Diagnosis Back pain, unspecified back location, unspecified back pain laterality, unspecified chronicity documented in this encounter Care Teams Bottom Wheeler Relationship Specialty Start Date End Date Eulalia Angel NP PCP - Backup PCP Internal Medicine 01/28/19 06/09/19 Eulalia Angel NP PCP - General 03/24/19 08/15/20 Erin Yancey MD PCP - General Internal Medicine 08/16/20 03/23/21 Eulalia Angel NP PCP - Backup PCP Internal Medicine 12/30/20 03/23/21 Eulalia Angel NP PCP - General Internal Medicine 03/24/21 10/05/22 Valentino Seals MD [address] [place] [address] PCP - General 10/06/22 documented as of this encounter
--- OUTSIDE RECORDS SUMMARY | 2025-07-08 16:54 | XMS_ITS | Encounter Summary ---
Author Organization [facility] Address [address] [facility] [address] [place] [address] Phone Care Team Providers Care Medical Support Specialist Name Role Phone Eulalia Angel ASSET PROTECTION REPRESENTATIVE Unavailable [phone] Isa Payne DO Primary Car e Provider Encounter Details Date Type Department Care Team (Late st Contact Info) Description 08/30/2023 Procedure Pass [facility], [address] [place] [address] Social History Tobacco Use Types Packs/Day Years [...] st Contact Info) Description 06/16/2025 Procedure Pass [address] [address] 06/16/2025 Procedure Pass [address] [address] 07/12/2025 4:25 PM EDT Appointment [address] [address] Richardson Davenport MD [address] [address] 07/12/2025 5:00 PM EDT Appointment [address] [address] Richardson Davenport MD [address] [address] 07/24/2025 1:00 PM EDT Office Visit [facility] 1999 [facility], [address] [place] [address] Richardson Davenport MD [address] [address] 11/19/2025 11:30 AM EST Office Visit [facility] [address] [place] [address] Dar Abbott DO [address] [place] [address] documented as of this encounter Visit Diagnoses Not on filedocumented in this encounter Care Teams Medical Support Specialist Relationship Specialty Start Date End Date Isa Payne DO PCP - General Internal Medicine 04/25/22 Eulalia Angel NP Nurse Practitioner Family Medicine 10/29/18 documented as of this encounter Additional Source Comments The information contained in this document represents components of the legal health record. It is not the complete legal health record.[facility]
--- OUTSIDE RECORDS SUMMARY | 2025-07-08 16:54 | XMS_ITS | Patient Health Record ---
Author Organization Edilberto Ocampo MD Address [address] [place] [address] Care Team Providers Care Rural Mail Carrier Name Role Phone Edilberto Ocampo Unavailable [phone] Reason For Referral No Information Plan Of [...] Insured Coverage Start Date Coverage End Date [facility] [address] [facility] [id number] Catherine Be Self - patient is the insured Medical (General) History Surgical History Surgery Date(Month/Year) None
--- OUTSIDE RECORDS SUMMARY | 2025-07-08 16:54 | XMS_ITS | Clinical Summary ---
Author Organization [facility] Address [address] [facility] [address] [place] [id number] Phone Care Team Providers Care Secondary History Teacher Name Role Phone Eulalia Angel CLAY MODELER Unavailable [phone] Isa Payne DO Primary Car e [...] moderate pain. Partial fill ok 30 tablet Active acetaminophen (TYLENOL) 500 MG tablet Take 2 tablets (1,000 mg total) by mouth every 8 (eight) hours. Take for postoperative pain management. 0 Active polyethylene glycol (MIRALAX) 17 gram packet Take 17 g by mouth daily as needed. Active senna (SENOKOT) 8.6 mg tablet Take 2 tablets by mouth daily. Take while taking opioid medication. Active traMADoL (ULTRAM) 50 mg tablet Take 1 tablet (50 mg total) by mouth every 6 (six) hours as needed for pain (specific location in comments). 60 tablet Active diazePAM (VALIUM) 5 MG tablet Take 1 tablet (5 mg total) by mouth every 6 (six) hours as needed for anxiety. 10 tablet Active pregabalin (LYRICA) 150 MG capsule Take 1 capsule (150 mg total) by mouth 2 (two) times a day. 60 capsule 1 Active ondansetron (ZOFRAN-ODT) 4 MG disintegrating tablet Take 1 tablet (4 mg total) by mouth every 8 (eight) hours as needed for nausea. 15 tablet Active diazePAM (VALIUM) 5 MG tablet Take 1 tablet (5 mg total) by mouth every 6 (six) hours as needed for anxiety. 15 tablet Active oxyCODONE 5 MG immediate release tablet Take 1 tablet (5 mg total) by mouth every 4 (four) hours as needed for moderate pain. 28 tablet Active traMADoL (ULTRAM) 50 mg tablet Take 1 tablet (50 mg total) by mouth every 6 (six) hours as needed for pain (specific location in comments). 30 tablet Active oxyCODONE 5 MG immediate release tablet Take 1 tablet (5 mg total) by mouth every 4 (four) hours as needed for moderate pain. 28 tablet Active diazePAM (VALIUM) 5 MG tablet Take 1 tablet (5 mg total) by mouth every 6 (six) hours as needed for anxiety. 15 tablet Active traMADoL (ULTRAM) 50 mg tablet Take 1 tablet (50 mg total) by mouth every 6 (six) hours as needed for pain (specific location in comments). 60 tablet Active oxyCODONE 5 MG immediate release tablet Take 1 tablet (5 mg total) by mouth every 4 (four) hours as needed for moderate pain. 28 tablet Active diazePAM (VALIUM) 5 MG tablet Take 1 tablet (5 mg total) by mouth every 6 (six) hours as needed for anxiety. 15 tablet 021 Active oxyCODONE 5 MG immediate release tablet Take 1 tablet (5 mg total) by mouth every 4 (four) hours as needed for moderate pain. 28 tablet Active traMADoL (ULTRAM) 50 mg tablet Take 1 tablet (50 mg total) by mouth every 6 (six) hours as needed for pain (specific location in comments). 60 tablet Active diazePAM (VALIUM) 5 MG tablet Take 1 tablet (5 mg total) by mouth every 6 (six) hours as needed for anxiety. 15 tablet 021 Active diazePAM (VALIUM) 5 MG tablet Take 1 tablet (5 mg total) by mouth every 6 (six) hours as needed for anxiety. 15 tablet Active methylPREDNISolon e (MEDROL DOSEPACK) 4 mg tablet follow package directions 21 tablet Active oxyCODONE 5 MG immediate release tablet Take 1 tablet (5 mg total) by mouth every 4 (four) hours as needed for moderate pain. 28 tablet 021 2024 Discontinued Active Problems Problem Noted Date Diagnosed Date S/P lumbar fusion 05/09/2021 Chronic headache 07/31/2018 Overview (06/16/2019): Overview: 07/31/2018-sees neurology Chronic bilateral back pain 07/31/2018 Overview (06/16/2019): Overview: 07/31/2018-patient has been managed by the pain clinic with RF and injections in the past IBS (irritable bowel syndrome) 07/31/2018 Gastroesophageal reflux disease 09/24/2009 Overview (05/09/2021): otc meds prn Encounters Date Type Department Care Team Description 06/16/2025 10:15 AM EDT Office Visit [facility] [address], [address] [place] [address] Richardson Davenport MD Chondromalacia of patella, unspecified laterality (Primary Dx); Tear of medial meniscus of left knee, current, unspecified tear type, subsequent encounter; Tear of medial meniscus of right knee, current, unspecified tear type, subsequent encounter 06/16/2025 Orders Only [facility] [address], [address] [place] [address] Kirit Akbar [place] Left knee pain (Primary Dx); Right knee pain 06/04/2025 3:30 PM EDT - 06/04/2025 11:59 PM EDT Hospital Encounter [facility], X-Ray - [address] [place] [address] Dar Abbott, DO Discharge Disposition: Home or Self Care 05/19/2025 11:30 AM EDT Office Visit [facility] [address] [place] [phone] Dar Abbott, DO Herniated lumbar disc without myelopathy (Primary Dx) [...] EDT Inhaled Oxygen Concentration - - Weight 81.6 kg (180 lb) 07/08/2025 2:21 PM EDT Height 172.7 cm (5' 8 ) 07/08/2025 2:21 PM EDT Body Mass Index 27.37 07/08/2025 2:21 PM EDT Plan of Treatment Upcoming Encounters Date Type Department Care Team (Late st Contact Info) Description 06/16/2025 Procedure Pass [address] [address] 06/16/2025 Procedure Pass [address] [address] 07/12/2025 4:25 PM EDT Appointment [address] [address] Richardson Davenport MD [address] [address] [email or web address] 07/12/2025 5:00 PM EDT Appointment [address] [address] Richardson Davenport MD [address] [address] [email or web address] 07/24/2025 1:00 PM EDT Office Visit [facility] [address], [address] [place] [address] Richardson Davenport MD [address] [address] [email or web address] 11/19/2025 11:30 AM EST Office Visit Samantha Lin [address] [place] [address] Dar Abbott DO [address] [place] [address] [phone] ([email or web address] Maintenance Due Date Last Done Comments DEPRESSION SCREENING 1996 HEPATITIS C SCREENING 2002 HIV ONE-TIME SCREENING (18-6 5 YEARS) 2002 PAP SMEAR 2005 SCREENING FOR DIABETES 05/10/2024 05/10/2021 MAMMOGRAM 2024 INFLUENZA VACCINE (#1) 2025 COVID-19 VACCINE (2 - 2024-2 6 season) 2025 10/21/2021 SMOKING STATUS SCREENING (Every 5 Years) 06/16/2030 06/16/2025 Adult Td,Tdap Booster 10/25/2034 10/25/2024 , 02/25/2019, [...] this topic Medical Devices Implanted Type Area Hand Finisher Device Identifier Shelf Expiration Date Model / Serial / Lot Putty Bone 1.0ml Graft [place] Demineralized Matrix Jar - [id number] Implanted:Qty: 1 on 05/09/2021 by Dar Abbott DO at [facility] Spine Lumbar [employer] SPINE 04/11/2024 [id number] / [id number] / Description:The implant type , laterality (when applicable), size, and expiration date have been visually and verbally confirmed by the Surgeon, Circulating RN and Scrub Personnel. Putty Bone 1.0ml Graft Summer Demineralized Matrix Jar - [id number] Implanted:Qty: 1 on 05/09/2021 by Dar Abbott DO at [facility] Spine Lumbar [employer] SPINE 02/24/2024 [id number] / [id number] / Description:The implant type , laterality (when applicable), size, and expiration date have been visually and verbally confirmed by the Surgeon, Circulating RN and Scrub Personnel. Screw Bone 45x6.5mm Spine Cd Horizon Multiaxial [place] Chrome Osteogrip Dual Lead Thread - [id number] Implanted:Qty: 1 on 05/09/2021 by Dar Abbott DO at [facility] Spine Lumbar [employer] [id number] / / Description:Load 2/ vw deb am 05/02/21 Screw Bone 50x6.5mm Spine Cd Horizon Multiaxial [place] Chrome Osteogrip Dual Lead Thread - [id number] Implanted:Qty: 5 on 05/09/2021 by Dar Abbott DO at [facility] Spine Lumbar [employer] SP[employer] [id number] / / Description:Load 2/ vw deb am 05/02/21 Screw Bone 45x7.5mm Spine Cd Horizon 5.5 Multiaxial [place] Chrome Osteogrip Dual Lead Thread - [id number] Implanted:Qty: 2 on 05/09/2021 by Dar Abbott DO at [facility] Spine Lumbar [employer] [id number] / / Description:Load 2/ vw deb am 05/02/21 Set Screw 5.5x55mm Spine Cd Horizon Multiaxial [place] Osteogrip Dual Lead Thread - [id number] Implanted:Qty: 8 on 05/09/2021 by Dar Abbott DO at [facility] Spine Lumbar [employer] SPINE [id number] / / Description:Load 2/ vw deb am 05/02/21 Thoracolumbar Spacer 7x22mm Verte Stack Peek - [id number] Implanted:Qty: 1 on 05/09/2021 by Dar Abbott DO at [facility] Spine Lumbar [employer] SPINE 02/24/2027 [id number] / / [id number] Description:The implant type , laterality (when applicable), size, and expiration date have been visually and verbally confirmed by the Surgeon, Circulating RN and Scrub Personnel. Gume 5.5x80mm Spinal Cd Horizon Solera Titanium Curve - [id number] Implanted:Qty: 2 on 05/09/2021 by Dar Abbott DO at [facility] Spine Lumbar [employer] SP[employer] [id number] / / Description:LOAD 10/31 VW deb am 05/02/21 Procedures Procedure Name Priority Date/Time Associated Diagnosis Comments XR LUMBOSACRAL SPINE 4 OR MORE VIEWS Routine 06/04/2025 3:46 PM EDT Herniated lumbar disc without myelopathy from Last 3 Months Results * XR LUMBOSACRAL SPINE 4 OR MORE VIEWS (06/04/2025 3:46 PM EDT) Anatomical Region Laterality Modality L-spine Computed Radiogr aphy 06/05/2025 1:03 PM EDT Impressions 06/05/2025 1:04 PM EDT Lumbar spine fusion without evidence of hardware complication. Narrative 06/05/2025 1:04 PM EDT XR LUMBOSACRAL SPINE 4 OR MORE VIEWS Referring clinician's provided indication for this examination in Epic: Pain; flexion/extension COMPARISON: XR LUMBOSACRAL SPINE 2-3 VIEWS ; MRI LUMBAR SPINE (NEURO) WITHOUT CONTRAST FINDINGS: There has been posterior instrumented fusion at L3-S1 and interbody fusion at L4-5. Hardware is intact. No acute fracture or malalignment. No dynamic instability. Mild multilevel disc degenerative changes. Procedure Note Neda Arroyo MD - 06/05/2025 XR LUMBOSACRAL SPINE 4 OR MORE VIEWS Referring clinician's provided indication for this examination in Epic:Pain; flexion/extension COMPARISON: XR LUMBOSACRAL SPINE 2-3 VIEWS ; MRI LUMBAR SPINE(NEURO) WITHOUT CONTRAST FINDINGS: There has been posterior instrumented fusion at L3-S1 and interbody fusionat L4- 5. Hardware is intact. No acute fracture or malalignment. No dynamicinstability. Mild multilevel disc degenerative changes. IMPRESSION: Lumbar spine fusion without evidence of hardware complication. us Dar Abbott DO IMG XR SPINE Final Result from Last 3 Months Insurance Double Encore GIC PLUS PPO VerticalResponse PLUS PPO VerticalResponse PLUS PPO WELLPOINT GIC PLUS PPO XMarketPOINT GIC PLUS PPO WELLPOINT GIC PLUS PPO WELLPOINT GIC PLUS PPO WELLPOINT GIC PLUS PPO WELLPOINT GIC PLUS PPO Frankly Chat PLUS PPO Vertical[employer] PLUS PPO Care Teams Secondary History Teacher Relationship Specialty Start Date End Date Isa Payne DO PCP - General Internal Medicine 04/25/22 Eulalia Angel NP Nurse Practitioner Family Medicine 10/29/18 Additional Source Comments The information contained in this document represents components of the legal health record. It is not the complete legal health record.[facility]
--- OUTSIDE RECORDS SUMMARY | 2025-07-08 16:54 | XMS_ITS | Encounter Summary ---
Author Organization [facility] Address [address] [place] [address] Care Team Providers Care Food Service Assistant Name Role Phone Eulalia Angel NP Primary Care Provider [phone] Valentino Seals MD Primary Care Provider [phone] Encounter Details Date Type Department Care Team ([facility] st Contact Info) Description 03/30/2021 Orders Only [facility] [address] [place] [address] Eulalia Angel NP [address] [facility] [address] [place] [address] Social History Tobacco Use Types [...] at . Any insurance accepted. Quit smoking resources-[email or web address] documented as of this encounter Visit Diagnoses Diagnosis Degenerative disc disease, lumbar Degeneration of lumbar or lumbosacral intervertebral disc documented in this encounter Care Teams Food Service Assistant Relationship Specialty Start Date End Date Eulalia Angel NP PCP - General Internal Medicine 03/24/21 10/05/22 Valentino Seals MD [address] [place] [address] PCP - General 10/06/22 documented as of this encounter
--- OUTSIDE RECORDS SUMMARY | 2025-07-08 16:54 | XMS_ITS | Encounter Summary ---
Author Organization [facility] Address [address] [place] [address] Care Team Providers Care Clinical Appeals Specialist Name Role Phone Eulalia Angel NP Primary Care Provider Brennan Cagle MD Primary Care Provider [phone] Eulalia Angel FIRE CHIEF DEPUTY Unavailable [phone] Eulalia Angel NP Primary Care Provider [phone] Erin Yancey MD Primary Care Provider Eulalia Angel FIRE CHIEF DEPUTY Unavailable [phone] Eulalia Angel FIRE CHIEF DEPUTY Primary Care Provider [phone] Valentino Seals MD Primary Care Provider [phone] Encounter Details Date Type Department Care Team (Late st Contact Info) Description 07/31/2018 Orders Only [facility] [address] [place] [address] Eulalia Angel FIRE CHIEF DEPUTY [address] [facility] [address] [place] [address] Social History Tobacco Use Types [...] at . Any insurance accepted. Quit smoking resources-[email or web address] documented as of this encounter Procedures * Due to [place] [employer] law, this organization might not be sharing negative HIV tests. Procedure Name Priority Date/Time Associated Diagnosis Comments CBC INCLUDES DIFFERENTIAL AND PLATELET COUNT Routine 07/31/2018 2:26 PM EST Fatigue, unspecified type BASIC METABOLIC PANEL WITH (GFR) Routine 07/31/2018 2:26 PM EST Fatigue, unspecified type documented in this encounter Results * Due to [place] [employer] law, this organization might not be sharing [...] needs for GFR calculation. Resulting Agency Comment [id number] us Brennan Cagle MD LABORATORY Final Result Performing Organization Address City/State/[facility] Co de Phone Number [facility] [address] [place] [address] * CBC INCLUDES DIFFERENTIAL AND PLATELET COUNT [...] 12:30 AM EST Narrative Resulting Agency Comment [id number] us Brennan Cagle MD LAB SAME DAY RESULT Final Res ult [facility] [address] [place] [address] documented in this encounter Visit Diagnoses Diagnosis Fatigue, unspecified type documented in this encounter Care Teams Clinical Appeals Specialist Relationship Specialty Start Date End Date Eulalia Angel NP PCP - General Internal Medicine 05/14/18 01/27/19 Brennan Cagle MD [address] [place] [address] PCP - General Internal Medicine 01/28/19 03/23/19 Eulalia Angel NP [address] [place] [address] PCP - Backup PCP Internal Medicine 01/28/19 06/09/19 Eulalia Angel NP [address] [place] [address] PCP - General 03/24/19 08/15/20 Erin Yancey MD [address] [place] [address] PCP - General Internal Medicine 08/16/20 03/23/21 Eulalia Angel NP [address] [place] [address] PCP - Backup PCP Internal Medicine 12/30/20 03/23/21 Eulalia Angel NP [address] [place] [address] PCP - General Internal Medicine 03/24/21 10/05/22 Valentino Seals MD [address] [place] [address] PCP - General 10/06/22 documented as of this encounter
--- OUTSIDE RECORDS SUMMARY | 2025-07-08 16:54 | XMS_ITS | Encounter Summary ---
Author Organization [facility] Address [address] [place] [address] Care Team Providers Care Web Editor Name Role Phone Eulalia Angel NP Unavailable [phone] Eulalia Angel NP Primary Care Provider Erin Yancey MD Primary Care Provider [phone] Eulalia Angel ASSEMBLER [employer] SUNGLASSES Unavailable [phone] Eulalia Angel NP Primary Care Provider Valentino Seals MD Primary Care Provider [phone] Encounter Details Date Type Department Care Team (Late st Contact Info) Description 04/29/2019 Orders Only [facility] [address] [place] [id number] Eulalia Angel NP [address] [facility] [address] [place] [address] Social History Tobacco Use Types [...] at . Any insurance accepted. Quit smoking resources-[email or web address] documented as of this encounter Procedures * Due to [place] state law, this organization might not be sharing negative HIV tests. Procedure Name Priority Date/Time Associated Diagnosis Comments HCG, TOTAL, QL Routine 04/29/2019 3:25 PM EDT Amenorrhea documented in this encounter Results * Due to [place] [employer] law, this organization might not be sharing negative HIV tests. * HCG, TOTAL, QL (04/29/2019 3:25 PM EDT) HCG, Qualitative (Screen) NEGATIVE [facility] Comment: Reference Range Non-: Negative : Positive 04/29/2019 3:25 PM EDT 04/30/2019 12:32 AM EDT Narrative Resulting Agency Comment [id number] Eulalia Angel NP LAB SAME DAY RESULT Final Resul t [facility] [address] [place] [address] documented in this encounter Visit Diagnoses Diagnosis Amenorrhea Absence of menstruation documented in this encounter Care Teams Web Editor Relationship Specialty Start Date End Date Eulalia Angel NP PCP - Backup PCP Internal Medicine 01/28/19 06/09/19 Eulalia Angel NP PCP - General 03/24/19 08/15/20 Erin Yancey MD PCP - General Internal Medicine 08/16/20 03/23/21 Eulalia Angel NP PCP - Backup PCP Internal Medicine 12/30/20 03/23/21 Eulalia Angel NP PCP - General Internal Medicine 03/24/21 10/05/22 Valentino Seals MD [address] [place] [address] PCP - General 10/06/22 documented as of this encounter
--- OUTSIDE RECORDS SUMMARY | 2025-07-08 16:54 | XMS_ITS | Encounter Summary ---
Author Organization [facility] Address [address] [place] [address] Care Team Providers Care Splunk Architect Name Role Phone Brennan Cagle MD Primary Care Provider [phone] Eulalia Angel NP Unavailable [phone] Eulalia Angel NP Primary Care Provider Erin Yancey MD Primary Care Provider Eulalia Angel ACCT EXEC Unavailable [phone] Eulalia Angel NP Primary Care Provider [phone] Valentino Seals MD Primary Care Provider [phone] Encounter Details Date Type Department Care Team (Late st Contact Info) Description 02/25/2019 Orders Only [facility] [address] [place] [address] Eulalia Angel NP 123 [facility] [address] [place] [address] Social History Tobacco Use Types Packs/Day Years Used Date Smoking Tobacco: Every Day Cigarettes Smokeless Tobacco: Current Comments No Sex and Gender Information Value Date Recorded Sex Assigned at Not on file Legal Sex Female 2:47 PM EDT Gender Identity Not on file Sexual Orientation Not on file documented as of this encounter Progress Notes * Eulalia Agnel NP - 02/26/2019 8:04 AM EDT Mildly [...] foods such as cakes, cookies, chips, popcorn, Cambodian fries, and ice cream. Hydrogenated fats (trans [...] are called omega- 3, omega-6, and omega-9. Osakis-3 fatty acids are found in fish and some plants. They are good for heart health. They may reduce the risk of stroke, high blood pressure, and other chronic disease. Good sources are oily fish such as salmon, mackerel and tuna. Osakis 3 fatty acids are also in fish oil supplements. Check with your healthcare provider before taking supplements. Fish oil supplements may cause bleeding in some people, especially if they are taken with blood-thinning medicines. Good plant sources for omega-3 fatty acids are canola oil, soybeans, flaxseed, avocado, and some types of nuts, especially walnuts and almonds. Osakis-6 fatty acid is found in corn, safflower, soybean, and sunflower oils. Osakis-9 fatty acid is found in olive oil, canola oil, and avocados. It is likely that the balance of fatty acids is very important. The [place] diet typically contains too much omega-6 fatty acid and not enough omega-3 fatty acid. How much fat do I need in my diet? Eating some fat???especially the good fats--is healthful, but many Americans eat too much and become overweight. The current [place] Heart Association Diet and Lifestyle Recommendations are: [...] at . Any insurance accepted. Quit smoking resources-http://TheSedge.org.org documented as of this encounter Procedures * Due to [place] state law, this organization might not [...] in this encounter Results * Due to [place] state law, this organization might not be sharing negative HIV tests. * (ABNORMAL) THYROID PEROXIDASE AND THYROGLOBULIN ANTIBODIES (05/28/2019 11:47 AM EDT) Thyroglobulin Ab <1 < or = 1 IU/mL [facility] Thyroperoxidase Ab 12(H) <9 IU/mL Q [facility] 05/28/2019 11:4 7 AM EDT 05/29/2019 1:31 AM EDT Narrative Resulting Agency Comment [id number] us Brennan Cagle MD LABORATORY Final Result Performing Organization Address [facility] Co de Phone Number [facility] [address] [place] [address] * (ABNORMAL) THYROID PEROXIDASE AND THYROGLOBULIN ANTIBODIES (02/25/2019 4:41 PM EDT) Thyroglobulin Ab <1 < or = 1 IU/mL [facility] Thyroperoxidase Ab 18(H) <9 IU/mL Q [facility] 02/25/2019 4:41 PM EDT 02/26/2019 1:51 AM EDT Narrative Resulting Agency Comment [id number] Brennan Cagle MD LABORATORY Final Result Performing Organization Address [facility] Co de Phone Number [facility] [address] [place] [address] * T4, FREE, SERUM (02/25/2019 4:41 PM EDT) FT4 0.9 0.8 - 1.8 ng/dL [facility] 02/25/2019 4:41 PM EDT 02/26/2019 1:51 AM EDT Narrative Resulting Agency Comment [id number] Brennan Cagle MD LABORATORY Final Result Performing Organization Address [facility] Co de Phone Number [facility] [address] [place] [address] * TSH, 3RD GENERATION (02/25/2019 4:41 PM EDT) TSH 2.42 mIU/L [facility] Comment: Reference Range > or = 20 Years 0.40-4.50 Ranges First trimester 0.26-2.66 Second trimester 0.55-2.73 Third trimester 0.43-2.91 02/25/2019 4:41 PM EDT 02/26/2019 1:51 AM EDT Narrative Resulting Agency Comment [id number] Brennan Cagle MD LABORATORY Final Result [facility] [address] [place] [address] * BASIC METABOLIC PANEL WITH (GFR) (02/25/2019 [...] needs for GFR calculation. Resulting Agency Comment [id number] Brennan Cagle MD LABORATORY Final Result Performing Organization Address [facility]/ZIP Co de Phone Number [facility] [address] [place] [address] * HEMOGLOBIN A1C (02/25/2019 4:41 PM EDT) [...] diagnosis of diabetes in children. According to [place] Diabetes Association (ADA) guidelines, hemoglobin A1c <7.0% represents optimal control in non- diabetic patients. Different metrics may apply to specific patient populations. Standards of Medical Care in Diabetes(ADA). Estimated Average Glucose 115 mg/dL (calc) [facility] 02/25/2019 4:41 PM EDT 02/26/2019 1:51 AM EDT Narrative Resulting Agency Comment [id number] Brennan Cagle MD LABORATORY Final Result Performing Organization Address [facility] Co de Phone Number [facility] [address] [place] [address] * (ABNORMAL) LIPID PANEL WITH REFLEX TO [...] DE LA CRUZ et al. WHITLEY. 2013;310(19): 3479-0296 (http://education.Adduplex.com/faq/IUC281) CHOL/HDL Ratio 3.8 <5.0 (calc) [facility] Cholesterol Non-HDL 143(H) <130 mg/dL (calc) [facility] Comment: For patients with diabetes plus 1 major ASCVD risk factor, treating to a non-HDL-C goal of <100 mg/dL (LDL-C of <70 mg/dL) is considered a therapeutic option. 02/25/2019 4:41 PM EDT 02/26/2019 1:51 AM EDT Narrative Resulting Agency Comment [id number] Brennan Cagle MD LABORATORY Final Result [facility] [address] [place] [address] documented in this encounter Visit Diagnoses Diagnosis Screening for endocrine, nutritional, metabolic and immunity disorder Screening for other and unspecified endocrine, nutritional, metabolic, and immunity disorders documented in this encounter Care Teams Splunk Architect Relationship Specialty Start Date End Date Brennan Cagle MD [address] [place] [address] PCP - General Internal Medicine 01/28/19 03/23/19 Eulalia Angel NP [address] [place] [address] PCP - Backup PCP Internal Medicine 01/28/19 06/09/19 Eulalia Angel NP [address] [place] [address] PCP - General 03/24/19 08/15/20 Erin Yancey MD [address] [place] [address] PCP - General Internal Medicine 08/16/20 03/23/21 Eulalia Angel NP [address] [place] [address] PCP - Backup PCP Internal Medicine 12/30/20 03/23/21 Eulalia Angel NP [address] [place] [address] PCP - General Internal Medicine 03/24/21 10/05/22 Valentino Seals MD [address] [place] [address] PCP - General 10/06/22 documented as of this encounter
--- OUTSIDE RECORDS SUMMARY | 2025-07-08 16:54 | XMS_ITS | Encounter Summary ---
Author Organization [facility] Address [address] [place] [address] Care Team Providers Care Jewel Corner Brushing Machine Operator Name Role Phone Eulalia Angel NP Primary Care Provider [phone] Valentino Seals MD Primary Care Provider [phone] Reason for Referral * CONSULT AND TREATMENT (Routine) - Authorized Specialty Diagnoses / Procedures Referred By Katja mao Referred To Contact Ent-Otolaryngology Diagnoses Allergy, subsequent encounter Procedures ENT -- Dr. Gerald Ivy, NPI# [id number] Fx: [phone] Eulalia Angel NP Phone: tel: fax: Referral ID Status Reason Start Date Expiration Date Visits Requested Visits Authorized [id number] Authorized Est Relationship 03/24/2021 03/24/2022 52 52 Question Answer When do you want this visit to occur? WITHIN 3 DAYS - 03/27/21 Appointment with or AP? FIRST AVAILABLE Patient is being referred outside of [facility] for the following reason, however final determination for mig-rh-epqhkvq requests are made by the Referral Management Department Continuity of active patient care Track Order? No Which provider/facility/agency would you like to refer to? (specify if you want first available regardless of location) GERALD IVY M.D. [phone] Please provide pertinent patient history. patient calling to request referrals to this provider due to insurance change * CONSULT AND TREATMENT (Routine) - Authorized Specialty Diagnoses / Procedures Referred By Contac t Referred To Contact Neurosurgery / Neurology Diagnoses Back pain, unspecified back location, unspecified back pain laterality, unspecified chronicity Procedures Neurosurg -- Dr. Kaya Abbott, NPI# [id number] Eulalia Angel NP Phone: tel: fax: Kaya Abbott DO [facility], Dept of Neurosurgery [address] [place] [address] Phone: tel: fax: Referral ID Status Reason Start Date Expiration Date Visits Requested Visits Authorized [id number] Authorized Est Relationship 03/24/2021 03/24/2022 6 6 Question Answer Please provide pertinent patient history. patient calling to request new referral as insurance has change Track Order? No When do you want this visit to occur? WITHIN 3 DAYS - 03/29/21 Patient is being referred outside of [facility] for the following reason, however final determination for kcr-mn-qlsetuo requests are made by the Referral Management Department Continuity of active patient care Which provider/facility/agency would you like to refer to? (specify if you want first available regardless of location) Dr. kaya Abbott [phone] [facility] Encounter Details Date Type Department Care Team ([facility] st Contact Info) Description 03/24/2021 Orders Only [facility] [address] [place] [address] Eulalia Angel NP 123 [facility] [address] [place] [address] Social History Tobacco Use Types [...] at . Any insurance accepted. Quit smoking resources-[email or web address] documented as of this encounter Visit Diagnoses Diagnosis Back pain, unspecified back location, unspecified back pain laterality, unspecified chronicity Allergy, subsequent encounter documented in this encounter Care Teams Jewel Corner Brushing Machine Operator Relationship Specialty Start Date End Date Eulalia Angel NP PCP - General Internal Medicine 03/24/21 10/05/22 Valentino Seals MD [address] [place] [address] PCP - General 10/06/22 documented as of this encounter
--- OUTSIDE RECORDS SUMMARY | 2025-07-08 16:55 | XMS_ITS | Data Portability ---
Author Organization [facility] [employer], [facility]admin Address [address] [place] [id number] Care Team Providers Care Head Trimmer Name Role Phone JENNA BELTRAN Primary Care Provider Assessment No assessment recorded. Plan of Treatment Reminders Order Date Submit Date Provider Last Modified By Organization Details Last Modified Time Details Appointments None recorded. Lab bacterial vaginosis + vaginitis panel, vaginal 2019 020 SALLY [facility], [address] [place] [address], [address], 0 15:06:28 HIV 1+2 AB + HIV 1 p24 Ag, qualitative immunoassay , serum 2019 020 [email or web address] [facility], [address] [place] [address], [address], 0 16:04:39 HBsAg (hepatitis B surface Ag), EIA, serum 2019 020 [email or web address] [facility], [address] [place] [address], [address], 0 16:04:40 hepatitis C virus Ab, serum 2019 020 [email or web address] [facility], [address] [place] [address], [address], 0 16:04:40 RPR (rapid plasma reagin), serum 2019 020 [email or web address] [facility], [address] [place] [address], [address], 0 16:04:40 Referral None recorded. Procedures None recorded. Surgeries None recorded. Imaging None recorded. Medication Orders None recorded. Patient TargetsNo targets recorded. Patient Instructions Encounter Date Encounter Id Patient Instructions Last Modified By Organization Details Last Modified Time 11/25/2019 [id number] Options of control were discussed with the [...] insertion. patient is willing to go to [place] if needed. Weight-loss was advised. We will repeat Pap smear and do an annual MULTIPLE SLIDE OPERATOR exam and of January 2020. SD precautions were reviewed cultures were sent and lab work was ordered [email or web address] Not available 11/25/2019 15:46:34 Reason for Referral None Reported. Results Created Date Observation Date Name Description Value Unit Range Abnormal Flag Note LastModifiedBy Organization Detail LastModifiedTime 11/25/1911/27/2019 bacte rial vagin osis + vagin itis panel , vagin al atopobium vaginae Low - 0 score Not Available [facility] ([facility]) [address] [place], [address], 11/28/2019 15:06:28 11/25/1911/27/2019 bacte rial vagin osis + vagin itis panel , vagin al bvab 2 Low - 0 score Not Available [facility] ([facility]) [address] [place], [address], 11/28/2019 15:06:28 11/25/1911/27/2019 bacte rial vagin osis [...] is not neces tavon. Not Available [facility] ([facility]) [address] [place], [address], 11/28/2019 15:06:28 11/25/19 20 11/27/2019 bacte rial vagin osis + vagin itis panel , vagin al trich vag by ANAHI Negati ve negati ve Not Available [facility] ([facility]) [address] [place], [address], 11/28/2019 15:06:28 11/25/19 20 11/28/2019 bacte rial vagin osis + vagin itis panel , vagin al kaylin albicans, ANAHI Negati ve negati ve Not Available [facility] ([facility]) [address] [place], [address], 11/28/2019 15:06:28 11/25/19 20 11/28/2019 bacte rial vagin osis + vagin itis panel , vagin al kaylin glabrata, ANAHI Negati ve negati ve Not Available [facility] ([facility]) [address] [place], [address], 11/28/2019 15:06:28 11/25/19 20 11/28/2019 bacte rial vagin osis + vagin itis panel , vagin al chlamydia trachomatis, ANAHI Negati ve negati ve Not Available [facility] ([facility]) [address] [facility], [place], [address], 11/28/2019 15:06:28 11/25/19 20 11/28/2019 bacte rial vagin osis + vagin itis panel , vagin al neisseria gonorrhoeae, ANAHI Negati ve negati ve Not Available [facility] ([facility]) [address] [facility], [place], [address], 11/28/2019 15:06:28 Result Notes None recorded. Problems Name Problem SNOMED Code Status Onset Date Resolution Date Notes Provider Name and Address Organization Details Recorded Time Migraine 44319821 Active 020 Cyndy Solorio MD [address] [place] [address], [phone] , [facility] 0 15:41:53 Chronic back pain 544528457 Active 020 Cyndy Solorio MD [address] [place] [address], [phone] , [facility] 0 15:42:02 Problem Notes None recorded. Procedures Surgical History Date Name Laterality Status Provider Name and Address Organization Details Recorded Time LEEP completed Melany Desai [facility] 11/25/2019 15:05:51 Imaging Results None [...] verbal numeric rating [Score] - Reported Systolic And Diastolic Provider Name and Address Organization Details Last Updated DateTime 0 81556.7 7 g 83 /min 97 % 97 % 0 137/83 mm[Hg] [facility] 0 15:00:31 Social History Question Answer Notes LastModified by [facility] Details LastModified Time Tobacco Smoking Status Former Smoker quit 04/25/2019 Melany Desai [facility], [facility] 11/25/2019 15:04:53 How Much Tobacco Do You Chew? None Information not available 11/25/2019 Does The Patient Have Fever And Cough Or Shortness Of Breath AND In The Last 14 Days Has The Patient Come In Contact With Someone With Confirmed 2019-nCoV? No Information not available 11/25/2019 Does The Patient Have Fever And Cough Or Shortness Of Breath AND In The Last 14 Days Has The Patient Traveled From [place], [place], [place] Or [place]? No Information not available 11/25/2019 Does The Patient Have Fever And Lower Respiratory Illness Requiring Hospitalization Without An Underlying Diagnosis? No Information not available 11/25/2019 What Was The Date Of Your Most Recent Tobacco Screening? 0 Information not available 11/25/2019 How Much Tobacco Do You Smoke? No Information not available 11/25/2019 Sex: Female Functional Status Question Answer Note LastModified by [facility] Details LastModified Time Do you or have you ever used smokeless tobacco? Never used smokeless tobacco Information not available 11/25/2019 Do you or have you ever used e-cigarettes or vape? Current user of electronic cigarettes no nicotine Information not available 11/25/2019 Mental Status None recorded. Family History Relationship Description Onset Age of this Age Resolved Age Notes LastModified by Organization Details LastModified Time Mother Menorrhjordon mmarcolinoda s ilv Not available 11/25/2019 15:04:26 Medical History Condition Response Seizure Disorder N Breast Problem (Breast Lump/Pain/Dischar ge) N Eye Problems (Glaucoma, Retinopathy, Mac ular Degeneration) N High Blood Pressure (Hypertension) N AFib (Atrial Fibrillation) N Depression N High Cholesterol (Hyperlipidemia) N [...] Diagnosis SNOMED-CT Code Diagnosis ICD10 Code Diagnosis IMO Codes Diagnosis Note [id number] Cyndy Solorio MD [facility] [address] [phone] 11/25/2019 14:48:36 11/25/2019 15:44:44 Contraception care management 460182978 Z30.9 Venereal d isease screening 147403974 Z11.3 History of abnormal cervical Papanicolaou smear 013372264 Z87.42 Health Concerns Section Related Observation LastModified by Organization Detai ls LastModified Time None Recorded Concern Status LastModified by Organization Details LastModified Time None Recorded Advance Directives Directive None Recorded Payers Insurance Date Sequence Insurance Name Policy Number Policy Malik Covered Member ID Malik Member ID Guarantor Name 02/20/[address] [facility] Catherine Be [id number] Catherine Be Notes Date Note Type Note [...] interested in STD screening Cyndy Solorio MD [address] [place] [address], [phone], [facility]. 11/25/2019 15:46:52 OBGyn Episode No OBEpisode recorded.
--- OUTSIDE RECORDS SUMMARY | 2025-07-08 16:55 | XMS_ITS | Encounter Summary ---
Author Organization [facility] Address [address] [place] [address] Care Team Providers Care Mgmt Analyst Name Role Phone Eulalia Angel NP Primary Care Provider [phone] Erin Yancey MD Primary Care Provider [phone] Eulalia Angel NP Unavailable [phone] Eulalia Angel NP Primary Care Provider [phone] Valentino Seals MD Primary Care Provider [phone] Reason for Visit * Reason Onset Date Comments Refill Request 12/16/2019 Encounter Details Date Type Department Care Team (Late st Contact Info) Description 12/16/2019 Refill [facility] [address] [place] [address] Eulalia Angel NP 123 [facility] [address] [place], [place] [phone] Refill Request Social History Tobacco Use Types [...] / using tobacco Lifestyle No [place], [place], WHEAT BUYER Note: Smoking can cause cancer, heart attacks, [...] at . Any insurance accepted. Quit smoking resources-http://Evino.org documented as of this encounter Visit Diagnoses Not on filedocumented in this encounter Care Teams Mgmt Analyst Relationship Specialty Start Date End Date Eulalia Angel NP PCP - General 03/24/19 08/15/20 Erin Yancey MD PCP - General Internal Medicine 08/16/20 03/23/21 Eulalia Angel NP PCP - Backup PCP Internal Medicine 12/30/20 03/23/21 Eulalia Angel NP PCP - General Internal Medicine 03/24/21 10/05/22 Valentino Seals MD [address] [place] [address] PCP - General 10/06/22 documented as of this encounter
--- OUTSIDE RECORDS SUMMARY | 2025-07-08 16:55 | XMS_ITS | Encounter Summary ---
Author Organization [facility] Address [address] [place] [address] Care Team Providers Care Governor Assembler Name Role Phone Eulalia Angel NP Primary Care Provider [phone] Valentino Seals MD Primary Care Provider [phone] Encounter Details Date Type Department Care Team (Late st Contact Info) Description 03/24/2021 Orders Only [facility] [address] [place] [phone] Erin Yancey MD [address] [place] [address] Social History Tobacco Use Types Packs/Day Years [...] at . Any insurance accepted. Quit smoking resources-[email or web address] documented as of this encounter Visit Diagnoses Not on filedocumented in this encounter Care Teams Governor Assembler Relationship Specialty Start Date End Date Eulalia Angel NP PCP - General Internal Medicine 03/24/21 10/05/22 Valentino Seals MD [address] [place] [address] PCP - General 10/06/22 documented as of this encounter
--- OUTSIDE RECORDS SUMMARY | 2025-07-08 16:55 | XMS_ITS | Encounter Summary ---
Author Organization [facility] Address [address] [place] [address] Care Team Providers Care Salesperson Florist Supplies Name Role Phone Eulalia Angel NP Primary Care Provider [phone] Erin Yancey MD Primary Care Provider [phone] Eulalia Angel NP Unavailable Eulalia Angel NP Primary Care Provider [phone] Valentino Seals MD Primary Care Provider [phone] Encounter Details Date Type Department Care Team ([facility] st Contact Info) Description 03/15/2020 Orders Only [facility] [address] [place] [address] Eulalia Angel NP [address] [facility] [address] [place] [address] Social History Tobacco Use Types [...] at . Any insurance accepted. Quit smoking resources-[email or web address] documented as of this encounter Procedures * Due to [place] [employer] law, this organization might not be sharing negative HIV tests. Procedure Name Priority Date/Time Associated Diagnosis Comments VENIPUNCTURE Routine 03/15/2020 2:50 PM EDT Tish's thyroiditis LIPID PANEL WITH REFLEX TO DIRECT LDL Routine 03/15/2020 2:50 PM EDT Screening for hyperlipidemia BASIC METABOLIC PANEL WITH (GFR) Routine 03/15/2020 2:50 PM EDT Screening for diabetes mellitus documented in this encounter Results * Due to [place] [employer] law, this organization might not be sharing [...] Ramírez DE LA CRUZ et al. WHITLEY. 2013;310(54): 0347-0599 (http://education.Viralize/faq/TKG362) CHOL/HDL Ratio 2.7 <5.0 (calc) [facility] Cholesterol Non-HDL 104 <130 mg/dL (calc) [facility] Comment: For patients with diabetes plus 1 major ASCVD risk factor, treating to a non-HDL-C goal of <100 mg/dL (LDL-C of <70 mg/dL) is considered a therapeutic option. 03/15/2020 2:50 PM EDT 03/16/2020 12:44 AM EDT Narrative Resulting Agency Comment [id number] Eulalia Angel NP LABORATORY Final Result [facility] [address] [place] [address] * BASIC METABOLIC PANEL WITH (GFR) (03/15/2020 [...] needs for GFR calculation. Resulting Agency Comment [id number] Eulalia Angel NP LABORATORY Final Result Performing Organization Address City/[facility]/ZIP Co de Phone Number [facility] [address] [place] [address] * TSH, 3RD GENERATION (03/15/2020 2:50 PM EDT) TSH 2.87 mIU/L [facility] Comment: Reference Range > or = 20 Years 0.40-4.50 Ranges First trimester 0.26-2.66 Second trimester 0.55-2.73 Third trimester 0.43-2.91 03/15/2020 2:50 PM EDT 03/16/2020 12:44 AM EDT Narrative Resulting Agency Comment [id number] Eulalia Angel NP LABORATORY Final Result Performing Organization Address City/[facility]/ZIP Co de Phone Number [facility] [address] [place] [address] documented in this encounter Visit Diagnoses Diagnosis Tish's thyroiditis Chronic lymphocytic thyroiditis Screening for diabetes mellitus Screening for hyperlipidemia Screening for lipoid disorders documented in this encounter Care Teams Salesperson Florist Supplies Relationship Specialty Start Date End Date Eulalia Angel NP PCP - General 03/24/19 08/15/20 Erin Yancey MD PCP - General Internal Medicine 08/16/20 03/23/21 Eulalia Angel NP PCP - Backup PCP Internal Medicine 12/30/20 03/23/21 Eulalia Angel NP PCP - General Internal Medicine 03/24/21 10/05/22 Valentino Seals MD [address] [place] [address] PCP - General 10/06/22 documented as of this encounter
== END 2025-07-08 13:14 | disposition home or self-care (01) ==
LOC: HO.HMGAL 13:14
PROVIDERS: PCP Internal Medicine; Visit Provider Registered Nurse Emergency
DX: J30.89 Other allergic rhinitis (principal)
CPT/HCPCS: 95117; 95165

== ENCOUNTER 2025-07-14 08:22 | Outpatient (AMB) | payer OTHER, SELFPAY ==
--- OUTSIDE RECORDS SUMMARY | 2024-04-04 05:15 | XMS_ITS ---
Author Organization [facility] Address [address], [place] [phone] Care Team Providers Care Training And Development Specialist Name Role Phone SAMMI KEY Primary Care Provide r [phone] ALLERGIES No Known Allergies REASON FOR VISIT Doximity-COVID positive MEDICATIONS Medication SIG (Take, Route, Frequency, Duration) Notes Start Date End Date Status Omeprazole 20 MG TAKE 1 CAPSULE BY [facility] EVERY DAY 30 MINUTES BEFORE MORNING MEAL for 90 Active Paxlovid (300/100) 20 x 150 MG & 10 x 100MG 3 tablets Orally Twice a day for 5 days Active traZODone HCl 50 MG 1 tablet at bedtime as needed Orally Once a day for 30 day(s) Active Incassia 0.35 MG 1 tablet Orally Once a day for 28 day(s) Active Aimovig 140 MG/ML as directed Subcutan eous every 3 weeks Active Encounters Encounter Location Date Provider Diagnosis [facility] [address], [place] [phone] 04/04/2024 SAMMI SHAHID COVID-19 U07.1 and Uses contraception Z78.9 ASSESSMENTS Encounter Date Diagnosis Assessment Notes Treatment Notes Treatment Clinical Notes Section Notes 04/04/2024 COVID-19 (ICD-10 - U07.1) have sent in paxlovid, has used in past. poss interactions reviewed SE discussed in detail Discussed therapy for symptoms and symptoms that would warrant urgent evaluation in the emergency room she understands and is agreeable. 04/04/2024 Uses contraception (ICD-10 - Z78.9) reviewed that BCPs may not be fully effective if uses paxlovid and should utilize another form of contraception as well for 1-2 cycles 04/04/2024 Other 11 min video doximity visit as per hpi PLAN OF TREATMENT Medication Medication Name Sig Start Date Stop Date Notes Paxlovid (300/100) 20 x 150 MG & 10 x 100MG 3 tablets Orally Twice a day for 5 days Treatment Notes Assessment Notes COVID-19 have sent in paxlovid, has used in past. poss interactions reviewed SE discussed in detail Discussed therapy for symptoms and symptoms that would warrant urgent evaluation in the emergency room she understands and is agreeable. Uses contraception reviewed that BCPs m ay not be fully effective if uses paxlovid and should utilize another form of contraception as well for 1-2 cycles Next Appt Details Follow Up: prn, Reason: Provider Name:SAMMI ELENABrain VENCES, 07/14/2025 12:00:00 PM, [address] [place] [address], [phone], Progress Notes * Examination Category Sub-Category Detail Notes Category Not es General Examination see abov e History and Physical Notes * HPI (History of Present Illness) Category Sub-Category Detail Notes Category Not es General Pt Is here today for a problem visit doximity video visit. Patient is at home and provider is at [facility] office location she gives permission for visit understanding of medications including inability to perform physical exam. knows dain willl be sumbitted as approrpiate - she tested positive for COVID on Sunday03/31/24 c/o Cough, dry, productive yellowish greenish mucus. c/o Fever, Temp taken _101.2 taken this morning_. c/o Runny nose, discolored, she also has some post nasal drip . c/o Sinus Cgstn. c/o Bodyaches. c/o Sore throat. c/o Fatigue. c/o OTC Medication, Tylenol, head congestion medication. Denies : SOB, Abd Pain, Diarrhea, Nausea. The following is copied/reviewed/edited from previous: -pmhx of post traumatic headache, chronic sinus infection, lower back surgery 04/2021. -q3-6 mo fu w/ neuro zeyad for headaches and current regimen working well. -up to date with manager insurance [facility] -eye exam is due and will schedule. - she has had covid vac and booster. -in past had covid 19 infection [place] parth's still extremely fatigued. gets sob with minimal exertion. -She also feels heart races even with little to no exertion. This started gradually over a year ago prior to the COVID infection. He was referred by cardiology. They felt symptoms due to PACs. Testing and labs done. She was also referred by pulmonary at [place] and has routine follow-up there have been no changes to her inhalers. She says ENT [place] [facility]; and gets regular injections for her various environmental allergies Family history: dad w/ cardiomegaly and afib mom w/ cad and irreg rhythym gets occ fullness of lymph nodes and then they go away. after a few days. works for [employer] b/l Knee pain left > right , swelling of left knee lateral and above knee cap. seeing ortho at [facility] mri scheduled -------- ROS GENERAL: see hpi HEENT: No changes in vision or hearing. No sore throat. No neck pain. No lumps or masses noted in neck. RESPIRATORY: No wheezing or shortness of breath. see hpi CARDIOVASCULAR: No chest pain, leg swelling or palpitations GI: No abdominal discomfort, blood in stools or black stools : see hpi MUSCULOSKELETAL: No joint pain or swelling, back pain, or muscle pain. SKIN: No lesions, rash or itching PSYCH: No sleep disturbance, mood disorder or recent psychosocial stressors. ENDOCRINE: No cold or heat intolerance, polyuria, polydipsia or goiter. HEME/LYMPH: No easy bruising or bleeding. No lymph node enlargement or tenderness. NEURO: No persistent headache, syncope, seizures, weakness or numbness -------- PE APPEARANCE: Alert and in no acute distress LUNG: no audible dyspnea or wheeze or cough NEURO: Awake, alert and oriented x 3
--- OUTSIDE RECORDS SUMMARY | 2024-07-07 10:45 | XMS_ITS ---
Author Organization [facility] Address [address], [place] [phone] Care Team Providers Care Cutch Cleaner Name Role Phone SAMMI KEY Primary Care Provide r [phone] REASON FOR VISIT 39/CPX Encounters Encounter Location Date Provider Diagnosis [facility] [address] [place] [phone] 07/07/2024 SAMMI KEY PLAN OF TREATMENT Next Appt Details Provider Name:SAMMI VENCES, 07/14/2025 12:00:00 PM, [address] [place], [address],
--- OUTSIDE RECORDS SUMMARY | 2024-07-08 08:30 | XMS_ITS ---
Author Organization [facility] Address [address] [place], [place] [phone] Care Team Providers Care Manager Exchange Name Role Phone BARTGEOVANY MCKINLEYLA Primary Care Provide r [phone] ALLERGIES No Known Allergies REASON FOR VISIT [...] Chronic sinusitis, unspecified location (J32.9) Active confirmed [id number] VITAL SIGNS Height 69 in 07/08/2024 Weight 179.2 lbs 07/08/2024 Blood pressure systolic 137 mm Hg 07/08/20 24 Blood pressure diastolic 81 mm Hg 024 BMI 26.46 kg/m2 07/08/2024 Encounters Encounter Location Date Provider Diagnosis [facility] [address] [place] [address] 07/08/2024 SAMMI SHAHID Physical exam Z00.00 ; [...] the process of setting of care with CHEMICAL RECOVERY OPERATOR. Have refilled her previous topical therapy in [...] proce ss of setting of care with CHEMICAL RECOVERY OPERATOR. Have refilled her previous topical therapy in [...] fu prn/1 yr, Reason: Provider Name:SAMMI VENCES, 07/14/2025 12:00:00 PM, [address] [place], [address], Progress Notes * Examination Category Sub-Category Detail [...] regimen working well. -up to date with rn recruitment bmc -eye exam is due and will [...] to cardiology couple of years ago saw [facility] cardiology, Dr. Bailey, Testing showed only PACs and follow-up was to be as needed. She was also referred by pulmonary at [place] and has routine follow-up there have been no changes to her inhalers. She says ENT [place] praveen; and gets regular injections for her various environmental allergies Family history: dad w/ cardiomegaly and afib mom w/ cad and irreg rhythym gets occ fullness of lymph nodes and then they go away. after a few days. works for [employer] b/l Knee pain left > right , swelling of left knee lateral and above knee cap. seeing ortho at [facility] mri scheduled - ROS: GEN: No fevers, [...] No urinary hesitancy or discomfort. 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 CHEMICAL RECOVERY OPERATOR: Normal menses, no prolonged or heavy bleeding. [...]
--- OUTSIDE RECORDS SUMMARY | 2024-07-30 11:53 | XMS_ITS ---
Author Organization [facility] Address [address] [place], [place] [id number] Care Team Providers Care Electronics Production Supervisor Name Role Phone SAMMI KEY Primary Care Provide r [phone] REASON FOR VISIT 6 month f/u Encounters Encounter Location Date Provider Diagnosis [address] [address] 07/30/2024 SAMMI KEY PLAN OF TREATMENT Next Appt Details Provider Name:SAMMI VENCES, 07/14/2025 12:00:00 PM, [address] [place], [address],
--- OUTSIDE RECORDS SUMMARY | 2025-01-16 10:50 | XMS_ITS ---
Author Organization [facility] Address [address] [place], [place] [id number] Care Team Providers Care Footwear Sales Associate Name Role Phone SAMMI KEY Primary Care Provide r [phone] REASON FOR VISIT breast u/s PROBLEMS Problem Type ICD Code Onset Dates Problem Status W/U Status Risk SNOMED Code Notes Problem Abnormal finding on breast imaging (R92.8) Active confirmed [id number] Encounters Encounter Location Date Provider Diagnosis [facility] [address] [place] [address] 01/16/2025 SAMMI KEY Abnormal finding on breast imaging R92.8 ASSESSMENTS Encounter Date Diagnosis Assessment Notes Treatment Notes Treatment Clinical Notes Section Notes 01/16/2025 Abnormal finding on breast imaging (ICD-10 - R92.8) PLAN OF TREATMENT Next Appt Details Provider Name:SAMMI VENCES, 07/14/2025 12:00:00 PM, [address] [place], [address],
--- OUTSIDE RECORDS SUMMARY | 2025-06-04 04:07 | XMS_ITS ---
Author Organization [facility] Address [address] [place], [place] [id number] Care Team Providers Care Inoculator Name Role Phone SAMMI KEY Primary Care Provide r [phone] REASON FOR VISIT Update Demographics - Personal Info Encounters Encounter Location Date Provider Diagnosis [place] [id number] 06/04/2025 SAMMI KEY PLAN OF TREATMENT Next Appt Details Provider Name:SAMMI VENCES, 07/14/2025 12:00:00 PM, [address] [place], [address],
--- OUTSIDE RECORDS SUMMARY | 2025-06-24 04:25 | XMS_ITS ---
Author Organization [facility] Address [address] [place], [place] [id number] Care Team Providers Care Tool Machine Shop Supervisor Name Role Phone SAMMI KEY Primary Care Provide r [phone] REASON FOR VISIT Update Demographics - Personal Info Encounters Encounter Location Date Provider Diagnosis [address] [address] 06/24/2025 SAMMI KEY PLAN OF TREATMENT Next Appt Details Provider Name:SAMMI VENCES, 07/14/2025 12:00:00 PM, [address] [place], [address],
--- OUTSIDE RECORDS SUMMARY | 2025-07-02 06:31 | XMS_ITS ---
Author Organization [facility] Address [address] [place], [place] [id number] Care Team Providers Care Brass Plater Name Role Phone SAMMI KEY Primary Care Provide r [phone] REASON FOR VISIT incassia request MEDICATIONS Medication SIG (Take, Route, Fr equency, Duration) Notes Start Date End Date Status Incassia 0.35 MG TAKE 1 TABLET BY AKANKSHA TH EVERY DAY FOR 90 DAYS for 84 Active Encounters Encounter Location Date Provider Diagnosis [address] [phone] 07/02/2025 SAMMI KEY PLAN OF TREATMENT Medication Medication Name Sig Start Date Stop Date Notes Incassia 0.35 MG TAKE 1 TABLET BY AKANKSHA TH EVERY DAY FOR 90 DAYS for 84 Next Appt Details Provider Name:SAMMI VENCES, 07/14/2025 12:00:00 PM, [address] [place], [address],
--- OUTSIDE RECORDS SUMMARY | 2025-07-02 13:46 | XMS_ITS ---
Author Organization [facility] Address [address] [place], [place] [id number] Care Team Providers Care Language Translator Name Role Phone SAMMI EKY Primary Care Provide r [phone] REASON FOR VISIT RE:incassia request MEDICATIONS Medication SIG (Take, Route, Fr equency, Duration) Notes Start Date End Date Status Incassia 0.35 MG TAKE 1 TABLET BY AKANKSHA TH EVERY DAY FOR 90 DAYS for 84 days Active Encounters Encounter Location Date Provider Diagnosis [address] [address] 07/02/2025 SAMMI KEY PLAN OF TREATMENT Medication Medication Name Sig Start Date Stop Date Notes Incassia 0.35 MG TAKE 1 TABLET BY AKANKSHA TH EVERY DAY FOR 90 DAYS for 84 days Next Appt Details Provider Name:SAMMI VENCES, 07/14/2025 12:00:00 PM, [address] [place], [address],
--- OUTSIDE RECORDS SUMMARY | 2025-07-12 16:02 | XMS_ITS | Encounter Summary ---
Author Organization [facility] Address [address] [place] [address] Phone Care Team Providers Care Rehab Department Manager Name Role Phone Eulalia Angel TERMITE INSPECTOR Unavailable [phone] Isa Payne DO Primary Car e Provider Reason for Referral * MRI/CAT Scan - Closed Specialty Diagnoses / Procedures Referred By Contac t Referred To Contact Radiology Diagnoses Left knee pain Procedures MRI Knee (Left) CHG MRI, JOINT OF LEG. COMBO CHG MRI, JOINT OF LEG W/CONTRAST CHG MRI LOWER EXTREM JT, W/O CONTRAST CHG MRI, LOWER EXTR, W/O CONTRAST F/U BY CONTRAST CHG MRI, LOWER EXTREM W/CONTRAST CHG MRI, LOWER EXTREM Richardson Davenport MD Phone: tel: fax: mailto:[email or web address] Referral ID Status Reason Start Date Expiration Date Visits Re quested Visits Authorized [id number] Closed 06/17/2025 09/14/2025 1 1 Reason for Visit * MRI/CAT Scan - Closed Specialty Diagnoses / Procedures Referred By Contac t Referred To Contact Radiology Diagnoses Left knee pain Procedures MRI Knee (Left) CHG MRI, JOINT OF LEG. COMBO CHG MRI, JOINT OF LEG W/CONTRAST CHG MRI LOWER EXTREM JT, W/O CONTRAST CHG MRI, LOWER EXTR, W/O CONTRAST F/U BY CONTRAST CHG MRI, LOWER EXTREM W/CONTRAST CHG MRI, LOWER EXTREM Richardson Davenport MD Phone: tel: fax: mailto:[email or web address] Referral ID Status Reason Start Date Expiration Date Visits Re quested Visits Authorized [id number] Closed 06/17/2025 09/14/2025 1 1 Encounter Details Date Type Department Care Team (Late st Contact Info) Description 07/12/2025 4:02 PM EDT - 07/12/2025 11:59 PM EDT Hospital Encounter [facility] - [address] [address] Richardson Davenport MD [address] [address] Arrived Discharge Disposition: Home or Self Care Social History Tobacco Use Types Packs/Day Years [...] on file documented as of this encounter Medications at Time of Discharge acetaminophen (TYLENOL) 500 MG tablet Take 2 tablets (1,000 mg total) by mouth every 8 (eight) hours. Take for postoperative pain management. 0 1 calcium carbonate 500 mg (200 mg elemental) chewable tablet Take 1 tablet by mouth as needed for heartburn. cetirizine (ZYRTEC) 10 MG tablet Take 1 tablet by mouth as needed. diazePAM (VALIUM) 5 MG tablet Take 1 tablet (5 mg total) by mouth every 6 (six) hours as needed for anxiety. 10 tablet 1 diazePAM (VALIUM) 5 MG tablet Take 1 tablet (5 mg total) by mouth every 6 (six) hours as needed for anxiety. 15 tablet 1 diazePAM (VALIUM) 5 MG tablet Take 1 tablet (5 mg total) by mouth every 6 (six) hours as needed for anxiety. 15 tablet 1 diazePAM (VALIUM) 5 MG tablet Take 1 tablet (5 mg total) by mouth every 6 (six) hours as needed for anxiety. 15 tablet 1 diazePAM (VALIUM) 5 MG tablet Take 1 tablet (5 mg total) by mouth every 6 (six) hours as needed for anxiety. 15 tablet 1 diazePAM (VALIUM) 5 MG tablet Take 1 tablet (5 mg total) by mouth every 6 (six) hours as needed for anxiety. 15 tablet 1 erenumab-aooe (AIMOVIG AUTOINJECTOR) 70 mg/mL subcutaneous injection Inject 140 mg under the skin every 28 days. Last dose April 06 methylPREDNISolone (MEDROL DOSEPACK) 4 mg tablet follow package directions 21 tablet 4 ondansetron (ZOFRAN-ODT) 4 MG disintegrating tablet Take 1 tablet (4 mg total) by mouth every 8 (eight) hours as needed for nausea. 15 tablet 1 oxyCODONE 5 MG immediate release tablet Take 1-3 tablets (5-15 mg total) by mouth every 4 (four) hours as needed for moderate pain. Partial fill ok 30 tablet 1 oxyCODONE 5 MG immediate release tablet Take 1 tablet (5 mg total) by mouth every 4 (four) hours as needed for moderate pain. 28 tablet 1 oxyCODONE 5 MG immediate release tablet Take 1 tablet (5 mg total) by mouth every 4 (four) hours as needed for moderate pain. 28 tablet 1 oxyCODONE 5 MG immediate release tablet Take 1 tablet (5 mg total) by mouth every 4 (four) hours as needed for moderate pain. 28 tablet 1 oxyCODONE 5 MG immediate release tablet Take 1 tablet (5 mg total) by mouth every 4 (four) hours as needed for moderate pain. 28 tablet 1 polyethylene glycol (MIRALAX) 17 gram packet Take 17 g by mouth daily as needed. 1 pregabalin (LYRICA) 150 MG capsule Take 150 mg by mouth 2 (two) times a day. pregabalin (LYRICA) 150 MG capsule Take 1 capsule (150 mg total) by mouth 2 (two) times a day. 60 capsule 1 1 senna (SENOKOT) 8.6 mg tablet Take 2 tablets by mouth daily. Take while taking opioid medication. 1 traMADoL (ULTRAM) 50 mg tablet Take 1 tablet (50 mg total) by mouth every 6 (six) hours as needed for pain (specific location in comments). 60 tablet 1 traMADoL (ULTRAM) 50 mg tablet Take 1 tablet (50 mg total) by mouth every 6 (six) hours as needed for pain (specific location in comments). 30 tablet 1 traMADoL (ULTRAM) 50 mg tablet Take 1 tablet (50 mg total) by mouth every 6 (six) hours as needed for pain (specific location in comments). 60 tablet 1 traMADoL (ULTRAM) 50 mg tablet Take 1 tablet (50 mg total) by mouth every 6 (six) hours as needed for pain (specific location in comments). 60 tablet 1 traZODone (DESYREL) 50 MG tablet Take 50 mg by mouth nightly at bedtime. documented as of this encounter Plan of Treatment Upcoming Encounters Date Type Department Care Team (Late st Contact Info) Description 07/24/2025 1:00 PM EDT Office Visit [facility] [address] [facility], [address] [place] [address] Richardson Davenport MD [address] [address] 11/19/2025 11:30 AM EST Office Visit [facility] [address] [place] [address] Dar Abbott DO [address] [place] [address] Pending Results Name Type Priority Associated Diagnoses Date /Time MRI Knee (Left) Imaging Routine Left knee pain 07/12/2025 5:05 PM EDT Scheduled Orders Name Type Priority Associated Diagnoses Orde r Schedule MRI Knee (Left) Imaging Routine Left knee pain As Needed for 1 Occurrences starting 07/12/2025 until 07/12/2025 documented as of this encounter Visit Diagnoses Diagnosis Left knee pain Pain in joint, lower leg documented in this encounter Care Teams Rehab Department Manager Relationship Specialty Start Date End Date Isa Payne DO [address] [place] [address] PCP - General Internal Medicine 04/25/22 Eulalia Angel NP Nurse Practitioner Family Medicine 10/29/18 documented as of this encounter Additional Source Comments The information contained in this document represents components of the legal health record. It is not the complete legal health record.[facility]
--- OUTSIDE RECORDS SUMMARY | 2025-07-12 16:02 | XMS_ITS | Encounter Summary ---
Author Organization [facility] Address [address] [place] [address] Phone Care Team Providers Care Mounter Smoking Pipe Name Role Phone Eulalia Angel OUTSIDE SOLAR SALES CONSULTANT Unavailable [phone] Isa Payne DO Primary Car e [...] EXTREM Richardson Davenport MD Phone: tel: fax: mailto:[email or web address] Referral ID Status Reason Start Date Expiration Date Visits Re quested Visits Authorized [id number] Closed 06/17/2025 09/14/2025 1 1 Reason for [...] EXTREM Richardson Davenport MD Phone: tel: fax: mailto:[email or web address] Referral ID Status Reason Start Date Expiration Date Visits Re quested Visits Authorized [id number] Closed 06/17/2025 09/14/2025 1 1 Encounter Details Date Type Department Care Team (Late st Contact Info) Description 07/12/2025 4:02 PM EDT - 07/12/2025 11:59 PM EDT Hospital Encounter [facility] - [address] [address] Richardson Davenport MD [address] [address] [email or web address] Arrived Discharge Disposition: Home or Self Care [...] Visit [facility] 1999 [facility], [address] [place] [address] Richardson Davenport MD [address] [address] 11/19/2025 11:30 AM EST Office Visit [facility] [address] [place] [address] Dar Abbott DO [address] [place] [address] Pending Results Name Type Priority Associated Diagnoses Date /Time MRI Knee (Right) Imaging Routine Right knee pain 07/12/2025 5:05 PM EDT Scheduled Orders Name Type Priority Associated Diagnoses Orde r Schedule MRI Knee (Right) Imaging Routine Right knee pain As Needed for 1 Occurrences starting 07/12/2025 until 07/12/2025 documented as of this encounter Visit Diagnoses Diagnosis Right knee pain Pain in joint, lower leg documented in this encounter Care Teams Mounter Smoking Pipe Relationship Specialty Start Date End Date Isa Payne DO [address] [place] [address] PCP - General Internal Medicine 04/25/22 Eulalia Angel NP Nurse Practitioner Family Medicine 10/29/18 documented as of this encounter Additional Source Comments The information contained in this document represents components of the legal health record. It is not the complete legal health record.[facility]
--- OUTSIDE RECORDS SUMMARY | 2025-07-14 08:00 | XMS_ITS ---
Author Organization [facility] Address [address] [place], [place] [address] Care Team Providers Care Paint Roller Cover Machine Setter Name Role Phone SAMMI KEY Primary Care Provide r [phone] REASON FOR VISIT 39/1 year CPX Encounters Encounter Location Date Provider Diagnosis [address] [address] 07/14/2025 SAMMI KEY PLAN OF TREATMENT Next Appt Details Provider Name:SAMMI VENCES, 07/14/2025 12:00:00 PM, [address] [place], [address],
--- OUTSIDE RECORDS SUMMARY | 2025-07-14 08:34 | XMS_ITS | Encounter Summary ---
Author Organization [facility] Address [address] [place], [place] [address] Phone Care Team Providers Care Management Architect Name Role Phone Eulalia Angel BORING MACHINE SET UP OPERATOR JIG Unavailable [phone] Isa Payne DO Primary Car e [...] EXTREM Richardson Davenport MD Phone: tel: fax: mailto:[email or web address] Referral ID Status Reason Start Date Expiration Date Visits Re quested Visits Authorized [id number] Closed 06/17/2025 09/14/2025 1 1 * MRI/CAT Scan - Closed Specialty Diagnoses [...] EXTREM Richardson Davenport MD Phone: tel: fax: mailto:[email or web address] Referral ID Status Reason Start Date Expiration Date Visits Re quested Visits Authorized [id number] Closed 06/17/2025 09/14/2025 1 1 Encounter Details Date Type Department Care Team (Late st Contact Info) Description 06/16/2025 Orders Only [facility] [employer] [employer] [address] [facility], [facility] [address] [place] [address] Kirit Akbar MA [address] [place] [address] [email or web address] Left knee pain (Primary Dx); Right knee [...] Description 07/24/2025 1:00 PM EDT Office Visit [facility] [employer] 1999 [facility], [address] [place] [address] Richardson Davenport MD [address] [address] 11/19/2025 11:30 AM EST Office Visit [facility] [address] [place] [phone] Dar Abbott DO [address] [place] [address] Pending Results Name Type Priority Associated Diagnoses Date /Time MRI Knee (Right) Imaging Routine Right knee pain 07/12/2025 5:05 PM EDT MRI Knee (Left) Imaging Routine Left knee [...] leg documented in this encounter Care Teams Management Architect Relationship Specialty Start Date End Date Isa Payne DO [address] [place] [address] PCP - General Internal Medicine 04/25/22 Eulalia Angel NP Nurse Practitioner Family Medicine 10/29/18 documented as of this encounter Additional Source Comments The information contained in this document represents components of the legal health record. It is not the complete legal health record.[facility]
--- OUTSIDE RECORDS SUMMARY | 2025-07-14 08:34 | XMS_ITS | Encounter Summary ---
Author Organization [facility] Address [address] [facility] [address] [place] [address] Phone Care Team Providers Care Utility Operator Yarn Name Role Phone Eulalia Angel MANAGER HI Unavailable [phone] Isa Payne DO Primary Car e Provider Encounter Details Date Type Department Care Team (Late st Contact Info) Description 08/14/2022 Procedure Pass [facility], [address] [address] Social History Tobacco Use Types Packs/Day Years [...] Visit [facility] 1999 [facility], [address] [place] [address] Richardson Davenport MD [address] [address] 11/19/2025 11:30 AM EST [facility] Visit [facility] [address] [place] [address] Dar Abbott, DO [address] [place] [address] documented as of this encounter Visit Diagnoses Not on filedocumented in this encounter Care Teams Utility Operator Yarn Relationship Specialty Start Date End Date Isa Payne DO [address] [place] [address] PCP - General Internal Medicine 04/25/22 Eulalia Angel NP Nurse Practitioner Family Medicine 10/29/18 documented as of this encounter Additional Source Comments The information contained in this document represents components of the legal health record. It is not the complete legal health record.[facility]
--- OUTSIDE RECORDS SUMMARY | 2025-07-14 08:34 | XMS_ITS | Patient Health Record ---
Author Organization [facility] Address [address] [place], [place] [address] Care Team Providers Care Health Sciences Dean Name Role Phone ROBERSAMMI DIAMOND Primary Care Provide r [phone] ALLERGIES No Known Allergies REASON FOR REFERRAL No Information MEDICATIONS Medication SIG (Take, Route, Fr equency, Duration) Notes Start Date End Date Status Incassia 0.35 MG TAKE 1 TABLET BY AKANKSHA TH EVERY DAY FOR 90 DAYS for 84 days Active Drysol 20 % USE 1 APPLICATION AT BEDTIME AND WASH OFF IN THE MORNING for 90 A ctive Lidocaine 5 % APPLY 1 APPLICATION TO AFFECTED JOINT 3 TIMES A DAY NEEDED for 30 Active Aimovig 140 MG/ML as directed Subcutan eous every 3 weeks Active Imiquimod 5 % 1 application at bed time, leave on for 8 hours then wash off Externally Three times a Week for 30 days Active traZODone HCl 50 MG 1 tablet at bedtime as needed Orally Once a day for 30 day(s) Active Omeprazole 20 MG TAKE 1 CAPSULE BY [facility] [[email or web address] EVERY DAY 30 MINUTES BEFORE MORNING MEAL for 90 Active IMMUNIZATIONS Vaccine Route Administration Date Status Comme nts Influenza, Flublok IM Intramuscular 07/04/2023 Administere d SOCIAL HISTORY Tobacco Use: Social History Observation Description Date Details (start date - stop date) Current Smoker NA - NA Sex Assigned At : Social History Observation Description Sex Assigned At Unknown Smoking Question Answer Notes Are you a: current smoker PROBLEMS Problem Type ICD Code Onset Dates Problem Status W/U Status Risk SNOMED Code Notes Problem Other chronic pain (G89.29) Active confirmed 23662315 Problem Lumbago with sciatica, right side (M54.41) Active confirmed 716070030044740 Problem Lumbago with sciatica, left side (M54.42) Active confirmed 783330488 Problem Chronic fatigue (R53.82) Active confirmed 26498147 Problem Migraine without status migrainosus, not intractable, unspecified migraine type (G43.909) Active confirmed 89413733 Problem History of tobacco use (Z87.891) Active confirmed 330630199 Problem Chronic sinusitis, unspecified location (J32.9) Active confirmed 99815595 Problem History of vitamin D deficiency (Z86.39) Active confirmed 23133074719879 Problem Irritable bowel syndrome, unspecified type (K58.9) Active confirmed 07272837 Problem 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) Active confirmed 531536505 Problem Abnormal finding on breast imaging (R92.8) Active confirmed 917733277 Encounters Encounter Location Date Provider Diagnosis [place] [id number] 07/30/20[address] [address] 01/16/2025 SAMMI BOSSCOLASACCO Abnormal finding on breast imaging R92.[address] [address] 06/04/2025 SAMMI BOSSCOLASACCO [address] [address] 06/24/2025 SAMMI BOSSCOLASACCO [address] [address] 07/02/2025 SAMMI BOSSCOLASACCO [address] [address] 07/02/2025 [address] [address] 07/14/2025 SAMMI BOSSCOLASACCO ASSESSMENTS Encounter Date Diagnosis Assessment Notes Treatment Notes Treatment Clinical Notes Section Notes 01/16/2025 Abnormal finding on breast imaging (ICD-10 - R92.8) PLAN OF TREATMENT Future Test Test Name Order Date URINE DIPSTICK 10/16/2023 URINALYSIS W/REFLEX CULTURE 10/16/2023 Next Appt Details Provider Name:SAMMI EDUARDO VANGIE, 07/14/2025 12:00:00 PM, [address] [place], [address], Insurance Providers Payer Name Payer Address Payer Phone Subscriber Number Group Number Insured Name Patient Relationship to Insured Coverage Start Date Coverage End Date [facility] [address] [place] [address] [id number] SABRA SUGGS Self - patient is the insured 4 MEDICAL (GENERAL) HISTORY Medical History History ICD Code allergies arthritis irritable bowel syndrome thyroid disease depression gout Surgical History Surgery Date(Month/Year) lower back 2019 lower back & artifical disc 2020
--- OUTSIDE RECORDS SUMMARY | 2025-07-14 08:34 | XMS_ITS | Encounter Summary ---
Author Organization [facility] Address [address] [place] [address] Care Team Providers Care Fast Food Cashier Name Role Phone Eulalia Angel NP Primary Care Provider [phone] Erin Yancey MD Primary Care Provider [phone] Eulalia Angel NP Unavailable [phone] Eulalia Angel NP Primary Care Provider [phone] Valentino Seals MD Primary Care Provider [phone] Encounter Details Date Type Department Care Team (Late st Contact Info) Description 08/29/2019 Orders Only [facility] [address] [place] [address] Eulalia Angel NP 123 [facility] [address] [place] [address] Social History Tobacco Use Types [...] at . Any insurance accepted. Quit smoking resources-[email or web address] documented as of this encounter Procedures * Due to [place] [employer] law, this organization might not be sharing negative HIV tests. Procedure Name Priority Date/Time Associated Diagnosis Comments VENIPUNCTURE Routine 08/29/2019 3:34 PM EST Thyroiditis TSH, 3RD GENERATION Routine 08/29/2019 3 :34 PM EST Thyroiditis documented in this encounter Results * Due to [place] [employer] law, this organization might not be sharing negative HIV tests. * TSH, 3RD GENERATION (08/29/2019 3:34 PM EST) TSH 3.59 mIU/L [facility] Comment: Reference Range > or = 20 Years 0.40-4.50 Ranges First trimester 0.26-2.66 Second trimester 0.55-2.73 Third trimester 0.43-2.91 08/29/2019 3:34 PM EST 08/30/2019 12:24 AM EST Narrative Resulting Agency Comment [id number] Eulalia Arcadia DIGITAL BUSINESS ANALYST LABORATORY Final Result [facility] [address] [place] [address] * (ABNORMAL) THYROID PEROXIDASE AND THYROGLOBULIN ANTIBODIES (08/29/2019 3:34 PM EST) Thyroglobulin Ab <1 < or = 1 IU/mL [facility] Thyroperoxidase Ab 18(H) <9 IU/mL Q [facility] 08/29/2019 3:34 PM EST 08/30/2019 12:24 AM EST Narrative Resulting Agency Comment [id number] Eulalia Angel DIGITAL BUSINESS ANALYST LABORATORY Final Result Performing Organization Address City/[facility]/ZIP Co de Phone Number [facility] [address] [place] [address] documented in this encounter Visit Diagnoses Diagnosis Thyroiditis documented in this encounter Care Teams Fast Food Cashier Relationship Specialty Start Date End Date Eulalia Angel NP PCP - General 03/24/19 08/15/20 Erin Yancey MD PCP - General Internal Medicine 08/16/20 03/23/21 Eulalia Angel NP PCP - Backup PCP Internal Medicine 12/30/20 03/23/21 Eulalia Angel NP PCP - General Internal Medicine 03/24/21 10/05/22 Valentino Seals MD [address] [place] [address] PCP - General 10/06/22 documented as of this encounter
--- OUTSIDE RECORDS SUMMARY | 2025-07-14 08:34 | XMS_ITS | Encounter Summary ---
Author Organization [facility] Address [address] [employer] [facility] [address] [place] [address] Phone Care Team Providers Care Color Receiver Name Role Phone Eulalia Angel ANIMAL DOCTOR Unavailable [phone] Isa Payne DO Primary Car e Provider Encounter Details Date Type Department Care Team (Late st Contact Info) Description 08/14/2022 Procedure Pass [facility], Ct Scan - [address] [address] Social History Tobacco Use Types Packs/Day Years [...] 07/24/2025 1:00 PM EDT [facility] [address] [facility], [address] [place] [address] Richardson Davenport MD [address] [address] 11/19/2025 11:30 AM EST Office Visit [facility] [address] [place] [address] Dar Abbott, DO [address] [place] [address] documented as of this encounter Visit Diagnoses Not on filedocumented in this encounter Care Teams Color Receiver Relationship Specialty Start Date End Date Isa Payne DO [address] [place] [address] PCP - General Internal Medicine 04/25/22 Eulalia Angel NP Nurse Practitioner Family Medicine 10/29/18 documented as of this encounter Additional Source Comments The information contained in this document represents components of the legal health record. It is not the complete legal health record.[facility]
--- OUTSIDE RECORDS SUMMARY | 2025-07-14 08:35 | XMS_ITS | Encounter Summary ---
Author Organization [facility] Address [address] [address] Phone Care Team Providers Care Offshore Wind Turbine Technician Name Role Phone Eulalia Angel NP Unavailable [phone] Eulalia Angel NP Primary Care Provider [phone] Isa Payne DO Primary Car e Provider Encounter Details Date Type Department Care Team (Late st Contact Info) Description 05/09/2021 Ancillary Orders [facility] [address] [place], [place] [phone] Dar Abbott, [address] [place] [address] [email or web address] Pain Social History Tobacco Use Types [...] 10:24 PM EDT Rozina Rosa RN * [place] Suicide Severity Rating Scale (Screener/Recent Self-Report) Question [...] Description 07/24/2025 1:00 PM EDT Office Visit [facility] [address] [facility], [address] [place] [address] Richardson Davenport MD [address] [address] 11/19/2025 11:30 AM EST Office Visit [facility] [address] [place] [address] Dar Abbott DO [address] [place] [address] [email or web address] documented as of this encounter Results * [place] Fluoroscopy (05/09/2021 6:17 PM EDT) Narrative [facility] - 05/09/2021 6:18 PM EDT Fluoroscopy was provided during this procedure. us Dar Abbott DO IMG [place] MISC Final Result [facility] documented in this encounter Visit Diagnoses Diagnosis Pain Generalized pain Pain Generalized pain documented in this encounter Care Teams Offshore Wind Turbine Technician Relationship Specialty Start Date End Date Eulalia Angel NP PCP - General Family Medicine 10/29/18 04/24/22 Isa Payne DO [address] [place] [address] PCP - General Internal Medicine 04/25/22 Eulalia Angel NP Nurse Practitioner Family Medicine 10/29/18 documented as of this encounter Additional Source Comments The information contained in this document represents components of the legal health record. It is not the complete legal health record.[facility]
--- OUTSIDE RECORDS SUMMARY | 2025-07-14 08:35 | XMS_ITS | Encounter Summary ---
Author Organization [facility] Address [address] [facility] [address] [place] [address] Phone Care Team Providers Care Chip Person Name Role Phone Eulalia Angel CONSTRUCTION SAFETY MANAGER Unavailable [phone] Isa Payne DO Primary Car e Provider Encounter Details Date Type Department Care Team (Late st Contact Info) Description 06/16/2025 Procedure Pass [facility], [address] [address] Social History Tobacco Use Types Packs/Day Years [...] 07/24/2025 1:00 PM EDT Office Visit [facility] 1999 [facility], [address] [place] [address] Richardson Davenport MD [address] [address] 11/19/2025 11:30 AM EST [facility] Visit [facility] [address] [place] [address] Dar Abbott, [address] [place] [address] documented as of this encounter Visit Diagnoses Not on filedocumented in this encounter Care Teams Chip Person Relationship Specialty Start Date End Date Isa Payne DO [address] [place] [address] PCP - General Internal Medicine 04/25/22 Eulalia Angel NP Nurse Practitioner Family Medicine 10/29/18 documented as of this encounter Additional Source Comments The information contained in this document represents components of the legal health record. It is not the complete legal health record.[facility]
--- OUTSIDE RECORDS SUMMARY | 2025-07-14 08:35 | XMS_ITS | Encounter Summary ---
Author Organization [facility] Address [address] [place] [address] Care Team Providers Care Head Of Loss Prevention Name Role Phone Eulalia Angel NP Unavailable Eulalia Angel NP Primary Care Provider [phone] Erin Yancey MD Primary Care Provider [phone] Eulalia Angel NP Unavailable [phone] Eulalia Angel NP Primary Care Provider [phone] Valentino Seals MD Primary Care Provider [phone] Reason for Referral * CONSULT AND TREATMENT (Routine) - Authorized Specialty Diagnoses / Procedures Referred By Katja t Referred To Contact Neurosurgery / Neurology Diagnoses Back pain, unspecified back location, unspecified back pain laterality, unspecified chronicity Procedures NeuroSurgeon: Dr Dar Abbott p [phone] f [phone] [facility] Eulalia Angel NP Phone: tel: fax: Dar Abbott DO [facility], Dept of Neurosurgery [address] [place] [address] Phone: tel: fax: Referral ID Status Reason Start Date Expiration Date Visits Requested Visits Authorized [id number] Authorized Specialty Services Required 03/31/2019 03/30/2020 3 3 Question Answer When do you want this visit to occur? WITHIN 1 WEEK - 04/01/19 6 visits Appointment with MD or AP? FIRST AVAILABLE Patient is being referred outside of [facility] for the following reason, however final determination for [id number] requests are made by the Referral Management [...] refer to? NeuroSurgeon: Dr Dar Abbott p [phone] f [phone] [facility] surgery consult Please list the patient's preferred provider for this consult. Dr Dar Abbott p [phone] f [phone] [facility] Encounter Details Date Type Department Care Team ([facility] st Contact Info) Description 03/24/2019 Orders Only [facility] [address] [place] [address] Eulalia Angel NP [address] [place] [address] Social History Tobacco Use Types Packs/Day Years [...] at . Any insurance accepted. Quit smoking resources-[email or web address] documented as of this encounter Visit Diagnoses Diagnosis Back pain, unspecified back location, unspecified back pain laterality, unspecified chronicity documented in this encounter Care Teams Head Of Loss Prevention Relationship Specialty Start Date End Date Eulalia Angel NP PCP - Backup PCP Internal Medicine 01/28/19 06/09/19 Eulalia Angel NP PCP - General 03/24/19 08/15/20 Erin Yancey MD PCP - General Internal Medicine 08/16/20 03/23/21 Eulalia Angel NP PCP - Backup PCP Internal Medicine 12/30/20 03/23/21 Eulalia Angel NP PCP - General Internal Medicine 03/24/21 10/05/22 Valentino Seals MD [address] [place] [address] PCP - General 10/06/22 documented as of this encounter
--- OUTSIDE RECORDS SUMMARY | 2025-07-14 08:35 | XMS_ITS | Encounter Summary ---
Author Organization [facility] Address [address] [employer] [address] [address] Phone Care Team Providers Care Hand Gluer And Slicer Name Role Phone Eulalia Angel HELIUM ARC WELDER Unavailable [phone] Isa Payne DO Primary Car e Provider Encounter Details Date Type Department Care Team (Late st Contact Info) Description 11/13/2023 Procedure Pass [facility], [address] [place] [address] Social History Tobacco Use Types Packs/Day Years [...] 07/24/2025 1:00 PM EDT [facility] [address] [facility], [address] [place] [address] Richardson Davenport MD [address] [facility] [place] [address] 11/19/2025 11:30 AM EST [facility] Visit [facility] [address] [place] [address] Dar Abbott, DO [address] [place] [address] documented as of this encounter Visit Diagnoses Not on filedocumented in this encounter Care Teams Hand Gluer And Slicer Relationship Specialty Start Date End Date Isa Payne DO [address] [place] [address] PCP - General Internal Medicine 04/25/22 Eulalia Angel NP Nurse Practitioner Family Medicine 10/29/18 documented as of this encounter Additional Source Comments The information contained in this document represents components of the legal health record. It is not the complete legal health record.[facility]
--- OUTSIDE RECORDS SUMMARY | 2025-07-14 08:35 | XMS_ITS | Encounter Summary ---
Author Organization [facility] Address [address] [place] [address] Care Team Providers Care Regional Economist Name Role Phone Eulalia Angel NP Unavailable [phone] Eulalia Angel NP Primary Care Provider [phone] Erin Yancey MD Primary Care Provider Eulalia Angel MAIL INSERTER Unavailable [phone] Eulalia Angel NP Primary Care Provider Valentino Seals MD Primary Care Provider [phone] Encounter Details Date Type Department Care Team (Late st Contact Info) Description 04/29/2019 Orders Only [facility] [address] [place] [phone] Eulalia Angel NP 123 [facility] [address] [place] [address] Social History Tobacco Use Types [...] of this encounter Progress Notes * Eulalia Angle NP - 04/30/2019 7:41 AM EDT Hi, [...] at . Any insurance accepted. Quit smoking resources-[email or web address] documented as of this encounter Procedures * Due to [place] state law, this organization might not be sharing negative HIV tests. Procedure Name Priority Date/Time Associated Diagnosis Comments HCG, TOTAL, QL Routine 04/29/2019 3:25 PM EDT Amenorrhea documented in this encounter Results * Due to [place] [employer] law, this organization might not be sharing negative HIV tests. * HCG, TOTAL, QL (04/29/2019 3:25 PM EDT) HCG, Qualitative (Screen) NEGATIVE [facility] Comment: Reference Range Non-: Negative : Positive 04/29/2019 3:25 PM EDT 04/30/2019 12:32 AM EDT Narrative Resulting Agency Comment [id number] Eulalia Angel NP LAB SAME DAY RESULT Final Resul t [facility] [address] [place] [address] documented in this encounter Visit Diagnoses Diagnosis Amenorrhea Absence of menstruation documented in this encounter Care Teams Regional Economist Relationship Specialty Start Date End Date Eulalia Angel NP PCP - Backup PCP Internal Medicine 01/28/19 06/09/19 Eulalia Angel NP PCP - General 03/24/19 08/15/20 Erin Yancey MD PCP - General Internal Medicine 08/16/20 03/23/21 Eulalia Angel NP PCP - Backup PCP Internal Medicine 12/30/20 03/23/21 Eulalia Angel NP PCP - General Internal Medicine 03/24/21 10/05/22 Valentino Seals MD [address] [place] [address] PCP - General 10/06/22 documented as of this encounter
--- OUTSIDE RECORDS SUMMARY | 2025-07-14 08:35 | XMS_ITS | Encounter Summary ---
Author Organization [facility] Address [address] [facility] [address] [place] [address] Phone Care Team Providers Care Email Production Specialist Name Role Phone Eulalia Angel NP Unavailable [phone] Eulalia Angel NP Primary Care Provider [phone] Isa Payne DO Primary Car e Provider Encounter Details Date Type Department Care Team (Late st Contact Info) Description 11/01/2018 Procedure Pass [facility] [address] [place] [address] Social History Tobacco Use Types Packs/Day Years [...] Description 07/24/2025 1:00 PM EDT Office Visit [facility] 1999 [facility], [address] [place] [address] Richardson Davenport MD [address] [address] 11/19/2025 11:30 AM EST Office Visit [facility] [address] [place] [phone] Dar Abbott, [address] [place] [address] [email or web address] documented as of this encounter Visit Diagnoses Not on filedocumented in this encounter Care Teams Email Production Specialist Relationship Specialty Start Date End Date Eulalia Angel NP PCP - General Family Medicine 10/29/18 04/24/22 Isa Payne DO [address] [place] [address] PCP - General Internal Medicine 04/25/22 Eulalia Angel NP Nurse Practitioner Family Medicine 10/29/18 documented as of this encounter Additional Source Comments The information contained in this document represents components of the legal health record. It is not the complete legal health record.[facility]
--- OUTSIDE RECORDS SUMMARY | 2025-07-14 08:35 | XMS_ITS | Encounter Summary ---
Author Organization [facility] Address [address] [email or web address] [address] [address] Phone Care Team Providers Care Client Manager Large Law Name Role Phone Eulalia Angel PREPARATION CENTER COORDINATOR Unavailable [phone] Isa Payne DO Primary Car e Provider Encounter Details Date Type Department Care Team (Late st Contact Info) Description 11/13/2023 Procedure Pass [facility], [address] [place] [address] Social History Tobacco Use Types Packs/Day Years [...] 07/24/2025 1:00 PM EDT [facility] 1999 [facility], [address] [place] [address] Richardson Davenport MD 1999 [facility] [place] [address] 11/19/2025 11:30 AM EST Office Visit [facility] [address] [place] [address] Dar Abbott, DO [address] [place] [address] documented as of this encounter Visit Diagnoses Not on filedocumented in this encounter Care Teams Client Manager Large Law Relationship Specialty Start Date End Date Isa Payne DO [address] [place] [address] PCP - General Internal Medicine 04/25/22 Eulalia Angel NP Nurse Practitioner Family Medicine 10/29/18 documented as of this encounter Additional Source Comments The information contained in this document represents components of the legal health record. It is not the complete legal health record.[facility]
--- OUTSIDE RECORDS SUMMARY | 2025-07-14 08:35 | XMS_ITS | Encounter Summary ---
Author Organization [facility] Address [address] [facility] [address] [place] [address] Phone Care Team Providers Care Shrimp Picker Name Role Phone Eulalia Angel HATCHERY WORKER Unavailable [phone] Isa Payne DO Primary Car e Provider Encounter Details Date Type Department Care Team (Late st Contact Info) Description 06/16/2025 Procedure Pass [facility], [address] [address] Social History Tobacco Use Types Packs/Day Years [...] 07/24/2025 1:00 PM EDT Office Visit [facility] 1999 [facility], [address] [place] [address] Richardson Davenport MD [address] [address] 11/19/2025 11:30 AM EST Office Visit [facility] 70 [place] [address] Dar Abbott, [address] [place] [address] documented as of this encounter Visit Diagnoses Not on filedocumented in this encounter Care Teams Shrimp Picker Relationship Specialty Start Date End Date Isa Payne DO [address] [place] [address] PCP - General Internal Medicine 04/25/22 Eulalia Angel NP Nurse Practitioner Family Medicine 10/29/18 documented as of this encounter Additional Source Comments The information contained in this document represents components of the legal health record. It is not the complete legal health record.[facility]
--- OUTSIDE RECORDS SUMMARY | 2025-07-14 08:35 | XMS_ITS | Encounter Summary ---
Author Organization [facility] Address [address] [place] [address] Phone Care Team Providers Care Respiratory Practitioner Name Role Phone Eulalia Angel NP Unavailable [phone] Eulalia Angel NP Primary Care Provider [phone] Isa Payne DO Primary Car e Provider Encounter Details Date Type Department Care Team (Late st Contact Info) Description 05/09/[address] [facility] PERIOPERATIVE DEPT [address] [place] [address] Social History Tobacco Use Types [...] 10:24 PM EDT Rozina Rosa RN * Ross Suicide Severity Rating Scale (Screener/Recent Self-Report) Question [...] Description 07/24/2025 1:00 PM EDT Office Visit [facility] 1999 [facility], [address] [place] [address] Richardson Davenport MD [address] [address] 11/19/2025 11:30 AM EST Office Visit [facility] [address] [place] [address] Dar Abbott DO [address] [place] [address] documented as of this encounter Visit Diagnoses Not on filedocumented in this encounter Care Teams Respiratory Practitioner Relationship Specialty Start Date End Date Eulalia Angel NP PCP - General Family Medicine 10/29/18 04/24/22 Isa Payne DO [address] [place] [address] PCP - General Internal Medicine 04/25/22 Eulalia Angel NP Nurse Practitioner Family Medicine 10/29/18 documented as of this encounter Additional Source Comments The information contained in this document represents components of the legal health record. It is not the complete legal health record.[facility]
--- OUTSIDE RECORDS SUMMARY | 2025-07-14 08:35 | XMS_ITS | Encounter Summary ---
Author Organization [facility] Address [address] [place] [address] Care Team Providers Care Cleaning Validation Consultant Name Role Phone Eulalia Angel NP Primary Care Provider [phone] Erin Yancey MD Primary Care Provider [phone] Eulalia Angel NP Unavailable [phone] Eulalia Angel NP Primary Care Provider [phone] Valentino Seals MD Primary Care Provider [phone] Reason for Referral * CONSULT AND TREATMENT (Routine) - Closed Specialty Diagnoses / Procedures Referred By Katja mao Referred To Contact ornamental iron worker apprentice Diagnoses Abnormal female pelvic exam Procedures Regina Shell MD - OBGYN at [facility] P: [phone] F: [phone] DOS: 11/25/19 Eulalia Angel NP Phone: tel: fax: Regina Mcdonald MD [facility] [address] [place] [address] Phone: tel: fax: Referral ID Status Reason Start Date Expiration Date Visits Requested Visits Authorized [id number] Closed Patient Preference 10/23/2019 10/22/2020 12 12 Question Answer When do you want this visit to occur? WITHIN 1 MONTH - 11/25/19 Appointment with or AP? FIRST AVAILABLE Patient is being referred outside of [facility] for the following reason, however final determination for [id number] requests are made by the Referral Management [...] like to refer to? DR Regina Mcdonald P:[phone] F:[phone] - 12 visits Encounter Details Date Type Department Care Team ([facility] st Contact Info) Description 10/17/2019 Orders Only [facility] [address] [place] [address] Eulalia Angel NP 123 [facility] [address] [place] [address] Social History Tobacco Use Types Packs/Day Years [...] Priority Associated Diagnoses Orde r Schedule CONSULT GAS LEAK TESTER NON-FC Referral Routine Abnormal female pelvic exam [...] at . Any insurance accepted. Quit smoking resources-[email or web address] documented as of this encounter Visit Diagnoses Diagnosis Abnormal female pelvic exam Nonspecific (abnormal) findings on radiological and other examination of genitourinary organs documented in this encounter Care Teams Cleaning Validation Consultant Relationship Specialty Start Date End Date Eulalia Angel NP PCP - General 03/24/19 08/15/20 Erin Yancey MD PCP - General Internal Medicine 08/16/20 03/23/21 Eulalia Angel NP PCP - Backup PCP Internal Medicine 12/30/20 03/23/21 Eulalia Angel NP PCP - General Internal Medicine 03/24/21 10/05/22 Valentino Seals MD [address] [place] [address] PCP - General 10/06/22 documented as of this encounter
--- OUTSIDE RECORDS SUMMARY | 2025-07-14 08:35 | XMS_ITS | Encounter Summary ---
Author Organization [facility] Address [address] [facility] [address] [place] [address] Phone Care Team Providers Care Pit Steward Name Role Phone Eulalia Angel SAND FILLER Unavailable [phone] Isa Payne DO Primary Car e Provider Encounter Details Date Type Department Care Team (Late st Contact Info) Description 07/09/2025 Ancillary Orders [facility],Outside Imaging [address] [place] [address] Unknown, Unknown, Social History Tobacco Use Types Packs/Day Years [...] Description 07/24/2025 1:00 PM EDT Office Visit [facility] 1999 [facility], [address] [place] [address] Richardson Davenport MD [address] [address] 11/19/2025 11:30 AM EST Office Visit [facility] 70 [place] [address] Dar Abbott, [address] [place] [address] [email or web address] documented as of this encounter Results * MRI Lower Extremity Outside (No Interpretation) (07/07/2023 12:00 AM EDT) Narrative Shannen Kaiser - 07/09/2025 6:48 AM EDT This study is for PACS storage only and not for interpretation. Procedure Note Shannen Kaiser - 07/09/2025 This study is for PACS storage only and not for interpretation. us Unknown Unknown MD [facility]INS OUTSIDE IMAGING W/OUT INT ERPRETATION Final Result documented in this encounter Visit Diagnoses Not on filedocumented in this encounter Care Teams Pit Steward Relationship Specialty Start Date End Date Isa Payne DO [address] [place] [address] PCP - General Internal Medicine 04/25/22 Eulalia Angel NP Nurse Practitioner Family Medicine 10/29/18 documented as of this encounter Additional Source Comments The information contained in this document represents components of the legal health record. It is not the complete legal health record.[facility]
--- OUTSIDE RECORDS SUMMARY | 2025-07-14 08:35 | XMS_ITS | Encounter Summary ---
Author Organization [facility] Address [address] [place] [address] Care Team Providers Care Director Of Program Management Name Role Phone Eulalia Angel NP Unavailable [phone] Eulalia Angel NP Primary Care Provider Erin Yancey MD Primary Care Provider Eulalia Angel CHIEF SOLUTION ARCHITECT Unavailable [phone] Eulalia Anegl NP Primary Care Provider Valentino Seals MD Primary Care Provider [phone] Encounter Details Date Type Department Care Team (Late st Contact Info) Description 05/28/2019 Orders Only [facility] [address] [place] [address] Eulalia Angel NP 123 [facility] [address] [place] [address] Social History Tobacco Use Types [...] at . Any insurance accepted. Quit smoking resources-[email or web address] documented as of this encounter Procedures * Due to [place] [employer] law, this organization might not be sharing negative HIV tests. Procedure Name Priority Date/Time Associated Diagnosis Comments THYROID PEROXIDASE AND THYROGLOBULIN ANTIBODIES Routine 05/28/2019 11:47 AM EDT Screening for endocrine, nutritional, metabolic and immunity disorder documented in this encounter Results * Due to [place] [employer] law, this organization might not be sharing negative HIV tests. * (ABNORMAL) THYROID PEROXIDASE AND THYROGLOBULIN ANTIBODIES (05/28/2019 11:47 AM EDT) Thyroglobulin Ab <1 < or = 1 IU/mL [facility] Thyroperoxidase Ab 12(H) <9 IU/mL Q [facility] 05/28/2019 11:4 7 AM EDT 05/29/2019 1:31 AM EDT Narrative Resulting Agency Comment [id number] us Brennan Cagle MD LABORATORY Final Result [facility] [address] [place] [address] documented in this encounter Visit Diagnoses Diagnosis Screening for endocrine, nutritional, metabolic and immunity disorder Screening for other and unspecified endocrine, nutritional, metabolic, and immunity disorders documented in this encounter Care Teams Director Of Program Management Relationship Specialty Start Date End Date Eulalia Angel NP PCP - Backup PCP Internal Medicine 01/28/19 06/09/19 Eulalia Angel NP PCP - General 03/24/19 08/15/20 Erin Yancey MD PCP - General Internal Medicine 08/16/20 03/23/21 Eulalia Angel NP PCP - Backup PCP Internal Medicine 12/30/20 03/23/21 Eulalia Angel NP PCP - General Internal Medicine 03/24/21 10/05/22 Valentino Seals MD [address] [place] [address] PCP - General 10/06/22 documented as of this encounter
--- OUTSIDE RECORDS SUMMARY | 2025-07-14 08:36 | XMS_ITS | Encounter Summary ---
Author Organization [facility] Address [address] [facility] [address] [address] Phone Care Team Providers Care Winch Driver Name Role Phone Eulalia Angel DIRECTOR STAGE Unavailable [phone] Isa Payne DO Primary Car e Provider Encounter Details Date Type Department Care Team (Late st Contact Info) Description 08/30/2023 Procedure Pass [facility], [address] [place] [address] Social History Tobacco Use Types Packs/Day Years [...] 07/24/2025 1:00 PM EDT [facility] 1999 [facility], [address] [place] [address] Richardson Davenport MD 1999 [facility] [place] [address] 11/19/2025 11:30 AM EST [facility] 70 [place] [address] Dar Abbott, DO [address] [place] [address] documented as of this encounter Visit Diagnoses Not on filedocumented in this encounter Care Teams Winch Driver Relationship Specialty Start Date End Date Isa Payne DO [address] [place] [address] PCP - General Internal Medicine 04/25/22 Eulalia Angel NP Nurse Practitioner Family Medicine 10/29/18 documented as of this encounter Additional Source Comments The information contained in this document represents components of the legal health record. It is not the complete legal health record.[facility]
--- OUTSIDE RECORDS SUMMARY | 2025-07-14 08:36 | XMS_ITS | Encounter Summary ---
Author Organization [facility] Address [address] [place] [address] Care Team Providers Care Smasher Name Role Phone Brennan Cagle MD Primary Care Provider [phone] Eulalia Angel NP Unavailable [phone] Eulalia Angel NP Primary Care Provider [phone] Erin Yancey MD Primary Care Provider [phone] Eulalia Angel PEOPLESOFT BUSINESS ANALYST Unavailable [phone] Eulalia Angel NP Primary Care Provider [phone] Valentino Seals MD Primary Care Provider [phone] Encounter Details Date Type Department Care Team (Late st Contact Info) Description 02/25/2019 Orders Only [facility] [address] [place] [address] Eulalia Angel NP 123 [facility] [address] [place] [address] Social History Tobacco Use Types [...] foods such as cakes, cookies, chips, popcorn, [place] fries, and ice cream. Hydrogenated fats (trans [...] are called omega- 3, omega-6, and omega-9. [place]-3 fatty acids are found in fish and some plants. They are good for heart health. They may reduce the risk of stroke, high blood pressure, and other chronic disease. Good sources are oily fish such as salmon, mackerel and tuna. [place] 3 fatty acids are also in fish oil supplements. Check with your healthcare provider before taking supplements. Fish oil supplements may cause bleeding in some people, especially if they are taken with blood-thinning medicines. Good plant sources for omega-3 fatty acids are canola oil, soybeans, flaxseed, avocado, and some types of nuts, especially walnuts and almonds. [place]-6 fatty acid is found in corn, safflower, soybean, and sunflower oils. [place]-9 fatty acid is found in olive oil, canola oil, and avocados. It is likely that the balance of fatty acids is very important. The [place] diet typically contains too much omega-6 fatty acid and not enough omega-3 fatty acid. How much fat do I need in my diet? Eating some fat???especially the good fats--is healthful, but many Americans eat too much and become overweight. The current [place] Heart Association Diet and Lifestyle Recommendations are: [...] at . Any insurance accepted. Quit smoking resources-http://[employer].org documented as of this encounter Procedures * [...] 1:31 AM EDT Narrative Resulting Agency Comment [id number] us Brennan Cagle MD LABORATORY Final Result Performing Organization Address [facility] Co de Phone Number [facility] [address] [place] [address] * (ABNORMAL) THYROID PEROXIDASE AND THYROGLOBULIN ANTIBODIES (02/25/2019 4:41 PM EDT) Thyroglobulin Ab <1 < or = 1 IU/mL [facility] Thyroperoxidase Ab 18(H) <9 IU/mL Q [facility] 02/25/2019 4:41 PM EDT 02/26/2019 1:51 AM EDT Narrative Resulting Agency Comment [id number] Brennan Cagle MD LABORATORY Final Result Performing Organization Address City/[facility] Co de Phone Number [facility] [address] [place] [address] * T4, FREE, SERUM (02/25/2019 4:41 PM EDT) FT4 0.9 0.8 - 1.8 ng/dL [facility] 02/25/2019 4:41 PM EDT 02/26/2019 1:51 AM EDT Narrative Resulting Agency Comment [id number] Brennan Cagle MD LABORATORY Final Result Performing Organization Address [facility] Co de Phone Number [facility] [address] [place] [address] * TSH, 3RD GENERATION (02/25/2019 4:41 PM EDT) TSH 2.42 mIU/L [facility] Comment: Reference Range > or = 20 Years 0.40-4.50 Ranges First trimester 0.26-2.66 Second trimester 0.55-2.73 Third trimester 0.43-2.91 02/25/2019 4:41 PM EDT 02/26/2019 1:51 AM EDT Narrative Resulting Agency Comment [id number] Brennan Cagle MD LABORATORY Final Result [facility] [address] [place] [address] * BASIC METABOLIC PANEL WITH (GFR) (02/25/2019 [...] needs for GFR calculation. Resulting Agency Comment [id number] Brennan Cagle MD LABORATORY Final Result Performing Organization Address [facility]/ZIP Co de Phone Number [facility] [address] [place] [address] * HEMOGLOBIN A1C (02/25/2019 4:41 PM EDT) [...] diagnosis of diabetes in children. According to [place] Diabetes Association (ADA) guidelines, hemoglobin A1c <7.0% represents optimal control in non- diabetic patients. Different metrics may apply to specific patient populations. Standards of Medical Care in Diabetes(ADA). Estimated Average Glucose 115 mg/dL (calc) [facility] 02/25/2019 4:41 PM EDT 02/26/2019 1:51 AM EDT Narrative Resulting Agency Comment [id number] Brennan Cagle MD LABORATORY Final Result Performing Organization Address [facility] Co de Phone Number [facility] [address] [place] [address] * (ABNORMAL) LIPID PANEL WITH REFLEX TO [...] DE LA CRUZ et al. WHITLEY. 2013;310(19): 6826-4880 (http://education.[employer].com/faq/UGI566) CHOL/HDL Ratio 3.8 <5.0 (calc) [facility] Cholesterol Non-HDL 143(H) <130 mg/dL (calc) [facility] Comment: For patients with diabetes plus 1 major ASCVD risk factor, treating to a non-HDL-C goal of <100 mg/dL (LDL-C of <70 mg/dL) is considered a therapeutic option. 02/25/2019 4:41 PM EDT 02/26/2019 1:51 AM EDT Narrative Resulting Agency Comment [id number] us Brennan Cagle MD LABORATORY Final Result [facility] [address] [place] [address] documented in this encounter Visit Diagnoses Diagnosis Screening for endocrine, nutritional, metabolic and immunity disorder Screening for other and unspecified endocrine, nutritional, metabolic, and immunity disorders documented in this encounter Care Teams Smasher Relationship Specialty Start Date End Date Brennan Cagle MD [address] [place] [address] PCP - General Internal Medicine 01/28/19 03/23/19 Eulalia Angel NP [address] [place] [address] PCP - Backup PCP Internal Medicine 01/28/19 06/09/19 Eulalia Angel NP [address] [place] [address] PCP - General 03/24/19 08/15/20 Erin Yancey MD [address] [place] [address] PCP - General Internal Medicine 08/16/20 03/23/21 Eulalia Angel NP [address] [place] [address] PCP - Backup PCP Internal Medicine 12/30/20 03/23/21 Eulalia Angel NP [address] [place] [address] PCP - General Internal Medicine 03/24/21 10/05/22 Valentino Seals MD [address] [place] [address] PCP - General 10/06/22 documented as of this encounter
--- OUTSIDE RECORDS SUMMARY | 2025-07-14 08:36 | XMS_ITS | Encounter Summary ---
Author Organization [facility] Address [address] [place] [address] Care Team Providers Care White Washer Piler Name Role Phone Eulalia Angel NP Primary Care Provider [phone] Brennan Cagle MD Primary Care Provider Eulalia Angel EDGING MACHINE FEEDER Unavailable [phone] Eulalia Angel NP Primary Care Provider Erin Yancey MD Primary Care Provider Eulalia Angel EDGING MACHINE FEEDER Unavailable [phone] Eulalia Angel EDGING MACHINE FEEDER Primary Care Provider [phone] Valentino Seals MD Primary Care Provider [phone] Encounter Details Date Type Department Care Team (Late st Contact Info) Description 12/16/2018 Orders Only [facility] [address] [place] [phone] Eulalia Angel, EDGING MACHINE FEEDER 123 [facility] [address] [place] [address] Social History Tobacco Use Types [...] / using tobacco Lifestyle No Gabby Montesinos, COMMUTER TRAIN OPERATOR Note: Smoking can cause cancer, heart attacks, [...] at . Any insurance accepted. Quit smoking resources-http://Geodruid.org documented as of this encounter Visit Diagnoses Not on filedocumented in this encounter Care Teams White Washer Piler Relationship Specialty Start Date End Date Eulalia Angel NP PCP - General Internal Medicine 05/14/18 01/27/19 Brennan Cagle MD [address] [place] [address] PCP - General Internal Medicine 01/28/19 03/23/19 Eulalia Angel NP [address] [place] [address] PCP - Backup PCP Internal Medicine 01/28/19 06/09/19 Eulalia Angel NP [address] [place] [address] PCP - General 03/24/19 08/15/20 Erin Yancey MD [address] [place] [address] PCP - General Internal Medicine 08/16/20 03/23/21 Eulalia Angel NP [address] [place] [address] PCP - Backup PCP Internal Medicine 12/30/20 03/23/21 Eulalia Angel NP [address] [place] [address] PCP - General Internal Medicine 03/24/21 10/05/22 Valentino Seals MD [address] [place] [address] PCP - General 10/06/22 documented as of this encounter
--- OUTSIDE RECORDS SUMMARY | 2025-07-14 08:37 | XMS_ITS | Encounter Summary ---
Author Organization [facility] Address [address] [place] [address] Care Team Providers Care Director Of Consumer Affairs Name Role Phone Eulalia Angel NP Primary Care Provider [phone] Brennan Cagle MD Primary Care Provider Eulalia Angel DRAMATIC DIRECTOR Unavailable [phone] Eulalia Angel NP Primary Care Provider Erin Yancey MD Primary Care Provider [phone] Eulalia Angel DRAMATIC DIRECTOR Unavailable [phone] Eulalia Angel DRAMATIC DIRECTOR Primary Care Provider Valentino Seals MD Primary Care Provider [phone] Encounter Details Date Type Department Care Team (Late st Contact Info) Description 07/31/2018 Orders Only [facility] [address] [place] [address] Eulalia Angel DRAMATIC DIRECTOR 123 [facility] [address] [place] [address] Social History Tobacco Use Types [...] at . Any insurance accepted. Quit smoking resources-[email or web address] documented as of this encounter Procedures * Due to [place] [employer] law, this organization might not be sharing negative HIV tests. Procedure Name Priority Date/Time Associated Diagnosis Comments CBC INCLUDES DIFFERENTIAL AND PLATELET COUNT Routine 07/31/2018 2:26 PM EST Fatigue, unspecified type BASIC METABOLIC PANEL WITH (GFR) Routine 07/31/2018 2:26 PM EST Fatigue, unspecified type documented in this encounter Results * Due to [place] [employer] law, this organization might not be sharing [...] needs for GFR calculation. Resulting Agency Comment [id number] us Brennan Cagle MD LABORATORY Final Result Performing Organization Address City/State/[facility] Co de Phone Number [facility] [address] [place] [address] * CBC INCLUDES DIFFERENTIAL AND PLATELET COUNT [...] 12:30 AM EST Narrative Resulting Agency Comment [id number] us Brennan Cagle MD LAB SAME DAY RESULT Final Res ult [facility] [address] [place] [address] documented in this encounter Visit Diagnoses Diagnosis Fatigue, unspecified type documented in this encounter Care Teams Director Of Consumer Affairs Relationship Specialty Start Date End Date Eulalia Angel NP PCP - General Internal Medicine 05/14/18 01/27/19 Brennan Cagle MD [address] [facility] [address] PCP - General Internal Medicine 01/28/19 03/23/19 Eulalia Angel NP [address] [place] [address] PCP - Backup PCP Internal Medicine 01/28/19 06/09/19 Eulalia Angel NP [address] [place] [address] PCP - General 03/24/19 08/15/20 Erin Yancey MD [address] [place] [address] PCP - General Internal Medicine 08/16/20 03/23/21 Eulalia Angel NP [address] [place] [address] PCP - Backup PCP Internal Medicine 12/30/20 03/23/21 Eulalia Angel NP [address] [place] [address] PCP - General Internal Medicine 03/24/21 10/05/22 Valentino Seals MD [address] [place] [address] PCP - General 10/06/22 documented as of this encounter
--- OUTSIDE RECORDS SUMMARY | 2025-07-14 08:37 | XMS_ITS | Patient Health Record ---
Author Organization Edilberto Ocampo MD Address [address] [place] [address] Care Team Providers Care Cuff Presser Name Role Phone Edilberto Ocampo Unavailable [phone] Reason For Referral No Information Plan Of [...] Insured Coverage Start Date Coverage End Date [facility] [address] [facility] [id number] Catherine Be Self - patient is the insured Medical (General) History Surgical History Surgery Date(Month/Year) None
--- OUTSIDE RECORDS SUMMARY | 2025-07-14 08:37 | XMS_ITS | Encounter Summary ---
Author Organization [facility] Address [address] [place] [address] Care Team Providers Care Transportation Sales Consultant Name Role Phone Eulalia Angel NP Primary Care Provider [phone] Erin Yancey MD Primary Care Provider [phone] Eulalia Angel NP Unavailable [phone] Eulalia Angel NP Primary Care Provider [phone] Valentino Seals MD Primary Care Provider [phone] Reason for Visit * Reason Onset Date Comments Refill Request 12/16/2019 Encounter Details Date Type Department Care Team (Late st Contact Info) Description 12/16/2019 Refill [facility] [address] [place] [address] Eulalia Angel NP 123 [facility] [address] [place], [place] [id number] Refill Request Social History Tobacco Use Types [...] / using tobacco Lifestyle No [place], Gabby, SLOT FLOOR ATTENDANT Note: Smoking can cause cancer, heart attacks, [...] at . Any insurance accepted. Quit smoking resources-http://[employer].org documented as of this encounter Visit Diagnoses Not on filedocumented in this encounter Care Teams Transportation Sales Consultant Relationship Specialty Start Date End Date Eulalia Angel NP PCP - General 03/24/19 08/15/20 Erin Yancey MD PCP - General Internal Medicine 08/16/20 03/23/21 Eulalia Angel NP PCP - Backup PCP Internal Medicine 12/30/20 03/23/21 Eulalia Angel NP PCP - General Internal Medicine 03/24/21 10/05/22 Valentino Seals MD [address] [place] [address] PCP - General 10/06/22 documented as of this encounter
--- OUTSIDE RECORDS SUMMARY | 2025-07-14 08:37 | XMS_ITS | Encounter Summary ---
Author Organization [facility] Address [address] [place] [address] [place] [address] Phone Care Team Providers Care Construction Safety Consultant Name Role Phone Eulalia Angel NP Unavailable [phone] Eulalia Angel NP Primary Care Provider [phone] Isa Payne DO Primary Car e Provider Encounter Details Date Type Department Care Team (Late st Contact Info) Description 06/16/2019 Procedure Pass [facility] PERIOPERATIVE DEPT [address] [place] [id number] Social History Tobacco Use Types Packs/Day Years [...] 07/24/2025 1:00 PM EDT Office Visit [facility] [address] [facility], [address] [place] [address] Richardson Davenport MD [address] [address] 11/19/2025 11:30 AM EST Office Visit [facility] [address] [place] [address] Dar Abbott, DO [address] [place] [address] documented as of this encounter Visit Diagnoses Not on filedocumented in this encounter Care Teams Construction Safety Consultant Relationship Specialty Start Date End Date Eulalia Angel NP PCP - General Family Medicine 10/29/18 04/24/22 Isa Payne DO [address] [place] [address] PCP - General Internal Medicine 04/25/22 Eulalia Angel NP Nurse Practitioner Family Medicine 10/29/18 documented as of this encounter Additional Source Comments The information contained in this document represents components of the legal health record. It is not the complete legal health record.[facility]
--- OUTSIDE RECORDS SUMMARY | 2025-07-14 08:37 | XMS_ITS | Encounter Summary ---
Author Organization [facility] Address [address] [place] [address] Care Team Providers Care Recycling Operator Name Role Phone Eulalia Angel NP Primary Care Provider [phone] Valentino Seals MD Primary Care Provider [phone] Reason for Referral * CONSULT AND TREATMENT (Routine) - Authorized Specialty Diagnoses / Procedures Referred By Contac t Referred To Contact Neurology Diagnoses Chronic nonintractable headache, unspecified headache type Procedures Aguilar Mitchell MD [phone] FAX [phone] Eulalia Angel NP Phone: tel: fax: Referral ID Status Reason Start Date Expiration Date Visits Requested Visits Authorized [id number] Authorized Specialty Services Required 03/24/2021 03/24/2022 6 6 Question Answer When do you want this visit to occur? 1 MONTH - 8/2 Appointment with or AP? FIRST AVAILABLE Patient is being referred outside of [facility] for the following reason, however final determination for sie-je-wkhwoek requests are made by the Referral Management Department Patient Preference Track Order? No Which provider/facility/agency would you like to refer to? (specify if you want first available regardless of location) Aguilar Mitchell [phone] FAX [phone] Please provide pertinent patient history. patient calling to request referral due to insurance change Encounter Details Date Type Department Care Team (Late st Contact Info) Description 03/24/2021 Orders Only [facility] [address] [place] [address] Eulalia Angel NP 123 [facility] [address] [place] [address] Social History Tobacco Use Types Packs/Day Years [...] at . Any insurance accepted. Quit smoking resources-http://[email or web address] Instant [email or web address] documented as of this encounter Visit Diagnoses Diagnosis Chronic nonintractable headache, unspecified headache type documented in this encounter Care Teams Recycling Operator Relationship Specialty Start Date End Date Eulalia Angel NP PCP - General Internal Medicine 03/24/21 10/05/22 Valentino Seals MD [address] [place] [address] PCP - General 10/06/22 documented as of this encounter
--- OUTSIDE RECORDS SUMMARY | 2025-07-14 08:37 | XMS_ITS | Encounter Summary ---
Author Organization [facility] Address [address] [facility] [address] [place] [address] Phone Care Team Providers Care Mental Health Director Name Role Phone Eulalia Angel NP Unavailable [phone] Eulalia Angel NP Primary Care Provider [phone] Isa Payne DO Primary Car e Provider Encounter Details Date Type Department Care Team (Late st Contact Info) Description 06/03/2019 Procedure Pass [facility] [address] [place] [address] Social History Tobacco Use Types Packs/Day Years [...] Description 07/24/2025 1:00 PM EDT Office Visit [facility] [address] [facility], [address] [place] [address] Richardson Davenport MD [address] [address] 11/19/2025 11:30 AM EST [facility] Visit [facility] [address] [place] [address] Dar Abbott, DO [address] [place] [phone] [email or web address] documented as of this encounter Visit Diagnoses Not on filedocumented in this encounter Care Teams Mental Health Director Relationship Specialty Start Date End Date Eulalia Angel NP PCP - General Family Medicine 10/29/18 04/24/22 Isa Payne DO [address] [place] [address] PCP - General Internal Medicine 04/25/22 Eulalia Angel NP Nurse Practitioner Family Medicine 10/29/18 documented as of this encounter Additional Source Comments The information contained in this document represents components of the legal health record. It is not the complete legal health record.[facility]
--- OUTSIDE RECORDS SUMMARY | 2025-07-14 08:37 | XMS_ITS | Encounter Summary ---
Author Organization [facility] Address [address] [place] [address] Care Team Providers Care Belt Builder Name Role Phone Eulalia Angel NP Primary Care Provider [phone] Valentino Seals MD Primary Care Provider [phone] Encounter Details Date Type Department Care Team (Late st Contact Info) Description 03/31/2021 Orders Only [facility] [address] [place] [address] Eulalia Angel NP 123 [facility] [address] [place], [place] [phone] Social History Tobacco Use Types Packs/Day Years [...] at . Any insurance accepted. Quit smoking resources-http://[email or web address] documented as of this encounter Visit Diagnoses Diagnosis Sciatica, unspecified laterality documented in this encounter Care Teams Belt Builder Relationship Specialty Start Date End Date Eulalia Angel NP PCP - General Internal Medicine 03/24/21 10/05/22 Valentino Seals MD [address] [place] [address] PCP - General 10/06/22 documented as of this encounter
--- OUTSIDE RECORDS SUMMARY | 2025-07-14 08:37 | XMS_ITS | Encounter Summary ---
Author Organization [facility] Address [address] [place] [address] Care Team Providers Care Disintegrator Name Role Phone Eulalia Angel NP Primary Care Provider [phone] Erin Yancey MD Primary Care Provider [phone] Eulalia Angel NP Unavailable [phone] Eulalia Angel NP Primary Care Provider [phone] Valentino Seals MD Primary Care Provider [phone] Encounter Details Date Type Department Care Team ([facility] st Contact Info) Description 03/15/2020 Orders Only [facility] [address] [place] [address] Eulalia Angel NP 123 [facility] [address] [place] [address] Social History Tobacco Use Types [...] at . Any insurance accepted. Quit smoking resources-[email or web address]://[email or web address] [email or web address] documented as of this encounter Procedures * Due to [place] [employer] law, this organization might not be sharing negative HIV tests. Procedure Name Priority Date/Time Associated Diagnosis Comments VENIPUNCTURE Routine 03/15/2020 2:50 PM EDT Tish's thyroiditis LIPID PANEL WITH REFLEX TO DIRECT LDL Routine 03/15/2020 2:50 PM EDT Screening for hyperlipidemia BASIC METABOLIC PANEL WITH (GFR) Routine 03/15/2020 2:50 PM EDT Screening for diabetes mellitus documented in this encounter Results * Due to [place] [employer] law, this organization might not be [...] Ramírez DE LA CRUZ et al. WHITLEY. 2013;310(67): 7649-4282 (http://education.AdYapper/faq/LTA925) CHOL/HDL Ratio 2.7 <5.0 (calc) [facility] Cholesterol Non-HDL 104 <130 mg/dL (calc) [facility] Comment: For patients with diabetes plus 1 major ASCVD risk factor, treating to a non-HDL-C goal of <100 mg/dL (LDL-C of <70 mg/dL) is considered a therapeutic option. 03/15/2020 2:50 PM EDT 03/16/2020 12:44 AM EDT Narrative Resulting Agency Comment [id number] Eulalia Angel NP LABORATORY Final Result [facility] [address] [place] [address] * BASIC METABOLIC PANEL WITH (GFR) (03/15/2020 [...] needs for GFR calculation. Resulting Agency Comment [id number] Eulalia Angel NP LABORATORY Final Result Performing Organization Address City/[facility]/ZIP Co de Phone Number [facility] [address] [place] [address] * TSH, 3RD GENERATION (03/15/2020 2:50 PM EDT) TSH 2.87 mIU/L [facility] Comment: Reference Range > or = 20 Years 0.40-4.50 Ranges First trimester 0.26-2.66 Second trimester 0.55-2.73 Third trimester 0.43-2.91 03/15/2020 2:50 PM EDT 03/16/2020 12:44 AM EDT Narrative Resulting Agency Comment [id number] Eulalia Angel NP LABORATORY Final Result Performing Organization Address City/[facility]/ZIP Co de Phone Number [facility] [address] [place] [address] documented in this encounter Visit Diagnoses Diagnosis Tish's thyroiditis Chronic lymphocytic thyroiditis Screening for diabetes mellitus Screening for hyperlipidemia Screening for lipoid disorders documented in this encounter Care Teams Disintegrator Relationship Specialty Start Date End Date Eulalia Angel NP PCP - General 03/24/19 08/15/20 Erin Yancey MD PCP - General Internal Medicine 08/16/20 03/23/21 Eulalia Angel NP PCP - Backup PCP Internal Medicine 12/30/20 03/23/21 Eulalia Angel NP PCP - General Internal Medicine 03/24/21 10/05/22 Valentino Seals MD [address] [place] [address] PCP - General 10/06/22 documented as of this encounter
--- OUTSIDE RECORDS SUMMARY | 2025-07-14 08:37 | XMS_ITS | Encounter Summary ---
Author Organization [facility] Address [address] [place] [address] Care Team Providers Care Rod Pointer Name Role Phone Eulalia Angel NP Primary Care Provider [phone] Valentino Seasl MD Primary Care Provider [phone] Encounter Details Date Type Department Care Team (Late st Contact Info) Description 03/24/2021 Orders Only [facility] [address] [place] [phone] Erin Yancey MD [address] [place] [address] Social History Tobacco Use Types Packs/Day Years [...] at . Any insurance accepted. Quit smoking resources-http://[employer].org documented as of this encounter Visit Diagnoses Not on filedocumented in this encounter Care Teams Rod Pointer Relationship Specialty Start Date End Date Eulalia Angel NP PCP - General Internal Medicine 03/24/21 10/05/22 Valentino Seals MD [address] [place] [address] PCP - General 10/06/22 documented as of this encounter
--- OUTSIDE RECORDS SUMMARY | 2025-07-14 08:37 | XMS_ITS | Clinical Summary ---
Author Organization [facility] Address [address] [place] [address] Care Team Providers Care Computator Name Role Phone Valentino Seals MD Primary Care Provider [phone] Allergies No known active allergies Medications Drospirenone-Et [...] at . Any insurance accepted. Quit smoking resources-[email or web address].[email or web address] Procedures * Due to [place] i-drive law, this organization might not be sharing [...] to Health Maintenance Results * Due to [place] i-drive law, this organization might not be sharing [...] DE LA CRUZ et al. WHITLEY. 2013;310(19): 4721-9648 (http://education.GeaCom.1DayLater/faq/AJX063) CHOL/HDL Ratio 2.7 <5.0 (calc) [facility] Cholesterol Non-HDL 104 <130 mg/dL (calc) [facility] Comment: For patients with diabetes plus 1 major ASCVD risk factor, treating to a non-HDL-C goal of <100 mg/dL (LDL-C of <70 mg/dL) is considered a therapeutic option. 03/15/2020 2:50 PM EDT 03/16/2020 12:44 AM EDT Narrative Resulting Agency Comment [id number] us Eulalia Angel LABORATORY Final Result [facility] [address] [place] [address] * PAP SMEAR (02/06/2019) us Unknown Provider [...] Recently Relevant to Health Maintenance Care Teams Computator Relationship Specialty Start Date End Date Valentino Seals MD [address] [place] [address] [facility] - General 10/06/22
--- OUTSIDE RECORDS SUMMARY | 2025-07-14 08:37 | XMS_ITS | Encounter Summary ---
Author Organization [facility] Address [address] [place] [address] Care Team Providers Care Drying Machine Back Tender Name Role Phone Eulalia Angel NP Primary Care Provider [phone] Valentino Seals MD Primary Care Provider [phone] Reason for Referral * CONSULT AND TREATMENT (Routine) - Authorized Specialty Diagnoses / Procedures Referred By Katja mao Referred To Contact Ent-Otolaryngology Diagnoses Allergy, subsequent encounter Procedures ENT -- Dr. Gerald Ivy, NPI# [id number] Fx: [phone] Eulalia Angel NP Phone: tel: fax: Referral ID Status Reason Start Date Expiration Date Visits Requested Visits Authorized [id number] Authorized Est Relationship 03/24/2021 03/24/2022 52 52 Question Answer When do you want this visit to occur? WITHIN 3 DAYS - 03/27/21 Appointment with or AP? FIRST AVAILABLE Patient is being referred outside of [facility] for the following reason, however final determination for evl-fj-fbtjige requests are made by the Referral Management Department Continuity of active patient care Track Order? No Which provider/facility/agency would you like to refer to? (specify if you want first available regardless of location) GERALD IVY M.D. [phone] Please provide pertinent patient history. patient calling to request referrals to this provider due to insurance change * CONSULT AND TREATMENT (Routine) - Authorized Specialty Diagnoses / Procedures Referred By Contac t Referred To Contact Neurosurgery / Neurology Diagnoses Back pain, unspecified back location, unspecified back pain laterality, unspecified chronicity Procedures Neurosurg -- Dr. Kaya Abbott, NPI# [id number] Eulalia Angel NP Phone: tel: fax: Kaya Abbott DO [facility], Dept of Neurosurgery [address] [place] [address] Phone: tel: fax: Referral ID Status Reason Start Date Expiration Date Visits Requested Visits Authorized [id number] Authorized Est Relationship 03/24/2021 03/24/2022 6 6 Question Answer Please provide pertinent patient history. patient calling to request new referral as insurance has change Track Order? No When do you want this visit to occur? WITHIN 3 DAYS - 03/29/21 Patient is being referred outside of [facility] for the following reason, however final determination for fbl-lz-fzumpdw requests are made by the Referral Management Department Continuity of active patient care Which provider/facility/agency would you like to refer to? (specify if you want first available regardless of location) Dr. kaya Abbott [phone] [facility] Encounter Details Date Type Department Care Team ([facility] st Contact Info) Description 03/24/2021 Orders Only [facility] [address] [place] [address] Eulalia Angel NP 123 [facility] [address] [place] [address] Social History Tobacco Use Types [...] at . Any insurance accepted. Quit smoking resources-http://makesmoUniversity of [email or web address].[email or web address] documented as of this encounter Visit Diagnoses Diagnosis Back pain, unspecified back location, unspecified back pain laterality, unspecified chronicity Allergy, subsequent encounter documented in this encounter Care Teams Drying Machine Back Tender Relationship Specialty Start Date End Date Eulalia Angel NP PCP - General Internal Medicine 03/24/21 10/05/22 Valentino Seals MD [address] [place] [address] PCP - General 10/06/22 documented as of this encounter
--- OUTSIDE RECORDS SUMMARY | 2025-07-14 08:37 | XMS_ITS | Encounter Summary ---
Author Organization [facility] Address [address] [place] [address] Care Team Providers Care Experimental Mechanic Outboard Motors Name Role Phone Eulalia Angel NP Primary Care Provider [phone] Valentino Seals MD Primary Care Provider [phone] Encounter Details Date Type Department Care Team ([facility] st Contact Info) Description 03/30/2021 Orders Only [facility] [address] [place] [address] Eulalia Angel NP [address] [facility] [address] [place], [place] [id number] Social History Tobacco Use Types Packs/Day Years [...] at . Any insurance accepted. Quit smoking resources-[email or web address] documented as of this encounter Visit Diagnoses Diagnosis Degenerative disc disease, lumbar Degeneration of lumbar or lumbosacral intervertebral disc documented in this encounter Care Teams Experimental Mechanic Outboard Motors Relationship Specialty Start Date End Date Eulalia Angel NP PCP - General Internal Medicine 03/24/21 10/05/22 Valentino Seals MD [address] [place] [address] PCP - General 10/06/22 documented as of this encounter
--- NOTE | 2025-07-14 08:51 | A.OFFVIS_ITS ---
Intake Visit Reasons: f/u Allergies No Known Allergies Allergy (Verified 01/30/25 08:05) Medication List - Last Reconciled 07/14/25 by Aguilar Mitchell MD albuterol sulfate 90 mcg/actuation 2 puffs inhalation Q4-6H PRN 30 days Breo Ellipta 200-25 mcg/dose (fluticasone furoate-vilanterol) 1 ea PO DAILY NS celecoxib 200 mg PO BID fluticasone propionate 50 mcg/actuation 2 sprays intranasal DAILY fremanezumab-vfrm (Ajovy) 225 mg (1.5 mL) subcut QMONTH 60 days lidocaine 4% (AsperFlex (lidocaine)) 1 patch topical Q24H PRN meloxicam 15 mg PO DAILY norethindrone (contraceptive) (Incassia) 0.35 mg PO DAILY trazodone 50 mg PO BEDTIME PRN HPI Comments Details: 40yr woman with Migraine and multiple Lumbar disc surgery and fusion , has been stable. Has moved to [place] with her boyfriend. Sold her house. Headaches are under control. The migraines act up towards the end of the month. Doing more work in the garden. Both knees are bothering her. Ajovy wears off in 2-3 weeks. Has a lot of stress with new work load. Back acts up from time to time, but stable. MRI looks stable. There was some saddle anesthesia. She had back surgery on 05/09/[address] [facility] [address] Abbott with L4-5 TLIF, L3-S1 fusion with a cage at L4-5 for unstability with 2 rods and 8 screws. Migraines are fine but may have some stress related headaches that flare up for a few days at a time. Uses Advil. Aimovig inj monthly. No major migraines. s/o SIJ inj and Radiofrequency for low back pain. Had epidural inj. Her MRI of the lumbar spine showed a new central disc herniation at L3-4 level. It still shows the previous disc bulges and annulus tear at L4-5 and L5-S1 which are unchanged. 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 Change in appetitedenies.? Fatiguedenies.? Feverdenies.? Weight gaindenies.? Weight lossdenies. ???Sleep:? Difficulty getting to sleepdenies.? Difficulty maintaining sleepdenies?.? Daytime sleepinessdenies. ???Respiratory:? Shortness of breathdenies.? Chest paindenies. ???Cardiovascular:? Chest pain at restdenies.? Chest pain with exertiondenies.? Dizzinessdenies.? Fluid accumulation in the legsdenies.? Irregular heartbeatdenies.? Palpitations denies. ???Gastrointestinal:? Constipationdenies.? Diarrheadenies.? Difficulty swallowingdenies.? Heartburn denies.? Nauseadenies. ???Genitourinary:? Frequent urinationdenies.? Urgencydenies.? Incontinencedenies. ???Musculoskeletal:? Neck paindenies.? Back painadmits.? Joint stiffnessdenies.? Sciaticadenies. ???Neurologic:? Difficulty swallowingdenies.? Balance difficultydenies.? Coordinationnormal.? Difficulty speakingdenies.? Dizzinessdenies.? Faintingdenies.? Gait abnormality denies.? Headacheadmits.? Loss of strengthdenies.? Loss of use of extremity denies.? Low back painadmits.? Memory lossdenies.? Seizuresdenies.? Ticsdenies.? Tingling/Numbnessdenies.? Transient loss of visiondenies.? Tremordenies. ???Psychiatric:? Anxietydenies.? Auditory/visual hallucinationsdenies.? Delusionsdenies.? Depressed moodadmits.? Stressorsdenies.? Suicidal thoughtsdenies. Physical Exam Neuro Other: Neurological: Abnormal neurological findings:??none.?Mental Status:??alert and oriented X 3,?Normal attention, orientation, memory and affect.?Cranial Nerves:??Pupils are equal, round and reactive to light. Fundoscopy shows normal disc bilaterally. External occular muscles are intact. Visual pepe are full, no ptosis. Face is symmetrical, no facial weakness or droop. Facial sensations are normal. Tongue protrudes in midline. Palate elevates symmetrically. Shoulder shrugging is normal..?Motor Examination:??Normal muscle tone, bulk and strength,?No atrophy or fasciculations,?No drift of the extended upper extremities,?Deep tendon reflexes are 2+?,?Plantars are flexor?.?Straight Leg Raising:??90 degrees.?Sensory Exam:??Normal light touch, temperature, pinprick, vibration and joint-position sensations?,?Rhomberg sign is absent.?Coordination:??no ataxia,?no titubation,?xcolox-ji-vdgf, oqcc-tfnv-ftab test and rapid alternating movements were normal.?Gait Exam:??Within normal limits.?Cerebellar Signs:??Ecbyiy-ni-uzom and agtt-qr-kpvz is normal,?no dysdiadochokinesia?.?Extrapyramidal System:??No tremor, rigidity with normal facial expressions,?No bradykinesia, no bradyphrenia. Normal arm swing and posture. No propulsion or retropulsion.?Speech:??Normal,?no dysphasia or dysarthria..? General Examination: GENERAL APPEARANCE:??normal,?in no acute distress.?HEART:??S1, S2 normal,?no murmurs.?LUNGS:??clear anteriorly and posteriorly.?MUSCULOSKELETAL:??normal.?EXTREMITIES:??no edema.?PSYCH:??alert, oriented,?cognitive function intact,?cooperative with exam.? Mini Mental Status Exam: Level of Consciousness:??Alert.?Orientation:??Knows correct year, month, date, day and season,?Knows correct city, county and state. Knows correct location and floor.?Registration:??Able to register 3 objects.?Attention:??Serial 7's performed accurately.?Recall:??Able to recall 3 out of 3 objects.?Language:??Normal spontaneous speech, fluency, repetition,naming, comprehension, reading and writing.?Total Score:??30/30.? Assessment & Plan Assessment & Plan (1) Lumbar radiculopathy: Comment: MRI right hip shows possible high grade tear of adductor brevis, adductor anat without muscle retraction Code(s): M54.16 - Radiculopathy, lumbar region Category: Medical (2) Migraine: Comment: Aimovig switched to Ajovy for Insurance purposes. Nurtec 75mg PRN for bad migraine. Code(s): G43.909 - Migraine, unspecified, not intractable, without status migrainosus Category: Medical (3) Cervical radiculitis: Code(s): M54.12 - Radiculopathy, cervical region Category: Medical Plan Continue current meds Medications: Changed From meloxicam 15 mg PO DAILY To meloxicam 15 mg PO DAILY 30 tabs 1RF 30 days Refilled fremanezumab-vfrm (Ajovy) 225 mg (1.5 mL) subcut QMONTH 2 ea 4RF 60 days Coding Level of Care Code Est Pt Level 4 (47971) Diagnoses Lumbar radiculopathy M54.16 Migraine G43.909 Cervical radiculitis M54.12
== END 2025-07-14 16:03 | disposition home or self-care (01) ==
LOC: HO.HSM 08:24
PROVIDERS: PCP Internal Medicine; Visit Provider Psychiatry & Neurology Neurology
DX: M54.16 Radiculopathy, lumbar region (principal); G43.909 Migraine, unspecified, not intractable, without status migrainosus; M54.12 Radiculopathy, cervical region
CPT/HCPCS: 99214

== ENCOUNTER 2025-07-15 12:56 | Outpatient (AMB) | payer OTHER, SELFPAY ==
--- OUTSIDE RECORDS SUMMARY | 2024-07-07 10:45 | XMS_ITS ---
Author Organization [facility] Address [address], [place] [id number] Care Team Providers Care Rn Patient Care Name Role Phone SAMMI KEY Primary Care Provide r [phone] REASON FOR VISIT 39/CPX Encounters Encounter Location Date Provider Diagnosis [address] [address] 07/07/2024 SAMMI KEY PLAN OF TREATMENT Next Appt Details Provider Name:SAMMI VENCES, 07/21/2026 09:00:00 AM, [address] [place], [phone],
--- OUTSIDE RECORDS SUMMARY | 2024-07-08 08:30 | XMS_ITS ---
Author Organization [facility] Address [address] [place], [place] [id number] Care Team Providers Care Jet Dyeing Machine Operator Name Role Phone SAMMI KEY Primary Care Provide r [phone] ALLERGIES No Known Allergies REASON FOR VISIT [...] Chronic sinusitis, unspecified location (J32.9) Active confirmed [id number] VITAL SIGNS Height 69 in 07/08/2024 Weight 179.2 lbs 07/08/2024 Blood pressure systolic 137 mm Hg 07/08/20 24 Blood pressure diastolic 81 mm Hg 024 BMI 26.46 kg/m2 07/08/2024 Encounters Encounter Location Date Provider Diagnosis [facility] [address] [place] [address] 07/08/2024 SAMMI SHAHID Physical exam Z00.00 ; [...] the process of setting of care with WHARF WORKER. Have refilled her previous topical therapy in [...] proce ss of setting of care with WHARF WORKER. Have refilled her previous topical therapy in [...] Provider Name:SAMMI VENCES, 07/21/2026 09:00:00 AM, [address] [facility], [place], [address], Progress Notes * Examination Category Sub-Category Detail [...] regimen working well. -up to date with roll line operator bmc -eye exam is due and will [...] to cardiology couple of years ago saw [facility] cardiology, Dr. Bailey, Testing showed only PACs and follow-up was to be as needed. She was also referred by pulmonary at [place] and has routine follow-up there have been no changes to her inhalers. She says ENT [place] praveen; and gets regular injections for her various environmental allergies Family history: dad w/ cardiomegaly and afib mom w/ cad and irreg rhythym gets occ fullness of lymph nodes and then they go away. after a few days. works for [employer] b/l Knee pain left > right , swelling of left knee lateral and above knee cap. seeing ortho at [facility] mri scheduled - ROS: GEN: No fevers, [...] No urinary hesitancy or discomfort. 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 WHARF WORKER: Normal menses, no prolonged or heavy bleeding. [...]
--- OUTSIDE RECORDS SUMMARY | 2024-07-30 11:53 | XMS_ITS ---
Author Organization [facility] Address [address] [place], [place] [phone] Care Team Providers Care Core Maker Helper Name Role Phone SAMMI KEY Primary Care Provide r [phone] REASON FOR VISIT 6 month f/u Encounters Encounter Location Date Provider Diagnosis [facility] [address] [place] [id number] 07/30/2024 SAMMI KEY PLAN OF TREATMENT Next Appt Details Provider Name:SAMMI VENCES, 07/21/2026 09:00:00 AM, [address] [place], [address],
--- OUTSIDE RECORDS SUMMARY | 2025-01-16 10:50 | XMS_ITS ---
Author Organization [facility] Address [address] [place], [place] [id number] Care Team Providers Care Extension Forester Name Role Phone NEWRAFAELALEÓN SAMMI Primary Care Provide r [phone] REASON FOR VISIT breast u/s PROBLEMS Problem Type ICD Code Onset Dates Problem Status W/U Status Risk SNOMED Code Notes Problem Abnormal finding on breast imaging (R92.8) Active confirmed [id number] Encounters Encounter Location Date Provider Diagnosis [facility] [address] [place] [address] 01/16/2025 SAMMI KEY Abnormal finding on breast imaging R92.8 ASSESSMENTS Encounter Date Diagnosis Assessment Notes Treatment Notes Treatment Clinical Notes Section Notes 01/16/2025 Abnormal finding on breast imaging (ICD-10 - R92.8) PLAN OF TREATMENT Next Appt Details Provider Name:SAMMI VENCES, 07/21/2026 09:00:00 AM, [address] [place], [address],
--- OUTSIDE RECORDS SUMMARY | 2025-06-04 04:07 | XMS_ITS ---
Author Organization [facility] Address [address] [place], [place] [id number] Care Team Providers Care Substitute Crossing Guard Name Role Phone SAMMI KEY Primary Care Provide r [phone] REASON FOR VISIT Update Demographics - Personal Info Encounters Encounter Location Date Provider Diagnosis [facility] [address] [place], [place] [id number] 06/04/2025 SAMMI KEY PLAN OF TREATMENT Next Appt Details Provider Name:SAMMI VENCES, 07/21/2026 09:00:00 AM, [address] [place], [address],
--- OUTSIDE RECORDS SUMMARY | 2025-06-24 04:25 | XMS_ITS ---
Author Organization [facility] Address [address] [place], [place] [id number] Care Team Providers Care Physician Obstetrician Name Role Phone SAMMI KEY Primary Care Provide r [phone] REASON FOR VISIT Update Demographics - Personal Info Encounters Encounter Location Date Provider Diagnosis [facility] [address] [place] [phone] 06/24/2025 SAMMI KEY PLAN OF TREATMENT Next Appt Details Provider Name:SAMMI VENCES, 07/21/2026 09:00:00 AM, [address] [place], [phone],
--- OUTSIDE RECORDS SUMMARY | 2025-07-02 06:31 | XMS_ITS ---
Author Organization [facility] Address [address] [place], [place] [phone] Care Team Providers Care Hand Knitter Name Role Phone SAMMI KEY Primary Care Provide r [phone] REASON FOR VISIT incassia request MEDICATIONS Medication SIG (Take, Route, Fr equency, Duration) Notes Start Date End Date Status Incassia 0.35 MG TAKE 1 TABLET BY AKANKSHA TH EVERY DAY FOR 90 DAYS for 84 Active Encounters Encounter Location Date Provider Diagnosis [facility] [address] [place] [phone] 07/02/2025 SAMMI KEY PLAN OF TREATMENT Medication Medication Name Sig Start Date Stop Date Notes Incassia 0.35 MG TAKE 1 TABLET BY AKANKSHA TH EVERY DAY FOR 90 DAYS for 84 Next Appt Details Provider Name:SAMMI VENCES, 07/21/2026 09:00:00 AM, [address] [place], [address],
--- OUTSIDE RECORDS SUMMARY | 2025-07-02 13:46 | XMS_ITS ---
Author Organization [facility] Address [address] [place], [place] [id number] Care Team Providers Care Lehr Loader Name Role Phone SAMMI KEY Primary Care Provide r [phone] REASON FOR VISIT RE:incassia request MEDICATIONS Medication SIG (Take, Route, Fr equency, Duration) Notes Start Date End Date Status Incassia 0.35 MG TAKE 1 TABLET BY AKANKSHA TH EVERY DAY FOR 90 DAYS for 84 days Active Encounters Encounter Location Date Provider Diagnosis [facility] [address] [place] [address] 07/02/2025 SAMMI KEY PLAN OF TREATMENT Medication Medication Name Sig Start Date Stop Date Notes Incassia 0.35 MG TAKE 1 TABLET BY AKANKSHA TH EVERY DAY FOR 90 DAYS for 84 days Next Appt Details Provider Name:SAMMI VENCES, 07/21/2026 09:00:00 AM, [address] [place], [address],
--- OUTSIDE RECORDS SUMMARY | 2025-07-12 16:02 | XMS_ITS | Encounter Summary ---
Author Organization [facility] [place] [facility] Address [address] [place] [address] Phone Care Team Providers Care Appointment Specialist Name Role Phone Eulalia Angel BLOW TORCH OPERATOR Unavailable [phone] Isa Payne DO Primary Car e [...] EXTREM Richardson Davenport MD Phone: tel: fax: mailto:[email or web address] Referral ID Status Reason Start Date Expiration Date Visits Re quested Visits Authorized [id number] Closed 06/17/2025 09/14/2025 1 1 Reason for [...] EXTREM Richardson Davenport MD Phone: tel: fax: mailto:[email or web address] Referral ID Status Reason Start Date Expiration Date Visits Re quested Visits Authorized [id number] Closed 06/17/2025 09/14/2025 1 1 Encounter Details Date Type Department Care Team (Late st Contact Info) Description 07/12/2025 4:02 PM EDT - 07/12/2025 11:59 PM EDT Hospital Encounter [facility], [facility] - [address] [address] Richardson Davenport MD [address] [address] Arrived Discharge Disposition: Home or Self Care [...] Visit [facility] 1999 [facility], [address] [place] [address] Richardson Davenport MD [address] [address] 11/19/2025 11:30 AM EST Office Visit [facility] [address] [place] [address] Dar Abbott, DO [address] [place] [address] [email or web address] documented as of this encounter Procedures Procedure Name Priority Date/Time Associated Diagnosis Comments MRI KNEE WITHOUT CONTRAST (LEFT) Routine 07/12/2025 5:05 PM EDT Left knee pain documented in this encounter Results * MRI KNEE WITHOUT CONTRAST (LEFT) (07/12/2025 5:05 PM EDT) Anatomical Region Laterality Modality Knee Left Magnetic Resonan ce 07/15/2025 12:3 9 PM EDT Impressions 07/15/2025 12:44 PM EDT 1. Mild medial compartment chondromalacia. 2. 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 3. Small joint effusion. Narrative 07/15/2025 12:44 PM EDT MRI KNEE WITHOUT CONTRAST (LEFT) Referring clinician's provided indication for this examination in Epic: * Meniscal tear, untreated, new symptoms; ? mmt tear TECHNIQUE: Multi-sequence, multi-planar MRI of the knee without intravenous contrast. COMPARISON: None FINDINGS: Medial Compartment: There is no evidence of a surfacing medial meniscus tear. There is mild patchy thinning of the medial compartment articular cartilage. Lateral Compartment: There is no evidence of a surfacing lateral meniscus tear. The lateral compartment articular cartilage is intact. Patellofemoral Compartment: There is mild patchy thinning of the medial patellar facet articular cartilage. There is focal fissuring of the patellar apex articular cartilage. There is moderate patchy thinning of the femoral trochlea articular cartilage, most marked within the groove and along the medial trochlea. Tendons: The extensor mechanism and popliteus tendon are intact. Ligaments: The cruciate and collateral ligaments are intact. The patellar retinacula are intact. Bones: There is no evidence of acute fracture, subluxation, or dislocation. Joint: There is a small joint effusion. There is no Ellison's cyst. Procedure Note Laura Doyle MD - 07/15/2025 MRI KNEE WITHOUT CONTRAST (LEFT) Referring clinician's provided indication for this examination in Epic: *Meniscal tear, untreated, new symptoms; ? mmt tear TECHNIQUE: Multi-sequence, multi-planar MRI of the knee withoutintravenous contrast. COMPARISON: None FINDINGS: Medial Compartment: There is no evidence of a surfacing medial meniscustear. There is mild patchy thinning of the medial compartment articularcartilage. Lateral Compartment: There is no evidence of a surfacing lateral meniscustear. The lateral compartment articular cartilage is intact. Patellofemoral Compartment: There is mild patchy thinning of the medialpatellar facet articular cartilage. There is focal fissuring of thepatellar apex articular cartilage. There is moderate patchy thinning ofthe femoral trochlea articular cartilage, most marked within the grooveand along the medial trochlea. Tendons: The extensor mechanism and popliteus tendon are intact. Ligaments: The cruciate and collateral ligaments are intact. The patellarretinacula are intact. Bones: There is no evidence of acute fracture, subluxation, ordislocation. Joint: There is a small joint effusion. There is no Ellison's cyst. IMPRESSION: 1. Mild medial compartment chondromalacia. 2. 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 3. Small joint effusion. Richardson Davenport MD IM MR EXTREMITY Final Result documented in this encounter Visit Diagnoses Diagnosis Left knee pain Pain in joint, lower leg documented in this encounter Care Teams Appointment Specialist Relationship Specialty Start Date End Date Isa Payne DO [address] [place] [address] PCP - General Internal Medicine 04/25/22 Eulalia Angel NP Nurse Practitioner Family Medicine 10/29/18 documented as of this encounter Additional Source Comments The information contained in this document represents components of the legal health record. It is not the complete legal health record.[facility] [place] [facility]
--- OUTSIDE RECORDS SUMMARY | 2025-07-12 16:02 | XMS_ITS | Encounter Summary ---
Author Organization [facility] Address [address] [place] [address] Phone Care Team Providers Care Biology Laboratory Assistant Name Role Phone Eulalia Angel ENDLESS STEAMER TENDER Unavailable Isa Payne DO Primary Car e Provider [...] EXTREM Richardson Davenport MD Phone: tel: fax: mailto:[email or web address] Referral ID Status Reason Start Date Expiration Date Visits Re quested Visits Authorized [id number] Closed 06/17/2025 09/14/2025 1 1 Reason for [...] EXTREM Richardson Davenport MD Phone: tel: fax: mailto:[email or web address] Referral ID Status Reason Start Date Expiration Date Visits Re quested Visits Authorized [id number] Closed 06/17/2025 09/14/2025 1 1 Encounter Details Date Type Department Care Team (Late st Contact Info) Description 07/12/2025 4:02 PM EDT - 07/12/2025 11:59 PM EDT Hospital Encounter [facility], [facility] - [address] [address] Richardson Davenport MD [address] [address] [email or web address] Arrived Discharge Disposition: Home or Self Care [...] Visit [facility] [address] [facility], [address] [place] [address] Richardson Davenport MD [address] [address] 11/19/2025 11:30 AM EST Office Visit [facility] [address] [place] [address] Dar Abbott, DO [address] [place] [address] [email or web address] documented as of this encounter Procedures Procedure [...] leg documented in this encounter Care Teams Biology Laboratory Assistant Relationship Specialty Start Date End Date Isa Payne DO [address] [place] [address] PCP - General Internal Medicine 04/25/22 Eulalia Angel NP Nurse Practitioner Family Medicine 10/29/18 documented as of this encounter Additional Source Comments The information contained in this document represents components of the legal health record. It is not the complete legal health record.[facility]
--- OUTSIDE RECORDS SUMMARY | 2025-07-14 04:35 | XMS_ITS ---
Author Organization [facility] Address [address] [place], [place] [id number] Care Team Providers Care Seasoning Mixer Name Role Phone SAMMI KEY Primary Care Provide r [phone] REASON FOR VISIT Update Kiosk Demographics Encounters Encounter Location Date Provider Diagnosis [facility] [address] [place] [address] 07/14/2025 SAMMI KEY PLAN OF TREATMENT Next Appt Details Provider Name:SAMMI VENCES, 07/21/2026 09:00:00 AM, [address] [place], [address],
--- OUTSIDE RECORDS SUMMARY | 2025-07-14 08:00 | XMS_ITS ---
Author Organization [facility] Address [address] [place] [place], [place] [id number] Care Team Providers Care Lap Checker Name Role Phone SAMMI KEY Primary Care Provide r [phone] REASON FOR VISIT 1 year CPX MEDICATIONS [...] intermittent asthma without complication (J45.20) Active confirmed [id number] VITAL SIGNS Height 69 in 07/14/2025 Weight 184.4 lbs 07/14/2025 Blood pressure systolic 114 mm Hg 07/14/20 25 Blood pressure diastolic 68 mm Hg 025 BMI 27.23 kg/m2 07/14/2025 Encounters Encounter Location Date Provider Diagnosis [facility] [address] [place] [address] 07/14/2025 SAMMI ELENACOMFORTRAFAELALEÓN Physical exam Z00.00 ; Migraine without status migrainosus, not intractable, unspecified migraine type G43.909 ; Pain in left knee M25.562 ; Pain in right knee M25.561 ; Mild intermittent asthma without complication J45.20 and Tobacco use Z72.0 ASSESSMENTS Encounter Date Diagnosis Assessment Notes Treatment Notes Treatment Clinical Notes Section Notes 07/14/2025 Physical exam (ICD-10 - Z00.00) breast imaging pending prn occupational therapist pending 07/14/2025 Migraine without status migrainosus, not [...] Assessment Notes Physical exam breast imaging pending prn occupational therapist pending Migraine without status migr ainosus, not [...] Test Test Name Order Date Urinalysis, Complete w/[id number] 025 [id number] 07/14/2025 CBC, Platelet, w/o Differential-[id number] 1 Hepatic Function Panel [id number] LP+Non-HDL Cholesterol-[id number] 07/14/2025 BMP8+eGFR-[id number] 07/14/2025 Next Appt Details Follow Up: prn,1 Year, Reaso n: Provider Name:SAMMITAY ZUNIGANAZ VENCES, 07/21/2026 09:00:00 AM, [address] [place], [address], Progress Notes * Examination Category Sub-Category Detail [...] regimen working well. -up to date with prn occupational therapist [facility] next appt december 2025 -eye exam [...] to cardiology couple of years ago saw [facility], Dr. Bailey, Testing showed only PACs and follow-up was to be as needed. She was also referred by pulmonary at [place] and Was treated with Breo, Xolair, albuterol. Has not seen them or been consistent with her inhalers. She says ENT [facility] praveen; [...] and above knee cap. seeing ortho at [facility] mri scheduled. Dr. Davenport . recently had [...] No urinary hesitancy or discomfort. 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 [...]
--- OUTSIDE RECORDS SUMMARY | 2025-07-15 18:01 | XMS_ITS | Encounter Summary ---
Author Organization [facility] Address [address] [place] [address] Care Team Providers Care Special Assets Officer Name Role Phone Eulalia Angel NP Primary Care Provider [phone] Erin Yancey MD Primary Care Provider [phone] Eulalia Angel NP Unavailable [phone] Eulalia Angel NP Primary Care Provider [phone] Valentino Seals MD Primary Care Provider [phone] Reason for Referral * CONSULT AND TREATMENT (Routine) - Closed Specialty Diagnoses / Procedures Referred By Katja mao Referred To Contact placement assistant Diagnoses Abnormal female pelvic exam Procedures Regina Shell MD - OBGYN at [facility] P: [phone] F: [phone] DOS: 11/25/19 Eulalia Angel NP Phone: tel: fax: Regina Mcdonald MD [facility] [address] [place] [address] Phone: tel: fax: Referral ID Status Reason Start Date Expiration Date Visits Requested Visits Authorized [id number] Closed Patient Preference 10/23/2019 10/22/2020 12 12 Question Answer When do you want this visit to occur? WITHIN 1 MONTH - 11/25/19 Appointment with or AP? FIRST AVAILABLE Patient is being referred outside of [facility] for the following reason, however final determination for [id number] requests are made by the Referral Management [...] like to refer to? DR Regina Mcdonald P:[id number] F:[phone] - 12 visits Encounter Details Date Type Department Care Team ([facility] st Contact Info) Description 10/17/2019 Orders Only [facility] [address] [place] [address] Eulalia Angel NP [address] [facility] [address] [place] [address] Social History Tobacco Use Types Packs/Day Years [...] Priority Associated Diagnoses Orde r Schedule CONSULT PLUNKET NURSE NON-FC Referral Routine Abnormal female pelvic exam [...] at . Any insurance accepted. Quit smoking resources-[email or web address] documented as of this encounter Visit Diagnoses Diagnosis Abnormal female pelvic exam Nonspecific (abnormal) findings on radiological and other examination of genitourinary organs documented in this encounter Care Teams Special Assets Officer Relationship Specialty Start Date End Date Eulalia Angel NP PCP - General 03/24/19 08/15/20 Erin Yancey MD PCP - General Internal Medicine 08/16/20 03/23/21 Eulalia Angel NP PCP - Backup PCP Internal Medicine 12/30/20 03/23/21 Eulalia Angel NP PCP - General Internal Medicine 03/24/21 10/05/22 Valentino Seals MD [address] [place] [address] PCP - General 10/06/22 documented as of this encounter
--- OUTSIDE RECORDS SUMMARY | 2025-07-15 18:01 | XMS_ITS | Clinical Summary ---
Author Organization [facility] Address [address] [employer] [address] [address] Phone Care Team Providers Care Textile Engraver Name Role Phone Eulalia Angel CULINARY DIRECTOR Unavailable [phone] Isa Payne DO Primary Car e [...] as needed for anxiety. 15 tablet Active diazePAM (VALIUM) 5 MG [...] Encounters Date Type Department Care Team Description 07/12/2025 4:02 PM EDT - 07/12/2025 11:59 PM EDT Hospital Encounter [facility], [address] [address] Richardson Davenport MD Arrived Discharge Disposition: Home or Self Care 07/12/2025 4:02 PM EDT - 07/12/2025 11:59 PM EDT Hospital Encounter [address] [address] Richardson Davenport MD Arrived Discharge Disposition: Home or Self Care 07/09/2025 Ancillary Orders [facility],Outside Imaging [address] [place] [address] Sydni Troy MD 06/16/2025 10:15 AM EDT Office Visit [facility] [address] [facility], [address] [place] [address] Richardson Davenport MD Chondromalacia of patella, unspecified laterality (Primary Dx); Tear of medial meniscus of left knee, current, unspecified tear type, subsequent encounter; Tear of medial meniscus of right knee, current, unspecified tear type, subsequent encounter 06/16/2025 Procedure Pass [address] [address] 06/16/2025 Procedure Pass [address] [address] 06/16/2025 Orders Only [facility] [address] [facility], [address] [place] [address] Kirit Akbar MA Left knee pain (Primary Dx); Right knee pain 06/04/2025 3:30 PM EDT - 06/04/2025 11:59 PM EDT Hospital Encounter [facility], X-Ray - [address] [place] [id number] Dar Abbott, DO Discharge Disposition: Home or Self Care 05/19/2025 11:30 AM EDT Office Visit [facility] [address] [place] [address] Dar Abbott, Herniated lumbar disc [...] Description 07/24/2025 1:00 PM EDT Office Visit [facility] [address] [facility], [address] [place] [address] Richardson Davenport MD [address] [address] 11/19/2025 11:30 AM EST Office Visit [facility] [address] [place] [phone] Dar Abbott, DO [address] [place] [address] [phone] (work) [email or web address] Health Maintenance Due Date Last Done Comments [...] this topic Medical Devices Implanted Type Area Design Studio Consultant Device Identifier Shelf Expiration Date Model / Serial / Lot Putty Bone 1.0ml Graft Summer Demineralized Matrix Jar - [id number] Implanted:Qty: 1 on 05/09/2021 by Dar Abbott DO at [facility] Spine Lumbar MEDTRONIC SPINE 04/11/2024 [id number] / [id number] / Description:The implant type , laterality (when applicable), size, and expiration date have been visually and verbally confirmed by the Surgeon, Circulating RN and Scrub Personnel. Putty Bone 1.0ml Graft Summer Demineralized Matrix Jar - [id number] Implanted:Qty: 1 on 05/09/2021 by Dar Abbott DO at [facility] Spine Lumbar [employer] SPINE 02/24/2024 [id number] / [id number] / Description:The implant type , laterality (when applicable), size, and expiration date have been visually and verbally confirmed by the Surgeon, Circulating RN and Scrub Personnel. Screw Bone 45x6.5mm Spine Cd Horizon Multiaxial [place] Chrome Osteogrip Dual Lead Thread - [id number] Implanted:Qty: 1 on 05/09/2021 by Dar Abbott DO at [facility] Spine Lumbar [employer] SPINE [id number] / / Description:Load 2/ vw deb am 05/02/21 Screw Bone 50x6.5mm Spine Cd Horizon Multiaxial [place] Chrome Osteogrip Dual Lead Thread - [id number] Implanted:Qty: 5 on 05/09/2021 by Dar Abbott DO at [facility] Spine Lumbar [employer] SPINE [id number] / / Description:Load 2/ vw deb am 05/02/21 Screw Bone 45x7.5mm Spine Cd Horizon 5.5 Multiaxial [place] Chrome Osteogrip Dual Lead Thread - [id number] Implanted:Qty: 2 on 05/09/2021 by Dar Abbott DO at [facility] Spine Lumbar [employer] SPINE [id number] / / Description:Load 2/ vw deb am 05/02/21 Set Screw 5.5x55mm Spine Cd Horizon Multiaxial [place] Osteogrip Dual Lead Thread - [id number] Implanted:Qty: 8 on 05/09/2021 by Dar Abbott DO at [facility] Spine Lumbar [employer] SPINE [id number] / / Description:Load 2/ vw deb am 05/02/21 Thoracolumbar Spacer 7x22mm Verte Stack Peek - [id number] Implanted:Qty: 1 on 05/09/2021 by Dar Abbott DO at [facility] Spine Lumbar [employer] SPINE 02/24/2027 [id number] / / [id number] Description:The implant type , laterality (when applicable), size, and expiration date have been visually and verbally confirmed by the Surgeon, Circulating RN and Scrub Personnel. Gume 5.5x80mm Spinal Cd Horizon Solera Titanium Curve - [id number] Implanted:Qty: 2 on 05/09/2021 by Dar Abbott DO at [facility] Spine Lumbar [employer] SPINE [id number] / / Description:LOAD 10/31 VW deb am 05/02/21 Procedures Procedure Name Priority Date/Time Associated Diagnosis Comments MRI KNEE WITHOUT CONTRAST (LEFT) Routine 07/12/2025 5:05 PM EDT Left knee pain MRI KNEE WITHOUT CONTRAST (RIGHT) Routine 07/12/2025 5:05 PM EDT Right knee pain XR LUMBOSACRAL SPINE 4 OR MORE VIEWS Routine 06/04/2025 3:46 PM EDT Herniated lumbar disc without myelopathy from Last 3 Months Results * MRI KNEE WITHOUT CONTRAST (LEFT) [...] 3. Small joint effusion. Richardson Davenport MD [facility] MR EXTREMITY Final Result * MRI KNEE WITHOUT CONTRAST (RIGHT) (07/12/2025 [...] clinician's provided indication for this examination in [facility]: * Meniscal tear, untreated, new symptoms; ? [...] clinician's provided indication for this examination in [facility]: *Meniscal tear, untreated, new symptoms; ? mmt [...] Large leaking Ellison's cyst. Richardson Davenport MD IM MR EXTREMITY Final Result * XR LUMBOSACRAL SPINE 4 OR MORE [...] spine fusion without evidence of hardware complication. Dar Abbott DO IMG XR SPINE Final Result from Last 3 Months Insurance Zyrra PLUS PPO Zyrra PLUS PPO [employer]POINT GIC PLUS PPO Wimdu GIC PLUS PPO [employer] G[employer] PLUS PPO Wimdu GIC PLUS PPO Wimdu GIC PLUS PPO [employer] GIC PLUS PPO Wimdu GIC PLUS PPO Member Subscriber Plan / Payer [facility] Name:TashiacarmineCatherine Relation to Subscriber:Self Name:TashiacarmineCatherine Payer ID:[id number] ([facility]) Type:PPO Address: [address] [place] [address] Wimdu GIC PLUS PPO Member Subscriber Plan / Payer ([facility] Name:Catherine Be Relation to Subscriber:Self Name:Catherine Be Payer ID:[id number] ([place]) Type:PPO Address: [address] [place] [address] [employer] PLUS PPO DENA VASQUEZ [id number] Care Teams Textile Engraver Relationship Specialty Start Date End Date Isa Payne DO [address] [place] [address] PCP - General Internal Medicine 04/25/22 Eulalia Angel NP Nurse Practitioner Family Medicine 10/29/18 Additional Source Comments The information contained in this document represents components of the legal health record. It is not the complete legal health record.[facility]
--- OUTSIDE RECORDS SUMMARY | 2025-07-15 18:01 | XMS_ITS | Encounter Summary ---
Author Organization [facility] Address [address] [employer] [employer] [facility] [place] [address] [place] [address] Phone Care Team Providers Care Museum Informatics Specialist Name Role Phone Eulalia Angel CENTRAL SUPPLY AIDE Unavailable [phone] Isa Payne DO Primary Car e Provider Encounter Details Date Type Department Care Team (Late st Contact Info) Description 08/14/2022 Procedure Pass [facility], [address] [address] Social History Tobacco Use Types Packs/Day Years [...] Visit [facility] [address] [facility], [address] [place] [address] Richardson Davenport MD [address] [address] 11/19/2025 11:30 AM EST Office Visit [facility] [address] [place] [address] Dar Abbott, DO [address] [place] [address] documented as of this encounter Visit Diagnoses Not on filedocumented in this encounter Care Teams Museum Informatics Specialist Relationship Specialty Start Date End Date Isa Payne DO [address] [place] [address] PCP - General Internal Medicine 04/25/22 Eulalia Angel NP Nurse Practitioner Family Medicine 10/29/18 documented as of this encounter Additional Source Comments The information contained in this document represents components of the legal health record. It is not the complete legal health record.[facility]
--- OUTSIDE RECORDS SUMMARY | 2025-07-15 18:01 | XMS_ITS | Encounter Summary ---
Author Organization [facility] Address [address] [address] Phone Care Team Providers Care Supervisor Gelatin Plant Name Role Phone Eulalia Angel NP Unavailable [phone] Eulalia Angel NP Primary Care Provider [phone] Isa Payne DO Primary Car e Provider Encounter Details Date Type Department Care Team (Late st Contact Info) Description 05/09/2021 Ancillary Orders [facility] [address] [place], [place] [id number] Dar Abbott, [address] [place] [address] [email or web address] Pain Social History Tobacco Use Types [...] 10:24 PM EDT Rozina Rosa RN * [place] Suicide Severity Rating Scale (Screener/Recent Self-Report) Question [...] Description 07/24/2025 1:00 PM EDT Office Visit [facility] [address] [facility], [address] [place] [address] Richardson Davenport MD [address] [address] 11/19/2025 11:30 AM EST Office Visit [facility] [address] [place] [address] Dar Abbott DO [address] [place] [address] [email or web address] documented as of this encounter Results * [place] Fluoroscopy (05/09/2021 6:17 PM EDT) Narrative [facility] IMG INTERFACES - 05/09/2021 6:18 PM EDT Fluoroscopy was provided during this procedure. us Dar Abbott DO IMG [place] MISC Final Result [facility] IMG INTERFACES documented in this encounter Visit Diagnoses Diagnosis Pain Generalized pain Pain Generalized pain documented in this encounter Care Teams Supervisor Gelatin Plant Relationship Specialty Start Date End Date Eulalia Angel NP PCP - General Family Medicine 10/29/18 04/24/22 Isa Payne DO [address] [place] [address] PCP - General Internal Medicine 04/25/22 Eulalia Angel NP Nurse Practitioner Family Medicine 10/29/18 documented as of this encounter Additional Source Comments The information contained in this document represents components of the legal health record. It is not the complete legal health record.[facility]
--- OUTSIDE RECORDS SUMMARY | 2025-07-15 18:01 | XMS_ITS | Encounter Summary ---
Author Organization [facility] Address [address] [place] [address] Care Team Providers Care Surgical Device Sales Representative Name Role Phone Eulalia Angel NP Unavailable [phone] Eulalia Angel NP Primary Care Provider [phone] Erin Yancey MD Primary Care Provider [phone] Eulalia Angel DIRECTOR WORKERS COMPENSATION Unavailable [phone] Eullaia Angel NP Primary Care Provider Valentino Seals MD Primary Care Provider [phone] Encounter Details Date Type Department Care Team (Late st Contact Info) Description 04/29/2019 Orders Only [facility] [address] [place] [id number] Eulalia Angel NP 123 [facility] [address] [place] [address] Social History Tobacco Use Types [...] at . Any insurance accepted. Quit smoking resources-[email or web address] documented as of this encounter Procedures * Due to [place] state law, this organization might not be sharing negative HIV tests. Procedure Name Priority Date/Time Associated Diagnosis Comments HCG, TOTAL, QL Routine 04/29/2019 3:25 PM EDT Amenorrhea documented in this encounter Results * Due to [place] Spazzles law, this organization might not be sharing negative HIV tests. * HCG, TOTAL, QL (04/29/2019 3:25 PM EDT) HCG, Qualitative (Screen) NEGATIVE [facility] Comment: Reference Range Non-: Negative : Positive 04/29/2019 3:25 PM EDT 04/30/2019 12:32 AM EDT Narrative Resulting Agency Comment [id number] Eulalia Angel NP LAB SAME DAY RESULT Final Resul t [facility] [address] [place] [address] documented in this encounter Visit Diagnoses Diagnosis Amenorrhea Absence of menstruation documented in this encounter Care Teams Surgical Device Sales Representative Relationship Specialty Start Date End Date Eulalia Angel NP PCP - Backup PCP Internal Medicine 01/28/19 06/09/19 Eulalia Angel NP PCP - General 03/24/19 08/15/20 Erin Yancey MD PCP - General Internal Medicine 08/16/20 03/23/21 Eulalia Angel NP PCP - Backup PCP Internal Medicine 12/30/20 03/23/21 Eulalia Angel NP PCP - General Internal Medicine 03/24/21 10/05/22 Valentino Seals MD [address] [place] [address] PCP - General 10/06/22 documented as of this encounter
--- OUTSIDE RECORDS SUMMARY | 2025-07-15 18:01 | XMS_ITS | Encounter Summary ---
Author Organization [facility] Address [address] [employer] [facility] [address] [place] [address] Phone Care Team Providers Care Internal Control Specialist Name Role Phone Eulalia Angel SANDBLASTER PAINT SPRAYER Unavailable [phone] Isa Payne DO Primary Car e Provider Encounter Details Date Type Department Care Team (Late st Contact Info) Description 06/16/2025 Procedure Pass [facility], [address] [address] Social History Tobacco Use Types Packs/Day Years [...] 07/24/2025 1:00 PM EDT Office Visit [facility] 1999 [facility], [address] [place] [address] Richardson Davenport MD [address] [address] 11/19/2025 11:30 AM EST [facility] Visit [facility] [address] [place] [address] Dar Abbott, [address] [place] [address] documented as of this encounter Visit Diagnoses Not on filedocumented in this encounter Care Teams Internal Control Specialist Relationship Specialty Start Date End Date Isa Payne DO [address] [place] [address] PCP - General Internal Medicine 04/25/22 Eulalia Angel NP Nurse Practitioner Family Medicine 10/29/18 documented as of this encounter Additional Source Comments The information contained in this document represents components of the legal health record. It is not the complete legal health record.[facility]
--- OUTSIDE RECORDS SUMMARY | 2025-07-15 18:01 | XMS_ITS | Patient Health Record ---
Author Organization [facility] Address [address] [place], [place] [address] Care Team Providers Care Cat Driver Name Role Phone ROBERSAMMI DIAMOND Primary Care Provide r [phone] ALLERGIES No Known Allergies REASON FOR REFERRAL No Information MEDICATIONS Medication SIG (Take, Route, Frequency, Duration) Notes Start Date End Date Status Incassia 0.35 MG TAKE 1 TABLET BY AKANKSHA EVERY DAY FOR 90 DAYS for 84 days Active Albuterol Sulfate HFA 108 (90 Base) MCG/ACT 1 puff as needed Inhalation every 4 hrs prn cough/wheeze/sob for 30 days Active Lidocaine 5 % APPLY 1 APPLICATION TO AFFECTED JOINT 3 TIMES A DAY NEEDED for 30 Active Drysol 20 % USE 1 APPLICATION AT BEDTIME AND WASH OFF IN THE MORNING for 90 Active Omeprazole 20 MG TAKE 1 CAPSULE BY [place] [facility] EVERY DAY 30 MINUTES BEFORE MORNING MEAL for 90 Active Imiquimod 5 % 1 application at bed time, leave on for 8 hours then wash off Externally Three times a Week for 30 days Active traZODone HCl 50 MG 1 tablet at bedtime as needed Orally Once a day for 30 day(s) Active Ajovy 225 MG/1.5ML as directed Subcutan eous monthly Active IMMUNIZATIONS Vaccine Route Administration Date Status [...] Problem Other chronic pain (G89.29) Active confirmed 94241183 Problem Lumbago with sciatica, right side (M54.41) Active confirmed 928263161667318 Problem Lumbago with sciatica, left side (M54.42) Active confirmed 733957109 Problem Mild intermittent asthma without complication (J45.20) Active confirmed 234520640 Problem Chronic fatigue (R53.82) Active confirmed 24036263 Problem Migraine without status migrainosus, not intractable, unspecified migraine type (G43.909) Active confirmed 68557711 Problem History of tobacco use (Z87.891) Active confirmed 339585888 Problem Chronic sinusitis, unspecified location (J32.9) Active confirmed 45394712 Problem History of vitamin D deficiency (Z86.39) Active confirmed 45781903177087 Problem Irritable bowel syndrome, unspecified type (K58.9) Active confirmed 11785324 Problem 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) Active confirmed 288612859 Problem Abnormal finding on breast imaging (R92.8) Active confirmed 082249733 VITAL SIGNS Blood pressure diastolic 68 mm Hg 07/14/2025 Height 69 in 07/14/2025 Blood pressure systolic 114 mm Hg 07/14/2025 Weight 184.4 lbs 07/14/2025 BMI 27.23 kg/m2 07/14/2025 Encounters Encounter Location Date Provider Diagnosis [address] [address] 07/30/2024 [address] [address] 01/16/2025 SAMMI KEY Abnormal finding on breast imaging R92.[address] [address] 06/04/2025 SAMMI KEY [facility] [address] [place] [address] 06/24/2025 SAMMI [address] [address] 07/02/20[facility] [address] [place] [address] 07/02/2025 [facility] [address] [place] [address] [facility] [address] [place] [address] 07/14/2025 SAMMI KEY Physical exam Z00.00 ; Migraine without status migrainosus, not intractable, unspecified migraine type G43.909 ; Pain in left knee M25.562 ; Pain in right knee M25.561 ; Mild intermittent asthma without complication J45.20 and Tobacco use Z72.0 ASSESSMENTS Encounter Date Diagnosis Assessment Notes Treatment Notes Treatment Clinical Notes Section Notes 01/16/2025 Abnormal finding on breast imaging (ICD-10 - R92.8) 07/14/2025 Physical exam (ICD-10 - Z00.00) breast imaging pending service desk technician pending 07/14/2025 Migraine without status migrainosus, not [...] and past medical history. PLAN OF TREATMENT Future Test Test Name Order Date URINE DIPSTICK 10/16/2023 URINALYSIS W/REFLEX CULTURE 10/16/2023 Urinalysis, Complete w/[id number] [id number] 07/14/2025 CBC, Platelet, w/o Differential-[id number] 1 Hepatic Function Panel [id number] LP+Non-HDL Cholesterol-[id number] 07/14/2025 BMP8+eGFR-[id number] 07/14/2025 Next Appt Details Provider Name:SAMMI EDUARDO VANGIE, 07/21/2026 09:00:00 AM, [address] [facility], [place], [address], Insurance Providers Payer Name Payer Address Payer Phone Subscriber Number Group Number Insured Name Patient Relationship to Insured Coverage Start Date Coverage End Date [employer] [address] [place] [address] [id number] SABRA SUGGS Self - patient is the insured 07/01/202 4 MEDICAL (GENERAL) HISTORY Medical History History ICD Code allergies arthritis irritable bowel syndrome thyroid disease depression gout Arthritis in knees Surgical History Surgery Date(Month/Year) lower back & artifical disc 2020 lower back 2018
--- OUTSIDE RECORDS SUMMARY | 2025-07-15 18:01 | XMS_ITS | Encounter Summary ---
Author Organization [facility] Address [address] [place], [place] [address] Phone Care Team Providers Care Commercial Tire Service Technician Name Role Phone Eulalia Angel SCREEN DOOR MAKER Unavailable [phone] Isa Payne DO Primary Car e [...] Expiration Date Visits Re quested Visits Authorized [id number] Closed 06/17/2025 09/14/2025 1 1 * MRI/CAT [...] EXTREM Richardson Davenport MD Phone: tel: fax: mailto:[email or web address] Referral ID Status Reason Start Date Expiration Date Visits Re quested Visits Authorized [id number] Closed 06/17/2025 09/14/2025 1 1 Encounter Details Date Type Department Care Team (Late st Contact Info) Description 06/16/2025 Orders Only [facility] [employer] [employer] 1999 [facility], [facility] [address] [place] [address] Kirit Akbar MA [address] [place] [address] [email or web address] Left knee pain (Primary Dx); Right knee [...] 07/24/2025 1:00 PM EDT Office Visit [facility] 1999 [facility], [address] [place] [address] Richardson Davenport MD [address] [address] [email or web address] 11/19/2025 11:30 AM EST Office Visit [facility] [address] [place] [address] Dar Abbott DO [address] [place] [address] [email or web address] documented as of this encounter Results * MRI KNEE WITHOUT [...] There is no Ellison's cyst. Procedure Note Larua Doyle MD - 07/15/2025 MRI KNEE WITHOUT [...] 3. Small joint effusion. Richardson Davenport MD [facility] MR EXTREMITY Final Result * MRI KNEE [...] clinician's provided indication for this examination in [facility]: * Meniscal tear, untreated, new symptoms; ? [...] clinician's provided indication for this examination in [facility]: *Meniscal tear, untreated, new symptoms; ? mmt [...] synovitis. Subcentimeterposterior joint bodies. 5. Large leaking Lelison's cyst. Richardson Davenport MD IM MR EXTREMITY Final Result documented in this encounter Visit Diagnoses Diagnosis Left knee pain- Primary Pain in joint, lower leg Right knee pain Pain in joint, lower leg Left knee pain Pain in joint, lower leg Right knee pain Pain in joint, lower leg documented in this encounter Care Teams Commercial Tire Service Technician Relationship Specialty Start Date End Date Isa Payne DO [address] [place] [address] PCP - General Internal Medicine 04/25/22 Eulalia Angel NP Nurse Practitioner Family Medicine 10/29/18 documented as of this encounter Additional Source Comments The information contained in this document represents components of the legal health record. It is not the complete legal health record.[facility]
--- OUTSIDE RECORDS SUMMARY | 2025-07-15 18:01 | XMS_ITS | Encounter Summary ---
Author Organization [facility] Address [address] [place] [address] Care Team Providers Care Production Consultant Name Role Phone Eulalia Angel NP Unavailable [phone] Eulalia Angel NP Primary Care Provider [phone] Erin Yancey MD Primary Care Provider Eulalia Angel SEED SPECIALIST Unavailable [phone] Eulalia Angel NP Primary Care Provider Valentino Seals MD Primary Care Provider [phone] Encounter Details Date Type Department Care Team (Late st Contact Info) Description 05/28/2019 Orders Only [facility] [address] [place] [address] Eulalia Angel NP 123 [facility] [address] [place] [address] Social History Tobacco Use Types [...] at . Any insurance accepted. Quit smoking resources-[email or web address] documented as of this encounter Procedures * Due to [place] [employer] law, this organization might not be sharing negative HIV tests. Procedure Name Priority Date/Time Associated Diagnosis Comments THYROID PEROXIDASE AND THYROGLOBULIN ANTIBODIES Routine 05/28/2019 11:47 AM EDT Screening for endocrine, nutritional, metabolic and immunity disorder documented in this encounter Results * Due to [place] [employer] law, this organization might not be sharing negative HIV tests. * (ABNORMAL) THYROID PEROXIDASE AND THYROGLOBULIN ANTIBODIES (05/28/2019 11:47 AM EDT) Thyroglobulin Ab <1 < or = 1 IU/mL [facility] Thyroperoxidase Ab 12(H) <9 IU/mL Q [facility] 05/28/2019 11:4 7 AM EDT 05/29/2019 1:31 AM EDT Narrative Resulting Agency Comment [id number] Brennan Cagle MD LABORATORY Final Result [facility] [address] [place] [address] documented in this encounter Visit Diagnoses Diagnosis Screening for endocrine, nutritional, metabolic and immunity disorder Screening for other and unspecified endocrine, nutritional, metabolic, and immunity disorders documented in this encounter Care Teams Production Consultant Relationship Specialty Start Date End Date Eulalia Angel NP PCP - Backup PCP Internal Medicine 01/28/19 06/09/19 Eulalia Angel NP PCP - General 03/24/19 08/15/20 Erin Yancey MD PCP - General Internal Medicine 08/16/20 03/23/21 Eulalia Angel NP PCP - Backup PCP Internal Medicine 12/30/20 03/23/21 Eulalia Angel NP PCP - General Internal Medicine 03/24/21 10/05/22 Valentino Seals MD [address] [place] [address] PCP - General 10/06/22 documented as of this encounter
--- OUTSIDE RECORDS SUMMARY | 2025-07-15 18:01 | XMS_ITS | Encounter Summary ---
Author Organization [facility] Address [address] [employer] [facility] [address] [place] [address] Phone Care Team Providers Care Education Site Manager Name Role Phone Eulalia Angel BRAN MIXER Unavailable [phone] Isa Payne DO Primary Car e Provider Encounter Details Date Type Department Care Team (Late st Contact Info) Description 06/16/2025 Procedure Pass [facility], [address] [address] Social History Tobacco Use Types Packs/Day Years [...] 07/24/2025 1:00 PM EDT Office Visit [facility] 1999 [facility], [address] [place] [address] Richardson Davenport MD [address] [address] 11/19/2025 11:30 AM EST Office Visit [facility] [address] [place] [address] Dar Abbott, [address] [place] [address] documented as of this encounter Visit Diagnoses Not on filedocumented in this encounter Care Teams Education Site Manager Relationship Specialty Start Date End Date Isa Payne DO [address] [place] [address] PCP - General Internal Medicine 04/25/22 Eulalia Angel NP Nurse Practitioner Family Medicine 10/29/18 documented as of this encounter Additional Source Comments The information contained in this document represents components of the legal health record. It is not the complete legal health record.[facility]
--- OUTSIDE RECORDS SUMMARY | 2025-07-15 18:01 | XMS_ITS | Encounter Summary ---
Author Organization [facility] Address [address] [place] [address] Care Team Providers Care Photo Booth Operator Name Role Phone Eulalia Angel NP Primary Care Provider [phone] Erin Yancey MD Primary Care Provider [phone] Eulalia Angel NP Unavailable [phone] Eulalia Angel NP Primary Care Provider Valentino Seals MD Primary Care Provider [phone] Encounter Details Date Type Department Care Team (Late st Contact Info) Description 08/29/2019 Orders Only [facility] [address] [place] [address] Eulalia Angel NP 123 [facility] [address] [place] [address] Social History Tobacco Use Types [...] at . Any insurance accepted. Quit smoking resources-[email or web address] documented as of this encounter Procedures * Due to [place] [employer] law, this organization might not be sharing negative HIV tests. Procedure Name Priority Date/Time Associated Diagnosis Comments VENIPUNCTURE Routine 08/29/2019 3:34 PM EST Thyroiditis TSH, 3RD GENERATION Routine 08/29/2019 3 :34 PM EST Thyroiditis documented in this encounter Results * Due to [place] [employer] law, this organization might not be sharing negative HIV tests. * TSH, 3RD GENERATION (08/29/2019 3:34 PM EST) TSH 3.59 mIU/L [facility] Comment: Reference Range > or = 20 Years 0.40-4.50 Ranges First trimester 0.26-2.66 Second trimester 0.55-2.73 Third trimester 0.43-2.91 08/29/2019 3:34 PM EST 08/30/2019 12:24 AM EST Narrative Resulting Agency Comment [id number] Eulalia Magnolia CAR SUPERVISOR LABORATORY Final Result [facility] [address] [place] [address] * (ABNORMAL) THYROID PEROXIDASE AND THYROGLOBULIN ANTIBODIES (08/29/2019 3:34 PM EST) Thyroglobulin Ab <1 < or = 1 IU/mL [facility] Thyroperoxidase Ab 18(H) <9 IU/mL Q [facility] 08/29/2019 3:34 PM EST 08/30/2019 12:24 AM EST Narrative Resulting Agency Comment [id number] Eulalia Angel CAR SUPERVISOR LABORATORY Final Result Performing Organization Address City/[facility]/ZIP Co de Phone Number [facility] [address] [place] [address] documented in this encounter Visit Diagnoses Diagnosis Thyroiditis documented in this encounter Care Teams Photo Booth Operator Relationship Specialty Start Date End Date Eulalia Angel NP PCP - General 03/24/19 08/15/20 Erin Yancey MD PCP - General Internal Medicine 08/16/20 03/23/21 Elualia Angel NP PCP - Backup PCP Internal Medicine 12/30/20 03/23/21 Eulalia Angel NP PCP - General Internal Medicine 03/24/21 10/05/22 Valentino Seals MD [address] [place] [address] PCP - General 10/06/22 documented as of this encounter
--- OUTSIDE RECORDS SUMMARY | 2025-07-15 18:01 | XMS_ITS | Encounter Summary ---
Author Organization [facility] Address [address] [place] [address] Phone Care Team Providers Care Skill Labor Name Role Phone Eulalia Angel NP Unavailable [phone] Eulalia Angel NP Primary Care Provider [phone] Isa Payne DO Primary Car e Provider Encounter Details Date Type Department Care Team (Late st Contact Info) Description 05/09/2021 Procedure Pass [facility] PERI[facility]IVE [facility]PT [address] [place] [address] Social History Tobacco Use Types [...] 10:24 PM EDT Rozina Rosa RN * [place] Suicide Severity Rating Scale (Screener/Recent Self-Report) Question [...] Description 07/24/2025 1:00 PM EDT Office Visit [facility] 1999 [facility], [address] [place] [address] Richardson Davenport MD [address] [address] 11/19/2025 11:30 AM EST Office Visit [facility] [address] [place] [address] Dar Abbott DO [address] [place] [address] documented as of this encounter Visit Diagnoses Not on filedocumented in this encounter Care Teams Skill Labor Relationship Specialty Start Date End Date Eulalia Angel NP PCP - General Family Medicine 10/29/18 04/24/22 Isa Payne DO [address] [place] [address] PCP - General Internal Medicine 04/25/22 Eulalia Angel NP Nurse Practitioner Family Medicine 10/29/18 documented as of this encounter Additional Source Comments The information contained in this document represents components of the legal health record. It is not the complete legal health record.[facility]
--- OUTSIDE RECORDS SUMMARY | 2025-07-15 18:01 | XMS_ITS | Encounter Summary ---
Author Organization [facility] Address [address] [employer] [facility] [address] [place] [address] Phone Care Team Providers Care It Architecture Consultant Name Role Phone Eulalia Angel PHYTOPATHOLOGIST Unavailable [phone] Isa Payne DO Primary Car e Provider Encounter Details Date Type Department Care Team (Late st Contact Info) Description 08/14/2022 Procedure Pass [facility], Ct Scan - [address] [address] Social History Tobacco Use Types Packs/Day Years [...] 07/24/2025 1:00 PM EDT Office Visit [facility] 1999 [facility], [address] [place] [address] Richardson Davenport MD [address] [address] 11/19/2025 11:30 AM EST Office Visit [facility] [address] [place] [address] Dar Abbott, DO [address] [place] [address] documented as of this encounter Visit Diagnoses Not on filedocumented in this encounter Care Teams It Architecture Consultant Relationship Specialty Start Date End Date Isa Payne DO [address] [place] [address] PCP - General Internal Medicine 04/25/22 Eulalia Angel NP Nurse Practitioner Family Medicine 10/29/18 documented as of this encounter Additional Source Comments The information contained in this document represents components of the legal health record. It is not the complete legal health record.[facility]
--- OUTSIDE RECORDS SUMMARY | 2025-07-15 18:02 | XMS_ITS | Encounter Summary ---
Author Organization [facility] Address [address] [place] [address] Care Team Providers Care Driver Examiner Name Role Phone Eulalia Angel NP Unavailable [phone] Eulalia Angel NP Primary Care Provider [phone] Erin Yancey MD Primary Care Provider [phone] Eulalia Angel NP Unavailable [phone] Eulalia Angel NP Primary Care Provider [phone] Valentino Seals MD Primary Care Provider [phone] Reason for Referral * CONSULT AND TREATMENT (Routine) - Authorized Specialty Diagnoses / Procedures Referred By Katja t Referred To Contact Neurosurgery / Neurology Diagnoses Back pain, unspecified back location, unspecified back pain laterality, unspecified chronicity Procedures NeuroSurgeon: Dr Dar Abbott p [phone] f [phone] [facility] Eulalia Angel NP Phone: tel: fax: Dar Abbott DO [facility], Dept of Neurosurgery [address] [place] [address] Phone: tel: fax: Referral ID Status Reason Start Date Expiration Date Visits Requested Visits Authorized [id number] Authorized Specialty Services Required 03/31/2019 03/30/2020 3 3 Question Answer When do you want this visit to occur? WITHIN 1 WEEK - 04/01/19 6 visits Appointment with MD or AP? FIRST AVAILABLE Patient is being referred outside of [facility] for the following reason, however final determination for [id number] requests are made by the Referral Management [...] refer to? NeuroSurgeon: Dr Dar Abbott p [phone] f [phone] [facility] surgery consult Please list the patient's preferred provider for this consult. Dr Dar Abbott p [phone] f [phone] [facility] Encounter Details Date Type Department Care Team ([facility] st Contact Info) Description 03/24/2019 Orders Only [facility] [address] [place] [address] Eulalia Angel NP [address] [place] [address] Social History Tobacco Use Types Packs/Day Years [...] at . Any insurance accepted. Quit smoking resources-[email or web address] documented as of this encounter Visit Diagnoses Diagnosis Back pain, unspecified back location, unspecified back pain laterality, unspecified chronicity documented in this encounter Care Teams Driver Examiner Relationship Specialty Start Date End Date Eulalia Angel NP PCP - Backup PCP Internal Medicine 01/28/19 06/09/19 Eulalia Angel NP PCP - General 03/24/19 08/15/20 Erin Yancey MD PCP - General Internal Medicine 08/16/20 03/23/21 Eulalia Angel NP PCP - Backup PCP Internal Medicine 12/30/20 03/23/21 Eulalia Angel NP PCP - General Internal Medicine 03/24/21 10/05/22 Valentino Seals MD [address] [place] [address] PCP - General 10/06/22 documented as of this encounter
--- OUTSIDE RECORDS SUMMARY | 2025-07-15 18:02 | XMS_ITS | Encounter Summary ---
Author Organization [facility] Address [address] [address] Phone Care Team Providers Care Shop Teacher Name Role Phone Eulalia Angel MAPLE SUGAR MAKER Unavailable [phone] Isa Payne DO Primary Car e Provider Encounter Details Date Type Department Care Team (Late st Contact Info) Description 11/13/2023 Procedure Pass [facility], [address] [place] [address] Social History Tobacco Use Types Packs/Day Years [...] 07/24/2025 1:00 PM EDT [facility] 1999 [facility], [address] [place] [address] Richardson Davenport MD 1999 [facility] [place] [address] 11/19/2025 11:30 AM EST [facility] [address] [place] [address] Dar Abbott, DO [address] [place] [address] documented as of this encounter Visit Diagnoses Not on filedocumented in this encounter Care Teams Shop Teacher Relationship Specialty Start Date End Date Isa Payne DO [address] [place] [address] PCP - General Internal Medicine 04/25/22 Eulalia Angel NP Nurse Practitioner Family Medicine 10/29/18 documented as of this encounter Additional Source Comments The information contained in this document represents components of the legal health record. It is not the complete legal health record.[facility]
--- OUTSIDE RECORDS SUMMARY | 2025-07-15 18:02 | XMS_ITS | Encounter Summary ---
Author Organization [facility] Address [address] [address] Phone Care Team Providers Care Tire Worker Name Role Phone Eulalia Angel CAKE WRINGER Unavailable [phone] Isa Payne DO Primary Car e Provider Encounter Details Date Type Department Care Team (Late st Contact Info) Description 11/13/2023 Procedure Pass [facility], [address] [place] [address] Social History Tobacco Use Types Packs/Day Years [...] 07/24/2025 1:00 PM EDT Office Visit [facility] 1999 [facility], [address] [place] [address] Richardson Davenport MD 1999 [facility] [place] [address] 11/19/2025 11:30 AM EST Office Visit [facility] [address] [place] [address] Dar Abbott, DO [address] [place] [address] documented as of this encounter Visit Diagnoses Not on filedocumented in this encounter Care Teams Tire Worker Relationship Specialty Start Date End Date Isa Payne DO [address] [place] [address] PCP - General Internal Medicine 04/25/22 Eulalia Angel NP Nurse Practitioner Family Medicine 10/29/18 documented as of this encounter Additional Source Comments The information contained in this document represents components of the legal health record. It is not the complete legal health record.[facility]
--- OUTSIDE RECORDS SUMMARY | 2025-07-15 18:03 | XMS_ITS | Encounter Summary ---
Author Organization [facility] Address [address] [place] [address] Care Team Providers Care Oxygen Therapy Teacher Name Role Phone Eulalia Angel NP Primary Care Provider Brennan Cagle MD Primary Care Provider [phone] Eulalia Angel ASSOCIATE PROFESSOR OF ANTHROPOLOGY Unavailable [phone] Eulalia Angel NP Primary Care Provider Erin Yancey MD Primary Care Provider [phone] Eulalia Angel ASSOCIATE PROFESSOR OF ANTHROPOLOGY Unavailable [phone] Eulalia Angel ASSOCIATE PROFESSOR OF ANTHROPOLOGY Primary Care Provider Valentino Seals MD Primary Care Provider [phone] Encounter Details Date Type Department Care Team (Late st Contact Info) Description 07/31/2018 Orders Only [facility] [address] [place] [address] Eulalia Angel ASSOCIATE PROFESSOR OF ANTHROPOLOGY 123 [facility] [address] [place] [address] Social History Tobacco Use Types [...] at . Any insurance accepted. Quit smoking resources-[email or web address] documented as of this encounter Procedures * Due to [place] ZocDoc law, this organization might not be sharing negative HIV tests. Procedure Name Priority Date/Time Associated Diagnosis Comments CBC INCLUDES DIFFERENTIAL AND PLATELET COUNT Routine 07/31/2018 2:26 PM EST Fatigue, unspecified type BASIC METABOLIC PANEL WITH (GFR) Routine 07/31/2018 2:26 PM EST Fatigue, unspecified type documented in this encounter Results * Due to [place] ZocDoc law, this organization might not be sharing [...] needs for GFR calculation. Resulting Agency Comment [id number] us Brennan Cagle MD LABORATORY Final Result Performing Organization Address City/State/[facility] Co de Phone Number [facility] [address] [place] [address] * CBC INCLUDES DIFFERENTIAL AND PLATELET COUNT [...] 12:30 AM EST Narrative Resulting Agency Comment [id number] us Brennan Cagle MD LAB SAME DAY RESULT Final Res ult [facility] [address] [place] [address] documented in this encounter Visit Diagnoses Diagnosis Fatigue, unspecified type documented in this encounter Care Teams Oxygen Therapy Teacher Relationship Specialty Start Date End Date Eulalia Angel NP PCP - General Internal Medicine 05/14/18 01/27/19 Brennan Cagle MD [address] [place] [address] PCP - General Internal Medicine 01/28/19 03/23/19 Eulalia Angel NP [address] [place] [address] PCP - Backup PCP Internal Medicine 01/28/19 06/09/19 Eulalia Angel NP [address] [place] [address] PCP - General 03/24/19 08/15/20 Erin Yancey MD [address] [place] [address] PCP - General Internal Medicine 08/16/20 03/23/21 Eulalia Angel NP [address] [place] [address] PCP - Backup PCP Internal Medicine 12/30/20 03/23/21 Eulalia Angel NP [address] [place] [address] PCP - General Internal Medicine 03/24/21 10/05/22 Valentino Seals MD [address] [place] [address] PCP - General 10/06/22 documented as of this encounter
--- OUTSIDE RECORDS SUMMARY | 2025-07-15 18:03 | XMS_ITS | Encounter Summary ---
Author Organization [facility] Address [address] [place] [address] Care Team Providers Care Dice Dealer Name Role Phone Eulalia Angel NP Primary Care Provider [phone] Brennan Cagle MD Primary Care Provider Eulalia Angel HAT FINISHER Unavailable [phone] Eulalia Angel NP Primary Care Provider Erin Yancey MD Primary Care Provider [phone] Eulalia Angel HAT FINISHER Unavailable [phone] Eulalia Angel HAT FINISHER Primary Care Provider Valentino Seals MD Primary Care Provider [phone] Encounter Details Date Type Department Care Team (Late st Contact Info) Description 12/16/2018 Orders Only [facility] [address] [place] [phone] Eulalia Angel, HAT FINISHER 123 [facility] [address] [place] [address] Social History Tobacco Use Types [...] / using tobacco Lifestyle No Gabby Montesinos, GROUP ACCOUNT DIRECTOR Note: Smoking can cause cancer, heart attacks, [...] at . Any insurance accepted. Quit smoking resources-[email or web address] documented as of this encounter Visit Diagnoses Not on filedocumented in this encounter Care Teams Dice Dealer Relationship Specialty Start Date End Date Eulalia Angel NP PCP - General Internal Medicine 05/14/18 01/27/19 Brennan Cagle MD [address] [place] [address] PCP - General Internal Medicine 01/28/19 03/23/19 Eulalia Angel NP [address] [place] [address] PCP - Backup PCP Internal Medicine 01/28/19 06/09/19 Eulalia Angel NP [address] [place] [address] PCP - General 03/24/19 08/15/20 Erin Yancey MD [address] [place] [address] PCP - General Internal Medicine 08/16/20 03/23/21 Eulalia Angel NP [address] [place] [address] PCP - Backup PCP Internal Medicine 12/30/20 03/23/21 Eulalia Angel NP [address] [place] [address] PCP - General Internal Medicine 03/24/21 10/05/22 Valentino Seals MD [address] [place] [address] PCP - General 10/06/22 documented as of this encounter
--- OUTSIDE RECORDS SUMMARY | 2025-07-15 18:03 | XMS_ITS | Encounter Summary ---
Author Organization [facility] Address [address] [place] [address] Care Team Providers Care Day Care Home Provider Name Role Phone Brennan Cagle MD Primary Care Provider [phone] Eulalia Angel NP Unavailable [phone] Eulalia Angel NP Primary Care Provider [phone] Erin Yancey MD Primary Care Provider [phone] Eulalia Angel GROUND EQUIPMENT MECHANIC Unavailable [phone] Eulalia Angel NP Primary Care Provider Valentino Seals MD Primary Care Provider [phone] Encounter Details Date Type Department Care Team (Late st Contact Info) Description 02/25/2019 Orders Only [facility] [address] [place] [address] Eulalia Angel NP 123 [facility] [address] [place] [address] Social History Tobacco Use Types [...] foods such as cakes, cookies, chips, popcorn, Israeli fries, and ice cream. Hydrogenated fats (trans [...] are called omega- 3, omega-6, and omega-9. [place]-3 fatty acids are found in fish and some plants. They are good for heart health. They may reduce the risk of stroke, high blood pressure, and other chronic disease. Good sources are oily fish such as salmon, mackerel and tuna. [place] 3 fatty acids are also in fish oil supplements. Check with your healthcare provider before taking supplements. Fish oil supplements may cause bleeding in some people, especially if they are taken with blood-thinning medicines. Good plant sources for omega-3 fatty acids are canola oil, soybeans, flaxseed, avocado, and some types of nuts, especially walnuts and almonds. [place]-6 fatty acid is found in corn, safflower, soybean, and sunflower oils. [place]-9 fatty acid is found in olive oil, canola oil, and avocados. It is likely that the balance of fatty acids is very important. The [place] Citizen diet typically contains too much omega-6 fatty acid and not enough omega-3 fatty acid. How much fat do I need in my diet? Eating some fat???especially the good fats--is healthful, but many Americans eat too much and become overweight. The current [place] Heart Association Diet and Lifestyle Recommendations are: [...] at . Any insurance accepted. Quit smoking resources-http://[email or web address] documented as of this encounter Procedures * Due to [place] state law, this organization might not be [...] this encounter Results * Due to [place] state law, this organization might not be sharing negative HIV tests. * (ABNORMAL) THYROID PEROXIDASE AND THYROGLOBULIN ANTIBODIES (05/28/2019 11:47 AM EDT) Thyroglobulin Ab <1 < or = 1 IU/mL [facility] Thyroperoxidase Ab 12(H) <9 IU/mL Q [facility] 05/28/2019 11:4 7 AM EDT 05/29/2019 1:31 AM EDT Narrative Resulting Agency Comment [id number] us Brennan Cagle MD LABORATORY Final Result Performing Organization Address [facility] Co de Phone Number [facility] [address] [place] [address] * (ABNORMAL) THYROID PEROXIDASE AND THYROGLOBULIN ANTIBODIES (02/25/2019 4:41 PM EDT) Thyroglobulin Ab <1 < or = 1 IU/mL [facility] Thyroperoxidase Ab 18(H) <9 IU/mL Q [facility] 02/25/2019 4:41 PM EDT 02/26/2019 1:51 AM EDT Narrative Resulting Agency Comment [id number] Brennan Cagle MD LABORATORY Final Result Performing Organization Address City/[facility] Co de Phone Number [facility] [address] [place] [address] * T4, FREE, SERUM (02/25/2019 4:41 PM EDT) FT4 0.9 0.8 - 1.8 ng/dL [facility] 02/25/2019 4:41 PM EDT 02/26/2019 1:51 AM EDT Narrative Resulting Agency Comment [id number] Brennan Cagle MD LABORATORY Final Result Performing Organization Address [facility] Co de Phone Number [facility] [address] [place] [address] * TSH, 3RD GENERATION (02/25/2019 4:41 PM EDT) TSH 2.42 mIU/L [facility] Comment: Reference Range > or = 20 Years 0.40-4.50 Ranges First trimester 0.26-2.66 Second trimester 0.55-2.73 Third trimester 0.43-2.91 02/25/2019 4:41 PM EDT 02/26/2019 1:51 AM EDT Narrative Resulting Agency Comment [id number] Brennan Cagle MD LABORATORY Final Result [facility] [address] [place] [address] * BASIC METABOLIC PANEL WITH (GFR) (02/25/2019 [...] needs for GFR calculation. Resulting Agency Comment [id number] Brennan Cagle MD LABORATORY Final Result Performing Organization Address [facility]/ZIP Co de Phone Number [facility] [address] [place] [address] * HEMOGLOBIN A1C (02/25/2019 4:41 PM EDT) [...] diagnosis of diabetes in children. According to [place] Diabetes Association (ADA) guidelines, hemoglobin A1c <7.0% represents optimal control in non- diabetic patients. Different metrics may apply to specific patient populations. Standards of Medical Care in Diabetes(ADA). Estimated Average Glucose 115 mg/dL (calc) [facility] 02/25/2019 4:41 PM EDT 02/26/2019 1:51 AM EDT Narrative Resulting Agency Comment [id number] Brennan Cagle MD LABORATORY Final Result Performing Organization Address [facility] Co de Phone Number [facility] [address] [place] [address] * (ABNORMAL) LIPID PANEL WITH REFLEX TO [...] DE LA CRUZ et al. WHITLEY. 2013;310(19): 0981-9931 (http://education.Seeo.com/faq/OWI775) CHOL/HDL Ratio 3.8 <5.0 (calc) [facility] Cholesterol Non-HDL 143(H) <130 mg/dL (calc) [facility] Comment: For patients with diabetes plus 1 major ASCVD risk factor, treating to a non-HDL-C goal of <100 mg/dL (LDL-C of <70 mg/dL) is considered a therapeutic option. 02/25/2019 4:41 PM EDT 02/26/2019 1:51 AM EDT Narrative Resulting Agency Comment [id number] us Brennan Cagle MD LABORATORY Final Result [facility] [address] [place] [address] documented in this encounter Visit Diagnoses Diagnosis Screening for endocrine, nutritional, metabolic and immunity disorder Screening for other and unspecified endocrine, nutritional, metabolic, and immunity disorders documented in this encounter Care Teams Day Care Home Provider Relationship Specialty Start Date End Date Brennan Cagle MD [address] [place] [address] PCP - General Internal Medicine 01/28/19 03/23/19 Eulalia Angel NP [address] [place] [address] PCP - Backup PCP Internal Medicine 01/28/19 06/09/19 Eulalia Angel NP [address] [place] [address] PCP - General 03/24/19 08/15/20 Erin Yancey MD [address] [place] [address] PCP - General Internal Medicine 08/16/20 03/23/21 Eulalia Angel NP [address] [place] [address] PCP - Backup PCP Internal Medicine 12/30/20 03/23/21 Eulalia Angel NP [address] [place] [address] PCP - General Internal Medicine 03/24/21 10/05/22 Valentino Seals MD [address] [place] [address] PCP - General 10/06/22 documented as of this encounter
--- OUTSIDE RECORDS SUMMARY | 2025-07-15 18:03 | XMS_ITS | Encounter Summary ---
Author Organization [facility] Address [address] [facility] [address] [place] [address] Phone Care Team Providers Care Terminal Press Operator Name Role Phone Eulalia Angel NP Unavailable Eulalia Angel NP Primary Care Provider [phone] Isa Payne DO Primary Car e Provider Encounter Details Date Type Department Care Team (Late st Contact Info) Description 11/01/2018 Procedure Pass [facility] [address] [place] [address] Social History Tobacco Use Types Packs/Day Years [...] Description 07/24/2025 1:00 PM EDT Office Visit [facility] 1999 [facility], [address] [place] [address] Richardson Davenport MD [address] [address] 11/19/2025 11:30 AM EST Office Visit [facility] [address] [place] [address] Dar Abbott, [address] [place] [address] [email or web address] documented as of this encounter Visit Diagnoses Not on filedocumented in this encounter Care Teams Terminal Press Operator Relationship Specialty Start Date End Date Eulalia Angel NP PCP - General Family Medicine 10/29/18 04/24/22 Isa Payne DO [address] [place] [address] PCP - General Internal Medicine 04/25/22 Eulalia Angel NP Nurse Practitioner Family Medicine 10/29/18 documented as of this encounter Additional Source Comments The information contained in this document represents components of the legal health record. It is not the complete legal health record.[facility]
--- OUTSIDE RECORDS SUMMARY | 2025-07-15 18:03 | XMS_ITS | Encounter Summary ---
Author Organization [facility] Address [address] [employer] [address] [address] Phone Care Team Providers Care Paperboard Boxes Estimator Name Role Phone Eulalia Angel SPECIAL FORCES MEDICAL SERGEANT Unavailable [phone] Isa Payne DO Primary Car e Provider Encounter Details Date Type Department Care Team (Late st Contact Info) Description 08/30/2023 Procedure Pass [facility], [address] [place] [address] Social History Tobacco Use Types Packs/Day Years [...] 07/24/2025 1:00 PM EDT [facility] 1999 [facility], [address] [place] [address] Richardson Davenport MD 1999 [facility] [place] [address] 11/19/2025 11:30 AM EST Office Visit [facility] [address] [place] [address] Dar Abbott, DO [address] [place] [address] documented as of this encounter Visit Diagnoses Not on filedocumented in this encounter Care Teams Paperboard Boxes Estimator Relationship Specialty Start Date End Date Isa Payne DO [address] [place] [address] PCP - General Internal Medicine 04/25/22 Eulalia Angel NP Nurse Practitioner Family Medicine 10/29/18 documented as of this encounter Additional Source Comments The information contained in this document represents components of the legal health record. It is not the complete legal health record.[facility]
--- OUTSIDE RECORDS SUMMARY | 2025-07-15 18:04 | XMS_ITS | Encounter Summary ---
Author Organization [facility] Address [address] [facility] [address] [place] [address] Phone Care Team Providers Care Customer Experience Leader Name Role Phone Eulalia Angel NP Unavailable [phone] Eulalia Angel NP Primary Care Provider [phone] Isa Payne DO Primary Car e Provider Encounter Details Date Type Department Care Team (Late st Contact Info) Description 06/03/2019 Procedure Pass [facility] [address] [place] [address] Social History Tobacco Use Types Packs/Day Years [...] Description 07/24/2025 1:00 PM EDT Office Visit [facility] 1999 [facility], [address] [place] [address] Richardson Davenport MD [address] [address] 11/19/2025 11:30 AM EST Office Visit [facility] 70 [place] [address] Dar Abbott, DO [address] [place] [address] [email or web address] documented as of this encounter Visit Diagnoses Not on filedocumented in this encounter Care Teams Customer Experience Leader Relationship Specialty Start Date End Date Eulalia Angel NP PCP - General Family Medicine 10/29/18 04/24/22 Isa Payne DO [address] [place] [address] PCP - General Internal Medicine 04/25/22 Eulalia Angel NP Nurse Practitioner Family Medicine 10/29/18 documented as of this encounter Additional Source Comments The information contained in this document represents components of the legal health record. It is not the complete legal health record.[facility]
--- OUTSIDE RECORDS SUMMARY | 2025-07-15 18:04 | XMS_ITS | Encounter Summary ---
Author Organization [facility] Address [address] [place] [address] Care Team Providers Care Industrial Gas Production Operator Name Role Phone Eulalia Angel NP Primary Care Provider [phone] aVlentino Seals MD Primary Care Provider [phone] Reason for Referral * CONSULT AND TREATMENT (Routine) - Authorized Specialty Diagnoses / Procedures Referred By Katja mao Referred To Contact Ent-Otolaryngology Diagnoses Allergy, subsequent encounter Procedures ENT -- Dr. Gerald Ivy, NPI# [id number] Fx: [phone] Eulalia Angel NP Phone: tel: fax: Referral ID Status Reason Start Date Expiration Date Visits Requested Visits Authorized [id number] Authorized Est Relationship 03/24/2021 03/24/2022 52 52 Question Answer When do you want this visit to occur? WITHIN 3 DAYS - 03/27/21 Appointment with or AP? FIRST AVAILABLE Patient is being referred outside of [facility] for the following reason, however final determination for [id number] requests are made by the Referral Management Department Continuity of active patient care Track Order? No Which provider/facility/agency would you like to refer to? (specify if you want first available regardless of location) GERALD IVY M.D. [phone] Please provide pertinent patient history. patient calling to request referrals to this provider due to insurance change * CONSULT AND TREATMENT (Routine) - Authorized Specialty Diagnoses / Procedures Referred By Contac t Referred To Contact Neurosurgery / Neurology Diagnoses Back pain, unspecified back location, unspecified back pain laterality, unspecified chronicity Procedures Neurosurg -- Dr. Kaya Abbott, NPI# [id number] Eulalia Angel NP Phone: tel: fax: Kaya Abbott DO [facility], Dept of Neurosurgery [address] [place] [address] Phone: tel: fax: Referral ID Status Reason Start Date Expiration Date Visits Requested Visits Authorized [id number] Authorized Est Relationship 03/24/2021 03/24/2022 6 6 Question Answer Please provide pertinent patient history. patient calling to request new referral as insurance has change Track Order? No When do you want this visit to occur? WITHIN 3 DAYS - 03/29/21 Patient is being referred outside of [facility] for the following reason, however final determination for [id number] requests are made by the Referral Management Department Continuity of active patient care Which provider/facility/agency would you like to refer to? (specify if you want first available regardless of location) Dr. kaya Abbott [phone] [facility] Encounter Details Date Type Department Care Team ([facility] st Contact Info) Description 03/24/2021 Orders Only [facility] [address] [place] [address] Eulalia Angel NP 123 [facility] [address] [place] [address] Social History Tobacco Use Types [...] at . Any insurance accepted. Quit smoking resources-[email or web address] documented as of this encounter Visit Diagnoses Diagnosis Back pain, unspecified back location, unspecified back pain laterality, unspecified chronicity Allergy, subsequent encounter documented in this encounter Care Teams Industrial Gas Production Operator Relationship Specialty Start Date End Date Eulalia Angel NP PCP - General Internal Medicine 03/24/21 10/05/22 Valentino Seals MD [address] [place] [address] PCP - General 10/06/22 documented as of this encounter
--- OUTSIDE RECORDS SUMMARY | 2025-07-15 18:04 | XMS_ITS | Encounter Summary ---
Author Organization [facility] Address [address] [place] [address] Care Team Providers Care Quencher Operator Name Role Phone Eulalia Angel NP Primary Care Provider [phone] Valentino Seals MD Primary Care Provider [phone] Encounter Details Date Type Department Care Team (Late st Contact Info) Description 03/31/2021 Orders Only [facility] [address] [place] [address] Eulalia Angel NP 123 [facility] [address] [place], [place] [phone] Social History Tobacco Use Types Packs/Day Years [...] at . Any insurance accepted. Quit smoking resources-[email or web address] documented as of this encounter Visit Diagnoses Diagnosis Sciatica, unspecified laterality documented in this encounter Care Teams Quencher Operator Relationship Specialty Start Date End Date Eulalia Angel NP PCP - General Internal Medicine 03/24/21 10/05/22 Valentino Seals MD [address] [place] [address] PCP - General 10/06/22 documented as of this encounter
--- OUTSIDE RECORDS SUMMARY | 2025-07-15 18:04 | XMS_ITS | Encounter Summary ---
Author Organization [facility] Address [address] [place] [address] Care Team Providers Care Manager Software Development Name Role Phone Eulalia Angel NP Primary Care Provider [phone] Erin Yancey MD Primary Care Provider [phone] Eulalia Angel NP Unavailable [phone] Eulalia Angel NP Primary Care Provider [phone] Valentino Seals MD Primary Care Provider [phone] Reason for Visit * Reason Onset Date Comments Refill Request 12/16/2019 Encounter Details Date Type Department Care Team (Late st Contact Info) Description 12/16/2019 Refill [facility] [address] [place] [address] Eulalia Angel NP 123 [facility] [address] [place], [place] [id number] Refill Request Social History Tobacco Use Types [...] / using tobacco Lifestyle No [place], [place]by, PECAN GATHERER Note: Smoking can cause cancer, heart attacks, [...] at . Any insurance accepted. Quit smoking resources-[email or web address] documented as of this encounter Visit Diagnoses Not on filedocumented in this encounter Care Teams Manager Software Development Relationship Specialty Start Date End Date Eulalia Angel NP PCP - General 03/24/19 08/15/20 Erin Yancey MD PCP - General Internal Medicine 08/16/20 03/23/21 Eulalia Angel NP PCP - Backup PCP Internal Medicine 12/30/20 03/23/21 Eulalia Angel NP PCP - General Internal Medicine 03/24/21 10/05/22 Valentino Seals MD [address] [place] [address] PCP - General 10/06/22 documented as of this encounter
--- OUTSIDE RECORDS SUMMARY | 2025-07-15 18:04 | XMS_ITS | Encounter Summary ---
Author Organization [facility] Address [address] [place] [address] Care Team Providers Care Spinning Operator Name Role Phone Eulalia Angel NP Primary Care Provider [phone] Valentino Seals MD Primary Care Provider [phone] Encounter Details Date Type Department Care Team (Late st Contact Info) Description 03/24/2021 Orders Only [facility] [address] [place] [phone] Erin Yancey MD [address] [place] [address] Social History Tobacco Use Types Packs/Day Years [...] at . Any insurance accepted. Quit smoking resources-[email or web address] documented as of this encounter Visit Diagnoses Not on filedocumented in this encounter Care Teams Spinning Operator Relationship Specialty Start Date End Date Eulalia Angel NP PCP - General Internal Medicine 03/24/21 10/05/22 Valentino Seals MD [address] [place] [address] PCP - General 10/06/22 documented as of this encounter
--- OUTSIDE RECORDS SUMMARY | 2025-07-15 18:04 | XMS_ITS | Data Portability ---
Author Organization [facility], svmg_admin Address [address] [place] [address] Care Team Providers Care Accelerator Systems Director Name Role Phone JENNA BELTRAN Primary Care Provider [phone] Assessment No assessment recorded. Plan of Treatment Reminders Order Date Submit Date Provider Last Modified By Organization Details Last Modified Time Details Appointments None recorded. Lab bacterial vaginosis + vaginitis panel, vaginal 2019 020 SALLY [facility], [address] [place] [address], [address], 0 15:06:28 HIV 1+2 AB + HIV 1 p24 Ag, qualitative immunoassay , serum 2019 020 [email or web address] [facility], [address] [place] [address], [address], 0 16:04:39 HBsAg (hepatitis B surface Ag), EIA, serum 2019 020 [email or web address] [facility], [address] [place] [address], [address], 0 16:04:40 hepatitis C virus Ab, serum 2019 020 [email or web address] [facility], [address] [place] [address], [address], 0 16:04:40 RPR (rapid plasma reagin), serum 2019 020 [email or web address] [facility], [address] [place] [address], [address], 0 16:04:40 Referral None recorded. Procedures None recorded. Surgeries None recorded. Imaging None recorded. Medication Orders None recorded. Patient TargetsNo targets recorded. Patient Instructions Encounter Date Encounter Id Patient Instructions Last Modified By Organization Details Last Modified Time 11/25/2019 [id number] Options of control were discussed with the [...] insertion. patient is willing to go to [place] if needed. Weight-loss was advised. We will repeat Pap smear and do an annual CABLE TELEVISION PROGRAM DIRECTOR exam and of January 2020. SD precautions [...] Low - 0 score Not Available [facility] ([facility]) [address] [place], [address], 11/28/2019 15:06:28 11/25/1911/27/2019 bacte rial vagin osis + vagin itis panel , vagin al bvab 2 Low - 0 score Not Available [facility] ([facility]) [address] [place], [address], 11/28/2019 15:06:28 11/25/1911/27/2019 bacte rial vagin osis [...] is not neces tavon. Not Available [facility] ([facility]) [address] [place], [address], 11/28/2019 15:06:28 11/25/19 20 11/27/2019 bacte rial vagin osis + vagin itis panel , vagin al trich vag by ANAHI Negati ve negati ve Not Available [facility] ([facility]) [address] [place], [address], 11/28/2019 15:06:28 11/25/19 20 11/28/2019 bacte rial vagin osis + vagin itis panel , vagin al kaylin albicans, ANAHI Negati ve negati ve Not Available [facility] ([facility]) [address] [place], [address], 11/28/2019 15:06:28 11/25/19 20 11/28/2019 bacte rial vagin osis + vagin itis panel , vagin al kaylin glabrata, ANAHI Negati ve negati ve Not Available [facility] ([facility]) [address] [place], [address], 11/28/2019 15:06:28 11/25/19 20 11/28/2019 bacte rial vagin osis + vagin itis panel , vagin al chlamydia trachomatis, ANAHI Negati ve negati ve Not Available [facility] ([facility]) [address], [place], [address], 11/28/2019 15:06:28 11/25/19 20 11/28/2019 bacte rial vagin osis + vagin itis panel , vagin al neisseria gonorrhoeae, ANAHI Negati ve negati ve Not Available [facility] ([facility]) [address], [place], [address], 11/28/2019 15:06:28 Result Notes None recorded. Problems Name Problem SNOMED Code Status Onset Date Resolution Date Notes Provider Name and Address Organization Details Recorded Time Migraine 14806200 Active 020 Cydny Solorio MD [address] [place] [address], [phone] , [facility] 0 15:41:53 Chronic back pain 997381420 Active 020 Cyndy Solorio MD [address] [place] [address], [phone] , [facility] 0 15:42:02 Problem Notes None recorded. Procedures Surgical History Date Name Laterality Status Provider Name and Address Organization Details Recorded Time LEEP completed Melany Desai [facility] 11/25/2019 15:05:51 Imaging Results None recorded. Procedure [...] Address Organization Details Last Updated DateTime 0 15371.7 7 g 83 /min 97 % 97 % 0 137/83 mm[Hg] [facility] 0 15:00:31 Social History Question Answer Notes LastModified by OrganCoravin Details LastModified Time Tobacco Smoking Status Former Smoker quit 04/25/2019 Melany Desai [facility], [facility] 11/25/2019 15:04:53 How Much Tobacco Do You [...] Days Has The Patient Traveled From [place], [place], [place], [place] Or [place]? No Information not [...] Functional Status Question Answer Note LastModified by Plum Details LastModified Time Do you or have [...] N Breast Problem (Breast Lump/Pain/Dischar ge) N High Blood Pressure (Hypertension) N Eye Problems (Glaucoma, Retinopathy, Mac ular Degeneration) N AFib (Atrial Fibrillation) N Depression N [...] ICD10 Code Diagnosis IMO Codes Diagnosis Note [id number] Cyndy Solorio MD [facility] [address] [address] 11/25/2019 14:48:36 11/25/2019 15:44:44 Contraception care management 201727145 Z30.9 Venereal d isease screening 232366916 Z11.3 History of abnormal cervical Papanicolaou smear 152071294 Z87.42 Health Concerns Section Related Observation LastModified by Organization Detai ls LastModified Time None Recorded Concern Status LastModified by Organization Details LastModified Time None Recorded Advance Directives Directive None Recorded Payers Insurance Date Sequence Insurance Name Policy Number Policy Malik Covered Member ID Malik Member ID Guarantor Name 02/20/2020 1 [facility] Catherine Be [id number] Catherine Be Notes Date Note Type Note [...] interested in STD screening Cyndy Solorio MD [address] [place] [address], [phone], [facility]. 11/25/2019 15:46:52 OBGyn Episode No OBEpisode recorded.
--- OUTSIDE RECORDS SUMMARY | 2025-07-15 18:04 | XMS_ITS | Encounter Summary ---
Author Organization [facility] Address [address] [place] [address] Care Team Providers Care Roller Turner Name Role Phone Eulalia Angel NP Primary Care Provider Valentino Seals MD Primary Care Provider [phone] Reason for Referral * CONSULT AND TREATMENT (Routine) - Authorized Specialty Diagnoses / Procedures Referred By Contac t Referred To Contact Neurology Diagnoses Chronic nonintractable headache, unspecified headache type Procedures Aguilar Mitchell MD [phone] FAX [phone] Eulalia Angel NP Phone: tel: fax: Referral ID Status Reason Start Date Expiration Date Visits Requested Visits Authorized [id number] Authorized Specialty Services Required 03/24/2021 03/24/2022 6 6 Question Answer When do you want this visit to occur? 1 MONTH - 8/2 Appointment with or AP? FIRST AVAILABLE Patient is being referred outside of [facility] for the following reason, however final determination for [id number] requests are made by the Referral Management Department Patient Preference Track Order? No Which provider/facility/agency would you like to refer to? (specify if you want first available regardless of location) Aguilar Mitchell [phone] FAX [phone] Please provide pertinent patient history. patient calling to request referral due to insurance change Encounter Details Date Type Department Care Team (Late st Contact Info) Description 03/24/2021 Orders Only [facility] [address] [place] [address] Eulalia Angel NP 123 [facility] [address] [place] [address] Social History Tobacco Use Types Packs/Day Years [...] at . Any insurance accepted. Quit smoking resources-[email or web address] documented as of this encounter Visit Diagnoses Diagnosis Chronic nonintractable headache, unspecified headache type documented in this encounter Care Teams Roller Turner Relationship Specialty Start Date End Date Eulalia Angel NP PCP - General Internal Medicine 03/24/21 10/05/22 Valentino Seals MD [address] [place] [address] PCP - General 10/06/22 documented as of this encounter
--- OUTSIDE RECORDS SUMMARY | 2025-07-15 18:04 | XMS_ITS | Patient Health Record ---
Author Organization Edilberto Ocampo MD Address [address] [place] [address] Care Team Providers Care Pizza Cook Name Role Phone Edilberto Ocampo Unavailable [phone] Reason For Referral No Information Plan Of [...] Insured Coverage Start Date Coverage End Date [facility] [address] [facility] [address] [phone] [id number] Catherine Be Self - patient is the insured Medical (General) History Surgical History Surgery Date(Month/Year) None
--- OUTSIDE RECORDS SUMMARY | 2025-07-15 18:04 | XMS_ITS | Encounter Summary ---
Author Organization [facility] Address [address] [place] [address] [place] [address] Phone Care Team Providers Care Administrative Services Director Name Role Phone Eulalia Angel NP Unavailable [phone] Eulalia Angel NP Primary Care Provider [phone] Isa Payne DO Primary Car e Provider Encounter Details Date Type Department Care Team (Late st Contact Info) Description 06/16/2019 Procedure Pass [facility] PERIOPERATIVE DEPT [address] [place] [id number] Social History Tobacco Use Types Packs/Day Years [...] 07/24/2025 1:00 PM EDT Office Visit [facility] [address] [facility], [address] [place] [address] Richardson Davenport MD [address] [address] 11/19/2025 11:30 AM EST [facility] Visit [facility] [address] [place] [address] Dar Abbott, DO [address] [place] [address] documented as of this encounter Visit Diagnoses Not on filedocumented in this encounter Care Teams Administrative Services Director Relationship Specialty Start Date End Date Eulalia Angel NP PCP - General Family Medicine 10/29/18 04/24/22 Isa Payne DO [address] [place] [address] PCP - General Internal Medicine 04/25/22 Eulalia Angel NP Nurse Practitioner Family Medicine 10/29/18 documented as of this encounter Additional Source Comments The information contained in this document represents components of the legal health record. It is not the complete legal health record.[facility]
--- OUTSIDE RECORDS SUMMARY | 2025-07-15 18:04 | XMS_ITS | Encounter Summary ---
Author Organization [facility] Address [address] [place] [address] Care Team Providers Care Mineral Resources Inspector Name Role Phone Eulalia Angel NP Primary Care Provider [phone] Valentino Seals MD Primary Care Provider [phone] Encounter Details Date Type Department Care Team ([facility] st Contact Info) Description 03/30/2021 Orders Only [facility] [address] [place] [address] Eulalia Angel NP 123 [facility] [address] [place], [place] [address] Social History Tobacco Use Types Packs/Day Years [...] at . Any insurance accepted. Quit smoking resources-[email or web address] documented as of this encounter Visit Diagnoses Diagnosis Degenerative disc disease, lumbar Degeneration of lumbar or lumbosacral intervertebral disc documented in this encounter Care Teams Mineral Resources Inspector Relationship Specialty Start Date End Date Eulalia Angel NP PCP - General Internal Medicine 03/24/21 10/05/22 Valentino Seals MD [address] [place] [address] PCP - General 10/06/22 documented as of this encounter
--- OUTSIDE RECORDS SUMMARY | 2025-07-15 18:04 | XMS_ITS | Clinical Summary ---
Author Organization [facility] Address [address] [place] [address] Care Team Providers Care Administrative Professional Name Role Phone Valentino Seals MD Primary Care Provider [phone] Allergies No known active allergies Medications Drospirenone-Et [...] at . Any insurance accepted. Quit smoking resources-[email or web address] Procedures * Due to [place] [employer] law, this organization might not be sharing [...] to Health Maintenance Results * Due to [place] [employer] law, this organization might not be sharing [...] DE LA CRUZ et al. WHITLEY. 2013;310(19): 1198-0430 (http://education.Becual.MyFitnessPal/faq/TCO766) CHOL/HDL Ratio 2.7 <5.0 (calc) [facility] Cholesterol Non-HDL 104 <130 mg/dL (calc) [facility] Comment: For patients with diabetes plus 1 major ASCVD risk factor, treating to a non-HDL-C goal of <100 mg/dL (LDL-C of <70 mg/dL) is considered a therapeutic option. 03/15/2020 2:50 PM EDT 03/16/2020 12:44 AM EDT Narrative Resulting Agency Comment [id number] Eulalia Angel LABORATORY Final Result [facility] [address] [place] [address] * PAP SMEAR (02/06/2019) us Unknown Provider [...] Relevant to Health Maintenance Care Teams Administrative Professional Relationship Specialty Start Date End Date Valentino Seals MD [address] [place] [address] [facility] - General 10/06/22
--- OUTSIDE RECORDS SUMMARY | 2025-07-15 18:05 | XMS_ITS | Encounter Summary ---
Author Organization [facility] Address [address] [place] [address] Care Team Providers Care Hydro Operator Name Role Phone Eulalia Angel NP Primary Care Provider [phone] Erin Yancey MD Primary Care Provider [phone] Eulalia Angel NP Unavailable [phone] Eulalia Angel NP Primary Care Provider [phone] Valentino Seals MD Primary Care Provider [phone] Encounter Details Date Type Department Care Team ([facility] st Contact Info) Description 03/15/2020 Orders Only [facility] [address] [place] [address] Eulalia Angel NP 123 [facility] [address] [place] [address] Social History Tobacco Use Types [...] at . Any insurance accepted. Quit smoking resources-[email or web address]://[email or web address] [email or web address] documented as of this encounter Procedures * Due to [place] [employer] law, this organization might not be [...] this encounter Results * Due to [place] [employer] law, this organization might not be [...] LDL-C. Ramírez DE LA CRUZ et al. WHITELY. 2013;310(69): 1384-9796 (http://education.[employer]/faq/RVJ164) CHOL/HDL Ratio 2.7 <5.0 (calc) [facility] Cholesterol Non-HDL 104 <130 mg/dL (calc) [facility] Comment: For patients with diabetes plus 1 major ASCVD risk factor, treating to a non-HDL-C goal of <100 mg/dL (LDL-C of <70 mg/dL) is considered a therapeutic option. 03/15/2020 2:50 PM EDT 03/16/2020 12:44 AM EDT Narrative Resulting Agency Comment [id number] Eulalia Angel NP LABORATORY Final Result [facility] [address] [place] [address] * BASIC METABOLIC PANEL WITH (GFR) (03/15/2020 [...] needs for GFR calculation. Resulting Agency Comment [id number] Eulalia Angel NP LABORATORY Final Result Performing Organization Address City/[facility]/ZIP Co de Phone Number [facility] [address] [place] [address] * TSH, 3RD GENERATION (03/15/2020 2:50 PM EDT) TSH 2.87 mIU/L [facility] Comment: Reference Range > or = 20 Years 0.40-4.50 Ranges First trimester 0.26-2.66 Second trimester 0.55-2.73 Third trimester 0.43-2.91 03/15/2020 2:50 PM EDT 03/16/2020 12:44 AM EDT Narrative Resulting Agency Comment [id number] Eulalia Angel NP LABORATORY Final Result Performing Organization Address City/[facility]/ZIP Co de Phone Number [facility] [address] [place] [address] documented in this encounter Visit Diagnoses Diagnosis Tish's thyroiditis Chronic lymphocytic thyroiditis Screening for diabetes mellitus Screening for hyperlipidemia Screening for lipoid disorders documented in this encounter Care Teams Hydro Operator Relationship Specialty Start Date End Date Eulalia Angel NP PCP - General 03/24/19 08/15/20 Erin Yancey MD PCP - General Internal Medicine 08/16/20 03/23/21 Eulalia Angel NP PCP - Backup PCP Internal Medicine 12/30/20 03/23/21 Eulalia Angel NP PCP - General Internal Medicine 03/24/21 10/05/22 Valentino Seals MD [address] [place] [address] PCP - General 10/06/22 documented as of this encounter
== END 2025-07-15 13:22 | disposition home or self-care (01) ==
LOC: HO.HMGAL 12:56
PROVIDERS: PCP Internal Medicine; Visit Provider Registered Nurse Emergency
DX: J30.89 Other allergic rhinitis (principal)
CPT/HCPCS: 95117; 95165

== ENCOUNTER 2025-07-16 07:11 | Outpatient (REF) | payer OTHER, SELFPAY ==
--- OUTSIDE RECORDS SUMMARY | 2024-07-07 10:45 | XMS_ITS ---
Author Organization [facility] Address [address] [place], [place] [id number] Care Team Providers Care Financial Quantitative Analyst Name Role Phone SAMMI KEY Primary Care Provide r [phone] REASON FOR VISIT 39/CPX Encounters Encounter Location Date Provider Diagnosis [address] [address] 07/07/2024 SAMMI KEY PLAN OF TREATMENT Next Appt Details Provider Name:SAMMI VENCES, 07/21/2026 09:00:00 AM, [address] [place], [address],
--- OUTSIDE RECORDS SUMMARY | 2024-07-08 08:30 | XMS_ITS ---
Author Organization [facility] Address [address] [place], [place] [id number] Care Team Providers Care Herb Grower Name Role Phone SAMMI KEY Primary Care Provide r [phone] ALLERGIES No Known Allergies REASON FOR VISIT [...] Chronic sinusitis, unspecified location (J32.9) Active confirmed [id number] VITAL SIGNS Height 69 in 07/08/2024 Weight 179.2 lbs 07/08/2024 Blood pressure systolic 137 mm Hg 07/08/20 24 Blood pressure diastolic 81 mm Hg 024 BMI 26.46 kg/m2 07/08/2024 Encounters Encounter Location Date Provider Diagnosis [facility] [address] [place] [address] 07/08/2024 SAMMI SHAHID Physical exam Z00.00 ; Pain in left [...] the process of setting of care with NOVELTY BALLOON ASSEMBLER AND PACKER. Have refilled her previous topical therapy in [...] proce ss of setting of care with NOVELTY BALLOON ASSEMBLER AND PACKER. Have refilled her previous topical therapy in [...] Provider Name:SAMMI VENCES, 07/21/2026 09:00:00 AM, [address] [facility], [place], [address], Progress Notes * Examination Category Sub-Category Detail [...] regimen working well. -up to date with senior integration architect [facility]mc -eye exam is due and will [...] to cardiology couple of years ago saw [facility] cardiology, Dr. Bailey, Testing showed only PACs and follow-up was to be as needed. She was also referred by pulmonary at [place] and has routine follow-up there have been no changes to her inhalers. She says ENT [place] praveen; and gets regular injections for her various environmental allergies Family history: dad w/ cardiomegaly and afib mom w/ cad and irreg rhythym gets occ fullness of lymph nodes and then they go away. after a few days. works for [employer]/l Knee pain left > right , swelling of left knee lateral and above knee cap. seeing ortho at [facility] mri scheduled - ROS: GEN: No fevers, [...] No urinary hesitancy or discomfort. 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 NOVELTY BALLOON ASSEMBLER AND PACKER: Normal menses, no prolonged or heavy bleeding. [...]
--- OUTSIDE RECORDS SUMMARY | 2024-07-30 11:53 | XMS_ITS ---
Author Organization [facility] Address [address] [place], [place] [phone] Care Team Providers Care Tanbark Peeler Name Role Phone SAMMI KEY Primary Care Provide r [phone] REASON FOR VISIT 6 month f/u Encounters Encounter Location Date Provider Diagnosis [facility] [address] [place] [id number] 07/30/2024 SAMMI KEY PLAN OF TREATMENT Next Appt Details Provider Name:SAMMI EVNCES, 07/21/2026 09:00:00 AM, [address] [place], [address],
--- OUTSIDE RECORDS SUMMARY | 2025-01-16 10:50 | XMS_ITS ---
Author Organization [facility] Address [address] [place], [place] [id number] Care Team Providers Care Avionics Repair Technician Name Role Phone NEWRAFAELALEÓN SAMMI Primary Care Provide r [phone] REASON FOR VISIT breast u/s PROBLEMS Problem Type ICD Code Onset Dates Problem Status W/U Status Risk SNOMED Code Notes Problem Abnormal finding on breast imaging (R92.8) Active confirmed [id number] Encounters Encounter Location Date Provider Diagnosis [facility] [address] [place] [address] 01/16/2025 SAMMI KEY Abnormal finding on breast imaging R92.8 ASSESSMENTS Encounter Date Diagnosis Assessment Notes Treatment Notes Treatment Clinical Notes Section Notes 01/16/2025 Abnormal finding on breast imaging (ICD-10 - R92.8) PLAN OF TREATMENT Next Appt Details Provider Name:SAMMI VENCES, 07/21/2026 09:00:00 AM, [address] [place], [address],
--- OUTSIDE RECORDS SUMMARY | 2025-06-04 04:07 | XMS_ITS ---
Author Organization [facility] Address [address] [place], [place] [id number] Care Team Providers Care Behavioral Scientist Name Role Phone SAMMI KEY Primary Care Provide r [phone] REASON FOR VISIT Update Demographics - Personal Info Encounters Encounter Location Date Provider Diagnosis [facility] [address] [place], [place] [id number] 06/04/2025 SAMMI KEY PLAN OF TREATMENT Next Appt Details Provider Name:SAMMI VENCES, 07/21/2026 09:00:00 AM, [address] [place], [address],
--- OUTSIDE RECORDS SUMMARY | 2025-06-24 04:25 | XMS_ITS ---
Author Organization [facility] Address [address] [place], [place] [id number] Care Team Providers Care Registered Dietician Name Role Phone SAMMI KEY Primary Care Provide r [phone] REASON FOR VISIT Update Demographics - Personal Info Encounters Encounter Location Date Provider Diagnosis [facility] [address] [place] [phone] 06/24/2025 SAMMI KEY PLAN OF TREATMENT Next Appt Details Provider Name:SAMMI VENCES, 07/21/2026 09:00:00 AM, [address] [place], [phone],
--- OUTSIDE RECORDS SUMMARY | 2025-07-02 06:31 | XMS_ITS ---
Author Organization [facility] Address [address] [place], [place] [id number] Care Team Providers Care Health Physics Technician Name Role Phone SAMMI KEY Primary Care Provide r [phone] REASON FOR VISIT incassia request MEDICATIONS Medication SIG (Take, Route, Fr equency, Duration) Notes Start Date End Date Status Incassia 0.35 MG TAKE 1 TABLET BY AKANKSHA TH EVERY DAY FOR 90 DAYS for 84 Active Encounters Encounter Location Date Provider Diagnosis [facility] [address] [place] [address] 07/02/2025 SAMMI KEY PLAN OF TREATMENT Medication Medication Name Sig Start Date Stop Date Notes Incassia 0.35 MG TAKE 1 TABLET BY AKANKSHA TH EVERY DAY FOR 90 DAYS for 84 Next Appt Details Provider Name:SAMMI VENCES, 07/21/2026 09:00:00 AM, [address] [place], [address],
--- OUTSIDE RECORDS SUMMARY | 2025-07-02 13:46 | XMS_ITS ---
Author Organization [facility] Address [address] [place], [place] [id number] Care Team Providers Care Knitter Helper Name Role Phone SAMMI KEY Primary Care Provide r [phone] REASON FOR VISIT RE:incassia request MEDICATIONS Medication SIG (Take, Route, Fr equency, Duration) Notes Start Date End Date Status Incassia 0.35 MG TAKE 1 TABLET BY AKANKSHA TH EVERY DAY FOR 90 DAYS for 84 days Active Encounters Encounter Location Date Provider Diagnosis [facility] [address] [place] [phone] 07/02/2025 SAMMI KEY PLAN OF TREATMENT Medication Medication Name Sig Start Date Stop Date Notes Incassia 0.35 MG TAKE 1 TABLET BY AKANKSHA TH EVERY DAY FOR 90 DAYS for 84 days Next Appt Details Provider Name:SAMMI VENCES, 07/21/2026 09:00:00 AM, [address] [place], [address],
--- OUTSIDE RECORDS SUMMARY | 2025-07-12 16:02 | XMS_ITS | Encounter Summary ---
Author Organization [facility] Address [address] [place] [address] Phone Care Team Providers Care Gasket Notcher Name Role Phone Eulalia Angel BRAND AMBASSADORS PROMOTIONAL SALES Unavailable [phone] Isa Payne DO Primary Car e [...] EXTREM Richardson Davenport MD Phone: tel: fax: mailto:[email or web address] Referral ID Status Reason Start Date Expiration Date Visits Re quested Visits Authorized [id number] Closed 06/17/2025 09/14/2025 1 1 Reason for [...] EXTREM Richardson Davenport MD Phone: tel: fax: mailto:[email or web address] Referral ID Status Reason Start Date Expiration Date Visits Re quested Visits Authorized [id number] Closed 06/17/2025 09/14/2025 1 1 Encounter Details Date Type Department Care Team (Late st Contact Info) Description 07/12/2025 4:02 PM EDT - 07/12/2025 11:59 PM EDT Hospital Encounter [facility], [facility] - [address] [address] Richardson Davenport MD [address] [address] [email or web address] Discharge Disposition: Home or Self Care Social [...] Visit [facility] 1999 [facility], [address] [place] [address] Richardson Davenport MD [address] [address] 11/19/2025 11:30 AM EST Office Visit [facility] [address] [place] [address] Dar Abbott, [address] [place] [address] [email or web address] documented as of this encounter Procedures Procedure [...] leg documented in this encounter Care Teams Gasket Notcher Relationship Specialty Start Date End Date Isa Payne DO [address] [place] [address] PCP - General Internal Medicine 04/25/22 Eulalia Angel NP Nurse Practitioner Family Medicine 10/29/18 documented as of this encounter Additional Source Comments The information contained in this document represents components of the legal health record. It is not the complete legal health record.[facility]
--- OUTSIDE RECORDS SUMMARY | 2025-07-12 16:02 | XMS_ITS | Encounter Summary ---
Author Organization [facility] Address [address] [place] [address] Phone Care Team Providers Care Elevator Repairer Name Role Phone Eulalia Angel PUNCH OUT CREW MEMBER Unavailable [phone] Isa Payne DO Primary Car e [...] EXTREM Richardson Davenport MD Phone: tel: fax: mailto:[email or web address] Referral ID Status Reason Start Date Expiration Date Visits Re quested Visits Authorized [id number] Closed 06/17/2025 09/14/2025 1 1 Reason for [...] EXTREM Richardson Davenport MD Phone: tel: fax: mailto:[email or web address] Referral ID Status Reason Start Date Expiration Date Visits Re quested Visits Authorized [id number] Closed 06/17/2025 09/14/2025 1 1 Encounter Details Date Type Department Care Team (Late st Contact Info) Description 07/12/2025 4:02 PM EDT - 07/12/2025 11:59 PM EDT Hospital Encounter [facility], [facility] - [address] [address] Richardson Davenport MD [address] [address] [email or web address] Discharge Disposition: Home or Self Care Social [...] Visit [facility] [address] [facility], [address] [place] [address] Richardson Davenport MD [address] [address] 11/19/2025 11:30 AM EST Office Visit [facility] [address] [place] [address] Dar Abbott, DO [address] [place] [address] documented as of this encounter Procedures Procedure Name Priority Date/Time Associated Diagnosis Comments MRI KNEE WITHOUT CONTRAST (RIGHT) Routine 07/12/2025 5:05 PM EDT Right knee pain documented in this encounter Results * MRI KNEE WITHOUT CONTRAST (RIGHT) (07/12/2025 5:05 PM EDT) Anatomical Region Laterality Modality Knee Right Magnetic Resonan ce 07/15/2025 12:2 6 PM EDT Impressions 07/15/2025 12:45 PM EDT 1. Medial femoral condyle chondral defect. 2. Moderate patellofemoral compartment chondromalacia. 3. Lateral collateral periligamentous edema, may be reactive or represent low- grade sprain. 4. Moderate to large joint effusion with synovitis. Subcentimeter posterior joint bodies. 5. Large leaking Ellison's cyst. Narrative 07/15/2025 12:45 PM EDT MRI KNEE WITHOUT CONTRAST (RIGHT) Referring clinician's provided indication for this examination in Epic: * Meniscal tear, untreated, new symptoms; ? mmt tear TECHNIQUE: Multi-sequence, multi-planar MRI of the knee without intravenous contrast. COMPARISON: None FINDINGS: Medial Compartment: There is no evidence of a surfacing medial meniscus tear. There is a medial femoral condyle chondral defect measuring 13 x 7 mm (AP x TR, series 4 image 10, series 6 image 15). The medial tibial plateau articular cartilage is intact. Lateral Compartment: There is no evidence of a surfacing lateral meniscus tear. The lateral compartment articular cartilage is intact. Patellofemoral Compartment: There is moderate patchy thinning of the medial patellar facet articular cartilage. There is focal fissuring of the lateral patellar facet articular cartilage. There is moderate patchy thinning of the femoral trochlea articular cartilage, most marked within the groove and along the medial trochlea. Tendons: The extensor mechanism and popliteus tendon are intact. Ligaments: The cruciate and collateral ligaments are intact. There is lateral collateral periligamentous edema. The patellar retinacula are intact. Bones: There is no evidence of acute fracture, subluxation, or dislocation. Joint: There is a moderate to large joint effusion with synovitis. There are 2 subcentimeter posterior joint bodies. There is a large leaking Ellison's cyst. Procedure Note Laura Doyle MD - 07/15/2025 MRI KNEE WITHOUT CONTRAST (RIGHT) Referring clinician's provided indication for this examination in Epic: *Meniscal tear, untreated, new symptoms; ? mmt tear TECHNIQUE: Multi-sequence, multi-planar MRI of the knee withoutintravenous contrast. COMPARISON: None FINDINGS: Medial Compartment: There is no evidence of a surfacing medial meniscustear. There is a medial femoral condyle chondral defect measuring 13 x 7mm (AP x TR, series 4 image 10, series 6 image 15). The medial tibialplateau articular cartilage is intact. Lateral Compartment: There is no evidence of a surfacing lateral meniscustear. The lateral compartment articular cartilage is intact. Patellofemoral Compartment: There is moderate patchy thinning of themedial patellar facet articular cartilage. There is focal fissuring of thelateral patellar facet articular cartilage. There is moderate patchythinning of the femoral trochlea articular cartilage, most marked withinthe groove and along the medial trochlea. Tendons: The extensor mechanism and popliteus tendon are intact. Ligaments: The cruciate and collateral ligaments are intact. There islateral collateral periligamentous edema. The patellar retinacula areintact. Bones: There is no evidence of acute fracture, subluxation, ordislocation. Joint: There is a moderate to large joint effusion with synovitis. Thereare 2 subcentimeter posterior joint bodies. There is a large leakingBaker's cyst. IMPRESSION: 1. Medial femoral condyle chondral defect. 2. Moderate patellofemoral compartment chondromalacia. 3. Lateral collateral periligamentous edema, may be reactive or representlow- grade sprain. 4. Moderate to large joint effusion with synovitis. Subcentimeterposterior joint bodies. 5. Large leaking Ellison's cyst. Richardson Davenport MD IMG MR EXTREMITY Final Result documented in this encounter Visit Diagnoses Diagnosis Right knee pain Pain in joint, lower leg documented in this encounter Care Teams Elevator Repairer Relationship Specialty Start Date End Date Isa Payne DO [address] [place] [address] PCP - General Internal Medicine 04/25/22 Eulalia Angel NP Nurse Practitioner Family Medicine 10/29/18 documented as of this encounter Additional Source Comments The information contained in this document represents components of the legal health record. It is not the complete legal health record.[facility]
--- OUTSIDE RECORDS SUMMARY | 2025-07-14 04:35 | XMS_ITS ---
Author Organization [facility] Address [address] [place], [place] [id number] Care Team Providers Care Hand Cloth Examiner Name Role Phone SAMMI KEY Primary Care Provide r [phone] REASON FOR VISIT Update Kiosk Demographics Encounters Encounter Location Date Provider Diagnosis [facility] [address] [place] [address] 07/14/2025 SAMMI KEY PLAN OF TREATMENT Next Appt Details Provider Name:SAMMI VENCES, 07/21/2026 09:00:00 AM, [address] [place], [address],
--- OUTSIDE RECORDS SUMMARY | 2025-07-14 08:00 | XMS_ITS ---
Author Organization [facility] Address [address] [place], [place] [address] Care Team Providers Care Cement Crusher Operator Name Role Phone SAMMI KEY Primary Care Provide r [phone] REASON FOR VISIT 1 year CPX MEDICATIONS [...] intermittent asthma without complication (J45.20) Active confirmed [id number] VITAL SIGNS Height 69 in 07/14/2025 Weight 184.4 lbs 07/14/2025 Blood pressure systolic 114 mm Hg 07/14/20 25 Blood pressure diastolic 68 mm Hg 025 BMI 27.23 kg/m2 07/14/2025 Encounters Encounter Location Date Provider Diagnosis [facility] [address] [place] [address] 07/14/2025 SAMMI ELENACOMFORTRAFAELALEÓN Physical exam Z00.00 ; Migraine without status migrainosus, not intractable, unspecified migraine type G43.909 ; Pain in left knee M25.562 ; Pain in right knee M25.561 ; Mild intermittent asthma without complication J45.20 and Tobacco use Z72.0 ASSESSMENTS Encounter Date Diagnosis Assessment Notes Treatment Notes Treatment Clinical Notes Section Notes 07/14/2025 Physical exam (ICD-10 - Z00.00) breast imaging pending armature inspector pending 07/14/2025 Migraine without status migrainosus, not [...] Assessment Notes Physical exam breast imaging pending armature inspector pending Migraine without status migr ainosus, not [...] Test Test Name Order Date Urinalysis, Complete [id number] 07/14/2025 CBC, Platelet, w/o [id number] 1 Hepatic Function Panel [id number] LP+Non-HDL [id number] 07/14/2025 BMP8+[id number] 07/14/2025 Next Appt Details Follow Up: prn,1 Year, Reaso n: Provider Name:SAMMITAY ZUNIGANAZ VENCES, 07/21/2026 09:00:00 AM, [address] [place], [address], Progress Notes * Examination Category Sub-Category Detail [...] regimen working well. -up to date with armature inspector [facility] next appt december 2025 -eye exam [...] to cardiology couple of years ago saw [place] [facility]ology, Dr. Bailey, Testing showed only PACs and follow-up was to be as needed. She was also referred by pulmonary at [place] and Was treated with Breo, Xolair, albuterol. Has not seen them or been consistent with her inhalers. She says E[facility] [place] praveen; and gets regular injections for her various environmental allergies Family history: dad w/ cardiomegaly and afib mom w/ cad and irreg rhythym gets occ fullness of lymph nodes and then they go away. after a few days. works for [employer] b/l Knee pain left > right , swelling of left knee lateral and above knee cap. seeing ortho at [facility] mri scheduled. Dr. Davenport . recently had imaging. has also seen dr [place] for chronic back pain - ROS: GEN: [...] No urinary hesitancy or discomfort. 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 [...]
--- OUTSIDE RECORDS SUMMARY | 2025-07-16 07:14 | XMS_ITS | Encounter Summary ---
Author Organization [facility] Address [address] [place] [address] Care Team Providers Care Activity Assistant Name Role Phone Eulalia Angel NP Primary Care Provider [phone] Erin Yancey MD Primary Care Provider [phone] Eulalia Angel NP Unavailable [phone] Eulalia Angel NP Primary Care Provider [phone] Valentino Seals MD Primary Care Provider [phone] Reason for Referral * CONSULT AND TREATMENT (Routine) - Closed Specialty Diagnoses / Procedures Referred By Katja mao Referred To Contact floor space allocator Diagnoses Abnormal female pelvic exam Procedures Regina Shell MD - OBGYN at [facility] P: [phone] F: [phone] DOS: 11/25/19 Eulalia Angel NP Phone: tel: fax: Regina Mcdonald MD [facility] [address] [place] [address] Phone: tel: fax: Referral ID Status Reason Start Date Expiration Date Visits Requested Visits Authorized [id number] Closed Patient Preference 10/23/2019 10/22/2020 12 12 Question Answer When do you want this visit to occur? WITHIN 1 MONTH - 11/25/19 Appointment with or AP? FIRST AVAILABLE Patient is being referred outside of [facility] for the following reason, however final determination for [id number] requests are made by the Referral Management [...] like to refer to? DR Regina Mcdonald P:[id number] F:[phone] 12 visits Encounter Details Date Type Department Care Team ([facility] st Contact Info) Description 10/17/2019 Orders Only [facility] [address] [place] [address] Eulalia Angel NP 123 [facility] [address] [place] [address] Social History Tobacco Use Types Packs/Day Years [...] Priority Associated Diagnoses Orde r Schedule CONSULT MAKE UP OPERATOR HELPER NON-FC Referral Routine Abnormal female pelvic exam [...] at . Any insurance accepted. Quit smoking resources-http://[email or web address] documented as of this encounter Visit Diagnoses Diagnosis Abnormal female pelvic exam Nonspecific (abnormal) findings on radiological and other examination of genitourinary organs documented in this encounter Care Teams Activity Assistant Relationship Specialty Start Date End Date Eulalia Angel NP PCP - General 03/24/19 08/15/20 Erin Yancey MD PCP - General Internal Medicine 08/16/20 03/23/21 Eulalia Angel NP PCP - Backup PCP Internal Medicine 12/30/20 03/23/21 Eulalia Angel NP PCP - General Internal Medicine 03/24/21 10/05/22 Valentino Seals MD [address] [place] [address] PCP - General 10/06/22 documented as of this encounter
--- OUTSIDE RECORDS SUMMARY | 2025-07-16 07:14 | XMS_ITS | Encounter Summary ---
Author Organization [facility] Address [address] [place] [address] Care Team Providers Care Padding Gluer Name Role Phone Eulalia Angel NP Primary Care Provider [phone] Erin Yancey MD Primary Care Provider [phone] Eulalia Angel NP Unavailable [phone] Eulalia Angel NP Primary Care Provider [phone] Valentino Seals MD Primary Care Provider [phone] Encounter Details Date Type Department Care Team (Late st Contact Info) Description 08/29/2019 Orders Only [facility] [address] [place] [address] Eulalia Angel NP 123 [facility] [address] [place] [address] Social History Tobacco Use Types [...] at . Any insurance accepted. Quit smoking resources-[email or web address] documented as of this encounter Procedures * Due to [place] [employer] law, this organization might not be sharing negative HIV tests. Procedure Name Priority Date/Time Associated Diagnosis Comments VENIPUNCTURE Routine 08/29/2019 3:34 PM EST Thyroiditis TSH, 3RD GENERATION Routine 08/29/2019 3 :34 PM EST Thyroiditis documented in this encounter Results * Due to [place] [employer] law, this organization might not be sharing negative HIV tests. * TSH, 3RD GENERATION (08/29/2019 3:34 PM EST) TSH 3.59 mIU/L [facility] Comment: Reference Range > or = 20 Years 0.40-4.50 Ranges First trimester 0.26-2.66 Second trimester 0.55-2.73 Third trimester 0.43-2.91 08/29/2019 3:34 PM EST 08/30/2019 12:24 AM EST Narrative Resulting Agency Comment [id number] Eulalia Coronado SUPERVISOR ENGRAVING LABORATORY Final Result [facility] [address] [place] [address] * (ABNORMAL) THYROID PEROXIDASE AND THYROGLOBULIN ANTIBODIES (08/29/2019 3:34 PM EST) Thyroglobulin Ab <1 < or = 1 IU/mL [facility] Thyroperoxidase Ab 18(H) <9 IU/mL Q [facility] 08/29/2019 3:34 PM EST 08/30/2019 12:24 AM EST Narrative Resulting Agency Comment [id number] Eulalia Angel SUPERVISOR ENGRAVING LABORATORY Final Result Performing Organization Address City/[facility]/ZIP Co de Phone Number [facility] [address] [place] [address] documented in this encounter Visit Diagnoses Diagnosis Thyroiditis documented in this encounter Care Teams Padding Gluer Relationship Specialty Start Date End Date Eulalia Angel NP PCP - General 03/24/19 08/15/20 Erin Yancey MD PCP - General Internal Medicine 08/16/20 03/23/21 Eulalia Angel NP PCP - Backup PCP Internal Medicine 12/30/20 03/23/21 Eulalia Angel NP PCP - General Internal Medicine 03/24/21 10/05/22 Valentino Seals MD [address] [place] [address] PCP - General 10/06/22 documented as of this encounter
--- OUTSIDE RECORDS SUMMARY | 2025-07-16 07:14 | XMS_ITS | Encounter Summary ---
Author Organization [facility] Address [address] [facility] [address] [place] [address] Phone Care Team Providers Care Warranty Administrator Name Role Phone Eulalia Angel MINING MACHINERY ASSEMBLER Unavailable [phone] Isa Payne DO Primary Car e Provider Encounter Details Date Type Department Care Team (Late st Contact Info) Description 08/14/2022 Procedure Pass [facility], Ct Scan - [address] [address] Social History Tobacco Use Types Packs/Day Years [...] 07/24/2025 1:00 PM EDT Office [facility] 1999 [facility], [address] [place] [address] Richardson Davenport MD [address] [address] 11/19/2025 11:30 AM EST Office Visit [facility] [address] [place] [address] Dar Abbott, DO [address] [place] [address] documented as of this encounter Visit Diagnoses Not on filedocumented in this encounter Care Teams Warranty Administrator Relationship Specialty Start Date End Date Isa Payne DO [address] [place] [address] PCP - General Internal Medicine 04/25/22 Eulalia Angel NP Nurse Practitioner Family Medicine 10/29/18 documented as of this encounter Additional Source Comments The information contained in this document represents components of the legal health record. It is not the complete legal health record.[facility]
--- OUTSIDE RECORDS SUMMARY | 2025-07-16 07:14 | XMS_ITS | Encounter Summary ---
Author Organization [facility] Address [address] [place] [address] Care Team Providers Care Calculation Reviewer Name Role Phone Eulalia Angel NP Unavailable [phone] Eulalia Angel NP Primary Care Provider Erin Yancey MD Primary Care Provider Eulalia Angel FRAME CHANGER Unavailable [phone] Eulalia Angel NP Primary Care Provider Valentino Seals MD Primary Care Provider [phone] Encounter Details Date Type Department Care Team (Late st Contact Info) Description 05/28/2019 Orders Only [facility] [address] [place] [address] Eulalia Angel NP 123 [facility] [address] [place] [address] Social [...] at . Any insurance accepted. Quit smoking resources-[email or web address] documented as of this encounter Procedures * Due to [place] [employer] law, this organization might not be sharing negative HIV tests. Procedure Name Priority Date/Time Associated Diagnosis Comments THYROID PEROXIDASE AND THYROGLOBULIN ANTIBODIES Routine 05/28/2019 11:47 AM EDT Screening for endocrine, nutritional, metabolic and immunity disorder documented in this encounter Results * Due to [place] [employer] law, this organization might not be sharing negative HIV tests. * (ABNORMAL) THYROID PEROXIDASE AND THYROGLOBULIN ANTIBODIES (05/28/2019 11:47 AM EDT) Thyroglobulin Ab <1 < or = 1 IU/mL [facility] Thyroperoxidase Ab 12(H) <9 IU/mL Q [facility] 05/28/2019 11:4 7 AM EDT 05/29/2019 1:31 AM EDT Narrative Resulting Agency Comment [id number] us Brennan Cagle MD LABORATORY Final Result [facility] [address] [place] [address] documented in this encounter Visit Diagnoses Diagnosis Screening for endocrine, nutritional, metabolic and immunity disorder Screening for other and unspecified endocrine, nutritional, metabolic, and immunity disorders documented in this encounter Care Teams Calculation Reviewer Relationship Specialty Start Date End Date Eulalia Angel NP PCP - Backup PCP Internal Medicine 01/28/19 06/09/19 Eulalia Angel NP PCP - General 03/24/19 08/15/20 Erin Yancey MD PCP - General Internal Medicine 08/16/20 03/23/21 Eulalia Angel NP PCP - Backup PCP Internal Medicine 12/30/20 03/23/21 Eulalia Angel NP PCP - General Internal Medicine 03/24/21 10/05/22 Valentino Seals MD [address] [place] [address] PCP - General 10/06/22 documented as of this encounter
--- OUTSIDE RECORDS SUMMARY | 2025-07-16 07:14 | XMS_ITS | Encounter Summary ---
Author Organization [facility] Address [address] [place] [address] Care Team Providers Care Nuclear Spectroscopist Name Role Phone Eulalia Angel NP Unavailable [phone] Eulalia Angel NP Primary Care Provider Erin Yancey MD Primary Care Provider [phone] Eulalia Angel SYSTEMS PROGRAM MANAGER Unavailable [phone] Eulalia Angel NP Primary Care Provider [phone] Valentino Seals MD Primary Care Provider [phone] Encounter Details Date Type Department Care Team (Late st Contact Info) Description 04/29/2019 Orders Only [facility] [address] [place] [id number] Eulalia Angel NP 123 [facility] [address] [place] [address] Social History Tobacco Use Types [...] at . Any insurance accepted. Quit smoking resources-[email or web address] documented as of this encounter Procedures * Due to [place] state law, this organization might not be sharing negative HIV tests. Procedure Name Priority Date/Time Associated Diagnosis Comments HCG, TOTAL, QL Routine 04/29/2019 3:25 PM EDT Amenorrhea documented in this encounter Results * Due to [place] [employer] law, this organization might not be sharing negative HIV tests. * HCG, TOTAL, QL (04/29/2019 3:25 PM EDT) HCG, Qualitative (Screen) NEGATIVE [facility] Comment: Reference Range Non-: Negative : Positive 04/29/2019 3:25 PM EDT 04/30/2019 12:32 AM EDT Narrative Resulting Agency Comment [id number] Eulalia Angel NP LAB SAME DAY RESULT Final Resul t [facility] [address] [place] [address] documented in this encounter Visit Diagnoses Diagnosis Amenorrhea Absence of menstruation documented in this encounter Care Teams Nuclear Spectroscopist Relationship Specialty Start Date End Date Eulalia Angel NP PCP - Backup PCP Internal Medicine 01/28/19 06/09/19 Eulalia Angel NP PCP - General 03/24/19 08/15/20 Erin Yancey MD PCP - General Internal Medicine 08/16/20 03/23/21 Eulalia Angel NP PCP - Backup PCP Internal Medicine 12/30/20 03/23/21 Eulalia Angel NP PCP - General Internal Medicine 03/24/21 10/05/22 Valentino Seals MD [address] [place] [address] PCP - General 10/06/22 documented as of this encounter
--- OUTSIDE RECORDS SUMMARY | 2025-07-16 07:14 | XMS_ITS | Patient Health Record ---
Author Organization [facility] Address [address] [place], [place] [id number] Care Team Providers Care Dials Supervisor Name Role Phone ROBERSAMMI DIAMOND Primary Care Provide r [phone] ALLERGIES No Known Allergies REASON FOR REFERRAL [...] 20 MG TAKE 1 CAPSULE BY [place] [facility] EVERY DAY 30 MINUTES BEFORE MORNING [...] Problem Other chronic pain (G89.29) Active confirmed 35573879 Problem Lumbago with sciatica, right side (M54.41) Active confirmed 700517152763845 Problem Lumbago with sciatica, left side (M54.42) Active confirmed 017702045 Problem Mild intermittent asthma without complication (J45.20) Active confirmed 393872851 Problem Chronic fatigue (R53.82) Active confirmed 42114820 Problem Migraine without status migrainosus, not intractable, unspecified migraine type (G43.909) Active confirmed 16098592 Problem History of tobacco use (Z87.891) Active confirmed 769233348 Problem Chronic sinusitis, unspecified location (J32.9) Active confirmed 60728788 Problem History of vitamin D deficiency (Z86.39) Active confirmed 20810953824926 Problem Irritable bowel syndrome, unspecified type (K58.9) Active confirmed 18918786 Problem 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) Active confirmed 062923858 Problem Abnormal finding on breast imaging (R92.8) Active confirmed 881959405 VITAL SIGNS Blood pressure diastolic 68 mm Hg 07/14/2025 Height 69 in 07/14/2025 Blood pressure systolic 114 mm Hg 07/14/2025 Weight 184.4 lbs 07/14/2025 BMI 27.23 kg/m2 07/14/2025 Encounters Encounter Location Date Provider Diagnosis [address] [address] 07/30/2024 [facility] [address] [address] 01/16/2025 [facility] Abnormal finding on breast imaging R92.[address] [address] 06/04/2025 [facility] [address] [place] [address] 06/24/2025 [facility] [address] [address] 07/02/20[facility] [address] [place] [address] 07/02/20[facility] [address] [place] [address] [facility] [address] [place] [address] 07/14/2025 [facility] Physical exam Z00.00 ; [...] (ICD-10 - Z00.00) breast imaging pending director technical pending 07/14/2025 Migraine without status migrainosus, not [...] 10/16/2023 URINALYSIS W/REFLEX CULTURE 10/16/2023 Urinalysis, Complete w/ME-[id number] 025 TSH-[id number] 07/14/2025 CBC, Platelet, w/o Differential-110075 1 Hepatic Function Panel [id number] LP+Non-HDL Cholesterol-499237 07/14/2025 BMP8+eGFR-617527 07/14/2025 Next Appt Details Provider Name:SAMMI EDUARDO VANGIE, 07/21/2026 09:00:00 AM, [address] [facility], [place], [address], Insurance Providers Payer Name Payer Address Payer Phone Subscriber Number Group Number Insured Name Patient Relationship to Insured Coverage Start Date Coverage End Date [employer] [address] [place] [address] [id number] SABRA SUGGS Self - patient is the insured 07/01/202 4 MEDICAL (GENERAL) HISTORY Medical History History ICD Code allergies arthritis irritable bowel syndrome thyroid disease depression gout Arthritis in knees Surgical History Surgery Date(Month/Year) lower back 2018 lower back & artifical disc 2020
--- OUTSIDE RECORDS SUMMARY | 2025-07-16 07:14 | XMS_ITS | Encounter Summary ---
Author Organization [facility] Address [address] [facility] [address] [place] [address] Phone Care Team Providers Care Cable Engineer Outside Plant Name Role Phone Eulalia Angel ASSEMBLY CLEANER Unavailable [phone] Isa Payne DO Primary Car e Provider Encounter Details Date Type Department Care Team (Late st Contact Info) Description 08/14/2022 Procedure Pass [facility], [address] [address] Social History Tobacco Use Types Packs/Day Years [...] Visit [facility] 1999 [facility], [address] [place] [address] Richardson Davenport MD [address] [address] 11/19/2025 11:30 AM EST Office Visit [facility] [address] [place] [address] Dar Abbott, DO [address] [place] [address] documented as of this encounter Visit Diagnoses Not on filedocumented in this encounter Care Teams Cable Engineer Outside Plant Relationship Specialty Start Date End Date Isa Payne DO [address] [place] [address] PCP - General Internal Medicine 04/25/22 Eulalia Angel NP Nurse Practitioner Family Medicine 10/29/18 documented as of this encounter Additional Source Comments The information contained in this document represents components of the legal health record. It is not the complete legal health record.[facility]
--- OUTSIDE RECORDS SUMMARY | 2025-07-16 07:14 | XMS_ITS | Encounter Summary ---
Author Organization [facility] Address [address] [place], [place] [id number] Phone Care Team Providers Care Ground Instructor Basic Name Role Phone Eulalia Angel MANAGER OF QUALITY Unavailable [phone] Isa Paynega DO Primary Car e [...] Expiration Date Visits Re quested Visits Authorized [id number] Closed 06/17/2025 09/14/2025 1 1 * MRI/CAT [...] EXTREM Richardson Davenport MD Phone: tel: fax: mailto:[email or web address] Referral ID Status Reason Start Date Expiration Date Visits Re quested Visits Authorized [id number] Closed 06/17/2025 09/14/2025 1 1 Encounter Details Date Type Department Care Team (Late st Contact Info) Description 06/16/2025 Orders Only [facility] [employer] 1999 [facility], [facility] [address] [place] [address] Kirit Akbar MA [address] [place] [address] [email or web address] Left knee pain (Primary Dx); Right [...] 07/24/2025 1:00 PM EDT Office Visit [facility] [employer] [employer] 1999 [facility], [address] [place] [address] Richardson Davenport MD [address] [address] [email or web address] 11/19/2025 11:30 AM EST [facility] Visit [facility] [address] [place] [address] Dar Abbott DO [address] [place] [address] [email or web address] documented as of this encounter Results * [...] 3. Small joint effusion. Richardson Davenport MD [facility] MR EXTREMITY Final Result * MRI KNEE [...] clinician's provided indication for this examination in [facility]: * Meniscal tear, untreated, new symptoms; [...] clinician's provided indication for this examination in [facility]: *Meniscal tear, untreated, new symptoms; ? [...] leg documented in this encounter Care Teams Ground Instructor Basic Relationship Specialty Start Date End Date Isa Payne DO [address] [place] [address] PCP - General Internal Medicine 04/25/22 Eulalia Angel NP Nurse Practitioner Family Medicine 10/29/18 documented as of this encounter Additional Source Comments The information contained in this document represents components of the legal health record. It is not the complete legal health record.[facility]
--- OUTSIDE RECORDS SUMMARY | 2025-07-16 07:15 | XMS_ITS | Encounter Summary ---
Author Organization [facility] Address [address] [place] [address] Care Team Providers Care Sheet Metal Shop Foreman Name Role Phone Eulalia Angel NP Primary Care Provider [phone] Brennan Cagle MD Primary Care Provider [phone] Eulalia Angel INSTALL TECHNICIAN Unavailable [phone] Eulalia Angel NP Primary Care Provider Erin Yancey MD Primary Care Provider Eulalia Angel INSTALL TECHNICIAN Unavailable [phone] Eulalia Angel INSTALL TECHNICIAN Primary Care Provider Valentino Seals MD Primary Care Provider [phone] Encounter Details Date Type Department Care Team (Late st Contact Info) Description 07/31/2018 Orders Only [facility] [address] [place] [address] Eulalia Angel INSTALL TECHNICIAN 123 [facility] [address] [place] [address] Social History Tobacco Use Types [...] at . Any insurance accepted. Quit smoking resources-[email or web address] documented as of this encounter Procedures * Due to [place] [employer] law, this organization might not be sharing negative HIV tests. Procedure Name Priority Date/Time Associated Diagnosis Comments CBC INCLUDES DIFFERENTIAL AND PLATELET COUNT Routine 07/31/2018 2:26 PM EST Fatigue, unspecified type BASIC METABOLIC PANEL WITH (GFR) Routine 07/31/2018 2:26 PM EST Fatigue, unspecified type documented in this encounter Results * Due to [place] [employer] law, this organization might not be sharing [...] needs for GFR calculation. Resulting Agency Comment [id number] us Brennan Cagle MD LABORATORY Final Result Performing Organization Address City/State/[facility] Co de Phone Number [facility] [address] [place] [address] * CBC INCLUDES DIFFERENTIAL AND PLATELET COUNT [...] 12:30 AM EST Narrative Resulting Agency Comment [id number] us Brennan Cagle MD LAB SAME DAY RESULT Final Res ult [facility] [address] [place] [address] documented in this encounter Visit Diagnoses Diagnosis Fatigue, unspecified type documented in this encounter Care Teams Sheet Metal Shop Foreman Relationship Specialty Start Date End Date Eulalia Angel NP PCP - General Internal Medicine 05/14/18 01/27/19 Brennan Cagle MD [address] [facility] [place] [place] [address] PCP - General Internal Medicine 01/28/19 03/23/19 Eulalia Angel NP [address] [place] [address] PCP - Backup PCP Internal Medicine 01/28/19 06/09/19 Eulalia Angel NP [address] [place] [address] PCP - General 03/24/19 08/15/20 Erin Yancey MD [address] [place] [address] PCP - General Internal Medicine 08/16/20 03/23/21 Eulalia Angel NP [address] [place] [address] PCP - Backup PCP Internal Medicine 12/30/20 03/23/21 Eulalia Angel NP [address] [place] [address] PCP - General Internal Medicine 03/24/21 10/05/22 Valentino Selas MD [address] [place] [address] PCP - General 10/06/22 documented as of this encounter
--- OUTSIDE RECORDS SUMMARY | 2025-07-16 07:15 | XMS_ITS | Encounter Summary ---
Author Organization [facility] Address [address] [address] Phone Care Team Providers Care Mushroom Cultivator Name Role Phone Eulalia Angel SPEECH AND LANGUAGE ASSISTANT Unavailable Isa Payne DO Primary Car e Provider Encounter Details Date Type Department Care Team (Late st Contact Info) Description 06/16/2025 Procedure Pass [facility], [address] [address] Social History Tobacco Use Types Packs/Day Years [...] 07/24/2025 1:00 PM EDT Office Visit [facility] 1999 [facility], [address] [place] [address] Richardson Davenport MD [address] [address] 11/19/2025 11:30 AM EST Office Visit [facility] [address] [place] [address] Dar Abbott, [address] [place] [address] documented as of this encounter Visit Diagnoses Not on filedocumented in this encounter Care Teams Mushroom Cultivator Relationship Specialty Start Date End Date Isa Payne DO [address] [place] [address] PCP - General Internal Medicine 04/25/22 Eulalia Angel NP Nurse Practitioner Family Medicine 10/29/18 documented as of this encounter Additional Source Comments The information contained in this document represents components of the legal health record. It is not the complete legal health record.[facility]
--- OUTSIDE RECORDS SUMMARY | 2025-07-16 07:15 | XMS_ITS | Encounter Summary ---
Author Organization [facility] Address [address] [address] Phone Care Team Providers Care Hot Header Operator Name Role Phone Eulalia Angel NP Unavailable [phone] Eulalia Angel NP Primary Care Provider [phone] Isa Payne DO Primary Car e Provider Encounter Details Date Type Department Care Team (Late st Contact Info) Description 05/09/2021 Ancillary Orders [facility] [address] [place], [place] [id number] Dar Abbott, [address] [place] [address] [email or web address] Social History Tobacco Use Types Packs/Day [...] 10:24 PM EDT Rozina Rosa RN * [place] Suicide Severity Rating Scale (Screener/Recent Self-Report) Question [...] Description 07/24/2025 1:00 PM EDT Office Visit [facility] [address] [facility], [address] [place] [address] Richardson Davenport MD [address] [address] 11/19/2025 11:30 AM EST Office Visit [facility] [address] [place] [address] Dar Abbott DO [address] [place] [address] [email or web address] documented as of this encounter Results * [place] Fluoroscopy (05/09/2021 6:17 PM EDT) Narrative [facility] IMG INTERFACES - 05/09/2021 6:18 PM EDT Fluoroscopy was provided during this procedure. us Dar Abbott DO IMG [place] MISC Final Result [facility] IMG INTERFACES documented in this encounter Visit Diagnoses Diagnosis Pain Generalized pain Pain Generalized pain documented in this encounter Care Teams Hot Header Operator Relationship Specialty Start Date End Date Eulalia Angel NP PCP - General Family Medicine 10/29/18 04/24/22 Isa Payne DO [address] [place] [address] PCP - General Internal Medicine 04/25/22 Eulalia Angel NP Nurse Practitioner Family Medicine 10/29/18 documented as of this encounter Additional Source Comments The information contained in this document represents components of the legal health record. It is not the complete legal health record.[facility]
--- OUTSIDE RECORDS SUMMARY | 2025-07-16 07:15 | XMS_ITS | Encounter Summary ---
Author Organization [facility] Address [address] [facility] [address] [place] [address] Phone Care Team Providers Care Research Associate Molecular Biology Name Role Phone Eulalia Angel NP Unavailable [phone] Eulalia Angel NP Primary Care Provider Isa Payne DO Primary Car e Provider Encounter Details Date Type Department Care Team (Late st Contact Info) Description 11/01/[address] [facility] Imaging [address] [place] [address] Social History Tobacco Use Types Packs/Day Years [...] Description 07/24/2025 1:00 PM EDT Office Visit [facility] [address] [facility], [address] [place] [address] Richardson Davenport MD [address] [address] 11/19/2025 11:30 AM EST Office Visit [facility] [address] [place] [address] Dar Abbott, [address] [place] [address] [email or web address] documented as of this encounter Visit Diagnoses Not on filedocumented in this encounter Care Teams Research Associate Molecular Biology Relationship Specialty Start Date End Date Eulalia Angel NP PCP - General Family Medicine 10/29/18 04/24/22 Isa Payne DO [address] [place] [address] PCP - General Internal Medicine 04/25/22 Eulalia Angel NP Nurse Practitioner Family Medicine 10/29/18 documented as of this encounter Additional Source Comments The information contained in this document represents components of the legal health record. It is not the complete legal health record.[facility]
--- OUTSIDE RECORDS SUMMARY | 2025-07-16 07:15 | XMS_ITS | Encounter Summary ---
Author Organization [facility] Address [address] [place] [address] [place] [address] Phone Care Team Providers Care Lip Cutter And Scorer Name Role Phone Eulalia Angel NP Unavailable [phone] Eulalia Angel NP Primary Care Provider [phone] Isa Payne DO Primary Car e Provider Encounter Details Date Type Department Care Team (Late st Contact Info) Description 06/16/2019 Procedure Pass [facility] PERIOPERATIVE DEPT [address] [place] [id number] Social History Tobacco Use Types Packs/Day Years [...] 07/24/2025 1:00 PM EDT Office Visit [facility] [address] [facility], [address] [place] [address] Richardson Davenport MD [address] [address] 11/19/2025 11:30 AM EST Office Visit [facility] [address] [place] [address] Dar Abbott, DO [address] [place] [address] documented as of this encounter Visit Diagnoses Not on filedocumented in this encounter Care Teams Lip Cutter And Scorer Relationship Specialty Start Date End Date Eulalia Angel NP PCP - General Family Medicine 10/29/18 04/24/22 Isa Payne DO [address] [place] [address] PCP - General Internal Medicine 04/25/22 Eulalia Angel NP Nurse Practitioner Family Medicine 10/29/18 documented as of this encounter Additional Source Comments The information contained in this document represents components of the legal health record. It is not the complete legal health record.[facility]
--- OUTSIDE RECORDS SUMMARY | 2025-07-16 07:15 | XMS_ITS | Encounter Summary ---
Author Organization [facility] Address [address] [place] [address] Care Team Providers Care Zipper Slide Attacher Name Role Phone Eulalia Angel NP Primary Care Provider [phone] Brennan Cagle MD Primary Care Provider [phone] Eulalia Angel INSPECTOR RETURNED MATERIALS Unavailable [phone] Eulalia Angel NP Primary Care Provider [phone] Erin Yancey MD Primary Care Provider [phone] Eulalia Angel INSPECTOR RETURNED MATERIALS Unavailable [phone] Eulalia Angel INSPECTOR RETURNED MATERIALS Primary Care Provider [phone] Valentino Seals MD Primary Care Provider [phone] Encounter Details Date Type Department Care Team (Late st Contact Info) Description 12/16/2018 Orders Only [facility] [address] [place] [phone] Eulalia Angel, INSPECTOR RETURNED MATERIALS 123 [facility] [address] [place] [address] Social History Tobacco Use Types [...] / using tobacco Lifestyle No Gabby Montesinos, CONSTRUCTION ADMINISTRATIVE ASSISTANT Note: Smoking can cause cancer, heart attacks, [...] at . Any insurance accepted. Quit smoking resources-[email or web address] [email or web address] documented as of this encounter Visit Diagnoses Not on filedocumented in this encounter Care Teams Zipper Slide Attacher Relationship Specialty Start Date End Date Eulalia Angel NP PCP - General Internal Medicine 05/14/18 01/27/19 Brennan Cagle MD [address] [place] [address] PCP - General Internal Medicine 01/28/19 03/23/19 Eulalia Angel NP [address] [place] [address] PCP - Backup PCP Internal Medicine 01/28/19 06/09/19 Eulalia Angel NP [address] [place] [address] PCP - General 03/24/19 08/15/20 Erin Yancey MD [address] [place] [address] PCP - General Internal Medicine 08/16/20 03/23/21 Eulalia Angel NP [address] [place] [address] PCP - Backup PCP Internal Medicine 12/30/20 03/23/21 Eulalia Angel NP [address] [place] [address] PCP - General Internal Medicine 03/24/21 10/05/22 Valentino Seals MD [address] [place] [address] PCP - General 10/06/22 documented as of this encounter
--- OUTSIDE RECORDS SUMMARY | 2025-07-16 07:15 | XMS_ITS | Encounter Summary ---
Author Organization [facility] Address [address] [place] [address] Phone Care Team Providers Care Cytopathology Technologist Name Role Phone Eulalia Angel NP Unavailable [phone] Eulalia Angel NP Primary Care Provider [phone] Isa Payne DO Primary Car e Provider Encounter Details Date Type Department Care Team (Late st Contact Info) Description 05/09/[address] [facility] PERIOPERATIVE DEPT [address] [place] [address] Social History Tobacco Use Types [...] 10:24 PM EDT Rozina Rosa RN * [place] Suicide Severity Rating Scale (Screener/Recent Self-Report) Question [...] Description 07/24/2025 1:00 PM EDT Office Visit [facility] [address] [facility], [address] [place] [address] Richardson Davenport MD [address] [address] 11/19/2025 11:30 AM EST Office Visit [facility] [address] [place] [address] Dar Abbott DO [address] [place] [address] documented as of this encounter Visit Diagnoses Not on filedocumented in this encounter Care Teams Cytopathology Technologist Relationship Specialty Start Date End Date Eulalia Angel NP PCP - General Family Medicine 10/29/18 04/24/22 Isa Payne DO [address] [place] [address] PCP - General Internal Medicine 04/25/22 Eulalia Angel NP Nurse Practitioner Family Medicine 10/29/18 documented as of this encounter Additional Source Comments The information contained in this document represents components of the legal health record. It is not the complete legal health record.[facility]
--- OUTSIDE RECORDS SUMMARY | 2025-07-16 07:15 | XMS_ITS | Encounter Summary ---
Author Organization [facility] Address [address] [place] [address] Care Team Providers Care Network Support Specialist Name Role Phone Brennan Cagle MD Primary Care Provider [phone] Eulalia Angel NP Unavailable [phone] Eulalia Angel NP Primary Care Provider [phone] Erin Yancey MD Primary Care Provider [phone] Eulalia Angel LOAN OFFICER Unavailable [phone] Eulalia Angel NP Primary Care Provider Valentino Seals MD Primary Care Provider [phone] Encounter Details Date Type Department Care Team (Late st Contact Info) Description 02/25/2019 Orders Only [facility] [address] [place] [address] Eulalia Angel NP 123 [facility] [address] [place] [address] Social History Tobacco Use Types [...] foods such as cakes, cookies, chips, popcorn, Australian fries, and ice cream. Hydrogenated fats (trans [...] are called omega- 3, omega-6, and omega-9. Monson-3 fatty acids are found in fish and some plants. They are good for heart health. They may reduce the risk of stroke, high blood pressure, and other chronic disease. Good sources are oily fish such as salmon, mackerel and tuna. Monson 3 fatty acids are also in fish oil supplements. Check with your healthcare provider before taking supplements. Fish oil supplements may cause bleeding in some people, especially if they are taken with blood-thinning medicines. Good plant sources for omega-3 fatty acids are canola oil, soybeans, flaxseed, avocado, and some types of nuts, especially walnuts and almonds. Monson-6 fatty acid is found in corn, safflower, soybean, and sunflower oils. Monson-9 fatty acid is found in olive oil, canola oil, and avocados. It is likely that the balance of fatty acids is very important. The [place] diet typically contains too much omega-6 fatty acid and not enough omega-3 fatty acid. How much fat do I need in my diet? Eating some fat???especially the good fats--is healthful, but many Americans eat too much and become overweight. The current [place] Heart Association Diet and Lifestyle Recommendations are: [...] at . Any insurance accepted. Quit smoking resources-http://[employer].org documented as of this encounter Procedures * Due to [place] state law, this organization might not be [...] this encounter Results * Due to [place] state law, this organization might not be sharing negative HIV tests. * (ABNORMAL) THYROID PEROXIDASE AND THYROGLOBULIN ANTIBODIES (05/28/2019 11:47 AM EDT) Thyroglobulin Ab <1 < or = 1 IU/mL [facility] Thyroperoxidase Ab 12(H) <9 IU/mL Q [facility] 05/28/2019 11:4 7 AM EDT 05/29/2019 1:31 AM EDT Narrative Resulting Agency Comment [id number] us Brennan Cagle MD LABORATORY Final Result Performing Organization Address [facility] Co de Phone Number [facility] [address] [place] [address] * (ABNORMAL) THYROID PEROXIDASE AND THYROGLOBULIN ANTIBODIES (02/25/2019 4:41 PM EDT) Thyroglobulin Ab <1 < or = 1 IU/mL [facility] Thyroperoxidase Ab 18(H) <9 IU/mL Q [facility] 02/25/2019 4:41 PM EDT 02/26/2019 1:51 AM EDT Narrative Resulting Agency Comment [id number] Brennan Cagle MD LABORATORY Final Result Performing Organization Address [facility] Co de Phone Number [facility] [address] [place] [address] * T4, FREE, SERUM (02/25/2019 4:41 PM EDT) FT4 0.9 0.8 - 1.8 ng/dL [facility] 02/25/2019 4:41 PM EDT 02/26/2019 1:51 AM EDT Narrative Resulting Agency Comment [id number] Brennan Cagle MD LABORATORY Final Result Performing Organization Address [facility] Co de Phone Number [facility] [address] [place] [address] * TSH, 3RD GENERATION (02/25/2019 4:41 PM EDT) TSH 2.42 mIU/L [facility] Comment: Reference Range > or = 20 Years 0.40-4.50 Ranges First trimester 0.26-2.66 Second trimester 0.55-2.73 Third trimester 0.43-2.91 02/25/2019 4:41 PM EDT 02/26/2019 1:51 AM EDT Narrative Resulting Agency Comment [id number] Brennan Cagle MD LABORATORY Final Result [facility] [address] [place] [address] * BASIC METABOLIC PANEL WITH (GFR) (02/25/2019 [...] needs for GFR calculation. Resulting Agency Comment [id number] Brennan Cagle MD LABORATORY Final Result Performing Organization Address [facility]/ZIP Co de Phone Number [facility] [address] [place] [address] * HEMOGLOBIN A1C (02/25/2019 4:41 PM EDT) [...] diagnosis of diabetes in children. According to [place] Diabetes Association (ADA) guidelines, hemoglobin A1c <7.0% represents optimal control in non- diabetic patients. Different metrics may apply to specific patient populations. Standards of Medical Care in Diabetes(ADA). Estimated Average Glucose 115 mg/dL (calc) [facility] 02/25/2019 4:41 PM EDT 02/26/2019 1:51 AM EDT Narrative Resulting Agency Comment [id number] Brennan Cagle MD LABORATORY Final Result Performing Organization Address [facility] Co de Phone Number [facility] [address] [place] [address] * (ABNORMAL) LIPID PANEL WITH REFLEX TO [...] DE LA CRUZ et al. WHITLEY. 2013;310(19): 6565-0368 (http://education.MiNeeds.com/faq/YXO995) CHOL/HDL Ratio 3.8 <5.0 (calc) [facility] Cholesterol Non-HDL 143(H) <130 mg/dL (calc) [facility] Comment: For patients with diabetes plus 1 major ASCVD risk factor, treating to a non-HDL-C goal of <100 mg/dL (LDL-C of <70 mg/dL) is considered a therapeutic option. 02/25/2019 4:41 PM EDT 02/26/2019 1:51 AM EDT Narrative Resulting Agency Comment [id number] Brennan Cagle MD LABORATORY Final Result [facility] [address] [place] [address] documented in this encounter Visit Diagnoses Diagnosis Screening for endocrine, nutritional, metabolic and immunity disorder Screening for other and unspecified endocrine, nutritional, metabolic, and immunity disorders documented in this encounter Care Teams Network Support Specialist Relationship Specialty Start Date End Date Brennan Cagle MD [address] [place] [address] PCP - General Internal Medicine 01/28/19 03/23/19 Eulalia Angel NP [address] [place] [address] PCP - Backup PCP Internal Medicine 01/28/19 06/09/19 Eulalia Angel NP [address] [place] [address] PCP - General 03/24/19 08/15/20 Erin Yancey MD [address] [place] [address] PCP - General Internal Medicine 08/16/20 03/23/21 Eulalia Angel NP [address] [place] [address] PCP - Backup PCP Internal Medicine 12/30/20 03/23/21 Eulalia Angel NP [address] [place] [address] PCP - General Internal Medicine 03/24/21 10/05/22 Valentino Seals MD [address] [place] [address] PCP - General 10/06/22 documented as of this encounter
--- OUTSIDE RECORDS SUMMARY | 2025-07-16 07:15 | XMS_ITS | Clinical Summary ---
Author Organization [facility] Address [address] [facility] [address] [place] [address] Phone Care Team Providers Care Printer Helper Name Role Phone Eulalia Angel PSYCHOLOGY TECH Unavailable [phone] Isa Payne DO Primary Car e [...] Take for postoperative pain management. 0 05/12/20 Active polyethylene glycol (MIRALAX) 17 gram packet Take 17 g by mouth daily as needed. 05/12/20 Active senna (SENOKOT) 8.6 mg tablet Take [...] hours as needed for anxiety. 15 tablet 05/31/20 21 Active oxyCODONE 5 MG immediate release [...] for anxiety. 15 tablet 06/07/20 21 Active diazePAM (VALIUM) 5 [...] - 07/12/2025 11:59 PM EDT Hospital Encounter [address] [address] Richardson Davenport MD Discharge Disposition: Home or Self Care 07/12/2025 4:02 PM EDT - 07/12/2025 11:59 PM EDT Hospital Encounter [address] [address] Richardson Davenport MD Discharge Disposition: Home or Self Care 07/09/2025 Ancillary Orders [facility],Outside Imaging [address] [place] [address] Unknown, MD Sydni 06/16/2025 10:15 AM EDT Office Visit [facility] [address] [facility], [address] [place] [address] Richardson Davenport MD Chondromalacia of patella, unspecified laterality (Primary Dx); Tear of medial meniscus of left knee, current, unspecified tear type, subsequent encounter; Tear of medial meniscus of right knee, current, unspecified tear type, subsequent encounter 06/16/2025 Procedure Pass [facility], [address] [address] 06/16/2025 Procedure Pass [address] [address] 06/16/2025 Orders Only [facility] [address] [facility], [address] [place] [address] Kirit Akbar [place] Left knee pain (Primary Dx); Right knee pain 06/04/2025 3:30 PM EDT - 06/04/2025 11:59 PM EDT Hospital Encounter [facility], X-Ray - [address] [place] [address] Dar Abbott, DO Discharge Disposition: Home or Self Care 05/19/2025 11:30 AM EDT Office Visit [facility] [address] [place] [address] Dar Abbott, DO Herniated lumbar disc without [...] Description 07/24/2025 1:00 PM EDT Office Visit [facility] [address] [facility], [address] [place] [address] Richardson Davenport MD [address] [address] 11/19/2025 11:30 AM EST Office Visit [facility] [address] [place] [address] Dar Abbott DO [address] [place] [address] Health Maintenance Due Date Last Done Comments [...] this topic Medical Devices Implanted Type Area Machine Gun Mechanic Device Identifier Shelf Expiration Date Model / Serial / Lot Putty Bone 1.0ml Graft Summer Demineralized Matrix Jar - [id number] Implanted:Qty: 1 on 05/09/2021 by Dar Abbott DO at [facility] Spine Lumbar [employer] 04/11/2024 [id number] / [id number] / Description:The implant type , laterality (when applicable), size, and expiration date have been visually and verbally confirmed by the Surgeon, Circulating RN and Scrub Personnel. Putty Bone 1.0ml Graft Summer Demineralized Matrix Jar - [id number] Implanted:Qty: 1 on 05/09/2021 by Dar Abbott DO at [facility] Spine Lumbar [employer] 02/24/2024 [id number] / [id number] / Description:The implant type , laterality (when applicable), size, and expiration date have been visually and verbally confirmed by the Surgeon, Circulating RN and Scrub Personnel. Screw Bone 45x6.5mm Spine Cd Horizon Multiaxial [place] Chrome Osteogrip Dual Lead Thread - [id number] Implanted:Qty: 1 on 05/09/2021 by Dar Abbott DO at [facility] Spine Lumbar [employer] [id number] / / Description:Load 2 vw deb am 05/02/21 Screw Bone 50x6.5mm Spine Cd Horizon Multiaxial [place] Chrome Osteogrip Dual Lead Thread - [id number] Implanted:Qty: 5 on 05/09/2021 by Dar Abbott DO at [facility] Spine Lumbar [employer] [id number] / / Description:Load 10/31 vw deb am 05/02/21 Screw Bone 45x7.5mm Spine Cd Horizon 5.5 Multiaxial [place] Chrome Osteogrip Dual Lead Thread - [id number] Implanted:Qty: 2 on 05/09/2021 by Dar Abbott DO at [facility] Spine Lumbar [employer] [id number] / / Description:Load 10/31 vw deb am 05/02/21 Set Screw 5.5x55mm Spine Cd Horizon Multiaxial [place] Osteogrip Dual Lead Thread - [id number] Implanted:Qty: 8 on 05/09/2021 by Dar Abbott DO at [facility] Spine Lumbar [employer] [id number] / / Description:Load 10/31 vw deb am 05/02/21 Thoracolumbar Spacer 7x22mm Verte Stack Peek - [id number] Implanted:Qty: 1 on 05/09/2021 by Dar Abbott DO at [facility] Spine Lumbar [employer] 02/24/2027 [id number] / / [id number] Description:The implant type , laterality (when applicable), size, and expiration date have been visually and verbally confirmed by the Surgeon, Circulating RN and Scrub Personnel. Gume 5.5x80mm Spinal Cd Horizon Solera Titanium Curve - [id number] Implanted:Qty: 2 on 05/09/2021 by Dar Abbott DO at [facility] Spine Lumbar [employer] [id number] / / Description:LOAD 2 VW deb am 05/02/21 Procedures Procedure Name [...] MD IM MR EXTREMITY Final Result * MRI KNEE [...] clinician's provided indication for this examination in [facility]: * Meniscal tear, untreated, new symptoms; [...] large leaking Ellison's cyst. Procedure Note Laura Dyole MD - 07/15/2025 MRI KNEE WITHOUT CONTRAST (RIGHT) Referring clinician's provided indication for this examination in [facility]: *Meniscal tear, untreated, new symptoms; ? [...] Final Result from [place] [address] [place] [address] [place] [address] [employer] PPO A[employer] PLUS PPO [employer] PL[employer] PPO [employer] P[employer] P[employer] P[employer] PPO [employer] PPO [employer] PPO [place] [id number] Care Teams Printer Helper Relationship Specialty Start Date End Date Isa Payne DO [address] [place] [address] PCP - General Internal Medicine 04/25/22 Eulalia Angel NP Nurse Practitioner Family Medicine 10/29/18 Additional Source Comments The information contained in this document represents components of the legal health record. It is not the complete legal health record.[facility]
--- OUTSIDE RECORDS SUMMARY | 2025-07-16 07:15 | XMS_ITS | Encounter Summary ---
Author Organization [facility] Address [address] [place] [address] Care Team Providers Care Fast Food Shift Lead Name Role Phone Eulalia Angel NP Unavailable [phone] Eulalia Angel NP Primary Care Provider [phone] Erin Yancey MD Primary Care Provider [phone] Eulalia Angel NP Unavailable [phone] Eulalia Angel NP Primary Care Provider [phone] Valentino Seals MD Primary Care Provider [phone] Reason for Referral * CONSULT AND TREATMENT (Routine) - Authorized Specialty Diagnoses / Procedures Referred By Katja t Referred To Contact Neurosurgery / Neurology Diagnoses Back pain, unspecified back location, unspecified back pain laterality, unspecified chronicity Procedures NeuroSurgeon: Dr Dar Abbott p [phone] f [phone] [facility] Eulalia Angel NP Phone: tel: fax: Dar Abbott DO [facility] [place], Dept of Neurosurgery [address] [place] [address] Phone: tel: fax: Referral ID Status Reason Start Date Expiration Date Visits Requested Visits Authorized [id number] Authorized Specialty Services Required 03/31/2019 03/30/2020 3 3 Question Answer When do you want this visit to occur? WITHIN 1 WEEK - 04/01/19 6 visits Appointment with MD or AP? FIRST AVAILABLE Patient is being referred outside of [facility] for the following reason, however final determination for [id number] requests are made by the Referral Management [...] refer to? NeuroSurgeon: Dr Dar Abbott p [phone] f [phone] [facility] surgery consult Please list the patient's preferred provider for this consult. Dr Dar Abbott p [phone] f [phone] [facility] Encounter Details Date Type Department Care Team ([facility] st Contact Info) Description 03/24/2019 Orders Only [facility] [address] [place] [address] Eulalia Angel NP [address] [place] [address] Social History Tobacco Use Types Packs/Day Years [...] at . Any insurance accepted. Quit smoking resources-[email or web address] documented as of this encounter Visit Diagnoses Diagnosis Back pain, unspecified back location, unspecified back pain laterality, unspecified chronicity documented in this encounter Care Teams Fast Food Shift Lead Relationship Specialty Start Date End Date Eulalia Angel NP PCP - Backup PCP Internal Medicine 01/28/19 06/09/19 Eulalia Angel NP PCP - General 03/24/19 08/15/20 Erin Yancey MD PCP - General Internal Medicine 08/16/20 03/23/21 Eulalia Angel NP PCP - Backup PCP Internal Medicine 12/30/20 03/23/21 Eulalia Angel NP PCP - General Internal Medicine 03/24/21 10/05/22 Valentino Seals MD [address] [place] [address] PCP - General 10/06/22 documented as of this encounter
--- OUTSIDE RECORDS SUMMARY | 2025-07-16 07:15 | XMS_ITS | Clinical Summary ---
Author Organization [facility] Address [address] [place] [address] Care Team Providers Care City Carrier Name Role Phone Valentino Seals MD Primary Care Provider [phone] Allergies No known active allergies Medications Drospirenone-Et [...] at . Any insurance accepted. Quit smoking resources-[email or web address] [employer]TD.WeStore Procedures * Due to [place] AirDroids law, this organization might not be sharing [...] to Health Maintenance Results * Due to [place] Air[place]roids law, this organization might not be sharing [...] in the estimation of LDL-C. Ramírez DE AL CRUZ et al. WHITLEY. 2013;310(19): 2788-3380 (http://education.Sounder.Cureatr/faq/WDZ377) CHOL/HDL Ratio 2.7 <5.0 (calc) [facility] Cholesterol Non-HDL 104 <130 mg/dL (calc) [facility] Comment: For patients with diabetes plus 1 major ASCVD risk factor, treating to a non-HDL-C goal of <100 mg/dL (LDL-C of <70 mg/dL) is considered a therapeutic option. 03/15/2020 2:50 PM EDT 03/16/2020 12:44 AM EDT Narrative Resulting Agency Comment [id number] us Eulalia Angel LABORATORY Final Result [facility] [address] [place] [address] * PAP SMEAR (02/06/2019) us Unknown Provider [...] Recently Relevant to Health Maintenance Care Teams City Carrier Relationship Specialty Start Date End Date Valentino Seals MD [address] [place] [address] [facility] - General 10/06/22
--- OUTSIDE RECORDS SUMMARY | 2025-07-16 07:15 | XMS_ITS | Encounter Summary ---
Author Organization [facility] Address [address] [facility] [address] [place] [address] Phone Care Team Providers Care Technical Publications Writer Name Role Phone Eulalia Angel NP Unavailable [phone] Eulalia Angel NP Primary Care Provider [phone] Isa Payne DO Primary Car e Provider Encounter Details Date Type Department Care Team (Late st Contact Info) Description 06/03/2019 Procedure Pass [facility] [address] [place] [address] Social History Tobacco Use Types Packs/Day Years [...] Description 07/24/2025 1:00 PM EDT Office Visit [facility] 1999 [facility], [address] [place] [address] Richardson Davenport MD [address] [address] 11/19/2025 11:30 AM EST Office Visit [facility] [address] [place] [address] Dar Abbott, DO [address] [place] [phone] [email or web address] documented as of this encounter Visit Diagnoses Not on filedocumented in this encounter Care Teams Technical Publications Writer Relationship Specialty Start Date End Date Eulalia Angel NP PCP - General Family Medicine 10/29/18 04/24/22 Isa Payne DO [address] [place] [address] PCP - General Internal Medicine 04/25/22 Eulalia Angel NP Nurse Practitioner Family Medicine 10/29/18 documented as of this encounter Additional Source Comments The information contained in this document represents components of the legal health record. It is not the complete legal health record.[facility]
--- OUTSIDE RECORDS SUMMARY | 2025-07-16 07:15 | XMS_ITS | Encounter Summary ---
Author Organization [facility] Address [address] [address] Phone Care Team Providers Care Order Takers Supervisor Name Role Phone Eulalia Angel BAILER TENDERS SUPERVISOR Unavailable [phone] Isa Payne DO Primary Car e Provider Encounter Details Date Type Department Care Team (Late st Contact Info) Description 08/30/2023 Procedure Pass [facility], [address] [place] [address] Social History Tobacco Use Types Packs/Day Years [...] 07/24/2025 1:00 PM EDT [facility] 1999 [facility], [address] [place] [address] Richardson Davenport MD 1999 [facility] [place] [address] 11/19/2025 11:30 AM EST Office Visit [facility] [address] [place] [address] Dar Abbott, DO [address] [place] [address] documented as of this encounter Visit Diagnoses Not on filedocumented in this encounter Care Teams Order Takers Supervisor Relationship Specialty Start Date End Date Isa Payne DO [address] [place] [address] PCP - General Internal Medicine 04/25/22 Eulalia Angel NP Nurse Practitioner Family Medicine 10/29/18 documented as of this encounter Additional Source Comments The information contained in this document represents components of the legal health record. It is not the complete legal health record.[facility]
--- OUTSIDE RECORDS SUMMARY | 2025-07-16 07:15 | XMS_ITS | Encounter Summary ---
Author Organization [facility] Address [address] [place] [address] [address] Phone Care Team Providers Care Comic Book Writer Name Role Phone Eulalia Angel FORESTRY AND WILDLIFE MANAGER Unavailable [phone] Isa Payne DO Primary Car e Provider Encounter Details Date Type Department Care Team (Late st Contact Info) Description 06/16/2025 Procedure Pass [facility], [address] [address] Social History Tobacco Use Types Packs/Day Years [...] 07/24/2025 1:00 PM EDT Office Visit [facility] 1999 [facility], [address] [place] [address] Richardson Davenport MD [address] [address] 11/19/2025 11:30 AM EST Office Visit [facility] [address] [place] [address] Dar Abbott, 70 [place] [address] documented as of this encounter Visit Diagnoses Not on filedocumented in this encounter Care Teams Comic Book Writer Relationship Specialty Start Date End Date Isa Payne DO [address] [place] [address] PCP - General Internal Medicine 04/25/22 Eulalia Angel NP Nurse Practitioner Family Medicine 10/29/18 documented as of this encounter Additional Source Comments The information contained in this document represents components of the legal health record. It is not the complete legal health record.[facility]
--- OUTSIDE RECORDS SUMMARY | 2025-07-16 07:15 | XMS_ITS | Encounter Summary ---
Author Organization [facility] Address [address] [address] Phone Care Team Providers Care Public Relations Analyst Name Role Phone Eulalia Angel TEMPLATE WORKER Unavailable Isa Payne DO Primary Car e Provider Encounter Details Date Type Department Care Team (Late st Contact Info) Description 11/13/2023 Procedure Pass [facility], [address] [place] [address] Social History Tobacco Use Types Packs/Day Years [...] 07/24/2025 1:00 PM EDT [facility] [address] [facility], [address] [place] [address] Richardson Davenport MD 1999 [facility] [place] [address] 11/19/2025 11:30 AM EST Office Visit [facility] 70 [place] [address] Dar Abbott, DO [address] [place] [address] documented as of this encounter Visit Diagnoses Not on filedocumented in this encounter Care Teams Public Relations Analyst Relationship Specialty Start Date End Date Isa Payne DO [address] [place] [address] PCP - General Internal Medicine 04/25/22 Eulalia Angel NP Nurse Practitioner Family Medicine 10/29/18 documented as of this encounter Additional Source Comments The information contained in this document represents components of the legal health record. It is not the complete legal health record.[facility]
--- OUTSIDE RECORDS SUMMARY | 2025-07-16 07:15 | XMS_ITS | Encounter Summary ---
Author Organization [facility] Address [address] [place] [address] [address] Phone Care Team Providers Care Sports Analyst Name Role Phone Eulalia Angel DRIVER LICENSE AGENT Unavailable [phone] Isa Payne DO Primary Car e Provider Encounter Details Date Type Department Care Team (Late st Contact Info) Description 11/13/2023 Procedure Pass [facility], [address] [place] [address] Social History Tobacco Use Types Packs/Day Years [...] 07/24/2025 1:00 PM EDT [facility] [address] [facility], [address] [place] [address] Richardson Davenport MD 1999 [facility] [place] [address] 11/19/2025 11:30 AM EST Office Visit [facility] [address] [place] [address] Dar Abbott, DO [address] [place] [address] documented as of this encounter Visit Diagnoses Not on filedocumented in this encounter Care Teams Sports Analyst Relationship Specialty Start Date End Date Isa Payne DO [address] [place] [address] PCP - General Internal Medicine 04/25/22 Eulalia Angel NP Nurse Practitioner Family Medicine 10/29/18 documented as of this encounter Additional Source Comments The information contained in this document represents components of the legal health record. It is not the complete legal health record.[facility]
--- OUTSIDE RECORDS SUMMARY | 2025-07-16 07:16 | XMS_ITS | Encounter Summary ---
Author Organization [facility] Address [address] [place] [address] Care Team Providers Care Professor Of Communication Arts Name Role Phone Eulalia Angel NP Primary Care Provider [phone] Valentino Seals MD Primary Care Provider [phone] Encounter Details Date Type Department Care Team (Late st Contact Info) Description 03/31/2021 Orders Only [facility] [address] [place] [address] Eulalia Angel NP [address] [facility] [address] [place], [place] [id number] Social History Tobacco Use Types Packs/Day Years [...] at . Any insurance accepted. Quit smoking resources-[email or web address] documented as of this encounter Visit Diagnoses Diagnosis Sciatica, unspecified laterality documented in this encounter Care Teams Professor Of Communication Arts Relationship Specialty Start Date End Date Eulalia Angel NP PCP - General Internal Medicine 03/24/21 10/05/22 Valentino Seals MD [address] [place] [address] PCP - General 10/06/22 documented as of this encounter
--- OUTSIDE RECORDS SUMMARY | 2025-07-16 07:16 | XMS_ITS | Encounter Summary ---
Author Organization [facility] Address [address] [place] [address] Care Team Providers Care Rotary Drier Feeder Name Role Phone Eulalia Angel NP Primary Care Provider [phone] Valentino Seals MD Primary Care Provider [phone] Encounter Details Date Type Department Care Team (Late st Contact Info) Description 03/24/2021 Orders Only [facility] [address] [place] [id number] Erin Yancey MD [address] [place] [address] Social History Tobacco Use Types Packs/Day Years [...] at . Any insurance accepted. Quit smoking resources-http://[email or web address] documented as of this encounter Visit Diagnoses Not on filedocumented in this encounter Care Teams Rotary Drier Feeder Relationship Specialty Start Date End Date Eulalia Angel NP PCP - General Internal Medicine 03/24/21 10/05/22 Valentino Seals MD [address] [place] [address] PCP - General 10/06/22 documented as of this encounter
--- OUTSIDE RECORDS SUMMARY | 2025-07-16 07:16 | XMS_ITS | Encounter Summary ---
Author Organization [facility] Address [address] [place] [address] Care Team Providers Care Continuity Tester Name Role Phone Eulalia Angel NP Primary Care Provider [phone] Valentino Seals MD Primary Care Provider [phone] Reason for Referral * CONSULT AND TREATMENT (Routine) - Authorized Specialty Diagnoses / Procedures Referred By Katja mao Referred To Contact Ent-Otolaryngology Diagnoses Allergy, subsequent encounter Procedures ENT -- Dr. Gerald Ivy, NPI# [id number] Fx: [phone] Eulalia Angel NP Phone: tel: fax: Referral ID Status Reason Start Date Expiration Date Visits Requested Visits Authorized [id number] Authorized Est Relationship 03/24/2021 03/24/2022 52 52 Question Answer When do you want this visit to occur? WITHIN 3 DAYS - 03/27/21 Appointment with or AP? FIRST AVAILABLE Patient is being referred outside of [facility] for the following reason, however final determination for [id number]-st-ylsgaqu requests are made by the Referral Management Department Continuity of active patient care Track Order? No Which provider/facility/agency would you like to refer to? (specify if you want first available regardless of location) GERALD IVY M.D. [phone] Please provide pertinent patient history. patient calling to request referrals to this provider due to insurance change * CONSULT AND TREATMENT (Routine) - Authorized Specialty Diagnoses / Procedures Referred By Contac t Referred To Contact Neurosurgery / Neurology Diagnoses Back pain, unspecified back location, unspecified back pain laterality, unspecified chronicity Procedures Neurosurg -- Dr. Kaya Abbott, NPI# [id number] Eulalia Angel NP Phone: tel: fax: Kaya Abbott DO [facility], Dept of Neurosurgery [address] [place] [address] Phone: tel: fax: Referral ID Status Reason Start Date Expiration Date Visits Requested Visits Authorized [id number] Authorized Est Relationship 03/24/2021 03/24/2022 6 6 Question Answer Please provide pertinent patient history. patient calling to request new referral as insurance has change Track Order? No When do you want this visit to occur? WITHIN 3 DAYS - 03/29/21 Patient is being referred outside of [facility] for the following reason, however final determination for lqy-iz-[id number] requests are made by the Referral Management Department Continuity of active patient care Which provider/facility/agency would you like to refer to? (specify if you want first available regardless of location) Dr. kaya Abbott [phone] [facility] Encounter Details Date Type Department Care Team ([facility] st Contact Info) Description 03/24/2021 Orders Only [facility] [address] [place] [address] Eulalia Angel NP 123 [facility] [address] [place] [address] Social History Tobacco Use Types [...] at . Any insurance accepted. Quit smoking resources-[email or web address]://[email or web address] documented as of this encounter Visit Diagnoses Diagnosis Back pain, unspecified back location, unspecified back pain laterality, unspecified chronicity Allergy, subsequent encounter documented in this encounter Care Teams Continuity Tester Relationship Specialty Start Date End Date Eulalia Angel NP PCP - General Internal Medicine 03/24/21 10/05/22 Valentino Seals MD [address] [place] [address] PCP - General 10/06/22 documented as of this encounter
--- OUTSIDE RECORDS SUMMARY | 2025-07-16 07:16 | XMS_ITS | Encounter Summary ---
Author Organization [facility] Address [address] [place] [address] Care Team Providers Care Bird Sitter Name Role Phone Eulalia Angel NP Primary Care Provider [phone] Valentino Seals MD Primary Care Provider [phone] Reason for Referral * CONSULT AND TREATMENT (Routine) - Authorized Specialty Diagnoses / Procedures Referred By Contac t Referred To Contact Neurology Diagnoses Chronic nonintractable headache, unspecified headache type Procedures Aguilar Mitchell MD [phone] FAX [phone] Eulalia Angel NP Phone: tel: fax: Referral ID Status Reason Start Date Expiration Date Visits Requested Visits Authorized [id number] Authorized Specialty Services Required 03/24/2021 03/24/2022 6 6 Question Answer When do you want this visit to occur? 1 MONTH - 8/2 Appointment with or AP? FIRST AVAILABLE Patient is being referred outside of [facility] for the following reason, however final determination for fwd-zu-[id number] requests are made by the Referral Management Department Patient Preference Track Order? No Which provider/facility/agency would you like to refer to? (specify if you want first available regardless of location) Aguilar Mitchell [phone] FAX [phone] Please provide pertinent patient history. patient calling to request referral due to insurance change Encounter Details Date Type Department Care Team (Late st Contact Info) Description 03/24/2021 Orders Only [facility] [address] [place] [address] Eulalia Angel NP 123 [facility] [address] [place] [address] Social History Tobacco Use Types Packs/Day Years [...] at . Any insurance accepted. Quit smoking resources-[email or web address]://[email or web address] documented as of this encounter Visit Diagnoses Diagnosis Chronic nonintractable headache, unspecified headache type documented in this encounter Care Teams Bird Sitter Relationship Specialty Start Date End Date Eulalia Angel NP PCP - General Internal Medicine 03/24/21 10/05/22 Valentino Seals MD [address] [place] [address] PCP - General 10/06/22 documented as of this encounter
--- OUTSIDE RECORDS SUMMARY | 2025-07-16 07:16 | XMS_ITS | Patient Health Record ---
Author Organization Edilberto Ocampo MD Address [address] [place] [address] 148 Care Team Providers Care Housekeeping Aid Name Role Phone Edilberto Ocampo Unavailable [phone] Reason For Referral No Information Plan Of [...] Insured Coverage Start Date Coverage End Date [facility] [address] [facility] [address] [id number] Catherine Be Self - patient is the insured Medical (General) History Surgical History Surgery Date(Month/Year) None
--- OUTSIDE RECORDS SUMMARY | 2025-07-16 07:16 | XMS_ITS | Encounter Summary ---
Author Organization [facility] Address [address] [place] [address] Care Team Providers Care Flare Man Name Role Phone Eulalia Angel NP Primary Care Provider [phone] Erin Yancey MD Primary Care Provider [phone] Eulalia Angel NP Unavailable [phone] Eulalia Angel NP Primary Care Provider [phone] Valentino Seals MD Primary Care Provider [phone] Reason for Visit * Reason Onset Date Comments Refill Request 12/16/2019 Encounter Details Date Type Department Care Team (Late st Contact Info) Description 12/16/2019 Refill [facility] [address] [place] [address] Eulalia Angel NP 123 [facility] 290 [place], [place] [id number] Refill Request Social History Tobacco Use Types [...] / using tobacco Lifestyle No [place], Gabby, KNOCK UP ASSEMBLER Note: Smoking can cause cancer, heart attacks, [...] at . Any insurance accepted. Quit smoking resources-http://[email or web address] documented as of this encounter Visit Diagnoses Not on filedocumented in this encounter Care Teams Flare Man Relationship Specialty Start Date End Date Eulalia Angel NP PCP - General 03/24/19 08/15/20 Erin Yancey MD PCP - General Internal Medicine 08/16/20 03/23/21 Eulalia Angel NP PCP - Backup PCP Internal Medicine 12/30/20 03/23/21 Eulalia Angel NP PCP - General Internal Medicine 03/24/21 10/05/22 Valentino Seals MD [address] [place] [address] PCP - General 10/06/22 documented as of this encounter
--- OUTSIDE RECORDS SUMMARY | 2025-07-16 07:16 | XMS_ITS | Encounter Summary ---
Author Organization [facility] Address [address] [place] [address] Care Team Providers Care Test Driver Name Role Phone Eulalia Angel NP Primary Care Provider [phone] Valentino Seals MD Primary Care Provider [phone] Encounter Details Date Type Department Care Team ([facility] st Contact Info) Description 03/30/2021 Orders Only [facility] [address] [place] [address] Eulalia Angel NP 123 [facility] [address] [place] [address] Social History Tobacco Use Types [...] at . Any insurance accepted. Quit smoking resources-http://[email or web address] documented as of this encounter Visit Diagnoses Diagnosis Degenerative disc disease, lumbar Degeneration of lumbar or lumbosacral intervertebral disc documented in this encounter Care Teams Test Driver Relationship Specialty Start Date End Date Eulalia Angel NP PCP - General Internal Medicine 03/24/21 10/05/22 Valentino Seals MD [address] [place] [address] PCP - General 10/06/22 documented as of this encounter
--- OUTSIDE RECORDS SUMMARY | 2025-07-16 07:16 | XMS_ITS | Encounter Summary ---
Author Organization [facility] Address [address] [place] [address] Care Team Providers Care Sports Equipment Supervisor Name Role Phone Eulalia Angel NP Primary Care Provider [phone] Erin Yancey MD Primary Care Provider [phone] Eulalia Angel NP Unavailable [phone] Eulalia Angel NP Primary Care Provider Valentino Seals MD Primary Care Provider [phone] Encounter Details Date Type Department Care Team ([facility] st Contact Info) Description 03/15/2020 Orders Only [facility] [address] [place] [address] Eulalia Angel NP 123 [facility] [address] [place] [address] Social History Tobacco Use Types [...] at . Any insurance accepted. Quit smoking resources-[email or web address]://[email or web address] [email or web address] documented as of this encounter Procedures * Due to [place] law, this organization might not be sharing negative HIV tests. Procedure Name Priority Date/Time Associated Diagnosis Comments VENIPUNCTURE Routine 03/15/2020 2:50 PM EDT Tish's thyroiditis LIPID PANEL WITH REFLEX TO DIRECT LDL Routine 03/15/2020 2:50 PM EDT Screening for hyperlipidemia BASIC METABOLIC PANEL WITH (GFR) Routine 03/15/2020 2:50 PM EDT Screening for diabetes mellitus documented in this encounter Results * Due to [place] law, this organization might not be sharing [...] Ramírez DE LA CRUZ et al. WHITLEY. 2013;310(58): 6916-4252 (http://education.web2media.sk/faq/ZEK002) CHOL/HDL Ratio 2.7 <5.0 (calc) [facility] Cholesterol Non-HDL 104 <130 mg/dL (calc) [facility] Comment: For patients with diabetes plus 1 major ASCVD risk factor, treating to a non-HDL-C goal of <100 mg/dL (LDL-C of <70 mg/dL) is considered a therapeutic option. 03/15/2020 2:50 PM EDT 03/16/2020 12:44 AM EDT Narrative Resulting Agency Comment [id number] Eulalia Angel NP LABORATORY Final Result [facility] [address] [place] [address] * BASIC METABOLIC PANEL WITH (GFR) (03/15/2020 [...] needs for GFR calculation. Resulting Agency Comment [id number] Eulalia Angel NP LABORATORY Final Result Performing Organization Address City/[facility]/ZIP Co de Phone Number [facility] [address] [place] [address] * TSH, 3RD GENERATION (03/15/2020 2:50 PM EDT) TSH 2.87 mIU/L [facility] Comment: Reference Range > or = 20 Years 0.40-4.50 Ranges First trimester 0.26-2.66 Second trimester 0.55-2.73 Third trimester 0.43-2.91 03/15/2020 2:50 PM EDT 03/16/2020 12:44 AM EDT Narrative Resulting Agency Comment [id number] Eulalia Angel NP LABORATORY Final Result Performing Organization Address City/[facility]/ZIP Co de Phone Number [facility] [address] [place] [address] documented in this encounter Visit Diagnoses Diagnosis Itsh's thyroiditis Chronic lymphocytic thyroiditis Screening for diabetes mellitus Screening for hyperlipidemia Screening for lipoid disorders documented in this encounter Care Teams Sports Equipment Supervisor Relationship Specialty Start Date End Date Eulalia Angel NP PCP - General 03/24/19 08/15/20 Erin Yancey MD PCP - General Internal Medicine 08/16/20 03/23/21 Eulalia Angel NP PCP - Backup PCP Internal Medicine 12/30/20 03/23/21 Eulalia Angel NP PCP - General Internal Medicine 03/24/21 10/05/22 Valentino Seals MD [address] [place] [address] PCP - General 10/06/22 documented as of this encounter
[2025-07-16 07:40] LABS: Hematocrit 39.1 % (37.0-47.0); Hemoglobin 13.5 g/dl (12.0-16.0); Mean Corpuscular HGB Conc 34.5 g/dl (31.0-35.0); Mean Corpuscular Hemoglobin 31.6 pg (27.0-33.0); Mean Corpuscular Volume 91.6 fL (80.0-98.0); NRBC Abs Auto 0.000 X10*3/uL (0.0-0.012); NRBC Pct Auto 0.0 /100WBC (0.0-0.2); Platelet Count 207 X10*3/uL (160-400); Red Blood Count 4.27 X10*6/uL (4.20-5.50); White Blood Count 5.9 X10*3/uL (4.8-10.8)
[2025-07-16 08:03] LABS: Appearance Urine Clear; Glucose Urine UA Negative (Negative); PH 5.5 (5.0-9.0); Specific Gravity - Urine 1.020 (1.005-1.025)
[2025-07-16 08:19] LABS: Alanine Aminotransferase 21 U/L (0-31); Albumin Level 4.4 g/dL (3.5-5.0); Alkaline Phosphatase 56 U/L (39-117); Anion Gap 10 (12-20); Aspartate Amino Transferase 22 U/L (5-31); Blood Urea Nitrogen 15 mg/dL (9-16); Calcium 9.1 mg/dL (8.4-10.2); Carbon Dioxide 24 mmol/L (22-29); Chloride 112 mmol/L (96-108); Cholesterol 175 mg/dL (<200); Estimated Glomerular Filt Rate > 60; HDL Cholesterol 49 mg/dL (>40); Potassium 4.3 mmol/L (3.3-5.1); Sodium 142 mmol/L (135-145); Total Protein 6.8 g/dL (6.5-8.0); Triglycerides 78 mg/dL (<150)
[2025-07-16 08:36] LABS: Thyroid Stimulating Hormone 3.99 uIU/mL (0.32-4.0)
== END 2025-07-16 07:12 | disposition home or self-care (01) ==
LOC: HO.LAB 07:11
PROVIDERS: PCP Internal Medicine; Visit Provider Internal Medicine
DX: Z00.00 Encounter for general adult medical examination without abnormal findings (principal); Z13.29 Encounter for screening for other suspected endocrine disorder; Z13.6 Encounter for screening for cardiovascular disorders
CPT/HCPCS: 36415; 80048; 80061; 80076; 81001; 84443; 85027

== ENCOUNTER 2025-08-12 11:03 | Outpatient (AMB) | payer OTHER, SELFPAY ==
--- OUTSIDE RECORDS SUMMARY | 2024-07-08 07:30 | XMS_ITS ---
Author Organization [facility] Address [address] [place], [place] [id number] Care Team Providers Care Digital Forensics Examiner Name Role Phone SAMMI KEY Primary Care Provide r [phone] ALLERGIES No Known Allergies REASON FOR VISIT CPX, would like flu shot if possible MEDICATIONS Medication SIG (Take, Route, Fr equency, Duration) Notes Start Date End Date Status Aimovig 140 MG/ML as directed Subcutan eous every 3 weeks Active Aluminum Chloride 20 % 1 application at bedtime and wash off in am Externally for 90 days Active traZODone HCl 50 MG 1 tablet at bedtime as needed Orally Once a day for 30 day(s) Active Omeprazole 20 MG 1 capsule 1/2 to 1 h our before morning meal Orally Once a day for 30 day(s) Active Imiquimod 5 % 1 application at bed time, leave on for 8 hours then wash off Externally Three times a Week for 30 days Active Lidocaine 5 % 1 application as nee ded Externally Three times a day prn to affected joint for 30 days Active Incassia 0.35 MG 1 tablet Orally Once a day for 90 days Active SOCIAL HISTORY Tobacco Use: Social History Observation Description Date Details (start date - stop date) Current Smoker NA - NA Sex Assigned At : Social History Observation Description Sex Assigned At Unknown Smoking Question Answer Notes Are you a: current smoker PROBLEMS Problem Type ICD Code Onset Dates Problem Status W/U Status Risk SNOMED Code Notes Problem Chronic sinusitis, unspecified location (J32.9) Active confirmed [id number] VITAL SIGNS Height 69 in 07/08/2024 Weight 179.2 lbs 07/08/2024 Blood pressure systolic 137 mm Hg 07/08/20 24 Blood pressure diastolic 81 mm Hg 024 BMI 26.46 kg/m2 07/08/2024 Encounters Encounter Location Date Provider Diagnosis [facility] [address] [place] [address] 07/08/2024 SAMMI KEY Physical exam Z00.00 ; Pain in left knee M25.562 ; Pain in right knee M25.561 ; Chronic sinusitis, unspecified location J32.9 ; Lumbago with sciatica, right side M54.41 ; Lumbago with sciatica, left side M54.42 ; Tobacco user Z72.0 ; History of genital warts Z86.19 ; Axillary hyperhidrosis L74.510 ; Encounter for screening mammogram for malignant neoplasm of breast Z12.31 and Migraine without status migrainosus, not intractable, unspecified migraine type G43.909 ASSESSMENTS Encounter Date Diagnosis Assessment Notes Treatment Notes Treatment Clinical Notes Section Notes 07/08/2024 Physical exam (ICD-10 - Z00.00) Fasting labs at convenience Flu vaccine today 07/08/2024 Pain in left knee (ICD-10 - M25.562) b/l oa, will fu w/ ortho as needed will try rx for lidocaine cream if not covered will try voltaren gel 07/08/2024 Pain in right knee (ICD-10 - M25.561) 07/08/2024 Chronic sinusitis, unspecified location (ICD-10 - J32.9) ent assoc dr morton has reg allergy shots, Has found therapy to be helpful. 07/08/2024 Lumbago with sciatica, right side (ICD-10 - M54.41) Chronic and unchanged. No progression of symptoms. No weakness. Has had intervention and has follow-up as needed, see HPI. 07/08/2024 Lumbago with sciatica, left side (ICD-10 - M54.42) 07/08/2024 Tobacco user (ICD-10 - Z72.0) Understands importance of cessation and will continue to work towards this goal. 07/08/2024 History of genital warts (ICD-10 - Z86.19) Is in the process of setting of care with CIRCUS TRAINER. Have refilled her previous topical therapy in the interim. 07/08/2024 Axillary hyperhidrosis (ICD-10 - L74.510) Have refilled her Drysol which has worked quite well for her in the past reviewed correct use. 07/08/2024 Encounter for screening mammogram for malignant neoplasm of breast (ICD-10 - Z12.31) Order slip provided 07/08/2024 Migraine without status migrainosus, not intractable, unspecified migraine type (ICD-10 - G43.909) Has routine treatment and follow-up with her neurologist and this is actually worked quite well for her. Finds current regimen to be effective. 07/08/2024 Other Patient is seen today for a routine physical. As part of this visit we reviewed the following issues, which are considered and essential part of preventative health in this age group: - Breast Cancer screening for high risk individuals - ordered - Cervical Cancer screening every 1-3 years - pending - Blood pressure screening annually - performed - Cholesterol screening every five years - ordered - Osteoporosis prevention including calcium/vitamin D intake, weight bearing exercise & smoking cessation - Nutritional and exercise counseling - patient was advised to cont healthy changes - Counseling of injury prevention including fire prevention, smoke alarms and seat belt usage - Screening for depression -denies - Screening for domestic abuse - Screening for Type 2 diabetes mellitus in those with HTN and/or HLD - Prevention of and/or testing for infectious diseases, which may include Chlamydia Gonorrhea, Syphilis, HIV, Hepatitis C, and Tuberculosis - - Education about skin cancer - Recommendations about immunizations - see above - Recommendation of an eye exam for glaucoma once in this age range - patient will self refer - Preconception counseling - - Screening for substance abuse (including tobacco, alcohol, and recreational drugs) - denies - Genetic cancer risk screening - In addition to reviewing these issues, I have reviewed the following sections of the chart: family history, social history, surgical history, allergies, and past medical history. PLAN OF TREATMENT Medication Medication Name Sig Start Date Stop Date Notes Aluminum Chloride 20 % 1 application at bedtime and wash off in am Externally for 90 days Imiquimod 5 % 1 application at bed time, leave on for 8 hours then wash off Externally Three times a Week for 30 days Lidocaine 5 % 1 application as nee ded Externally Three times a day prn to affected joint for 30 days Incassia 0.35 MG 1 tablet Orally Once a day for 90 days Treatment Notes Assessment Notes Physical exam Fasting labs at convenience Flu vaccine today Pain in left knee b/l oa, will fu w/ ortho as needed will try rx for lidocaine cream if not covered will try voltaren gel Chronic sinusitis, unspecified location ent assoc dr morton has reg allergy shots, Has found therapy to be helpful. Lumbago with sciatica, right side Chroni c and unchanged. No progression of symptoms. No weakness. Has had intervention and has follow-up as needed, see HPI. Tobacco user Understands importan ce of cessation and will continue to work towards this goal. History of genital warts Is in the proce ss of setting of care with CIRCUS TRAINER. Have refilled her previous topical therapy in the interim. Axillary hyperhidrosis Have refilled her Drysol which has worked quite well for her in the past reviewed correct use. Encounter for screening mamm ogram for malignant neoplasm of breast Order slip provided Migraine without status migr ainosus, not intractable, unspecified migraine type Has routine treatment and follow-up with her neurologist and this is actually worked quite well for her. Finds current regimen to be effective. Other Patient is seen today for a routine physical. As part of this visit we reviewed the following issues, which are considered and essential part of preventative health in this age group: - Breast Cancer screening for high risk individuals - ordered - Cervical Cancer screening every 1-3 years - pending - Blood pressure screening annually - performed - Cholesterol screening every five years - ordered - Osteoporosis prevention including calcium/vitamin D intake, weight bearing exercise & smoking cessation - Nutritional and exercise counseling - patient was advised to cont healthy changes - Counseling of injury prevention including fire prevention, smoke alarms and seat belt usage - Screening for depression -denies - Screening for domestic abuse - Screening for Type 2 diabetes mellitus in those with HTN and/or HLD - Prevention of and/or testing for infectious diseases, which may include Chlamydia Gonorrhea, Syphilis, HIV, Hepatitis C, and Tuberculosis - - Education about skin cancer - Recommendations about immunizations - see above - Recommendation of an eye exam for glaucoma once in this age range - patient will self refer - Preconception counseling - - Screening for substance abuse (including tobacco, alcohol, and recreational drugs) - denies - Genetic cancer risk screening - In addition to reviewing these issues, I have reviewed the following sections of the chart: family history, social history, surgical history, allergies, and past medical history. Next Appt Details Follow Up: to nursing for fl u and prevnar 20; mammo , labslip; fu prn/1 yr, Reason: Provider Name:SAMMI VENCES, 07/21/2026 09:00:00 AM, [address] [place], [phone], Progress Notes * Examination Category Sub-Category Detail Notes Category Not es General Examination HEENT: PERRLA, EOMI bilaterally, nose clear, TM's normal, conjunctiva normal, no sinus tenderness, ncat Neck: supple, no lymphaden opathy, no thyromegaly Heart: RSR, normal S1S2, no murmurs, clicks or rubs Lungs: clear to auscultatio n Abdomen: soft, non tender/non distended, no masses palpated, normal active bowel sounds Extremities: no clubbing , cyanos is, or edema, 2 + patellar reflex b/l General Appearance no apparent distress , pleasant Skin: no rash, good turgor , normal color and texture Neuro alert and oriented x 3, gait normal, strength 5/5 bilaterally proximally and distally in all 4 extremities Oral cavity: no lesions Breasts : declined by patient Peripheral pulses: 2 + DP pulses palpab le and equal bilaterally Back: normal ROM of spine, no CVA tenderness, no spinal tenderness Genitourinary Refused by patient Rectal refused by patient Lymphatics No palpable adenopat hy Psych: affect normal Chest wall nontender Musculoskeletal No redness or swelli ng of joints. Normal range of motion of joints grossly. No evidence of synovitis. History and Physical Notes * HPI (History of Present Illness) Category Sub-Category Detail Notes Category Not es General - HPI: PT is here today for a physical exam The following is copied/reviewed/edited from previous: -pmhx of post traumatic headache, chronic sinus infection, lower back surgery 04/2021. -q3-6 mo fu w/ neuro hazratji for headaches and current regimen working well. -up to date with [facility] -eye exam is due and will schedule. - she has had covid vac and booster. -in past had covid 19 infection [place] parth[place] still extremely fatigued. gets sob with minimal exertion. -She also feels heart races even with little to no exertion. This started gradually over a year ago prior to the COVID infection. sHe was referred by cardiology. They felt symptoms due to PACs. Testing and labs done.Has been referred to cardiology couple of years ago saw [facility] cardiology, Dr. Bailey, Testing showed only PACs and follow-up was to be as needed. She was also referred by pulmonary at [place] and has routine follow-up there have been no changes to her inhalers. She says ENT [place] praveen; and gets regular injections for her various environmental allergies Family history: dad w/ cardiomegaly and afib mom w/ cad and irreg rhythym gets occ fullness of lymph nodes and then they go away. after a few days. works for [employer] b/l Knee pain left > right , swelling of left knee lateral and above knee cap. seeing ortho at [facility] mri scheduled - ROS: GEN: No fevers, no chills. No unintentional weight loss. No unusual fatigue. HEENT: No visual changes. No hearing changes. No tinnitus. No neck pain no sore throat. No lymphadenopathy or thyromegaly. No swelling or noted abnormality of neck. MOUTH: No pain in teeth no sudden loss of teeth. No dental complaints. No oral ulcers. No mouth pain RESP: No shortness of breath. No wheezing. No cough. CHESTWALL:No chest wall pain or lesions. BREAST: No lumps bumps or lesions. No change of nipples or discharge. No pain. CARDIOLOGY:No chest pain. No palpitations. No leg edema. No sudden change or decrease in exercise tolerance ABDOMINAL: No abdominal pain. No nausea or vomiting. No diarrhea or constipation. No noted changes in bowel movements or stool caliber. No dark or tarry stools. No BRBPR. : No incontinence. No nocturia. No urinary hesitancy or discomfort. 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 CIRCUS TRAINER: Normal menses, no prolonged or heavy bleeding. No pain with intercourse. Has routine follow-up with gynecology as directed. MS: see hpi HEME/LYMPH: No easy bruising or bleeding. No lymph node enlargement or tenderness. ENDO: No heat or cold intolerance. No polydipsia or polyuria. No sudden change of or loss of appetite. NEURO: No sudden, new or intractable headaches. No weakness, numbness, tingling. No history of seizure disorder. PSYCH: No depression or anxiety. No history of psychiatric illness. No sleep disorder or insomnia.
--- OUTSIDE RECORDS SUMMARY | 2024-07-30 10:53 | XMS_ITS ---
Author Organization [facility] Address [address] [place], [place] [phone] Care Team Providers Care Assembly Associate Name Role Phone SAMMI KEY Primary Care Provide r [phone] REASON FOR VISIT 6 month f/u Encounters Encounter Location Date Provider Diagnosis [facility] [address] [place] [address] 07/30/2024 SAMIM KEY PLAN OF TREATMENT Next Appt Details Provider Name:SAMMI VENCES, 07/21/2026 09:00:00 AM, [address] [place], [address],
--- OUTSIDE RECORDS SUMMARY | 2025-01-16 09:50 | XMS_ITS ---
Author Organization [facility] Address [address] [place], [place] [id number] Care Team Providers Care Solvent Mixer Name Role Phone SAMMI KEY Primary Care Provide r [phone] REASON FOR VISIT breast u/s PROBLEMS Problem Type ICD Code Onset Dates Problem Status W/U Status Risk SNOMED Code Notes Problem Abnormal finding on breast imaging (R92.8) Active confirmed [id number] Encounters Encounter Location Date Provider Diagnosis [facility] [address] [place] [address] 01/16/2025 SAMMI KEY Abnormal finding on breast imaging R92.8 ASSESSMENTS Encounter Date Diagnosis Assessment Notes Treatment Notes Treatment Clinical Notes Section Notes 01/16/2025 Abnormal finding on breast imaging (ICD-10 - R92.8) PLAN OF TREATMENT Next Appt Details Provider Name:SAMMI VENCES, 07/21/2026 09:00:00 AM, [address] [place], [address],
--- OUTSIDE RECORDS SUMMARY | 2025-06-04 03:07 | XMS_ITS ---
Author Organization [facility] Address [address] [place], [place] [address] Care Team Providers Care Reception Centre Manager Name Role Phone SAMMI KEY Primary Care Provide r [phone] REASON FOR VISIT Update Demographics - Personal Info Encounters Encounter Location Date Provider Diagnosis [facility] [address] [place] [phone] 06/04/2025 SAMMI KEY PLAN OF TREATMENT Next Appt Details Provider Name:SAMMI VENCES, 07/21/2026 09:00:00 AM, [address] [place], [address],
--- OUTSIDE RECORDS SUMMARY | 2025-06-24 03:25 | XMS_ITS ---
Author Organization [facility] Address [address] [place], [place] [id number] Care Team Providers Care Parquetry Floor Layer Name Role Phone SAMMI KEY Primary Care Provide r [phone] REASON FOR VISIT Update Demographics - Personal Info Encounters Encounter Location Date Provider Diagnosis [facility] [address] [place] [phone] 06/24/2025 SAMMI KEY PLAN OF TREATMENT Next Appt Details Provider Name:SAMMI VENCES, 07/21/2026 09:00:00 AM, [address] [place], [address],
--- OUTSIDE RECORDS SUMMARY | 2025-07-02 05:31 | XMS_ITS ---
Author Organization [facility] Address [address] [place], [place] [id number] Care Team Providers Care Painter Helper Sign Name Role Phone SAMMI KEY Primary Care Provide r [phone] REASON FOR VISIT incassia request MEDICATIONS Medication SIG (Take, Route, Fr equency, Duration) Notes Start Date End Date Status Incassia 0.35 MG TAKE 1 TABLET BY AKANKSHA TH EVERY DAY FOR 90 DAYS for 84 Active Encounters Encounter Location Date Provider Diagnosis [facility] [address] [place] [phone] 07/02/2025 SAMMI KEY PLAN OF TREATMENT Medication Medication Name Sig Start Date Stop Date Notes Incassia 0.35 MG TAKE 1 TABLET BY AKANKSHA TH EVERY DAY FOR 90 DAYS for 84 Next Appt Details Provider Name:SAMMI VENCES, 07/21/2026 09:00:00 AM, [address] [place], [address],
--- OUTSIDE RECORDS SUMMARY | 2025-07-02 12:46 | XMS_ITS ---
Author Organization [facility] Address [address] [place], [place] [id number] Care Team Providers Care Aircraft Log Clerk Name Role Phone SAMMI KEY Primary Care Provide r [phone] REASON FOR VISIT RE:incassia request MEDICATIONS Medication SIG (Take, Route, Fr equency, Duration) Notes Start Date End Date Status Incassia 0.35 MG TAKE 1 TABLET BY AKANKSHA TH EVERY DAY FOR 90 DAYS for 84 days Active Encounters Encounter Location Date Provider Diagnosis [address] [address] 07/02/2025 SAMMI KEY PLAN OF TREATMENT Medication Medication Name Sig Start Date Stop Date Notes Incassia 0.35 MG TAKE 1 TABLET BY AKANKSHA TH EVERY DAY FOR 90 DAYS for 84 days Next Appt Details Provider Name:SAMMI VENCES, 07/21/2026 09:00:00 AM, [address] [place], [address],
--- OUTSIDE RECORDS SUMMARY | 2025-07-14 03:35 | XMS_ITS ---
Author Organization [facility] Address [address] [place], [place] [id number] Care Team Providers Care Industrial Maintenance Manager Name Role Phone SAMMI KEY Primary Care Provide r [phone] REASON FOR VISIT Update Kiosk Demographics Encounters Encounter Location Date Provider Diagnosis [facility] [address] [place] [address] 07/14/2025 SAMMI KEY PLAN OF TREATMENT Next Appt Details Provider Name:SAMMI VENCES, 07/21/2026 09:00:00 AM, [address] [place], [address],
--- OUTSIDE RECORDS SUMMARY | 2025-07-14 07:00 | XMS_ITS ---
Author Organization [facility] Address [address] [place], [place] [id number] Care Team Providers Care Brim Rounder Name Role Phone SAMMI KEY Primary Care Provide r [phone] REASON FOR VISIT 1 year CPX MEDICATIONS Medication SIG (Take, Route, Frequency, Duration) Notes Start Date End Date Status Incassia 0.35 MG TAKE 1 TABLET BY AKANKSHA TH EVERY DAY FOR 90 DAYS for 84 days Active Lidocaine 5 % APPLY 1 APPLICATION TO AFFECTED JOINT 3 TIMES A DAY NEEDED for 30 Active Drysol 20 % USE 1 APPLICATION AT BEDTIME AND WASH OFF IN THE MORNING for 90 Active Omeprazole 20 MG TAKE 1 CAPSULE BY MO UTH EVERY DAY 30 MINUTES BEFORE MORNING MEAL for 90 Active Albuterol Sulfate HFA 108 (90 Base) MCG/ACT 1 puff as needed Inhalation every 4 hrs prn cough/wheeze/sob for 30 days Active Imiquimod 5 % 1 application at bed time, leave on for 8 hours then wash off Externally Three times a Week for 30 days Active traZODone HCl 50 MG 1 tablet at bedtime as needed Orally Once a day for 30 day(s) Active Ajovy 225 MG/1.5ML as directed Subcutan eous monthly Active SOCIAL HISTORY Tobacco Use: Social History Observation Description Date Details (start date - stop date) Current Smoker NA - NA Sex Assigned At : Social History Observation Description Sex Assigned At Unknown Smoking Question Answer Notes Are you a: current smoker How often do you smoke Cigarettes? every day How many cigarettes a day do you smoke? 6-10 PROBLEMS Problem Type ICD Code Onset Dates Problem Status W/U Status Risk SNOMED Code Notes Problem Mild intermittent asthma without complication (J45.20) Active confirmed [id number] VITAL SIGNS Height 69 in 07/14/2025 Weight 184.4 lbs 07/14/2025 Blood pressure systolic 114 mm Hg 07/14/20 25 Blood pressure diastolic 68 mm Hg 025 BMI 27.23 kg/m2 07/14/2025 Encounters Encounter Location Date Provider Diagnosis [facility] [address] [place] [address] 07/14/2025 SAMMI ELENABARBARA Physical exam Z00.00 ; Migraine without status migrainosus, not intractable, unspecified migraine type G43.909 ; Pain in left knee M25.562 ; Pain in right knee M25.561 ; Mild intermittent asthma without complication J45.20 and Tobacco use Z72.0 ASSESSMENTS Encounter Date Diagnosis Assessment Notes Treatment Notes Treatment Clinical Notes Section Notes 07/14/2025 Physical exam (ICD-10 - Z00.00) breast imaging pending director regulatory agency pending 07/14/2025 Migraine without status migrainosus, not intractable, unspecified migraine type (ICD-10 - G43.909) As per HPI has regular follow-up with neurology and is doing well on her current regimen. 07/14/2025 Pain in left knee (ICD-10 - M25.562) Has regular follow-up with orthopedics as per HPI. Has been generally doing well but recently had exacerbated her knee pain while doing renovations around her house and has follow-up scheduled as per HPI. 07/14/2025 Pain in right knee (ICD-10 - M25.561) 07/14/2025 Mild intermittent asthma without complication (ICD-10 - J45.20) Have discussed benefits of vaccination for both pneumonia and influenza. Have reviewed her previously prescribed inhalers there are differences in correct use. Plans on scheduling a follow-up with pulmonary as she has not seen them in some time. 07/14/2025 Tobacco use (ICD-10 - Z72.0) understands need for cessaton 07/14/2025 Other Patient is seen today for a routine physical. As part of this visit we reviewed the following issues, which are considered and essential part of preventative health in this age group: - Breast Cancer screening for high risk individuals pending - Cervical Cancer screening every 1-3 years -pending - Blood pressure screening annually - performed - Cholesterol screening every five years - ordered - Osteoporosis prevention including calcium/vitamin D intake, weight bearing exercise & smoking cessation - Nutritional and exercise counseling - patient was advised to cont to work on healthy changes - Counseling of injury prevention including fire prevention, smoke alarms and seat belt usage - Screening for depression - denies - Screening for domestic abuse - Screening for Type 2 diabetes mellitus in those with HTN and/or HLD - Prevention of and/or testing for infectious diseases, which may include Chlamydia Gonorrhea, Syphilis, HIV, Hepatitis C, and Tuberculosis - Education about skin cancer - Recommendations about immunizations - patient is rec flu shot and pneumo vac - Recommendation of an eye exam for glaucoma once in this age range - patient will self refer - Screening for substance abuse (including tobacco, alcohol, and recreational drugs) - denies - Genetic cancer risk screening - In addition to reviewing these issues, I have reviewed the following sections of the chart: family history, social history, surgical history, allergies, and past medical history. PLAN OF TREATMENT Medication Medication Name Sig Start Date Stop Date Notes Albuterol Sulfate HFA 108 (9 0 Base) MCG/ACT 1 puff as needed Inhalation every 4 hrs prn cough/wheeze/sob for 30 days Treatment Notes Assessment Notes Physical exam breast imaging pending director regulatory agency pending Migraine without status migr ainosus, not intractable, unspecified migraine type As per HPI has regular follow-up with neurology and is doing well on her current regimen. Pain in left knee Has regular follow-u p with orthopedics as per HPI. Has been generally doing well but recently had exacerbated her knee pain while doing renovations around her house and has follow-up scheduled as per HPI. Mild intermittent asthma wit hout complication Have discussed benefits of vaccination f or both pneumonia and influenza. Have reviewed her previously prescribed inhalers there are differences in correct use. Plans on scheduling a follow-up with pulmonary as she has not seen them in some time. Tobacco use understands need for cessaton Other Patient is seen today for a routine physical. As part of this visit we reviewed the following issues, which are considered and essential part of preventative health in this age group: - Breast Cancer screening for high risk individuals pending - Cervical Cancer screening every 1-3 years -pending - Blood pressure screening annually - performed - Cholesterol screening every five years - ordered - Osteoporosis prevention including calcium/vitamin D intake, weight bearing exercise & smoking cessation - Nutritional and exercise counseling - patient was advised to cont to work on healthy changes - Counseling of injury prevention including fire prevention, smoke alarms and seat belt usage - Screening for depression - denies - Screening for domestic abuse - Screening for Type 2 diabetes mellitus in those with HTN and/or HLD - Prevention of and/or testing for infectious diseases, which may include Chlamydia Gonorrhea, Syphilis, HIV, Hepatitis C, and Tuberculosis - Education about skin cancer - Recommendations about immunizations - patient is rec flu shot and pneumo vac - Recommendation of an eye exam for glaucoma once in this age range - patient will self refer - Screening for substance abuse (including tobacco, alcohol, and recreational drugs) - denies - Genetic cancer risk screening - In addition to reviewing these issues, I have reviewed the following sections of the chart: family history, social history, surgical history, allergies, and past medical history. Future Test Test Name Order Date Urinalysis, Complete [id number] 07/14/2025 CBC, Platelet, w/o [id number] Hepatic Function Panel [id number] LP+Non-HDL [id number] 07/14/2025 [id number] 07/14/2025 Next Appt Details Follow Up: prn,1 Year, Reaso n: Provider Name:SAMMI VENCES, 07/21/2026 09:00:00 AM, [address] [place], [address], Progress Notes * Examination Category Sub-Category Detail Notes Category Not es General Examination HEENT: PERRLA, EOMI bilaterally, nose clear, conjunctiva normal, external ears normal, TM's normal, no sinus tenderness, ncat Neck: supple, no lymphaden opathy, no thyromegaly Heart: RSR, normal S1S2, no murmurs, clicks or rubs Lungs: clear to auscultatio n Abdomen: soft, non tender/non distended, no masses palpated, normal active bowel sounds Extremities: no clubbing , cyanos is, or edema, 1 + patellar reflex b/l General Appearance no apparent distress Skin: no rash, good turgor , normal color and texture Neuro alert and oriented x 3, gait normal, strength 5/5 bilaterally proximally and distally in all 4 extremities Oral cavity: mmm, no lesions Breasts : declined by patient [...] for a physical exam The following is copied/reviewed/edite d from previous: -pmhx of post traumatic headache, chronic sinus infection, lower back surgery 04/2021. -q3-6 mo fu w/ neuro zeyad for headaches and current regimen working well. -up to date with director regulatory agency [facility] next appt december 2025 -eye exam is due and will schedule. - she has had covid vac and booster. -She also feels heart races even with little to no exertion. This started gradually over a year ago prior to the COVID infection. sHe was referred by cardiology. They felt symptoms due to PACs. Testing and labs done.Has been referred to cardiology couple of years ago saw [facility] [place] [facility], Dr. Bailey, Testing showed only PACs and follow-up was to be as needed. She was also referred by pulmonary at [place] and Was treated with Breo, Xolair, albuterol. Has not seen them or been consistent with her inhalers. She says ENT [facility] praveen; and gets regular injections for her various environmental allergies Family history: dad w/ cardiomegaly and afib mom w/ cad and irreg rhythym gets occ fullness of lymph nodes and then they go away. after a few days. works for [employer] b/l Knee pain left > right , swelling of left knee lateral and above knee cap. seeing ortho at [facility] mri scheduled. Dr. Davenport . recently had imaging. has also seen dr rodrigo corey for chronic back pain - ROS: GEN: No fevers, no chills. [...] No urinary hesitancy or discomfort. 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 [...] numbness, tingling. No history of seizure disorder. see hpi PSYCH: No depression or anxiety. No history of psychiatric illness. No sleep disorder or insomnia. Depression Screening PHQ-2 (2015 Edition) Little interest or pleasure in doing things?: Not at all Feeling down, depressed, or hopeless?: N ot at all Total Score: 0
--- OUTSIDE RECORDS SUMMARY | 2025-07-30 09:28 | XMS_ITS ---
Author Organization [facility] Address [address] [place], [place] [address] Care Team Providers Care Wind Energy Project Manager Name Role Phone SAMMI KEY Primary Care Provide r [phone] RESULTS Component Value Reference Range Notes US Breast Diagnostic Left, P erform US guided aspiration and/or biopsy if warranted Reviewed date:08/10/2025 08:14:44 AM Interpretation: Performing Lab: Notes/Report: Mammogram Screening Bilatera l, Perform ultrasound guided aspiration and/or breast biopsy if warranted Reviewed date:08/10/2025 08:16:20 AM Interpretation: Performing Lab: Notes/Report: REASON FOR VISIT (3) screening mammo / 6 month f/u Encounters Encounter Location Date Provider Diagnosis [address] [address] 07/30/2025 SAMMI KEY Encounter for screening mammogram for malignant neoplasm of breast Z12.31 ASSESSMENTS Encounter Date Diagnosis Assessment Notes Treatment Notes Treatment Clinical Notes Section Notes 07/30/2025 Encounter for screening mammogram for malignant neoplasm of breast (ICD-10 - Z12.31) PLAN OF TREATMENT Next Appt Details Provider Name:SAMMI VENCES, 07/21/2026 09:00:00 AM, [address] [place] [address], [phone],
--- OUTSIDE RECORDS SUMMARY | 2025-08-12 21:50 | XMS_ITS | Encounter Summary ---
Author Organization [facility] Address [address] [place] [address] Phone Care Team Providers Care Reflesher Name Role Phone Eulalia Angel NP Unavailable [phone] Eulalia Angel NP Primary Care Provider Isa Payne DO Primary Car e Provider Encounter Details Date Type Department Care Team (Late st Contact Info) Description 05/09/2021 Procedure Pass [facility] PERIOPERATIVE DEPT [address] [place] [address] Social History Tobacco Use Types [...] 10:24 PM EDT Rozina Rosa RN * [place] Suicide Severity Rating Scale (Screener/Recent Self-Report) Question [...] Care Team (Late st Contact Info) Description 11/19/2025 11:30 AM EST Office Visit [facility] [address] [place] [address] Dar Abbott, DO [address] [place] [address] [email or web address] documented as of this encounter Visit Diagnoses Not on filedocumented in this encounter Care Teams Reflesher Relationship Specialty Start Date End Date Eulalia Angel NP PCP - General Family Medicine 10/29/18 04/24/22 Isa Payne DO [address] [place] [address] PCP - General Internal Medicine 04/25/22 Eulalia Angel NP Nurse Practitioner Family Medicine 10/29/18 documented as of this encounter Additional Source Comments The information contained in this document represents components of the legal health record. It is not the complete legal health record.[facility]
--- OUTSIDE RECORDS SUMMARY | 2025-08-12 21:50 | XMS_ITS | Patient Health Record ---
Author Organization [facility] Address [address] [place], [place] [address] Care Team Providers Care Communications Consultant Name Role Phone KARYNSAMMI TRAORE Primary Care Provide r [phone] ALLERGIES No Known Allergies REASON FOR REFERRAL [...] 20 MG TAKE 1 CAPSULE BY [facility] EVERY DAY 30 MINUTES BEFORE MORNING MEAL [...] Problem Other chronic pain (G89.29) Active confirmed 10059611 Problem Lumbago with sciatica, right side (M54.41) Active confirmed 302349549701803 Problem Lumbago with sciatica, left side (M54.42) Active confirmed 878246426 Problem Mild intermittent asthma without complication (J45.20) Active confirmed 736564961 Problem Chronic fatigue (R53.82) Active confirmed 58712277 Problem Migraine without status migrainosus, not intractable, unspecified migraine type (G43.909) Active confirmed 74153384 Problem History of tobacco use (Z87.891) Active confirmed 982688516 Problem Chronic sinusitis, unspecified location (J32.9) Active confirmed 87621095 Problem History of vitamin D deficiency (Z86.39) Active confirmed 25920407208890 Problem Irritable bowel syndrome, unspecified type (K58.9) Active confirmed 73080985 Problem 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) Active confirmed 415704600 Problem Abnormal finding on breast imaging (R92.8) Active confirmed 437938219 VITAL SIGNS Blood pressure diastolic 68 mm Hg 07/14/2025 Height 69 in 07/14/2025 Blood pressure systolic 114 mm Hg 07/14/2025 Weight 184.4 lbs 07/14/2025 BMI 27.23 kg/m2 07/14/2025 Encounters Encounter Location Date Provider Diagnosis [facility] [address] [place] [address] 01/16/2025 SAMMI KEY Abnormal finding on breast imaging R92.8 [facility] [address] [place] [address] 06/04/2025 SAMMI KEY [facility] [address] [place] [address] 06/24/2025 SAMMI KEY [facility] [address] [place] [address] 07/02/2025 SAMMI KEY [facility] [address] [place] [address] 07/02/2025 SAMMI SHAHID [facility] [address] [place] [address] 07/14/2025 SAMMI SHAHID [facility] [address] [place] [address] 07/14/2025 SAMMI SHAHID Physical exam Z00.00 ; Migraine without status migrainosus, not intractable, unspecified migraine type G43.909 ; Pain in left knee M25.562 ; Pain in right knee M25.561 ; Mild intermittent asthma without complication J45.20 and Tobacco use Z72.0 [facility] [address] [place] [address] 07/30/2025 SAMMI SHAHID Encounter for screening mammogram for malignant neoplasm of breast Z12.31 ASSESSMENTS Encounter Date Diagnosis Assessment Notes Treatment Notes Treatment Clinical Notes Section Notes 01/16/2025 Abnormal finding on breast imaging (ICD-10 - R92.8) 07/14/2025 Physical exam (ICD-10 - Z00.00) breast imaging pending strike off machine operator pending 07/30/2025 Encounter for screening mammogram for malignant neoplasm of breast (ICD-10 - Z12.31) 07/14/2025 Migraine without status migrainosus, not intractable, [...] 10/16/2023 URINALYSIS W/REFLEX CULTURE 10/16/2023 Urinalysis, Complete w/ME-[id number] 025 TSH-[id number] 07/14/2025 CBC, Platelet, w/o Differential-050646 1 Hepatic Function Panel ([id number] LP+Non-HDL Cholesterol-728635 07/14/2025 BMP8+eGFR-131600 07/14/2025 Next Appt Details Provider Name:SAMMI VENCES, 07/21/2026 09:00:00 AM, [address] [place], [address], Insurance Providers Payer Name Payer Address Payer Phone Subscriber Number Group Number Insured Name Patient Relationship to Insured Coverage Start Date Coverage End Date [employer] [address] [place] [phone] [id number] SABRA SUGGS Self - patient is the insured 4 MEDICAL (GENERAL) HISTORY Medical History History ICD Code allergies arthritis irritable bowel syndrome thyroid disease depression gout Arthritis in knees Surgical History Surgery Date(Month/Year) lower back 2019 lower back & artifical disc 2020
--- OUTSIDE RECORDS SUMMARY | 2025-08-12 21:50 | XMS_ITS | Encounter Summary ---
Author Organization [facility] Address [address] [place] [address] Phone Care Team Providers Care Plastic Cnc Machine Operator Name Role Phone Eulalia Angel REFRIGERATION TECHNICIAN Unavailable [phone] Isa Payne DO Primary Car e Provider Encounter Details Date Type Department Care Team (Late st Contact Info) Description 08/14/2022 Procedure Pass [facility], [address] [address] Social History Tobacco Use Types Packs/Day Years [...] AM EST Office Visit [facility] [address] [place] [address] Dar Abbott DO [address] [place] [address] [email or web address] documented as of this encounter Visit Diagnoses Not on filedocumented in this encounter Care Teams Plastic Cnc Machine Operator Relationship Specialty Start Date End Date Isa Payne DO [address] [place] [address] PCP - General Internal Medicine 04/25/22 Eulalia Angel NP Nurse Practitioner Family Medicine 10/29/18 documented as of this encounter Additional Source Comments The information contained in this document represents components of the legal health record. It is not the complete legal health record.[facility]
--- OUTSIDE RECORDS SUMMARY | 2025-08-12 21:50 | XMS_ITS | Encounter Summary ---
Author Organization [facility] Address [address] [place] [address] Care Team Providers Care As400 Consultant Name Role Phone Eulalia Angel NP Primary Care Provider [phone] Erin Yancey MD Primary Care Provider [phone] Eulalia Angel NP Unavailable [phone] Eulalia Angel NP Primary Care Provider [phone] Valentino Seals MD Primary Care Provider [phone] Reason for Referral * CONSULT AND TREATMENT (Routine) - Closed Specialty Diagnoses / Procedures Referred By Katja mao Referred To Contact apprentice photographer Diagnoses Abnormal female pelvic exam Procedures Regina Shell MD - OBGYN at [facility] P: [phone] F: [phone] DOS: 11/25/19 Eulalia Angel NP Phone: tel: fax: Regina Mcdonald MD [facility] [address] [place] [address] Phone: tel: fax: Referral ID Status Reason Start Date Expiration Date Visits Requested Visits Authorized [id number] Closed Patient Preference 10/23/2019 10/22/2020 12 12 Question Answer When do you want this visit to occur? WITHIN 1 MONTH - 11/25/19 Appointment with or AP? FIRST AVAILABLE Patient is being referred outside of [facility] for the following reason, however final determination for [id number] requests are made by the Referral Management [...] like to refer to? DR Regina Mcdonald P:[phone] F:[phone] - 12 visits Encounter Details Date Type Department Care Team ([facility] st Contact Info) Description 10/17/2019 Orders Only [facility] [address] [place] [address] Eulalia Angel NP [address] [facility] [address] [place] [address] Social History Tobacco Use Types Packs/Day Years [...] Priority Associated Diagnoses Orde r Schedule CONSULT FISH FARM MANAGER NON-FC Referral Routine Abnormal female pelvic exam [...] at . Any insurance accepted. Quit smoking resources-[email or web address] documented as of this encounter Visit Diagnoses Diagnosis Abnormal female pelvic exam Nonspecific (abnormal) findings on radiological and other examination of genitourinary organs documented in this encounter Care Teams As400 Consultant Relationship Specialty Start Date End Date Eulalia Angel NP PCP - General 03/24/19 08/15/20 Erin Yancey MD PCP - General Internal Medicine 08/16/20 03/23/21 Eulalia Angel NP PCP - Backup PCP Internal Medicine 12/30/20 03/23/21 Eulalia Angel NP PCP - General Internal Medicine 03/24/21 10/05/22 Valentino Seals MD [address] [place] [address] PCP - General 10/06/22 documented as of this encounter
--- OUTSIDE RECORDS SUMMARY | 2025-08-12 21:50 | XMS_ITS | Encounter Summary ---
Author Organization [facility] Address [address] [place] [address] Care Team Providers Care Shake Splitter Name Role Phone Eulalia Angel NP Unavailable [phone] Eulalia Angel NP Primary Care Provider [phone] Erin Yancey MD Primary Care Provider [phone] Eulalia Angel NP Unavailable [phone] Eulalia Angel NP Primary Care Provider [phone] Valentino Seals MD Primary Care Provider [phone] Reason for Referral * CONSULT AND TREATMENT (Routine) - Authorized Specialty Diagnoses / Procedures Referred By Katja t Referred To Contact Neurosurgery / Neurology Diagnoses Back pain, unspecified back location, unspecified back pain laterality, unspecified chronicity Procedures NeuroSurgeon: Dr Dar Abbott p [phone] f [phone] [facility] Eulalia Angel NP Phone: tel: fax: Dar Abbott DO [facility], Dept of Neurosurgery [address] [place] [address] Phone: tel: fax: Referral ID Status Reason Start Date Expiration Date Visits Requested Visits Authorized [id number] Authorized Specialty Services Required 03/31/2019 03/30/2020 3 3 Question Answer When do you want this visit to occur? WITHIN 1 WEEK - 04/01/19 6 visits Appointment with MD or AP? FIRST AVAILABLE Patient is being referred outside of [facility] for the following reason, however final determination for [id number] requests are made by the Referral Management [...] refer to? NeuroSurgeon: Dr Dar Abbott p [phone] f [phone] [facility] surgery consult Please list the patient's preferred provider for this consult. Dr Dar Abbott p [phone] f [phone] [facility] Encounter Details Date Type Department Care Team ([facility] st Contact Info) Description 03/24/2019 Orders Only [facility] [address] [place] [address] Eulalia Angel NP [address] [place] [address] Social History Tobacco Use Types Packs/Day Years [...] at . Any insurance accepted. Quit smoking resources-[email or web address] documented as of this encounter Visit Diagnoses Diagnosis Back pain, unspecified back location, unspecified back pain laterality, unspecified chronicity documented in this encounter Care Teams Shake Splitter Relationship Specialty Start Date End Date Eulalia Angel NP PCP - Backup PCP Internal Medicine 01/28/19 06/09/19 Eulalia Angel NP PCP - General 03/24/19 08/15/20 Erin Yancey MD PCP - General Internal Medicine 08/16/20 03/23/21 Eulalia Angel NP PCP - Backup PCP Internal Medicine 12/30/20 03/23/21 Eulalia Angel NP PCP - General Internal Medicine 03/24/21 10/05/22 Valentino Seals MD [address] [place] [address] PCP - General 10/06/22 documented as of this encounter
--- OUTSIDE RECORDS SUMMARY | 2025-08-12 21:50 | XMS_ITS | Encounter Summary ---
Author Organization [facility] Address [address] [place] [address] Care Team Providers Care Bullet Swaging Machine Adjuster Name Role Phone Eulalia Angel NP Unavailable [phone] Eulalia Angel NP Primary Care Provider Erin Yancey MD Primary Care Provider [phone] Eulalia Angel VIDEO CONTROL ENGINEER Unavailable [phone] Eulalia Angel NP Primary Care Provider [phone] Valentino Seals MD Primary Care Provider [phone] Encounter Details Date Type Department Care Team (Late st Contact Info) Description 04/29/2019 Orders Only [facility] [address] [place] [address] Eulalia Angel NP [address] [facility] [address] [place] [address] Social History Tobacco Use Types [...] at . Any insurance accepted. Quit smoking resources-[email or web address] documented as of this encounter Procedures * Due to [place] state law, this organization might not be sharing negative HIV tests. Procedure Name Priority Date/Time Associated Diagnosis Comments HCG, TOTAL, QL Routine 04/29/2019 3:25 PM EDT Amenorrhea documented in this encounter Results * Due to [place] [employer] law, this organization might not be sharing negative HIV tests. * HCG, TOTAL, QL (04/29/2019 3:25 PM EDT) HCG, Qualitative (Screen) NEGATIVE [facility] Comment: Reference Range Non-: Negative : Positive 04/29/2019 3:25 PM EDT 04/30/2019 12:32 AM EDT Narrative Resulting Agency Comment [id number] Eulalia Angel NP LAB SAME DAY RESULT Final Resul t [facility] [address] [place] [address] documented in this encounter Visit Diagnoses Diagnosis Amenorrhea Absence of menstruation documented in this encounter Care Teams Bullet Swaging Machine Adjuster Relationship Specialty Start Date End Date Eulalia Angel NP PCP - Backup PCP Internal Medicine 01/28/19 06/09/19 Eulalia Angel NP PCP - General 03/24/19 08/15/20 Erin Yancey MD PCP - General Internal Medicine 08/16/20 03/23/21 Eulalia Angel NP PCP - Backup PCP Internal Medicine 12/30/20 03/23/21 Eulalia Angel NP PCP - General Internal Medicine 03/24/21 10/05/22 Valentino Seals MD [address] [place] [address] PCP - General 10/06/22 documented as of this encounter
--- OUTSIDE RECORDS SUMMARY | 2025-08-12 21:50 | XMS_ITS | Encounter Summary ---
Author Organization [facility] Address [address] [place] [address] Care Team Providers Care Armature And Rotor Winder Name Role Phone Eulalia Angel NP Unavailable [phone] Eulalia Angel NP Primary Care Provider Erin Yancey MD Primary Care Provider Eulalia Angel FINANCIAL DATA ANALYST Unavailable [phone] Eulalia Angel NP Primary Care Provider [phone] Valentino Seals MD Primary Care Provider [phone] Encounter Details Date Type Department Care Team (Late st Contact Info) Description 05/28/2019 Orders Only [facility] [address] [place] [address] Eulalia Angel NP 123 [facility] [address] [place] [address] Social History Tobacco Use Types [...] at . Any insurance accepted. Quit smoking resources-[email or web address] documented as of this encounter Procedures * Due to [place] [employer] law, this organization might not be sharing negative HIV tests. Procedure Name Priority Date/Time Associated Diagnosis Comments THYROID PEROXIDASE AND THYROGLOBULIN ANTIBODIES Routine 05/28/2019 11:47 AM EDT Screening for endocrine, nutritional, metabolic and immunity disorder documented in this encounter Results * Due to [place] [employer] law, this organization might not be sharing negative HIV tests. * (ABNORMAL) THYROID PEROXIDASE AND THYROGLOBULIN ANTIBODIES (05/28/2019 11:47 AM EDT) Thyroglobulin Ab <1 < or = 1 IU/mL [facility] Thyroperoxidase Ab 12(H) <9 IU/mL Q [facility] 05/28/2019 11:4 7 AM EDT 05/29/2019 1:31 AM EDT Narrative Resulting Agency Comment [id number] us Brennan Cagle MD LABORATORY Final Result [facility] [address] [place] [address] documented in this encounter Visit Diagnoses Diagnosis Screening for endocrine, nutritional, metabolic and immunity disorder Screening for other and unspecified endocrine, nutritional, metabolic, and immunity disorders documented in this encounter Care Teams Armature And Rotor Winder Relationship Specialty Start Date End Date Eulalia Angel NP PCP - Backup PCP Internal Medicine 01/28/19 06/09/19 Eulalia Angel NP PCP - General 03/24/19 08/15/20 Erin Yancey MD PCP - General Internal Medicine 08/16/20 03/23/21 Eulalia Angel NP PCP - Backup PCP Internal Medicine 12/30/20 03/23/21 Eulalia Angel NP PCP - General Internal Medicine 03/24/21 10/05/22 Valentino Seals MD [address] [place] [address] PCP - General 10/06/22 documented as of this encounter
--- OUTSIDE RECORDS SUMMARY | 2025-08-12 21:50 | XMS_ITS | Encounter Summary ---
Author Organization [facility] Address [address] [address] Phone Care Team Providers Care Subway Guard Name Role Phone Eulalia Angel NP Unavailable [phone] Eulalia Angel NP Primary Care Provider [phone] Isa Payne DO Primary Car e Provider Encounter Details Date Type Department Care Team (Late st Contact Info) Description 05/09/2021 Ancillary [facility] [address] [place], [place] [address] Dar Abbott, [address] [place] [address] [email or web address] Social History Tobacco Use Types Packs/Day [...] 10:24 PM EDT Rozina Rosa RN * [place] Suicide Severity Rating Scale (Screener/Recent Self-Report) Question [...] Description 11/19/2025 11:30 AM EST Office Visit [facility] [address] [place] [address] Dar Abbott DO [address] [place] [address] [email or web address] documented as of this encounter Results * [place] Fluoroscopy (05/09/2021 6:17 PM EDT) Narrative [facility] - 05/09/2021 6:18 PM EDT Fluoroscopy was provided during this procedure. Dar Abbott DO IMG [place] MISC Final Result [facility] documented in this encounter Visit Diagnoses Diagnosis Pain Generalized pain Pain Generalized pain documented in this encounter Care Teams Subway Guard Relationship Specialty Start Date End Date Eulalia Angel NP PCP - General Family Medicine 10/29/18 04/24/22 Isa Payne DO [address] [place] [address] PCP - General Internal Medicine 04/25/22 Eulalia Angel NP Nurse Practitioner Family Medicine 10/29/18 documented as of this encounter Additional Source Comments The information contained in this document represents components of the legal health record. It is not the complete legal health record.[facility]
--- OUTSIDE RECORDS SUMMARY | 2025-08-12 21:50 | XMS_ITS | Clinical Summary ---
Author Organization [facility] Address [address] [address] Phone Care Team Providers Care Sql Bi Developer Name Role Phone Eulalia Angel SOFTWARE APPLICATIONS DESIGNER Unavailable [phone] Isa Payne DO Primary Car e [...] mouth 2 (two) times a day. Active oxyCODONE 5 MG immediate release tablet Take 1-3 tablets (5-15 mg total) by mouth every 4 (four) hours as needed for moderate pain. Partial fill ok 30 tablet Active senna (SENOKOT) 8.6 mg tablet Take [...] (specific location in comments). 60 tablet Active calcium carbonate 500 mg (200 mg elemental) chewable tablet Take 1 tablet by mouth as needed for heartburn. 2024 Discontinued acetaminophen (TYLENOL) 500 MG tablet Take 2 tablets (1,000 mg total) by mouth every 8 (eight) hours. Take for postoperative pain management. 0 2024 Discontinued polyethylene glycol (MIRALAX) 17 gram packet Take 17 g by mouth daily as needed. 2024 Discontinued traMADoL (ULTRAM) 50 mg tablet Take 1 tablet (50 mg total) by mouth every 6 (six) hours as needed for pain (specific location in comments). 30 tablet 2024 Discontinued oxyCODONE 5 MG immediate release tablet Take 1 tablet (5 mg total) by mouth every 4 (four) hours as needed for moderate pain. 28 tablet 2024 Discontinued diazePAM (VALIUM) 5 MG tablet Take 1 tablet (5 mg total) by mouth every 6 (six) hours as needed for anxiety. 15 tablet 2024 Discontinued traMADoL (ULTRAM) 50 mg tablet Take 1 tablet (50 mg total) by mouth every 6 (six) hours as needed for pain (specific location in comments). 60 tablet 2024 Discontinued oxyCODONE 5 MG immediate release tablet Take 1 tablet (5 mg total) by mouth every 4 (four) hours as needed for moderate pain. 28 tablet 2024 Discontinued diazePAM (VALIUM) 5 MG tablet Take 1 tablet (5 mg total) by mouth every 6 (six) hours as needed for anxiety. 15 tablet 2024 Discontinued oxyCODONE 5 MG immediate release tablet Take 1 tablet (5 mg total) by mouth every 4 (four) hours as needed for moderate pain. 28 tablet 2024 Discontinued diazePAM (VALIUM) 5 MG tablet Take 1 tablet (5 mg total) by mouth every 6 (six) hours as needed for anxiety. 15 tablet 2024 Discontinued diazePAM (VALIUM) 5 MG tablet Take 1 tablet (5 mg total) by mouth every 6 (six) hours as needed for anxiety. 15 tablet 2024 Discontinued methylPREDNISolon e (MEDROL DOSEPACK) 4 mg tablet follow package directions 21 tablet 024 2024 Discontinued Active Problems Problem Noted Date [...] Encounters Date Type Department Care Team Description 07/24/2025 1:00 PM EDT Office Visit [facility] [address] [facility] [place], [address] [place] [address] Richardson Davenport MD Primary osteoarthritis of right knee (Primary Dx); Primary osteoarthritis of left knee 07/12/2025 4:02 PM EDT - 07/12/2025 11:59 PM EDT Hospital Encounter [address] [address] Richardson Davenport MD Discharge Disposition: Home or Self Care 07/12/2025 4:02 PM EDT - 07/12/2025 11:59 PM EDT Hospital Encounter [address] [address] Richardson Davenport MD Discharge Disposition: Home or Self Care 07/09/2025 Ancillary Orders [facility],Outside Imaging [address] [place] [address] Sydni Troy MD 06/16/2025 10:15 AM EDT Office Visit [facility] [address] [facility] [place], [address] [place] [address] Richardson Davenport MD Chondromalacia of patella, unspecified laterality (Primary Dx); Tear of medial meniscus of left knee, current, unspecified tear type, subsequent encounter; Tear of medial meniscus of right knee, current, unspecified tear type, subsequent encounter 06/16/2025 Procedure Pass [address] [address] 06/16/[address] [address] 06/16/2025 Orders Only [facility] [address] [facility] [place], [address] [place] [address] Kirit Akbar MA Left knee pain (Primary Dx); Right knee pain 06/04/2025 3:30 PM EDT - 06/04/2025 11:59 PM EDT Hospital Encounter [facility], X-Ray - [address] [place] [address] Dar Abbott DO Discharge Disposition: Home or Self Care 05/19/2025 11:30 AM EDT Office Visit [facility] [address] [place] [address] Dar Abbott DO Herniated lumbar disc without myelopathy (Primary [...] EST Office Visit [facility] [address] [place] [address] Dar Abbott DO [address] [place] [address] [email or web address] Maintenance Due Date Last Done Comments DEPRESSION SCREENING 1996 HEPATITIS C SCREENING 2002 HIV ONE-TIME SCREENING (18-6 5 YEARS) 2002 PAP SMEAR 2005 SCREENING FOR DIABETES 05/10/2024 05/10/2021 MAMMOGRAM 2024 INFLUENZA VACCINE (#1) 2025 COVID-19 VACCINE (2 - 2024-2 6 season) 2025 10/21/2021 SMOKING STATUS SCREENING (Every 5 Years) 07/24/2030 07/24/2025 Adult Td,Tdap Booster 10/25/2034 10/25/2024 , 02/25/2019, [...] this topic Medical Devices Implanted Type Area Drum Tester Device Identifier Shelf Expiration Date Model / Serial / Lot Putty Bone 1.0ml Graft Summer Demineralized Matrix Jar - [id number] Implanted:Qty: 1 on 05/09/2021 by Dar Abbott DO at [facility] Spine Lumbar [employer] 04/11/2024 [id number] / [id number] / Description:The implant type , laterality (when applicable), size, and expiration date have been visually and verbally confirmed by the Surgeon, Circulating RN and Scrub Personnel. Putty Bone 1.0ml Graft [place] Demineralized Matrix Jar - [id number] Implanted:Qty: 1 on 05/09/2021 by Dar Abbott DO at [facility] Spine Lumbar [employer] 02/24/2024 [id number] / [id number] / Description:The implant type , laterality (when applicable), size, and expiration date have been visually and verbally confirmed by the Surgeon, Circulating RN and Scrub Personnel. Screw Bone 45x6.5mm Spine Cd Horizon Multiaxial [place] Chrome Osteogrip Dual Lead Thread - [id number] Implanted:Qty: 1 on 05/09/2021 by Dar Abbott, DO at [facility] Spine Lumbar [employer] [id number] / / Description:Load 2/ vw deb am 05/02/21 Screw Bone 50x6.5mm Spine Cd Horizon Multiaxial [place] Chrome Osteogrip Dual Lead Thread - [id number] Implanted:Qty: 5 on 05/09/2021 by Dar Abbott DO at [facility] Spine Lumbar [employer] [id number] / / Description:Load 2/ vw deb am 05/02/21 Screw Bone 45x7.5mm Spine Cd Horizon 5.5 Multiaxial [place] Chrome Osteogrip Dual Lead Thread - [id number] Implanted:Qty: 2 on 05/09/2021 by Dar Abbott DO at [facility] Spine Lumbar [employer] [id number] / / Description:Load 2 vw deb am 05/02/21 Set Screw 5.5x55mm Spine Cd Horizon Multiaxial [place] Osteogrip Dual Lead Thread - [id number] Implanted:Qty: 8 on 05/09/2021 by Dar Abbott DO at [facility] Spine Lumbar [employer] SPINE [id number] / / Description:Load 2 vw deb am 05/02/21 Thoracolumbar Spacer 7x22mm Verte Stack Peek - [id number] Implanted:Qty: 1 on 05/09/2021 by Dar Abbott, DO at [facility] Spine Lumbar [employer] 02/24/2027 [id number] / / [id number] Description:The implant type , laterality (when applicable), size, and expiration date have been visually and verbally confirmed by the Surgeon, Circulating RN and Scrub Personnel. Gume 5.5x80mm Spinal Cd Horizon Solera Titanium Curve - [id number] Implanted:Qty: 2 on 05/09/2021 by Dar Abbott DO at [facility] Spine Lumbar [employer] SP[employer] [id number] / / Description:LOAD 10/31 VW deb am [...] 3. Small joint effusion. Richardson Davenport MD [facility] MR EXTREMITY Final Result * MRI KNEE [...] clinician's provided indication for this examination in [facility]: * Meniscal tear, untreated, new symptoms; [...] a large leaking Ellison's cyst. Procedure Note Yanira, Laura Overton MD - 07/15/2025 MRI KNEE WITHOUT CONTRAST (RIGHT) Referring clinician's provided indication for this examination in [facility]: *Meniscal tear, untreated, new symptoms; ? [...] Final Result from Last 3 Months Insurance [employer] PLUS [place] [phone] [employer] PLUS PPO [employer] PLUS PPO [employer] G[employer] PLUS PPO [place] [employer] PLUS PPO [place] [employer] PLUS PPO [place] [employer] PLUS PPO [place] [employer] PLUS PPO Initiative Gaming [facility] PLUS PPO [facility] PLUS PPO Member Subscriber Plan / Payer ([facility] 03/24/2022-Present) Name:Catherine Be Relation to Subscriber:Self Name:[place] Catherine Tello Payer ID:[id number] (NA) Type:PPO Address: [address] [place] [address] [facility] PLUS PPO DENA VASQUEZ [phone] Care Teams Sql Bi Developer Relationship Specialty Start Date End Date Isa Payne DO [address] [place] [address] PCP - General Internal Medicine 04/25/22 Eulalia Angel NP Nurse Practitioner Family Medicine 10/29/18 Additional Source Comments The information contained in this document represents components of the legal health record. It is not the complete legal health record.[facility]
--- OUTSIDE RECORDS SUMMARY | 2025-08-12 21:50 | XMS_ITS | Encounter Summary ---
Author Organization [facility] Address [address] [place] [address] Care Team Providers Care Weaver Axminster Name Role Phone Eulalia Angel NP Primary Care Provider [phone] Erin Yancey MD Primary Care Provider [phone] Eulalia Angel NP Unavailable [phone] Eulalia Angel NP Primary Care Provider [phone] Valentino Seals MD Primary Care Provider [phone] Encounter Details Date Type Department Care Team (Late st Contact Info) Description 08/29/2019 Orders Only [facility] [address] [place] [address] Eulalia Angel NP [address] [facility] [address] [place] [address] Social History Tobacco Use Types [...] at . Any insurance accepted. Quit smoking resources-[email or web address] documented as of this encounter Procedures * Due to [place] [employer] law, this organization might not be sharing negative HIV tests. Procedure Name Priority Date/Time Associated Diagnosis Comments VENIPUNCTURE Routine 08/29/2019 3:34 PM EST Thyroiditis TSH, 3RD GENERATION Routine 08/29/2019 3 :34 PM EST Thyroiditis documented in this encounter Results * Due to [place] [employer] law, this organization might not be sharing negative HIV tests. * TSH, 3RD GENERATION (08/29/2019 3:34 PM EST) TSH 3.59 mIU/L [facility] Comment: Reference Range > or = 20 Years 0.40-4.50 Ranges First trimester 0.26-2.66 Second trimester 0.55-2.73 Third trimester 0.43-2.91 08/29/2019 3:34 PM EST 08/30/2019 12:24 AM EST Narrative Resulting Agency Comment [id number] Eulalia Freeman [facility] Final Result [facility] [address] [place] [address] * (ABNORMAL) THYROID PEROXIDASE AND THYROGLOBULIN ANTIBODIES (08/29/2019 3:34 PM EST) Thyroglobulin Ab <1 < or = 1 IU/mL [facility] Thyroperoxidase Ab 18(H) <9 IU/mL Q [facility] 08/29/2019 3:34 PM EST 08/30/2019 12:24 AM EST Narrative Resulting Agency Comment [id number] Eulalia Angel [facility] Final Result Performing Organization Address City/[facility]/ZIP Co de Phone Number [facility] [address] [place] [address] documented in this encounter Visit Diagnoses Diagnosis Thyroiditis documented in this encounter Care Teams Weaver Axminster Relationship Specialty Start Date End Date Eulalia Angel NP PCP - General 03/24/19 08/15/20 Erin Yancey MD PCP - General Internal Medicine 08/16/20 03/23/21 Eulalia Angel NP PCP - Backup PCP Internal Medicine 12/30/20 03/23/21 Eulalia Angel NP PCP - General Internal Medicine 03/24/21 10/05/22 Valentino Seals MD [address] [place] [address] PCP - General 10/06/22 documented as of this encounter
--- OUTSIDE RECORDS SUMMARY | 2025-08-12 21:50 | XMS_ITS | Encounter Summary ---
Author Organization [facility] Address [address] [place] [address] [address] Phone Care Team Providers Care Knot Picker Cloth Name Role Phone Eulalia Angel CANOE BUILDER Unavailable [phone] Isa Payne DO Primary Car e Provider Encounter Details Date Type Department Care Team (Late st Contact Info) Description 11/13/2023 Procedure Pass [facility], [address] [place] [address] Social History Tobacco Use Types Packs/Day Years [...] EST Office Visit [facility] [address] [place] [address] Dar Abbott, DO [address] [place] [address] [email or web address] documented as of this encounter Visit Diagnoses Not on filedocumented in this encounter Care Teams Knot Picker Cloth Relationship Specialty Start Date End Date Isa Payne DO [address] [place] [address] PCP - General Internal Medicine 04/25/22 Eulalia Angel NP Nurse Practitioner Family Medicine 10/29/18 documented as of this encounter Additional Source Comments The information contained in this document represents components of the legal health record. It is not the complete legal health record.[facility]
--- OUTSIDE RECORDS SUMMARY | 2025-08-12 21:50 | XMS_ITS | Encounter Summary ---
Author Organization [facility] Address [address] [address] Phone Care Team Providers Care Operations Recruiter Name Role Phone Eulalia Angel DOCUMENT RESTORER Unavailable [phone] Isa Payne DO Primary Car e Provider Encounter Details Date Type Department Care Team (Late st Contact Info) Description 06/16/2025 Procedure Pass [facility], [address] [address] Social History Tobacco Use Types Packs/Day Years [...] EST Office Visit [facility] [address] [place] [address] Dar Abbott, DO [address] [place] [address] [email or web address] documented as of this encounter Visit Diagnoses Not on filedocumented in this encounter Care Teams Operations Recruiter Relationship Specialty Start Date End Date Isa Payne DO [address] [place] [address] PCP - General Internal Medicine 04/25/22 Eulalia Angel NP Nurse Practitioner Family Medicine 10/29/18 documented as of this encounter Additional Source Comments The information contained in this document represents components of the legal health record. It is not the complete legal health record.[facility]
--- OUTSIDE RECORDS SUMMARY | 2025-08-12 21:50 | XMS_ITS | Encounter Summary ---
Author Organization [facility] Address [address] [address] Phone Care Team Providers Care Green Building Architect Name Role Phone Eulalia Angel BUSINESS SERVICES ASSISTANT Unavailable [phone] Isa Payne DO Primary Car e Provider Encounter Details Date Type Department Care Team (Late st Contact Info) Description 06/16/2025 Procedure Pass [facility], [address] [address] Social History Tobacco Use Types Packs/Day Years [...] EST Office Visit [facility] [address] [place] [address] Dar Abbott, DO [address] [place] [address] [email or web address] documented as of this encounter Visit Diagnoses Not on filedocumented in this encounter Care Teams Green Building Architect Relationship Specialty Start Date End Date Isa Payne DO [address] [place] [address] PCP - General Internal Medicine 04/25/22 Eulalia Agnel NP Nurse Practitioner Family Medicine 10/29/18 documented as of this encounter Additional Source Comments The information contained in this document represents components of the legal health record. It is not the complete legal health record.[facility]
--- OUTSIDE RECORDS SUMMARY | 2025-08-12 21:50 | XMS_ITS | Encounter Summary ---
Author Organization [facility] Address [address] [address] Phone Care Team Providers Care Weed Sprayer Name Role Phone Eulalia Angel NP Unavailable [phone] Eulalia Angel NP Primary Care Provider [phone] Isa Payne DO Primary Car e Provider Encounter Details Date Type Department Care Team (Late st Contact Info) Description 11/01/2018 Procedure Pass [facility] [address] [place] [address] Social History Tobacco Use Types Packs/Day Years [...] EST Office Visit [facility] [address] [place] [address] Dar Abbott DO [address] [place] [address] [email or web address] documented as of this encounter Visit Diagnoses Not on filedocumented in this encounter Care Teams Weed Sprayer Relationship Specialty Start Date End Date Eulalia Angel NP PCP - General Family Medicine 10/29/18 04/24/22 Isa Payne DO [address] [place] [address] PCP - General Internal Medicine 04/25/22 Eulalia Angel NP Nurse Practitioner Family Medicine 10/29/18 documented as of this encounter Additional Source Comments The information contained in this document represents components of the legal health record. It is not the complete legal health record.[facility]
--- OUTSIDE RECORDS SUMMARY | 2025-08-12 21:50 | XMS_ITS | Encounter Summary ---
Author Organization [facility] Address [address] [address] Phone Care Team Providers Care Risk Investigator Name Role Phone Eulalia Angel DOG TRAINER Unavailable [phone] Isa Payne DO Primary Car e Provider Encounter Details Date Type Department Care Team (Late st Contact Info) Description 11/13/2023 Procedure Pass [facility], [address] [place] [address] Social History Tobacco Use Types Packs/Day Years [...] EST Office Visit [facility] [address] [place] [address] Dar Abbott, DO [address] [place] [address] [email or web address] documented as of this encounter Visit Diagnoses Not on filedocumented in this encounter Care Teams Risk Investigator Relationship Specialty Start Date End Date Isa Payne DO [address] [place] [address] PCP - General Internal Medicine 04/25/22 Eulalia Angel NP Nurse Practitioner Family Medicine 10/29/18 documented as of this encounter Additional Source Comments The information contained in this document represents components of the legal health record. It is not the complete legal health record.[facility]
--- OUTSIDE RECORDS SUMMARY | 2025-08-12 21:50 | XMS_ITS | Encounter Summary ---
Author Organization [facility] Address [address] [place] [address] [place] [address] Phone Care Team Providers Care Lapidary Apprentice Name Role Phone Eulalia Angel PC ANALYST Unavailable [phone] Isa Payne DO Primary Car e Provider Encounter Details Date Type Department Care Team (Late st Contact Info) Description 08/14/2022 Procedure Pass [facility], [facility] - [address] [address] Social History Tobacco Use Types Packs/Day Years [...] AM EST Office Visit [facility] [address] [place] [address] Dar Abbott DO [address] [place] [address] [email or web address] documented as of this encounter Visit Diagnoses Not on filedocumented in this encounter Care Teams Lapidary Apprentice Relationship Specialty Start Date End Date Isa Payne DO [address] [place] [address] PCP - General Internal Medicine 04/25/22 Eulalia Angel NP Nurse Practitioner Family Medicine 10/29/18 documented as of this encounter Additional Source Comments The information contained in this document represents components of the legal health record. It is not the complete legal health record.[facility]
--- OUTSIDE RECORDS SUMMARY | 2025-08-12 21:51 | XMS_ITS | Encounter Summary ---
Author Organization [facility] Address [address] [place] [address] Care Team Providers Care Fish Boning Machine Feeder Name Role Phone Eulalia Angel NP Primary Care Provider [phone] Brennan Cagle MD Primary Care Provider Eulalia Angel PATIENT EXPERIENCE COORDINATOR Unavailable [phone] Eulalia Angel NP Primary Care Provider Erin Yancey MD Primary Care Provider Eulalia Angel PATIENT EXPERIENCE COORDINATOR Unavailable [phone] Eulalia Angel PATIENT EXPERIENCE COORDINATOR Primary Care Provider Valentino Seals MD Primary Care Provider [phone] Encounter Details Date Type Department Care Team (Late st Contact Info) Description 12/16/2018 Orders Only [facility] [address] [place] [phone] Eulalia Angel, PATIENT EXPERIENCE COORDINATOR 123 [facility] [address] [place] [address] Social History Tobacco Use Types [...] / using tobacco Lifestyle No Gabby Montesinos, SEISMIC PROSPECTING OBSERVER HELPER Note: Smoking can cause cancer, heart attacks, [...] at . Any insurance accepted. Quit smoking resources-[email or web address] documented as of this encounter Visit Diagnoses Not on filedocumented in this encounter Care Teams Fish Boning Machine Feeder Relationship Specialty Start Date End Date Eulalia Angel NP PCP - General Internal Medicine 05/14/18 01/27/19 Brennan Cagle MD [address] [place] [address] PCP - General Internal Medicine 01/28/19 03/23/19 Eulalia Angel NP [address] [place] [address] PCP - Backup PCP Internal Medicine 01/28/19 06/09/19 Eulalia Angel NP [address] [place] [address] PCP - General 03/24/19 08/15/20 Erin Yancey MD [address] [place] [address] PCP - General Internal Medicine 08/16/20 03/23/21 Eulalia Angel NP [address] [place] [address] PCP - Backup PCP Internal Medicine 12/30/20 03/23/21 Eulalia Angel NP [address] [place] [address] PCP - General Internal Medicine 03/24/21 10/05/22 Valentino Seals MD [address] [place] [address] PCP - General 10/06/22 documented as of this encounter
--- OUTSIDE RECORDS SUMMARY | 2025-08-12 21:51 | XMS_ITS | Data Portability ---
Author Organization [facility], svmg_admin Address [address] [place] [id number] Care Team Providers Care Md Pediatric Allergist Name Role Phone JENNA BELTRAN Primary Care Provider Assessment No assessment recorded. Plan of Treatment Reminders Order Date Submit Date Provider Last Modified By Organization Details Last Modified Time Details Appointments None recorded. Lab bacterial vaginosis + vaginitis panel, vaginal 2019 020 SALLY [facility], [address] [place] [address], [address], 0 15:06:28 HIV 1+2 AB + HIV 1 p24 Ag, qualitative immunoassay , serum 2019 020 [email or web address] [facility], [address] [place] [address], [id number], 0 16:04:39 HBsAg (hepatitis B surface Ag), EIA, serum 2019 020 [email or web address] [facility], [address] [place] [address], [address], 0 16:04:40 hepatitis C virus Ab, serum 2019 020 [email or web address] [facility], [address] [place] [address], [address], 0 16:04:40 RPR (rapid plasma reagin), serum 2019 020 [email or web address] [facility], [address] [place] [address], [id number], 0 16:04:40 Referral None recorded. Procedures None recorded. Surgeries None recorded. Imaging None recorded. Medication Orders None recorded. Patient TargetsNo targets recorded. Patient Instructions Encounter Date Encounter Id Patient Instructions Last Modified By Organization Details Last Modified Time 11/25/2019 [id number] Options of control were discussed with the [...] insertion. patient is willing to go to [place] if needed. Weight-loss was advised. We will repeat Pap smear and do an annual EMERGENCY DISPATCH OPERATOR exam and of January 2020. SD [...] Low - 0 score Not Available [facility] ([facility]) [address] [place], [address], 11/28/2019 15:06:28 11/25/1911/27/2019 bacte rial vagin osis + vagin itis panel , vagin al bvab 2 Low - 0 score Not Available [facility] ([facility]) [address] [place], [address], 11/28/2019 15:06:28 11/25/1911/27/2019 bacte rial vagin osis [...] is not neces tavon. Not Available [facility] ([facility]) [address] [place], [address], 11/28/2019 15:06:28 11/25/19 20 11/27/2019 bacte rial vagin osis + vagin itis panel , vagin al trich vag by ANAHI Negati ve negati ve Not Available [facility] ([facility]) [address] [place], [address], 11/28/2019 15:06:28 11/25/19 20 11/28/2019 bacte rial vagin osis + vagin itis panel , vagin al kaylin albicans, ANAHI Negati ve negati ve Not Available [facility] ([facility]) [address] [place], [address], 11/28/2019 15:06:28 11/25/19 20 11/28/2019 bacte rial vagin osis + vagin itis panel , vagin al kaylin glabrata, ANAHI Negati ve negati ve Not Available [facility] ([facility]) [address] [place], [address], 11/28/2019 15:06:28 11/25/19 20 11/28/2019 bacte rial vagin osis + vagin itis panel , vagin al chlamydia trachomatis, ANAHI Negati ve negati ve Not Available [facility] ([facility]) [address] [facility], [place], [address], 11/28/2019 15:06:28 11/25/19 20 11/28/2019 bacte rial vagin osis + vagin itis panel , vagin al neisseria gonorrhoeae, ANAHI Negati ve negati ve Not Available [facility] ([facility]) [address] [facility], [place], [address], 11/28/2019 15:06:28 Result Notes None recorded. Problems Name Problem SNOMED Code Status Onset Date Resolution Date Notes Provider Name and Address Organization Details Recorded Time Migraine 49309981 Active 020 Cyndy Solorio MD [address] [place] [address], [phone] , [facility] 0 15:41:53 Chronic back pain 815759444 Active 020 Cyndy Solorio MD [address] [place] [address], [phone] , [facility] 0 15:42:02 Problem Notes None recorded. Procedures Surgical History Date Name Laterality Status Provider Name and Address Organization Details Recorded Time LEEP completed Melany Desai [facility] 11/25/2019 15:05:51 Imaging Results None recorded. Procedure [...] Address Organization Details Last Updated DateTime 0 [address].7 7 g 83 /min 97 % 97 % 0 137/83 mm[Hg] [facility] 15:00:31 Social History Question Answer Notes LastModified by Scrip-t Details LastModified Time Tobacco Smoking Status Former Smoker quit 04/25/2019 Melany Desai [facility] 11/25/2019 15:04:53 How Much Tobacco [...] Days Has The Patient Traveled From [place], [place], [place], [place] Or [place]? No Information not [...] Functional Status Question Answer Note LastModified by Scrip-t Details LastModified Time Do you or have [...] Loss N Heart Attack (Myocardial Infarction) N Cancer N Heart Disease/Valve Disease N Heart Rhythm Problem (Palpitations) N STI's [...] ICD10 Code Diagnosis IMO Codes Diagnosis Note [id number] Cyndy Solorio MD [facility] [address] [address] 11/25/2019 14:48:36 11/25/2019 15:44:44 Contraception care management 488969926 Z30.9 Venereal d isease screening 373204383 Z11.3 History of abnormal cervical Papanicolaou smear 521405115 Z87.42 Health Concerns Section Related Observation LastModified by Organization Detai ls LastModified Time None Recorded Concern Status LastModified by Organization Details LastModified Time None Recorded Advance Directives Directive None Recorded Payers Insurance Date Sequence Insurance Name Policy Number Policy Malik Covered Member ID Malik Member ID Guarantor Name 02/20/2020 1 [facility] Catherine Be [id number] Catherine Be Notes Date Note Type Note [...] interested in STD screening Cyndy Solorio MD [address] [place] [address], [phone], [facility]. 11/25/2019 15:46:52 OBGyn Episode No OBEpisode recorded.
--- OUTSIDE RECORDS SUMMARY | 2025-08-12 21:51 | XMS_ITS | Encounter Summary ---
Author Organization [facility] Address [address] [place] [address] Care Team Providers Care Plant Technician Name Role Phone Brennan Cagle MD Primary Care Provider [phone] Eulalia Angel REELING OPERATOR Unavailable [phone] Eulalia Angel REELING OPERATOR Primary Care Provider Erin Yancey MD Primary Care Provider Eulalia Angel REELING OPERATOR Unavailable [phone] Eulalia Angel REELING OPERATOR Primary Care Provider Valentino Seals MD Primary Care Provider Encounter Details Date Type Department Care Team (Late st Contact Info) Description 02/25/2019 Orders Only [facility] [address] [place] [address] Eulalia Angel, REELING OPERATOR [address] [facility] [address] [place] [address] Social History Tobacco Use Types Packs/Day Years Used Date Smoking Tobacco: Every Day Cigarettes Smokeless Tobacco: Current Comments No Sex and Gender Information Value Date Recorded Sex Assigned at Not on file Legal Sex Female 2:47 PM EDT Gender Identity Not on file Sexual Orientation Not on file documented as of this encounter Functional Status * DINA-2 Severity Score Answer Date of Assessment Author 0 02/25/2019 3:39 PM EDT Tablet, [place] * PTSD Score Answer Date of Assessment Author 2 02/25/2019 3:39 PM EDT Tablet, [place] * Have you had nightmares about the event(s) or thought about the event(s) when you did not want to? Answer Date of Assessment Author 1 02/25/2019 3:39 PM EDT Tablet, [place] * Have you tried hard not to think about the event(s) or went out of your way to avoid situations that reminded you of the event(s)? Answer Date of Assessment Author 1 02/25/2019 3:39 PM EDT Tablet, [place] * Have you been constantly on guard, watchful, or easily startled? Answer Date of Assessment Author 0 02/25/2019 3:39 PM EDT Tablet, [place] * Have you felt numb or detached from people, activities, or your surroundings? Answer Date of Assessment Author 0 02/25/2019 3:39 PM EDT Tablet, [place] * Have you felt guilty or unable to stop blaming yourself or others for the event(s) or any problems the event(s) may have caused? Answer Date of Assessment Author 0 02/25/2019 3:39 PM EDT Tablet, [place] * Have you ever experienced this kind of event? Answer Date of Assessment Author 1 02/25/2019 3:39 PM EDT Tablet, [place] * How often do you have a drink containing alcohol? Answer Date of Assessment Author 2 02/25/2019 3:39 PM EDT Tablet, [place] * How many standard drinks containing alcohol do you have on a typical day when you drink alcohol? Answer Date of Assessment Author 0 02/25/2019 3:39 PM EDT Tablet, [place] * How often do you have six or more drinks on one occasion? Answer Date of Assessment Author 0 02/25/2019 3:39 PM EDT Tablet, [place] * AUDIT-C Score (Female or Male 65+) Answer Date of Assessment Author 2 02/25/2019 3:39 PM EDT Tablet, [place] * MYCHART AUDIT-C Q1 SCORE FEMALE OR MALE 65+ (Range 0-4) Answer Date of Assessment Author 2 02/25/2019 3:39 PM EDT Tablet, [place] * Drug Use Pre-Screening (SQSTDU) Score Answer Date of Assessment Author 0 02/25/2019 3:39 PM EDT Tablet, [place] * PTSD Pre-Screening Score Answer Date of Assessment Author 1 02/25/2019 3:39 PM EDT Tablet, [place] * How many times in the past year have you used an illegal/recreational drug (including cannabis/marijuana), or a prescription medication for non-medical reasons? Answer Date of Assessment Author 0 02/25/2019 3:39 PM EDT Tablet, [place] documented as of this encounter Progress Notes [...] foods such as cakes, cookies, chips, popcorn, Finnish fries, and ice cream. Hydrogenated fats (trans [...] are called omega- 3, omega-6, and omega-9. Burdette-3 fatty acids are found in fish and some plants. They are good for heart health. They may reduce the risk of stroke, high blood pressure, and other chronic disease. Good sources are oily fish such as salmon, mackerel and tuna. Burdette 3 fatty acids are also in fish oil supplements. Check with your healthcare provider before taking supplements. Fish oil supplements may cause bleeding in some people, especially if they are taken with blood-thinning medicines. Good plant sources for omega-3 fatty acids are canola oil, soybeans, flaxseed, avocado, and some types of nuts, especially walnuts and almonds. Burdette-6 fatty acid is found in corn, safflower, soybean, and sunflower oils. Burdette-9 fatty acid is found in olive oil, canola oil, and avocados. It is likely that the balance of fatty acids is very important. The [place] diet typically contains too much omega-6 fatty acid and not enough omega-3 fatty acid. How much fat do I need in my diet? Eating some fat???especially the good fats--is healthful, but many Americans eat too much and become overweight. The current [place] Heart Association Diet and Lifestyle Recommendations are: [...] at . Any insurance accepted. Quit smoking resources-http://[email or web address] [email or web address] documented as of this encounter Procedures * Due to [place] state law, this organization might not be [...] this encounter Results * Due to [place] state law, this organization might not be sharing negative HIV tests. * (ABNORMAL) THYROID PEROXIDASE AND THYROGLOBULIN ANTIBODIES (05/28/2019 11:47 AM EDT) Thyroglobulin Ab <1 < or = 1 IU/mL [facility] Thyroperoxidase Ab 12(H) <9 IU/mL Q [facility] 05/28/2019 11:4 7 AM EDT 05/29/2019 1:31 AM EDT Narrative Resulting Agency Comment [id number] us Brennan Cagle MD LABORATORY Final Result Performing Organization Address City/State/[facility] Co de Phone Number [facility] [address] [place] [address] * (ABNORMAL) THYROID PEROXIDASE AND THYROGLOBULIN ANTIBODIES (02/25/2019 4:41 PM EDT) Thyroglobulin Ab <1 < or = 1 IU/mL [facility] Thyroperoxidase Ab 18(H) <9 IU/mL Q [facility] 02/25/2019 4:41 PM EDT 02/26/2019 1:51 AM EDT Narrative Resulting Agency Comment [id number] us Brennan Cagle MD LABORATORY Final Result Performing Organization Address City/[facility]/ZIP Co de Phone Number [facility] [address] [place] [address] * T4, FREE, SERUM (02/25/2019 4:41 PM EDT) Pathologist [facility] FT4 0.9 0.8 - 1.8 ng/dL [facility] 02/25/2019 4:41 PM EDT 02/26/2019 1:51 AM EDT Narrative Resulting Agency Comment [id number] Brennan Cagle MD LABORATORY Final Result Performing Organization Address [facility] Co de Phone Number [facility] [address] [place] [address] * TSH, 3RD GENERATION (02/25/2019 4:41 PM EDT) Pathologist [facility] TSH 2.42 mIU/L [facility] Comment: Reference Range > or = 20 Years 0.40-4.50 Ranges First trimester 0.26-2.66 Second trimester 0.55-2.73 Third trimester 0.43-2.91 02/25/2019 4:41 PM EDT 02/26/2019 1:51 AM EDT Narrative Resulting Agency Comment [id number] Brennan Cagle MD LABORATORY Final Result Performing Organization Address [facility] Co de Phone Number [facility] [address] [place] [address] * BASIC METABOLIC PANEL WITH (GFR) (02/25/2019 4:41 PM EDT) [facility] Glucose 81 65 - 99 mg/dL [facility] [...] needs for GFR calculation. Resulting Agency Comment [id number] Brennan Cagle MD LABORATORY Final Result Performing Organization Address [facility] de Phone Number [facility] [address] [place] [address] * HEMOGLOBIN A1C (02/25/2019 4:41 PM EDT) [...] diagnosis of diabetes in children. According to [place] Diabetes Association (ADA) guidelines, hemoglobin A1c <7.0% represents optimal control in non- diabetic patients. Different metrics may apply to specific patient populations. Standards of Medical Care in Diabetes(ADA). Estimated Average Glucose 115 mg/dL (calc) [facility] 02/25/2019 4:41 PM EDT 02/26/2019 1:51 AM EDT Narrative Resulting Agency Comment [id number] Brennan Cagle MD LABORATORY Final Result Performing Organization Address [facility] de Phone Number [facility] [address] [place] [address] * (ABNORMAL) LIPID PANEL WITH REFLEX TO [...] factors. LDL-C is now calculated using the Ramírez-Diehl calculation, which is a validated novel method providing better accuracy than the Friedewald equation in the estimation of LDL-C. Ramírez SS et al. WHITLEY. 2013;310(19): 1359-7549 (http://education.SentreHEART/faq/YFE746) CHOL/HDL Ratio 3.8 <5.0 (calc) [facility] Cholesterol Non-HDL 143(H) <130 mg/dL (calc) [facility] Comment: For patients with diabetes plus 1 major ASCVD risk factor, treating to a non-HDL-C goal of <100 mg/dL (LDL-C of <70 mg/dL) is considered a therapeutic option. 02/25/2019 4:41 PM EDT 02/26/2019 1:51 AM EDT Narrative Resulting Agency Comment [id number] us Brennan Cagle MD LABORATORY Final Result [facility] [address] [place] [address] documented in this encounter Visit Diagnoses Diagnosis Screening for endocrine, nutritional, metabolic and immunity disorder Screening for other and unspecified endocrine, nutritional, metabolic, and immunity disorders documented in this encounter Care Teams Plant Technician Relationship Specialty Start Date End Date Brennan Cagle MD [address] [place] [address] PCP - General Internal Medicine 01/28/19 03/23/19 Eulalia Angel NP [address] [place] [address] PCP - Backup PCP Internal Medicine 01/28/19 06/09/19 Eulalia Angel NP [address] [place] [address] PCP - General 03/24/19 08/15/20 Erin Yancey MD [address] [place] [address] PCP - General Internal Medicine 08/16/20 03/23/21 Eulalia Angel NP [address] [place] [address] PCP - Backup PCP Internal Medicine 12/30/20 03/23/21 Eulalia Angel NP [address] [place] [address] PCP - General Internal Medicine 03/24/21 10/05/22 Vaelntino Seals MD [address] [facility] [place] [address] PCP - General 10/06/22 documented as of this encounter
--- OUTSIDE RECORDS SUMMARY | 2025-08-12 21:51 | XMS_ITS | Encounter Summary ---
Author Organization [facility] Address [address] [address] Phone Care Team Providers Care Farm Instructor Name Role Phone Eulalia Angel FILTER PRESS OPERATOR Unavailable [phone] Isa Payne DO Primary Car e Provider Encounter Details Date Type Department Care Team (Late st Contact Info) Description 08/30/2023 Procedure Pass [facility], [address] [place] [address] Social History Tobacco Use Types Packs/Day Years [...] EST Office Visit [facility] [address] [place] [address] Dar Abbott, DO [address] [place] [address] [email or web address] documented as of this encounter Visit Diagnoses Not on filedocumented in this encounter Care Teams Farm Instructor Relationship Specialty Start Date End Date Isa Payne DO [address] [place] [address] PCP - General Internal Medicine 04/25/22 Eulalia Angel NP Nurse Practitioner Family Medicine 10/29/18 documented as of this encounter Additional Source Comments The information contained in this document represents components of the legal health record. It is not the complete legal health record.[facility]
--- OUTSIDE RECORDS SUMMARY | 2025-08-12 21:51 | XMS_ITS | Encounter Summary ---
Author Organization [facility] Address [address] [place] [address] Care Team Providers Care Employee Benefits Director Name Role Phone Eulalia Angel NP Primary Care Provider [phone] Valentino Seals MD Primary Care Provider [phone] Encounter Details Date Type Department Care Team ([facility] st Contact Info) Description 03/30/2021 Orders Only [facility] [address] [place] [address] Eulalia Angel NP [address] [facility] [address] [place], [place] [id number] Social History Tobacco Use Types Packs/Day Years [...] at . Any insurance accepted. Quit smoking resources-[email or web address].org documented as of this encounter Visit Diagnoses Diagnosis Degenerative disc disease, lumbar Degeneration of lumbar or lumbosacral intervertebral disc documented in this encounter Care Teams Employee Benefits Director Relationship Specialty Start Date End Date Eulalia Angel NP PCP - General Internal Medicine 03/24/21 10/05/22 Valentino Seals MD [address] [place] [address] PCP - General 10/06/22 documented as of this encounter
--- OUTSIDE RECORDS SUMMARY | 2025-08-12 21:51 | XMS_ITS | Encounter Summary ---
Author Organization [facility] Address [address] [place] [address] Care Team Providers Care Market Research Lead Name Role Phone Eulalia Angel NP Primary Care Provider [phone] Valentino Seals MD Primary Care Provider [phone] Reason for Referral * CONSULT AND TREATMENT (Routine) - Authorized Specialty Diagnoses / Procedures Referred By Katja mao Referred To Contact Ent-Otolaryngology Diagnoses Allergy, subsequent encounter Procedures ENT -- Dr. Gerald Ivy, NPI# [id number] Fx: [phone] Eulalia Angel NP Phone: tel: fax: Referral ID Status Reason Start Date Expiration Date Visits Requested Visits Authorized [id number] Authorized Est Relationship 03/24/2021 03/24/2022 52 52 Question Answer When do you want this visit to occur? WITHIN 3 DAYS - 03/27/21 Appointment with or AP? FIRST AVAILABLE Patient is being referred outside of [facility] for the following reason, however final determination for [id number] requests are made by the Referral Management Department Continuity of active patient care Track Order? No Which provider/facility/agency would you like to refer to? (specify if you want first available regardless of location) GERALD IVY M.D. [phone] Please provide pertinent patient history. patient calling to request referrals to this provider due to insurance change * CONSULT AND TREATMENT (Routine) - Authorized Specialty Diagnoses / Procedures Referred By Contac t Referred To Contact Neurosurgery / Neurology Diagnoses Back pain, unspecified back location, unspecified back pain laterality, unspecified chronicity Procedures Neurosurg -- Dr. Kaya Abbott, NPI# [id number] Eulalia Angel NP Phone: tel: fax: Kaya Abbott DO [facility], Dept of Neurosurgery [address] [place] [address] Phone: tel: fax: Referral ID Status Reason Start Date Expiration Date Visits Requested Visits Authorized [id number] Authorized Est Relationship 03/24/2021 03/24/2022 6 6 Question Answer Please provide pertinent patient history. patient calling to request new referral as insurance has change Track Order? No When do you want this visit to occur? WITHIN 3 DAYS - 03/29/21 Patient is being referred outside of [facility] for the following reason, however final determination for [id number] requests are made by the Referral Management Department Continuity of active patient care Which provider/facility/agency would you like to refer to? (specify if you want first available regardless of location) Dr. kaya Abbott [phone] [facility] Encounter Details Date Type Department Care Team ([facility] st Contact Info) Description 03/24/2021 Orders Only [facility] [address] [place] [address] Eulalia Angel NP [address] [facility] [address] [place] [address] Social History Tobacco Use [...] at . Any insurance accepted. Quit smoking resources-[email or web address] documented as of this encounter Visit Diagnoses Diagnosis Back pain, unspecified back location, unspecified back pain laterality, unspecified chronicity Allergy, subsequent encounter documented in this encounter Care Teams Market Research Lead Relationship Specialty Start Date End Date Eulalia Angel NP PCP - General Internal Medicine 03/24/21 10/05/22 Valentino Seals MD [address] [place] [address] PCP - General 10/06/22 documented as of this encounter
--- OUTSIDE RECORDS SUMMARY | 2025-08-12 21:51 | XMS_ITS | Encounter Summary ---
Author Organization [facility] Address [address] [place] [address] Care Team Providers Care Conche Operator Name Role Phone Eulalia Angel NP Primary Care Provider [phone] Brennan Cagle MD Primary Care Provider [phone] Eulalia Angel MANUFACTURING INDUSTRIAL ENGINEER Unavailable [phone] Eulalia Angel NP Primary Care Provider Erin Yancey MD Primary Care Provider [phone] Eulalia Angel MANUFACTURING INDUSTRIAL ENGINEER Unavailable [phone] Eulalia Angel NP Primary Care Provider Valentino Seals MD Primary Care Provider Encounter Details Date Type Department Care Team (Late st Contact Info) Description 07/31/2018 Orders Only [facility] [address] [place] [address] Eulalia Angel MANUFACTURING INDUSTRIAL ENGINEER 123 [facility] [address] [place] [address] Social History Tobacco Use Types [...] at . Any insurance accepted. Quit smoking resources-[email or web address] documented as of this encounter Procedures * Due to [place] [employer] law, this organization might not be sharing negative HIV tests. Procedure Name Priority Date/Time Associated Diagnosis Comments CBC INCLUDES DIFFERENTIAL AND PLATELET COUNT Routine 07/31/2018 2:26 PM EST Fatigue, unspecified type BASIC METABOLIC PANEL WITH (GFR) Routine 07/31/2018 2:26 PM EST Fatigue, unspecified type documented in this encounter Results * Due to [place] [employer] law, this organization might not be sharing [...] needs for GFR calculation. Resulting Agency Comment [id number] us Brennan Cagle MD LABORATORY Final Result Performing Organization Address City/State/[facility] Co de Phone Number [facility] [address] [place] [address] * CBC INCLUDES DIFFERENTIAL AND PLATELET COUNT [...] 12:30 AM EST Narrative Resulting Agency Comment [id number] us Brennan Cagle MD LAB SAME DAY RESULT Final Res ult [facility] [address] [place] [address] documented in this encounter Visit Diagnoses Diagnosis Fatigue, unspecified type documented in this encounter Care Teams Conche Operator Relationship Specialty Start Date End Date Eulalia Angel NP PCP - General Internal Medicine 05/14/18 01/27/19 Brennan Cagle MD [address] [facility] [place] [id number] PCP - General Internal Medicine 01/28/19 03/23/19 Eulalia Angel NP [address] [place] [address] PCP - Backup PCP Internal Medicine 01/28/19 06/09/19 Eulalia Angel NP [address] [place] [address] PCP - General 03/24/19 08/15/20 Erin Yancey MD [address] [place] [id number] PCP - General Internal Medicine 08/16/20 03/23/21 Eulalia Angel NP [address] [place] [id number] PCP - Backup PCP Internal Medicine 12/30/20 03/23/21 Eulalia Angel NP [address] [place] [address] PCP - General Internal Medicine 03/24/21 10/05/22 Valentino Seals MD [address] [place] [address] PCP - General 10/06/22 documented as of this encounter
--- OUTSIDE RECORDS SUMMARY | 2025-08-12 21:51 | XMS_ITS | Patient Health Record ---
Author Organization Edilberto Ocampo MD Address [address] [place] [address] Care Team Providers Care Ships Or Barges Loader Name Role Phone Edilberto Ocampo Unavailable [phone] Reason For Referral No Information Plan Of [...] Insured Coverage Start Date Coverage End Date [facility] [address] [facility] [address] [phone] [id number] Catherine Be Self - patient is the insured Medical (General) History Surgical History Surgery Date(Month/Year) None
--- OUTSIDE RECORDS SUMMARY | 2025-08-12 21:51 | XMS_ITS | Encounter Summary ---
Author Organization [facility] Address [address] [place] [address] Care Team Providers Care Garment Liner Name Role Phone Eulalia Angel NP Primary Care Provider [phone] Valentino Seals MD Primary Care Provider [phone] Reason for Referral * CONSULT AND TREATMENT (Routine) - Authorized Specialty Diagnoses / Procedures Referred By Contac t Referred To Contact Neurology Diagnoses Chronic nonintractable headache, unspecified headache type Procedures Aguilar Mitchell MD [phone] FAX [phone] Eulalia Angel NP Phone: tel: fax: Referral ID Status Reason Start Date Expiration Date Visits Requested Visits Authorized [id number] Authorized Specialty Services Required 03/24/2021 03/24/2022 6 6 Question Answer When do you want this visit to occur? 1 MONTH - 8/2 Appointment with or AP? FIRST AVAILABLE Patient is being referred outside of [facility] for the following reason, however final determination for [id number] requests are made by the Referral Management Department Patient Preference Track Order? No Which provider/facility/agency would you like to refer to? (specify if you want first available regardless of location) Aguilar Mitchell [phone] FAX [phone] Please provide pertinent patient history. patient calling to request referral due to insurance change Encounter Details Date Type Department Care Team (Late st Contact Info) Description 03/24/2021 Orders Only [facility] [address] [place] [address] Eulalia Angel NP 123 [facility] [address] [place] [address] Social History Tobacco Use Types Packs/Day Years [...] at . Any insurance accepted. Quit smoking resources-[email or web address] documented as of this encounter Visit Diagnoses Diagnosis Chronic nonintractable headache, unspecified headache type documented in this encounter Care Teams Garment Liner Relationship Specialty Start Date End Date Eulalia Angel NP PCP - General Internal Medicine 03/24/21 10/05/22 Valentino Seals MD [address] [place] [address] PCP - General 10/06/22 documented as of this encounter
--- OUTSIDE RECORDS SUMMARY | 2025-08-12 21:51 | XMS_ITS | Clinical Summary ---
Author Organization [facility] Address [address] [place] [address] Care Team Providers Care Superintendent Plant Protection Name Role Phone Valentino Seals MD Primary Care Provider [phone] Allergies No known active allergies Medications Drospirenone-Et [...] at . Any insurance accepted. Quit smoking resources-[email or web address] Procedures * Due to [place] [employer] law, this organization might not be sharing [...] to Health Maintenance Results * Due to [place] [employer] law, this organization might not be sharing [...] DE LA CRUZ et al. WHITLEY. 2013;310(19): 2021-0216 (http://education.422 Group.Bio/faq/XBQ710) CHOL/HDL Ratio 2.7 <5.0 (calc) [facility] Cholesterol Non-HDL 104 <130 mg/dL (calc) [facility] Comment: For patients with diabetes plus 1 major ASCVD risk factor, treating to a non-HDL-C goal of <100 mg/dL (LDL-C of <70 mg/dL) is considered a therapeutic option. 03/15/2020 2:50 PM EDT 03/16/2020 12:44 AM EDT Narrative Resulting Agency Comment [id number] us Eulalia Angel LABORATORY Final Result [facility] [address] [place] [address] * PAP SMEAR (02/06/2019) us Unknown Provider [...] Recently Relevant to Health Maintenance Care Teams Superintendent Plant Protection Relationship Specialty Start Date End Date Valentino Seals MD [address] [place] [address] [facility] - General 10/06/22
--- OUTSIDE RECORDS SUMMARY | 2025-08-12 21:51 | XMS_ITS | Encounter Summary ---
Author Organization [facility] Address [address] [place] [address] Phone Care Team Providers Care Hiv Cts Specialist Name Role Phone Eulalia Angel NP Unavailable [phone] Eulalia Angel NP Primary Care Provider [phone] Isa Payne DO Primary Car e Provider Encounter Details Date Type Department Care Team (Late st Contact Info) Description 06/16/2019 Procedure Pass [facility] [address] [place] [address] Social History Tobacco Use Types [...] AM EST Office Visit Samantha Lin [address] [place] [address] Dar Abbott DO [address] [place] [address] [email or web address] documented as of this encounter Visit Diagnoses Not on filedocumented in this encounter Care Teams Hiv Cts Specialist Relationship Specialty Start Date End Date Eulalia Angel NP PCP - General Family Medicine 10/29/18 04/24/22 Isa Payne DO [address] [place] [address] PCP - General Internal Medicine 04/25/22 Eulalia Angel NP Nurse Practitioner Family Medicine 10/29/18 documented as of this encounter Additional Source Comments The information contained in this document represents components of the legal health record. It is not the complete legal health record.[facility]
--- OUTSIDE RECORDS SUMMARY | 2025-08-12 21:51 | XMS_ITS | Encounter Summary ---
Author Organization [facility] Address [address] [place] [address] Care Team Providers Care Crew Person Name Role Phone Eulalia Angel NP Primary Care Provider [phone] Valentino Seals MD Primary Care Provider [phone] Encounter Details Date Type Department Care Team (Late st Contact Info) Description 03/31/2021 Orders Only [facility] [address] [place] [address] Eulalia Angel NP 123 [facility] [address] [place], [place] [id number] Social History Tobacco Use Types Packs/Day Years [...] at . Any insurance accepted. Quit smoking resources-[email or web address] documented as of this encounter Visit Diagnoses Diagnosis Sciatica, unspecified laterality documented in this encounter Care Teams Crew Person Relationship Specialty Start Date End Date Eulalia Angel NP PCP - General Internal Medicine 03/24/21 10/05/22 Valentino Seals MD [address] [place] [address] PCP - General 10/06/22 documented as of this encounter
--- OUTSIDE RECORDS SUMMARY | 2025-08-12 21:51 | XMS_ITS | Encounter Summary ---
Author Organization [facility] Address [address] [place] [address] Phone Care Team Providers Care Brake Rider Name Role Phone Eulalia Angel NP Unavailable [phone] Eulalia Angel NP Primary Care Provider [phone] Isa Payne DO Primary Car e Provider Encounter Details Date Type Department Care Team (Late st Contact Info) Description 06/03/2019 Procedure Pass [facility] [address] [place] [address] Social History Tobacco Use Types Packs/Day Years [...] EST Office Visit [facility] [address] [place] [address] Dar Abbott DO [address] [place] [address] [email or web address] documented as of this encounter Visit Diagnoses Not on filedocumented in this encounter Care Teams Brake Rider Relationship Specialty Start Date End Date Eulalia Angel NP PCP - General Family Medicine 10/29/18 04/24/22 Isa Payne DO [address] [place] [address] PCP - General Internal Medicine 04/25/22 Eulalia Angel NP Nurse Practitioner Family Medicine 10/29/18 documented as of this encounter Additional Source Comments The information contained in this document represents components of the legal health record. It is not the complete legal health record.[facility]
--- OUTSIDE RECORDS SUMMARY | 2025-08-12 21:52 | XMS_ITS | Encounter Summary ---
Author Organization [facility] Address [address] [place] [address] Care Team Providers Care Apparel Stock Checker Name Role Phone Eulalia Angel NP Primary Care Provider [phone] Erin Yancey MD Primary Care Provider [phone] Eulalia Angel NP Unavailable Eulalia Angel NP Primary Care Provider [phone] Valentino Seals MD Primary Care Provider [phone] Encounter Details Date Type Department Care Team ([facility] st Contact Info) Description 03/15/2020 Orders Only [facility] [address] [place] [address] Eulalia Angel NP 123 [facility] [address] [place] [address] Social History Tobacco Use Types [...] at . Any insurance accepted. Quit smoking resources-[email or web address] documented as of this encounter Procedures * Due to [place] [employer] law, this organization might not be sharing negative HIV tests. Procedure Name Priority Date/Time Associated Diagnosis Comments VENIPUNCTURE Routine 03/15/2020 2:50 PM EDT Tish's thyroiditis LIPID PANEL WITH REFLEX TO DIRECT LDL Routine 03/15/2020 2:50 PM EDT Screening for hyperlipidemia BASIC METABOLIC PANEL WITH (GFR) Routine 03/15/2020 2:50 PM EDT Screening for diabetes mellitus documented in this encounter Results * Due to [place] [employer] law, this organization might not be sharing [...] equation in the estimation of LDL-C. Ramírez DEL A CRUZ et al. WHITLEY. 2013;310(33): 7832-4585 (http://education.Sebacia/faq/LPO789) CHOL/HDL Ratio 2.7 <5.0 (calc) [facility] Cholesterol Non-HDL 104 <130 mg/dL (calc) [facility] Comment: For patients with diabetes plus 1 major ASCVD risk factor, treating to a non-HDL-C goal of <100 mg/dL (LDL-C of <70 mg/dL) is considered a therapeutic option. 03/15/2020 2:50 PM EDT 03/16/2020 12:44 AM EDT Narrative Resulting Agency Comment [id number] Eulalia Angel NP LABORATORY Final Result [facility] [address] [place] [address] * BASIC METABOLIC PANEL WITH (GFR) (03/15/2020 [...] needs for GFR calculation. Resulting Agency Comment [id number] Eulalia Angel NP LABORATORY Final Result Performing Organization Address City/[facility]/ZIP Co de Phone Number [facility] [address] [place] [address] * TSH, 3RD GENERATION (03/15/2020 2:50 PM EDT) TSH 2.87 mIU/L [facility] Comment: Reference Range > or = 20 Years 0.40-4.50 Ranges First trimester 0.26-2.66 Second trimester 0.55-2.73 Third trimester 0.43-2.91 03/15/2020 2:50 PM EDT 03/16/2020 12:44 AM EDT Narrative Resulting Agency Comment [id number] Eulalia Angel NP LABORATORY Final Result Performing Organization Address City/[facility]/ZIP Co de Phone Number [facility] [address] [place] [address] documented in this encounter Visit Diagnoses Diagnosis Tish's thyroiditis Chronic lymphocytic thyroiditis Screening for diabetes mellitus Screening for hyperlipidemia Screening for lipoid disorders documented in this encounter Care Teams Apparel Stock Checker Relationship Specialty Start Date End Date Eulalia Angel NP PCP - General 03/24/19 08/15/20 Erin Yancey MD PCP - General Internal Medicine 08/16/20 03/23/21 Eulalia Angel NP PCP - Backup PCP Internal Medicine 12/30/20 03/23/21 Eulalia Angel NP PCP - General Internal Medicine 03/24/21 10/05/22 Valentino Seals MD [address] [place] [address] PCP - General 10/06/22 documented as of this encounter
--- OUTSIDE RECORDS SUMMARY | 2025-08-12 21:52 | XMS_ITS | Encounter Summary ---
Author Organization [facility] Address [address] [place] [address] Care Team Providers Care Topper Press Operator Automatic Name Role Phone Eulalia Angel NP Primary Care Provider [phone] Erin Yancey MD Primary Care Provider [phone] Eulalia Angel NP Unavailable [phone] Eulalia Angel NP Primary Care Provider [phone] Valentino Seals MD Primary Care Provider [phone] Reason for Visit * Reason Onset Date Comments Refill Request 12/16/2019 Encounter Details Date Type Department Care Team (Late st Contact Info) Description 12/16/2019 Refill [facility] [address] [place] [address] Eulalia Angel NP 123 [facility] [address] [place], [place] [id number] Refill Request Social History Tobacco Use Types [...] / using tobacco Lifestyle No [place], [place], SEO CONSULTANT Note: Smoking can cause cancer, heart [...] at . Any insurance accepted. Quit smoking resources-[email or web address] documented as of this encounter Visit Diagnoses Not on filedocumented in this encounter Care Teams Topper Press Operator Automatic Relationship Specialty Start Date End Date Eulalia Angel NP PCP - General 03/24/19 08/15/20 Erin Yancey MD PCP - General Internal Medicine 08/16/20 03/23/21 Eulalia Angel NP PCP - Backup PCP Internal Medicine 12/30/20 03/23/21 Eulalia Angel NP PCP - General Internal Medicine 03/24/21 10/05/22 Valentino Seals MD [address] [place] [address] PCP - General 10/06/22 documented as of this encounter
--- OUTSIDE RECORDS SUMMARY | 2025-08-12 21:52 | XMS_ITS | Encounter Summary ---
Author Organization [facility] Address [address] [place] [address] Care Team Providers Care Automotive Parts Counter Assistant Name Role Phone Eulalia Angel NP Primary Care Provider [phone] Valentino Seals MD Primary Care Provider [phone] Encounter Details Date Type Department Care Team (Late st Contact Info) Description 03/24/2021 Orders Only [facility] [address] [place] [id number] Erin Yancey MD [address] [place] [address] Social History Tobacco Use Types Packs/Day Years [...] at . Any insurance accepted. Quit smoking resources-[email or web address] documented as of this encounter Visit Diagnoses Not on filedocumented in this encounter Care Teams Automotive Parts Counter Assistant Relationship Specialty Start Date End Date Eulalia Angel NP PCP - General Internal Medicine 03/24/21 10/05/22 Valentino Seals MD [address] [place] [address] PCP - General 10/06/22 documented as of this encounter
== END 2025-08-12 11:03 | disposition home or self-care (01) ==
LOC: HO.HMGAL 11:03
PROVIDERS: PCP Internal Medicine; Visit Provider Registered Nurse Emergency
DX: J30.89 Other allergic rhinitis (principal)
CPT/HCPCS: 95117; 95165